=== PATIENT | male | born 1935 | race Caucasian/White ===

== ENCOUNTER 2017-06-20 19:01 | Inpatient (IN) | payer MEDICARE, OTHER ==
[~2017-06-20] VITALS: Ht 180.3 cm; Wt 65.8 kg
[2017-06-20 21:27] VITALS: BP 143/68
[2017-06-20] MEDS ORDERED: METOPROLOL SUCC25 MG ORAL (21:49)
[2017-06-20] MEDS ORDERED: NAMENDA5 MG ORAL (21:49)
[2017-06-20] MEDS ORDERED: WARFARIN SODIUM1 MG ORAL (21:49)
[2017-06-20] MEDS ORDERED: AMLODIPINE BESYL5 MG ORAL (21:49)
[2017-06-20] MEDS ORDERED: TAMSULOSIN HCL0.4 MG ORAL (21:49)
[2017-06-20] MEDS ORDERED: PANTOPRAZOLE SO40 MG ORAL (21:49)
[2017-06-20] MEDS ORDERED: PROSCAR5 MG ORAL (21:49)
--- NOTE | 2017-06-20 21:51 | Infectious Diseases Prog Note ---
Assessment/Plan Problems: (1) Sepsis Assessment & Plan: will send blood culture and start vancomycin and zosyn empirically (2) Urinary tract infection Assessment & Plan: will send urine culture and start zosyn Subjective Allergies: Coded Allergies: No Known Allergies (Unverified , 06/20/17) Objective Vital Signs Last 24 Hour Vital Signs Date Time Temp Pulse Resp B/P (MAP) Pulse Ox O2 Delivery O2 Flow Rate FiO2 06/20/17 21:27 97.4 64 16 143/68 97 Room Air Loreto Greenwood M.D. Jun 20, 2017 21:51
[2017-06-20] MEDS ORDERED: ACETAMINOPHEN500 M7 PO (21:53)
[2017-06-20] MEDS ORDERED: Acetaminophen 500mg (ES) tab ORAL PRN (22:00)
[2017-06-20] MEDS ORDERED: Vancomycin 1250mg/D5W 250ml IVPB SCH (23:30)
[2017-06-21] VITALS (7 sets, daily range): BP systolic 109–132; BP diastolic 49–69
[2017-06-21 00:01] LABS: MEAN CORPUSCULAR HEMOGLOBIN 34.8 PG (27.0-31.0); MEAN CORPUSCULAR HGB CONC 33.6 G/DL (32.0-36.0); MEAN CORPUSCULAR VOLUME 104 FL (80-99); MEAN PLATELET VOLUME 5.8 FL (6.5-10.1); PLATELET COUNT 220 K/UL (150-450); RED BLOOD COUNT 3.21 M/UL (4.70-6.10); RED CELL DISTRIBUTION WIDTH 14.4 % (11.6-14.8); WHITE BLOOD COUNT 8.8 K/UL (4.8-10.8)
[2017-06-21 00:31] LABS: THYROID STIMULATING HORMONE 0.961 uIU/mL (0.300-4.500)
[2017-06-21 00:43] LABS: INR 1.6 (0.9-1.1); PROTHROMBIN TIME 16.8 SEC (9.30-11.50)
[2017-06-21] MEDS ORDERED: Zosyn 3.375gm inj ONE (01:00)
[2017-06-21 01:04] LABS: ALANINE AMINOTRANSFERASE 5 U/L (3-41); ALBUMIN/GLOBULIN RATIO 0.9 (1.0-2.7); ANION GAP 11 (5-15); ASPARTATE AMINO TRANSFERASE 13 U/L (5-40); CALCIUM 9.1 mg/dL (8.6-10.2); CARBON DIOXIDE 26 mEQ/L (20-30); CHLORIDE 102 mEQ/L (98-107); HEMOLYSIS 1; POTASSIUM 3.8 mEQ/L (3.4-4.9); SODIUM 139 mEQ/L (135-145); TOTAL PROTEIN 6.1 g/dL (6.6-8.7)
[2017-06-21 01:40] LABS: PATH BLOOD SMEAR/OMC SENT TO PATHOLOGIST; RETICULOCYTE COUNT 0.7 % (0.0-2.0)
[2017-06-21 02:23] LABS: BAND NEUTROPHILS % (MANUAL) 7 % (0-8); BASOPHILS % (MANUAL) 1 % (0-2); EOSINOPHILS % (MANUAL) 1 % (0-3); LYMPHOCYTES % (MANUAL) 37 % (20-45); NEUTROPHILS % (MANUAL) 51 % (45-75); TOTAL CELLS COUNTED 100
[2017-06-21 02:24] LABS: PLATELET ESTIMATE ADEQUATE
[2017-06-21 02:25] LABS: ANISOCYTOSIS 1+; HYPOCHROMASIA 1+; MACROCYTES 1+; PLATELET MORPHOLOGY NORMAL
[2017-06-21] MEDS: Piperacillin/Tazobactam 3.375 GM in D5W 110 ML IVPB SCH ×2 (02:57→09:11)
[2017-06-21 06:50] LABS: APPEARANCE,URINE SLIGHTLY CLOUDY; KETONES,URINE NEGATIVE (NEGATIVE); LEUKOCYTE ESTERASE ,URINE 3+ (NEGATIVE); NITRITE,URINE NEGATIVE (NEGATIVE); PH,URINE 5 (4.5-8.0); PROTEIN,URINE 2+ (NEGATIVE); UROBILINOGEN,URINE NORMAL MG/DL (0.0-1.0)
[2017-06-21 07:52] LABS: BACTERIA,URINE FEW /HPF; SQUAMOUS EPITHELIAL CELL,UR FEW /LPF (NONE/OCC); WBC,URINE 40-60 /HPF (0 - 0)
--- NOTE | 2017-06-21 08:22 | Cardiology Progress Note ---
Assessment/Plan Assessment/Plan The patient is seen and examined, full consult note will be dictated shortly. Objective Last 24 Hour Vital Signs Date Time Temp Pulse Resp B/P (MAP) Pulse Ox O2 Delivery O2 Flow Rate FiO2 06/21/17 08:15 97.0 70 18 124/55 95 Room Air 06/21/17 05:26 97.4 69 18 128/69 95 Room Air 06/21/17 03:08 97.3 69 16 126/60 95 Room Air 06/20/17 21:27 97.4 64 16 143/68 97 Room Air Laboratory Tests Test 06/20/17 23:45 06/21/17 02:00 06/21/17 06:30 White Blood Count 8.8 K/UL (4.8-10.8) Red Blood Count 3.21 M/UL (4.70-6.10) L Hemoglobin 11.2 G/DL (14.2-18.0) L Hematocrit 33.2 % (42.0-52.0) L Mean Corpuscular Volume 104 FL (80-99) H Mean Corpuscular Hemoglobin 34.8 PG (27.0-31.0) H Mean Corpuscular Hemoglobin Concent 33.6 G/DL (32.0-36.0) Red Cell Distribution Width 14.4 % (11.6-14.8) Platelet Count 220 K/UL (150-450) Mean Platelet Volume 5.8 FL (6.5-10.1) L Neutrophils (%) (Auto) % (45.0-75.0) Lymphocytes (%) (Auto) % (20.0-45.0) Monocytes (%) (Auto) % (1.0-10.0) Eosinophils (%) (Auto) % (0.0-3.0) Basophils (%) (Auto) % (0.0-2.0) Differential Total Cells Counted 100 Neutrophils % (Manual) 51 % (45-75) Lymphocytes % (Manual) 37 % (20-45) Monocytes % (Manual) 3 % (1-10) Eosinophils % (Manual) 1 % (0-3) Basophils % (Manual) 1 % (0-2) Band Neutrophils 7 % (0-8) Platelet Estimate Adequate Platelet Morphology Normal Hypochromasia 1+ Anisocytosis 1+ Macrocytosis 1+ Reticulocyte Count 0.7 % (0.0-2.0) Haptoglobin 65 mg/dL (30-200) Prothrombin Time 16.8 SEC (9.30-11.50) H Prothromb Time International Ratio 1.6 (0.9-1.1) H Sodium Level 139 mEQ/L (135-145) Potassium Level 3.8 mEQ/L (3.4-4.9) Chloride Level 102 mEQ/L (98-107) Carbon Dioxide Level 26 mEQ/L (20-30) Anion Gap 11 (5-15) Blood Urea Nitrogen 21 mg/dL (7-23) Creatinine 1.0 mg/dL (0.7-1.2) Estimat Glomerular Filtration Rate mL/min (>60) Glucose Level 91 mg/dL (74-106) Calcium Level 9.1 mg/dL (8.6-10.2) Iron Level 61 ug/dL (59-158) Total Iron Binding Capacity 204 ug/dL (250-400) L Percent Iron Saturation 30 % (15-50) Unsaturated Iron Binding 143 ug/dL (112-346) Ferritin 163 ng/mL (10-230) Total Bilirubin 0.6 mg/dL (0.0-1.2) Aspartate Amino Transf (AST/SGOT) 13 U/L (5-40) Alanine Aminotransferase (ALT/SGPT) 5 U/L (3-41) Alkaline Phosphatase 59 U/L (40-129) Lactate Dehydrogenase 173 U/L (135-230) Total Protein 6.1 g/dL (6.6-8.7) L Albumin 3.0 g/dL (3.5-5.2) L Globulin 3.1 g/dL Albumin/Globulin Ratio 0.9 (1.0-2.7) L Vitamin B12 Level 765 pg/mL (211-946) Thyroid Stimulating Hormone (TSH) 0.961 uIU/mL (0.300-4.500) Hepatitis A IgM Antibody Pending Hepatitis B Surface Antigen Pending Hepatitis B Core IgM Antibody Pending Hepatitis C Antibody Pending Stool Occult Blood Pending Urine Color Yellow Urine Appearance Slightly cloudy Urine pH 5 (4.5-8.0) Urine Specific [place] 1.015 (1.005-1.035) Urine Protein 2+ (NEGATIVE) H Urine Glucose (UA) Negative (NEGATIVE) Urine Ketones Negative (NEGATIVE) Urine Occult Blood 5+ (NEGATIVE) H Urine Nitrite Negative (NEGATIVE) Urine Bilirubin Negative (NEGATIVE) Urine Urobilinogen Normal MG/DL (0.0-1.0) Urine Leukocyte Esterase 3+ (NEGATIVE) H Urine RBC 10-15 /HPF (0 - 0) H Urine WBC 40-60 /HPF (0 - 0) H Urine Squamous Epithelial Cells Few /LPF (NONE/OCC) Urine Bacteria Few /HPF (NONE) ADRIENNE FRIEDMAN Jun 21, 2017 08:22
[2017-06-21] MEDS: Memantine 10mg tab ORAL SCH (08:23)
[2017-06-21] MEDS ORDERED: Metoprolol Succinate XL 25mg tab ORAL SCH ×2 (09:00→21:00)
--- NOTE | 2017-06-21 11:12 | General Progress Note ---
Progress Note Progress Note [id number] full note dictated DARYN GÓMEZ Jun 21, 2017 11:12
--- NOTE | 2017-06-21 11:45 | Consultation ---
DATE OF CONSULTATION: 06/20/2017 HEMATOLOGY/ONCOLOGY CONSULTATION REQUESTING PHYSICIAN: Danitza Mustafa M.D. REASON FOR CONSULTATION: Evaluation of anemia. IDENTIFICATION DATA: Dear Dr. Danitza Mustafa, The patient is a pleasant 81-year-old male who I had evaluated in the past with past medical history, which is significant for SPIRAL BINDER shunt placement, has been on Coumadin. His past medical history is significant for thrombocytopenia, hydronephrosis, UTI, dehydration, hypertensive kidney disease, alcoholic liver disease, chronic kidney disease, BPH, history of polymyalgias. At this time, he presents with sepsis. Laboratories studies are pending at this moment. In the past, coagulopathy as well secondary to Coumadin. Hematology service was consulted for evaluation and treatment. 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 MEDICATIONS: Pepcid, lisinopril, , Namenda, and Proscar. ALLERGIES: No known drug allergies. Review Of Systems: Otherwise negative. General: Chronically ill. Skin: No rashes, lumps, or itching. HEENT: No headache, hearing or vision changes. Breasts: No lumps, pain, or discharge. Pulmonary: No cough, sputum, or shortness of breath. Gastrointestinal: No nausea, vomiting, or diarrhea. Genitourinary: No dysuria, frequency, or urgency. Musculoskeletal: No joint swelling, muscle pain, or trauma. PHYSICAL EXAMINATION: VITAL SIGNS: Reviewed. GENERAL: The patient is in no acute distress. PULMONARY: Decreased breath sounds. CARDIOVASCULAR: Regular rate. No S3 or S4. ABDOMEN: Soft, nontender, and nondistended. EXTREMITIES: No cyanosis or pitting edema. Laboratory Data: From before WBC usually between 10,000 to 20,000, hemoglobin 10.7, and platelet count of 156,000. At this time, labs are pending. ASSESSMENT AND RECOMMENDATIONS: 1. Anemia secondary to chronic disease and multiple medical illnesses, comorbid conditions. He anemia workup. 2. 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 3. Anemia secondary to kidney disease, current labs are pending. 4. History of severe hydrocephalus, status post ventriculoperitoneal shunt placement. He has been seen by neurosurgeon in the past at [facility]. 5. Dementia. 6. Gastroesophageal reflux disease. 7. Failure to thrive. I appreciate the consultation. Bharath Ya M.D. DR: SWAPNA JOB#: [id number] CC:
--- NOTE | 2017-06-21 17:09 | Infectious Diseases Prog Note ---
Assessment/Plan Problems: (1) Sepsis Assessment & Plan: await blood culture and continue vancomycin and zosyn empirically (2) Urinary tract infection Assessment & Plan: await urine culture and continue zosyn Subjective Constitutional: Reports: no symptoms HEENT: Reports: no symptoms Respiratory: Reports: no symptoms Breasts: Reports: no symptoms Cardiovascular: Reports: no symptoms Gastrointestinal/Abdominal: Reports: no symptoms Genitourinary: Reports: no symptoms Neurologic: Reports: no symptoms Psychiatric: Reports: no symptoms Skin: Reports: no symptoms Allergies: Coded Allergies: No Known Allergies (Unverified , 06/20/17) Objective Vital Signs Last 24 Hour Vital Signs Date Time Temp Pulse Resp B/P (MAP) Pulse Ox O2 Delivery O2 Flow Rate FiO2 06/21/17 12:39 97.3 56 16 109/56 97 Room Air 06/21/17 08:25 70 124/55 06/21/17 08:23 70 124/55 06/21/17 08:15 97.0 70 18 124/55 95 Room Air 06/21/17 05:26 97.4 69 18 128/69 95 Room Air 06/21/17 03:08 97.3 69 16 126/60 95 Room Air 06/20/17 21:27 97.4 64 16 143/68 97 Room Air Height (Feet): 5 Height (Inches): 11.00 Weight (Pounds): 145 General Appearance: WD/WN, no acute distress HEENT: normocephalic, atraumatic, anicteric, mucous membranes moist, EOMI, pharynx normal, supple, no JVD Respiratory/Chest: chest wall non-tender, lungs clear, normal breath sounds, no respiratory distress, no accessory muscle use Cardiovascular: normal peripheral pulses, normal rate, regular rhythm, no gallop/murmur, no JVD Abdomen: normal bowel sounds, soft, non tender, no organomegaly, non distended , no mass Extremities: no cyanosis, no clubbing Skin: no rash, no lesions, no ulcers Laboratory Tests Test 06/20/17 23:45 06/21/17 02:00 06/21/17 06:30 White Blood Count 8.8 K/UL (4.8-10.8) Red Blood Count 3.21 M/UL (4.70-6.10) L Hemoglobin 11.2 G/DL (14.2-18.0) L Hematocrit 33.2 % (42.0-52.0) L Mean Corpuscular Volume 104 FL (80-99) H Mean Corpuscular Hemoglobin 34.8 PG (27.0-31.0) H Mean Corpuscular Hemoglobin Concent 33.6 G/DL (32.0-36.0) Red Cell Distribution Width 14.4 % (11.6-14.8) Platelet Count 220 K/UL (150-450) Mean Platelet Volume 5.8 FL (6.5-10.1) L Neutrophils (%) (Auto) % (45.0-75.0) Lymphocytes (%) (Auto) % (20.0-45.0) Monocytes (%) (Auto) % (1.0-10.0) Eosinophils (%) (Auto) % (0.0-3.0) Basophils (%) (Auto) % (0.0-2.0) Differential Total Cells Counted 100 Neutrophils % (Manual) 51 % (45-75) Lymphocytes % (Manual) 37 % (20-45) Monocytes % (Manual) 3 % (1-10) Eosinophils % (Manual) 1 % (0-3) Basophils % (Manual) 1 % (0-2) Band Neutrophils 7 % (0-8) Platelet Estimate Adequate Platelet Morphology Normal Hypochromasia 1+ Anisocytosis 1+ Macrocytosis 1+ Reticulocyte Count 0.7 % (0.0-2.0) Haptoglobin 65 mg/dL (30-200) Prothrombin Time 16.8 SEC (9.30-11.50) H Prothromb Time International Ratio 1.6 (0.9-1.1) H Sodium Level 139 mEQ/L (135-145) Potassium Level 3.8 mEQ/L (3.4-4.9) Chloride Level 102 mEQ/L (98-107) Carbon Dioxide Level 26 mEQ/L (20-30) Anion Gap 11 (5-15) Blood Urea Nitrogen 21 mg/dL (7-23) Creatinine 1.0 mg/dL (0.7-1.2) Estimat Glomerular Filtration Rate mL/min (>60) Glucose Level 91 mg/dL (74-106) Calcium Level 9.1 mg/dL (8.6-10.2) Iron Level 61 ug/dL (59-158) Total Iron Binding Capacity 204 ug/dL (250-400) L Percent Iron Saturation 30 % (15-50) Unsaturated Iron Binding 143 ug/dL (112-346) Ferritin 163 ng/mL (10-230) Total Bilirubin 0.6 mg/dL (0.0-1.2) Aspartate Amino Transf (AST/SGOT) 13 U/L (5-40) Alanine Aminotransferase (ALT/SGPT) 5 U/L (3-41) Alkaline Phosphatase 59 U/L (40-129) Lactate Dehydrogenase 173 U/L (135-230) Total Protein 6.1 g/dL (6.6-8.7) L Albumin 3.0 g/dL (3.5-5.2) L Globulin 3.1 g/dL Albumin/Globulin Ratio 0.9 (1.0-2.7) L Vitamin B12 Level 765 pg/mL (211-946) Thyroid Stimulating Hormone (TSH) 0.961 uIU/mL (0.300-4.500) Hepatitis A IgM Antibody Pending Hepatitis B Surface Antigen Pending Hepatitis B Core IgM Antibody Pending Hepatitis C Antibody Pending Stool Occult Blood Positive (NEGATIVE) Urine Color Yellow Urine Appearance Slightly cloudy Urine pH 5 (4.5-8.0) Urine Specific [place] 1.015 (1.005-1.035) Urine Protein 2+ (NEGATIVE) H Urine Glucose (UA) Negative (NEGATIVE) Urine Ketones Negative (NEGATIVE) Urine Occult Blood 5+ (NEGATIVE) H Urine Nitrite Negative (NEGATIVE) Urine Bilirubin Negative (NEGATIVE) Urine Urobilinogen Normal MG/DL (0.0-1.0) Urine Leukocyte Esterase 3+ (NEGATIVE) H Urine RBC 10-15 /HPF (0 - 0) H Urine WBC 40-60 /HPF (0 - 0) H Urine Squamous Epithelial Cells Few /LPF (NONE/OCC) Urine Bacteria Few /HPF (NONE) Current Medications Medications (Trade) Dose Ordered Sig/Raine Route PRN Reason Start Time Stop Time Status Last Admin Dose Admin Acetaminophen (Tylenol) 500 mg Q4H PRN ORAL Mild Pain/Temp > 100.5 06/20/17 22:00 07/20/17 21:59 Amlodipine Besylate (Norvasc) 5 mg DAILY ORAL 06/21/17 09:00 07/21/17 08:59 06/21/17 08:23 Finasteride (Proscar) 5 mg DAILY ORAL 06/21/17 09:00 07/21/17 08:59 06/21/17 08:24 Memantine (Namenda) 5 mg DAILY ORAL 06/21/17 09:00 07/21/17 08:59 06/21/17 08:23 Metoprolol Succinate (Toprol XL) 25 mg BID ORAL 06/21/17 09:00 07/21/17 08:59 06/21/17 08:25 Pantoprazole (Protonix) 40 mg ACBREAKFAST ORAL 06/21/17 09:00 07/21/17 08:59 06/21/17 08:24 Piperacillin Sod/ Tazobactam Sod 3.375 gm/Dextrose 110 ml @ 27.5 mls/hr EVERY 8 HOURS IVPB 06/21/17 01:00 06/28/17 00:59 06/21/17 09:11 Tamsulosin HCl (Flomax) 0.4 mg BEDTIME ORAL 06/21/17 21:00 07/21/17 20:59 Vancomycin HCl (Vanco rx to dose) 1 ea DAILY PRN MISC Per rx protocol 06/20/17 22:00 07/20/17 21:59 Vancomycin HCl/ Dextrose 250 ml @ 166.667 mls/hr Q24H IVPB 06/20/17 23:30 06/25/17 23:29 06/21/17 01:20 Warfarin Sodium (Coumadin) 0.5 mg 1700 ORAL 06/21/17 17:00 06/26/17 16:59 Loreto Greenwood M.D. Jun 21, 2017 17:09
[2017-06-21] MEDS: Warfarin Sodium 1mg ORAL SCH (17:25)
--- NOTE | 2017-06-21 17:28 | Diagnostic Imaging Report ---
Indication: Dyspnea Technique: One view of the chest Comparison: none Findings: There is elevation of left hemidiaphragm. Lungs and pleural spaces otherwise clear. Heart size is upper limits normal. The aorta is calcified. Ventriculoperitoneal shunt tubing projects over the right neck, chest, abdomen Impression: No acute process
[2017-06-21] MEDS: Metoprolol Succinate XL 25mg tab ORAL SCH (18:14)
[2017-06-21] MEDS ORDERED: Levofloxacin 500mg tab GT SCH (18:30)
[2017-06-21] MEDS: Levofloxacin 500mg tab ORAL SCH (19:11)
--- NOTE | 2017-06-21 20:30 | Consultation ---
DATE OF CONSULTATION: 06/21/2017 CARDIOLOGY CONSULTATION REFERRING PHYSICIAN: Danitza Mustafa M.D. Reason For Consultation: Management of abnormal EKG consistent with AV brooke block. History Of Present Illness: The patient is a very unfortunate 81-year-old gentleman, who is transferred from [facility] after he was taken from the nursing facility through emergency department at [facility] for altered mental status. The patient at the time of evaluation in the emergency department was found to be responding well to the questions, although he is a poor historian. He did not have any chest pain or shortness of breath. Initial evaluation in the emergency department at [facility] includes a 12-lead electrocardiogram, which was significant for sinus rhythm, mainly first-degree AV block, and baseline artifact. The patient has been on warfarin for unclear reasons and there is a suspicious for paroxysmal atrial fibrillation. Initial laboratory finding also showed presence of anemia. His renal function was within normal limits with creatinine 1.1. His beta-natriuretic peptide was within normal limits basically ruling out acute heart failure. The patient was transferred to this facility under care of Dr. Mustafa. Cardiology consultation was made at the request of Dr. Mustafa for management of abnormal ECG mentioned above. The patient currently denying any chest pain or shortness of breath. PAST MEDICAL HISTORY: 1. 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 2. History of possible paroxysmal atrial fibrillation. 3. History of gastroesophageal reflux disease. 4. History of anemia. 5. History of urine tract infection. 6. History of hypertension. Medications: In the nursing facility includes metoprolol 50 mg twice daily, finasteride 5 mg p.o. daily, lisinopril 10 mg p.o. daily, memantine 21 mg one capsule daily, Remeron 15 mg half a tablet twice daily, tamsulosin 0.4 mg at bedtime, and warfarin 1 mg p.o. daily. ALLERGIES: No known drug allergies. Social History: There is no history of tobacco, alcohol, or illicit drug use. He is a resident of a halfway facility under the care of Dr. Mustafa. Review Of Systems: HEENT: Denies any headache, diplopia, or blurred vision. Constitutional: Denies any fever, chills, night sweats, or weight loss. Cardiovascular: Denies any chest pain, shortness breath, PND, orthopnea, or leg swelling. Pulmonary: Denies any cough, hemoptysis, or wheezing. Gastrointestinal: Denies any nausea, vomiting, diarrhea, constipation, abdominal pain, or GI bleed. Genitourinary: Denies any hematuria, dysuria, or incontinence. Neurology: Denies any motor dysfunction, sensory deficit, or altered speech. The patient had some altered level of consciousness, which was reported by the assisted staff. PHYSICAL EXAMINATION: General: The patient is a very pleasant 81-year-old gentleman, in no apparent respiratory distress, answering to my questions appropriately. Vital Signs: Blood pressure was 140/58, respirations 18, pulse of 67, and O2 saturation 98% on room air. HEENT: Atraumatic and normocephalic. Anicteric. Pupils are equal, round, and reactive to light and accommodation. Extraocular muscles intact. There is a presence of SURGICAL SERVICES ASSISTANT shunt visible on the right parietal region. Neck: JVP less than 5 centimeter. No carotid bruit. Carotid upstrokes 2+ bilaterally. Cardiovascular: Normal S1 and S2. Regular rate and rhythm. No murmurs, gallops, or rubs. PMI is at fourth intercostal space in the midclavicular line. LUNGS: Some crackles in the left base. Abdomen: Soft, nontender, and nondistended. No hepatosplenomegaly. Positive bowel sounds. EXTREMITIES: No evidence of edema, clubbing, or cyanosis. Laboratory And Diagnostic Data: WBC is 8.4, hemoglobin 11.7, hematocrit 37.3, and platelet count is 230,000. Glucose is 105, sodium 140, potassium 4.0, chloride 102, bicarbonate 30, BUN of 24, and creatinine 1.1. Calcium is 9.2. Lactate was 1.1. Troponin-I was less than 0.01. INR was 1.8. Beta-natriuretic peptide was 52. A 12-lead electrocardiogram shows sinus rhythm with first-degree AV block, most likely there is a great deal of artifact in the baseline to make a determination of the exact rhythm quite impossible. There was an ECG from 07/03/2016, which shows sinus rhythm with first-degree AV block and single premature atrial contraction. Assessment And Plan: The patient is a very pleasant 81-year-old gentleman, was seen in Cardiology consultation at request of Dr. Mustafa. 1. 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 The underlying rhythm is extremely difficult to be evaluated due to baseline artifact. We will repeat 12-lead electrocardiogram. The patient of note is on warfarin with subtherapeutic level of 1.8. I suspect that the patient has had paroxysmal atrial fibrillation in the past. We will continue monitoring. The INR should be target of 2 to 3. We will have pharmacy to dose. The patient will be also continued on metoprolol for rate control. 2. We will obtain 2D echocardiography to assess left ventricular systolic function. 3. History of hypertension. The patient will be continued on amlodipine and metoprolol. I would like to thank, Dr. Mustafa, for courtesy of this consultation. Tony Culp M.D. DR: KEVIN JOB#: [id number] CC:
[2017-06-21] MEDS: Tamsulosin 0.4mg cap ORAL SCH (21:37)
[2017-06-22] VITALS (7 sets, daily range): BP systolic 110–153; BP diastolic 43–85
--- NOTE | 2017-06-22 03:45 | Consultation ---
DATE OF CONSULTATION: INFECTIOUS DISEASE CONSULTATION CONSULTING PHYSICIAN: Loreto Greenwood M.D. REQUESTING PHYSICIAN: Danitza Mustafa M.D. Reason For Consultation: Sepsis and urinary tract infection, recommendation for antibiotics treatment and management. 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 The patient was found to have urinary tract infection. He had significant leukocytosis with high WBC around 20,000. So, I was consulted by the primary provider for antibiotics treatment and further management. As of note, the patient is a poor historian and cannot provide any history. History was mainly obtained from the medical record. 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 PAST SURGICAL HISTORY: Unknown. Medications: He is on Coumadin, Flomax, Norvasc, Proscar, Protonix, and Toprol-XL. ALLERGIES: He has no known drug allergy. FAMILY HISTORY: Unable to obtain. Social History: He lives in a residential. No recent drugs, tobacco, or alcohol. PHYSICAL EXAMINATION: Vital Signs: Temperature 97.4 degrees, pulse 64, respirations 16, blood pressure 143/68, and saturation 97% on room air. General: An elderly male, lying in bed, awake, alert, and not in distress. HEENT: Normocephalic and atraumatic. Pupils reactive to light. Pale sclerae. Dry oral mucosa. No exudate. NECK: Supple. No lymphadenopathy. CARDIOVASCULAR: Regular rate and rhythm. No murmur. Lungs: Clear bilaterally. Diminished breathing sounds at the bases. No wheezing or rhonchi. Abdomen: Soft, obese, nontender, and nondistended. Positive bowel sounds. No hepatosplenomegaly or ascites. EXTREMITY: No edema or cyanosis. Skin: He had minor skin break in the perianal area and inguinal area. Laboratory Data: Laboratories showed white count of 8.8, hemoglobin of 11.2, and platelet count of 220,000. BUN of 21 and creatinine of 1. AST of 13 and ALT of 5. Urinalysis showed +3 leukocyte esterase, 10 to 15 red blood cells, and 40 to 60 WBC. IMAGING: Nothing available at this moment. ASSESSMENT AND RECOMMENDATION: 1. Sepsis and leukocytosis, suspect source urinary tract infection. We will order a chest x-ray to rule out any new infiltration. I will start the patient empirically on vancomycin and Zosyn. Pending culture results. 2. Urinary tract infection. The patient will be already on Zosyn, pending urine culture. 3. Atrial fibrillation. Continue Coumadin. Monitor INR to keep therapeutic. Thank you for the consult. Infectious Disease will continue to follow. Please feel free to call with any question. Loreto Greenwood M.D. DR: DUANE JOB#: [id number] CC:
[2017-06-22 07:20] LABS: INR 1.8 (0.9-1.1); PROTHROMBIN TIME 18.5 SEC (9.30-11.50)
[2017-06-22 07:31] LABS: CREATININE, RANDOM URINE 137.5 mg/dL
[2017-06-22 07:54] LABS: OTHERS PATHOLOGIST COMMENT
[2017-06-22] MEDS ORDERED: Tubing IV Secondary IV ONE (10:42)
[2017-06-22] MEDS ORDERED: NS 275ml ONE (10:42)
[2017-06-22] MEDS: Levofloxacin 500mg tab ORAL SCH (11:23)
[2017-06-22] MEDS: Metoprolol Succinate XL 25mg tab ORAL SCH ×2 (11:23→20:40)
[2017-06-22] MEDS: Memantine 10mg tab ORAL SCH (11:24)
--- NOTE | 2017-06-22 13:53 | General Progress Note ---
Assessment/Plan Assessment/Plan ASSESSMENT AND RECOMMENDATIONS: 1. Anemia secondary to chronic disease and multiple medical illnesses, comorbid conditions. --> work up reviewed, no evidence of iron deficiency --> hgb goal is above 7 2. 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 3. Occult blood positive, rule out gi bleed --> needs GI consultation 4. History of severe hydrocephalus, status post ventriculoperitoneal shunt placement. He has been seen by neurosurgeon in the past at [facility]. 5. Sepsis likely 2/2 UTI 6. Gastroesophageal reflux disease. 7. Failure to thrive. Subjective Constitutional: Reports: no symptoms HEENT: Reports: no symptoms Cardiovascular: Reports: no symptoms Respiratory: Reports: no symptoms Gastrointestinal/Abdominal: Reports: no symptoms Genitourinary: Reports: no symptoms Neurologic/Psychiatric: Reports: no symptoms Endocrine: Reports: no symptoms Hematologic/Lymphatic: Reports: no symptoms Allergies: Coded Allergies: No Known Allergies (Unverified , 06/20/17) Objective Last 24 Hour Vital Signs Date Time Temp Pulse Resp B/P (MAP) Pulse Ox O2 Delivery O2 Flow Rate FiO2 06/22/17 13:22 96.1 64 19 132/55 95 Room Air 06/22/17 11:24 79 110/43 06/22/17 11:23 79 110/43 06/22/17 08:00 96.3 79 18 110/43 94 Room Air 06/22/17 04:00 98.6 75 18 120/60 98 Room Air 06/22/17 00:00 98.2 70 18 124/55 98 Room Air 06/21/17 19:55 98.4 73 20 111/49 95 Room Air 06/21/17 18:14 71 132/61 06/21/17 17:59 71 132/61 06/21/17 16:00 96.8 66 19 113/50 96 Room Air Laboratory Tests 06/22/17 05:50: Prothrombin Time 18.5H, Prothromb Time International Ratio 1.8H Height (Feet): 5 Height (Inches): 11.00 Weight (Pounds): 145 General Appearance: no apparent distress EENT: PERRL/EOMI Neck: non-tender Cardiovascular: regular rhythm Abdomen: no organomegaly Neurologic: leather roller II-XII grossly normal Skin: normal pigmentation Bharath Ya Jun 22, 2017 13:53
--- NOTE | 2017-06-22 15:46 | Infectious Diseases Prog Note ---
Assessment/Plan Problems: (1) Sepsis Assessment & Plan: await blood culture and continue vancomycin and zosyn empirically (2) Urinary tract infection Assessment & Plan: await urine culture and continue zosyn Subjective ROS Limited/Unobtainable: Yes Allergies: Coded Allergies: No Known Allergies (Unverified , 06/20/17) Objective Vital Signs Last 24 Hour Vital Signs Date Time Temp Pulse Resp B/P (MAP) Pulse Ox O2 Delivery O2 Flow Rate FiO2 06/22/17 13:22 96.1 64 19 132/55 95 Room Air 06/22/17 11:24 79 110/43 06/22/17 11:23 79 110/43 06/22/17 08:00 96.3 79 18 110/43 94 Room Air 06/22/17 04:00 98.6 75 18 120/60 98 Room Air 06/22/17 00:00 98.2 70 18 124/55 98 Room Air 06/21/17 19:55 98.4 73 20 111/49 95 Room Air 06/21/17 18:14 71 132/61 06/21/17 17:59 71 132/61 06/21/17 16:00 96.8 66 19 113/50 96 Room Air Height (Feet): 5 Height (Inches): 11.00 Weight (Pounds): 145 General Appearance: WD/WN, no acute distress HEENT: normocephalic, atraumatic, anicteric, mucous membranes moist, PERRL Respiratory/Chest: chest wall non-tender, lungs clear, normal breath sounds, no respiratory distress, no accessory muscle use Cardiovascular: normal peripheral pulses, normal rate, regular rhythm, no gallop/murmur, no JVD Abdomen: normal bowel sounds, soft, non tender, no organomegaly, non distended , no mass, no scars Extremities: no cyanosis, no clubbing Skin: no rash, no lesions, no ulcers Microbiology Date/Time Source Procedure Growth Status 06/20/17 23:50 Blood Blood Culture - Preliminary NO GROWTH AFTER 24 HOURS Resulted 06/20/17 23:45 Blood Blood Culture - Preliminary NO GROWTH AFTER 24 HOURS Resulted 06/20/17 23:50 Nasal Nares MRSA Culture - Final NO METHICILLIN RESISTANT STAPH AUREUS... Complete 06/21/17 06:30 Urine,Clean Catch Urine Culture - Preliminary Gram Negative Jameel Resulted Laboratory Tests Test 06/22/17 05:50 Prothrombin Time 18.5 SEC (9.30-11.50) H Prothromb Time International Ratio 1.8 (0.9-1.1) H Current Medications Medications (Trade) Dose Ordered Sig/Raine Route PRN Reason Start Time Stop Time Status Last Admin Dose Admin Acetaminophen (Tylenol) 500 mg Q4H PRN ORAL Mild Pain/Temp > 100.5 06/20/17 22:00 07/20/17 21:59 Amlodipine Besylate (Norvasc) 5 mg DAILY ORAL 06/21/17 09:00 07/21/17 08:59 06/22/17 11:24 Finasteride (Proscar) 5 mg DAILY ORAL 06/21/17 09:00 07/21/17 08:59 06/22/17 11:23 Levofloxacin (Levaquin) 500 mg DAILY ORAL 06/21/17 18:30 06/28/17 18:29 06/22/17 11:23 Memantine (Namenda) 5 mg DAILY ORAL 06/21/17 09:00 07/21/17 08:59 06/22/17 11:24 Metoprolol Succinate (Toprol XL) 25 mg Q12HR ORAL 06/21/17 18:00 07/21/17 17:59 06/22/17 11:23 Pantoprazole (Protonix) 40 mg ACBREAKFAST ORAL 06/21/17 09:00 07/21/17 08:59 06/22/17 05:26 Tamsulosin HCl (Flomax) 0.4 mg BEDTIME ORAL 06/21/17 21:00 07/21/17 20:59 06/21/17 21:37 Warfarin Sodium (Coumadin) 0.5 mg 1700 ORAL 06/21/17 17:00 06/26/17 16:59 06/21/17 17:25 Loreto Greenwood M.D. Jun 22, 2017 15:46
--- NOTE | 2017-06-22 16:45 | General Progress Note ---
Assessment/Plan Problem List: (1) Urinary tract infection ICD Codes: N39.0 - Urinary tract infection, site not specified SNOMED: 54380688 (2) Sepsis ICD Codes: A41.9 - Sepsis, unspecified organism SNOMED: 23347700 Status: progressing Assessment/Plan afebrile vitals stable uti is improving sepsis is improving vitals stable Subjective ROS Limited/Unobtainable: Yes Allergies: Coded Allergies: No Known Allergies (Unverified , 06/20/17) Objective Last 24 Hour Vital Signs Date Time Temp Pulse Resp B/P (MAP) Pulse Ox O2 Delivery O2 Flow Rate FiO2 06/22/17 13:22 96.1 64 19 132/55 95 Room Air 06/22/17 11:24 79 110/43 06/22/17 11:23 79 110/43 06/22/17 08:00 96.3 79 18 110/43 94 Room Air 06/22/17 04:00 98.6 75 18 120/60 98 Room Air 06/22/17 00:00 98.2 70 18 124/55 98 Room Air 06/21/17 19:55 98.4 73 20 111/49 95 Room Air 06/21/17 18:14 71 132/61 06/21/17 17:59 71 132/61 Laboratory Tests 06/22/17 05:50: Prothrombin Time 18.5H, Prothromb Time International Ratio 1.8H Height (Feet): 5 Height (Inches): 11.00 Weight (Pounds): 145 Neck: normal alignment Cardiovascular: normal rate Danitza Mustafa MD Jun 22, 2017 16:45
[2017-06-22 17:38] LABS: RED BLOOD COUNT 3.15 M/UL (4.70-6.10); WHITE BLOOD COUNT 7.8 K/UL (4.8-10.8)
[2017-06-22 17:39] LABS: BASOPHILS % (AUTO) 1.1 % (0.0-2.0); EOSINOPHILS % (AUTO) 3.1 % (0.0-3.0); MEAN CORPUSCULAR HEMOGLOBIN 34.6 PG (27.0-31.0); MEAN CORPUSCULAR HGB CONC 33.1 G/DL (32.0-36.0); MEAN CORPUSCULAR VOLUME 105 FL (80-99); MONOCYTES % (AUTO) 7.2 % (1.0-10.0); NEUTROPHILS % (AUTO) 55.5 % (45.0-75.0); PLATELET COUNT 188 K/UL (150-450)
[2017-06-22] MEDS: Warfarin Sodium 1mg ORAL SCH (17:42)
[2017-06-22] MEDS: Tamsulosin 0.4mg cap ORAL SCH (20:40)
--- NOTE | 2017-06-22 22:06 | General Progress Note ---
Assessment/Plan Assessment/Plan ASSESSMENT AND RECOMMENDATIONS: 1. Anemia secondary to chronic disease and multiple medical illnesses, comorbid conditions. --> work up reviewed, no evidence of iron deficiency --> hgb goal is above 7 2. 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 3. Occult blood positive, rule out gi bleed --> needs GI consultation 4. History of severe hydrocephalus, status post ventriculoperitoneal shunt placement. He has been seen by neurosurgeon in the past at [facility]. 5. Sepsis likely 2/2 UTI 6. Gastroesophageal reflux disease. 7. Failure to thrive. Subjective Constitutional: Reports: no symptoms HEENT: Reports: no symptoms Cardiovascular: Reports: no symptoms Respiratory: Reports: no symptoms Gastrointestinal/Abdominal: Reports: no symptoms Genitourinary: Reports: no symptoms Neurologic/Psychiatric: Reports: no symptoms Endocrine: Reports: no symptoms Hematologic/Lymphatic: Reports: anemia Allergies: Coded Allergies: No Known Allergies (Unverified , 06/20/17) Subjective NAD Objective Last 24 Hour Vital Signs Date Time Temp Pulse Resp B/P (MAP) Pulse Ox O2 Delivery O2 Flow Rate FiO2 06/22/17 20:40 67 126/64 06/22/17 20:00 98.2 67 18 126/64 95 Room Air 06/22/17 16:00 97.2 68 18 120/83 97 Room Air 06/22/17 13:22 96.1 64 19 132/55 95 Room Air 06/22/17 11:24 79 110/43 06/22/17 11:23 79 110/43 06/22/17 08:00 96.3 79 18 110/43 94 Room Air 06/22/17 04:00 98.6 75 18 120/60 98 Room Air 06/22/17 00:00 98.2 70 18 124/55 98 Room Air Intake and Output 06/22/17 06/23/17 18:59 06:59 # Bowel Movements 1 Laboratory Tests 06/22/17 05:50: Prothrombin Time 18.5H, Prothromb Time International Ratio 1.8H 06/22/17 06:00: White Blood Count 7.8, Red Blood Count 3.15L, Hemoglobin 10.9L, Hematocrit 32.9L , Mean Corpuscular Volume 105H, Mean Corpuscular Hemoglobin 34.6H, Mean Corpuscular Hemoglobin Concent 33.1, Red Cell Distribution Width 15.0H, Platelet Count 188, Mean Platelet Volume 6.0L, Neutrophils (%) (Auto) 55.5, Lymphocytes (%) (Auto) 33.0, Monocytes (%) (Auto) 7.2, Eosinophils (%) (Auto) 3.1H, Basophils (%) (Auto) 1.1 Height (Feet): 5 Height (Inches): 11.00 Weight (Pounds): 145 General Appearance: no apparent distress EENT: normal ENT inspection Neck: normal alignment Cardiovascular: normal peripheral pulses Respiratory/Chest: chest wall non-tender Abdomen: soft, no organomegaly Edema: no edema noted Pedal (L), no edema noted Pedal (R) Edema: trace edema Bharath Ya Jun 22, 2017 22:06
[2017-06-23] VITALS: BP 118/46
[2017-06-23 04:00] VITALS: BP 124/56
[2017-06-23 08:00] VITALS: BP 104/54
[2017-06-23 08:05] LABS: INR 1.5 (0.9-1.1); PROTHROMBIN TIME 15.3 SEC (9.30-11.50)
[2017-06-23] MEDS: Memantine 10mg tab ORAL SCH (09:01)
[2017-06-23] MEDS: Levofloxacin 500mg tab ORAL SCH (09:01)
[2017-06-23] MEDS: Metoprolol Succinate XL 25mg tab ORAL SCH ×2 (09:01→20:18)
[2017-06-23 09:49] LABS: CREATININE RANDOM URINE 121.9 mg/dL (Not Estab.); MICROALBUMIN/CREATININE RATIO 52.3 mg/g creat (0.0-30.0)
[2017-06-23 12:00] VITALS: BP 116/54
[2017-06-23 16:00] VITALS: BP 116/49
[2017-06-23] MEDS ORDERED: Warfarin Sodium 1mg ORAL ONE (17:00)
[2017-06-23 20:00] VITALS: BP 120/59
[2017-06-23] MEDS: Tamsulosin 0.4mg cap ORAL SCH (20:18)
--- NOTE | 2017-06-23 20:22 | General Progress Note ---
Assessment/Plan Problem List: (1) Urinary tract infection ICD Codes: N39.0 - Urinary tract infection, site not specified SNOMED: 85368139 (2) Sepsis ICD Codes: A41.9 - Sepsis, unspecified organism SNOMED: 79747683 Status: progressing Assessment/Plan afebrile vitals stable uti is improving sepsis abx per id reviewed chart and labs Subjective ROS Limited/Unobtainable: Yes Allergies: Coded Allergies: No Known Allergies (Unverified , 06/20/17) Objective Last 24 Hour Vital Signs Date Time Temp Pulse Resp B/P (MAP) Pulse Ox O2 Delivery O2 Flow Rate FiO2 06/23/17 20:18 64 120/59 06/23/17 20:00 97.7 64 18 120/59 96 Room Air 06/23/17 16:00 97.0 70 18 116/49 96 Room Air 06/23/17 12:00 97.9 71 17 116/54 95 Room Air 06/23/17 09:01 74 104/54 06/23/17 09:01 74 104/54 06/23/17 08:00 97.5 74 19 104/54 95 Room Air 06/23/17 04:00 97.7 65 18 124/56 95 Room Air 06/23/17 00:00 98.1 64 18 118/46 96 Room Air 06/22/17 20:40 67 126/64 Intake and Output 06/23/17 06/24/17 19:00 07:00 Intake Total 500 ml Balance 500 ml Intake Oral 500 ml # Voids 3 # Bowel Movements 1 Laboratory Tests 06/23/17 05:50: Prothrombin Time 15.3H, Prothromb Time International Ratio 1.5H Height (Feet): 5 Height (Inches): 11.00 Weight (Pounds): 145 Cardiovascular: normal rate Respiratory/Chest: lungs clear Abdomen: non tender Danitza Mustafa MD Jun 23, 2017 20:22
[2017-06-24] VITALS: BP 113/54
[2017-06-24 04:00] VITALS: BP 110/58
[2017-06-24 06:42] LABS: INR 1.3 (0.9-1.1); PROTHROMBIN TIME 14.1 SEC (9.30-11.50)
--- NOTE | 2017-06-24 08:11 | General Progress Note ---
Assessment/Plan Assessment/Plan ASSESSMENT AND RECOMMENDATIONS: 1. Anemia secondary to chronic disease and multiple medical illnesses, comorbid conditions. --> work up reviewed, no evidence of iron deficiency --> hgb goal is above 8 2. 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 --> inr goal2-3 3. Occult blood positive, rule out gi bleed --> needs GI consultation 4. History of severe hydrocephalus, status post ventriculoperitoneal shunt placement. He has been seen by neurosurgeon in the past at [facility]. 5. Sepsis likely 2/2 UTI 6. Gastroesophageal reflux disease. 7. Failure to thrive. Subjective Date patient seen: Jun 23, 2017 Constitutional: Reports: no symptoms HEENT: Reports: no symptoms Cardiovascular: Reports: no symptoms Respiratory: Reports: no symptoms Gastrointestinal/Abdominal: Reports: no symptoms Genitourinary: Reports: no symptoms Neurologic/Psychiatric: Reports: no symptoms Endocrine: Reports: no symptoms Hematologic/Lymphatic: Reports: no symptoms Allergies: Coded Allergies: No Known Allergies (Unverified , 06/20/17) Subjective doing better Objective Last 24 Hour Vital Signs Date Time Temp Pulse Resp B/P (MAP) Pulse Ox O2 Delivery O2 Flow Rate FiO2 06/24/17 04:00 97.1 69 20 110/58 94 Room Air 06/24/17 00:00 97.5 66 18 113/54 97 Room Air 06/23/17 20:18 64 120/59 06/23/17 20:00 97.7 64 18 120/59 96 Room Air 06/23/17 16:00 97.0 70 18 116/49 96 Room Air 06/23/17 12:00 97.9 71 17 116/54 95 Room Air 06/23/17 09:01 74 104/54 06/23/17 09:01 74 104/54 Laboratory Tests 06/24/17 04:30: Prothrombin Time 14.1H, Prothromb Time International Ratio 1.3H Height (Feet): 5 Height (Inches): 11.00 Weight (Pounds): 145 General Appearance: no apparent distress EENT: PERRL/EOMI Neck: normal alignment Cardiovascular: normal rate Edema: no edema noted Pedal (L), no edema noted Pedal (R) Neurologic: line clearance foreman II-XII grossly normal Skin: normal pigmentation, warm/dry Kleynberg,Bharath L. Jun 24, 2017 08:11
--- NOTE | 2017-06-24 09:15 | Consultation ---
DATE OF CONSULTATION: 06/21/2017 NEPHROLOGY CONSULTATION CONSULTING PHYSICIAN: Cady Briseno M.D. REFERRING PHYSICIAN: Danitza Mustafa M.D. Reason For Consultation: Acute renal failure and urinary tract infection. 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 Upon arrival in the ER, the patient's vital signs were stable and the patient was alert and awake and back to his normal. Also, the patient had a CT scan, which did not show any evidence of acute stroke. The patient was found to have urinary tract infection. Consequently, the patient was transferred to [facility] for continuation of IV antibiotics and further management. I was called for management of renal disease and electrolyte imbalance. PAST MEDICAL HISTORY: 1. Hypertension. 2. 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 3. History of GERD. 4. History of BPH. 5. History of UTI in the past. 6. History of dementia. 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 HOME MEDICATIONS: 1. Metoprolol 50 mg p.o. daily. 2. Famotidine 20 mg p.o. daily. 3. Proscar 5 mg p.o. daily. 4. Namenda 21 mg p.o. daily. 5. Remeron 15 mg p.o. daily. 6. Flomax 0.4 mg p.o. daily. 7. Coumadin 1 mg p.o. daily. ALLERGIES: No known drug allergies. Social History: [facility]. There is no known history of tobacco, alcohol, or drug use. Review Of Systems: Somewhat limited due to the patient's mental status.General: There was no fever or chills reported. Pulmonary: No shortness of breath or cough. Cardiovascular: No chest pain or palpitations. Gastrointestinal: There was no nausea or vomiting, although decreased appetite. Genitourinary: Denies any dysuria, frequency, or hematuria. PHYSICAL EXAMINATION: Vital Signs: The patient has a temperature of 97 degrees, blood pressure of 143/68, pulse rate of 64, respiratory rate of 18. Head and Neck: No JVP. No LAD. No thyromegaly. Extraocular movement intact. Pupils are reactive to light and accommodation. LUNGS: Decreased breathing sounds on both sides. CARDIAC: Regular rate and rhythm. S1 and S2. No murmur. No rub. ABDOMEN: Soft, nontender, and nondistended. EXTREMITIES: Trace edema. No clubbing. No cyanosis. Laboratory Data: UA over here revealed a specific gravity of 1.015, protein 2+, blood 5+, leukocyte esterase 3+, WBCs 40 to 60, RBCs 10 to 5. Chemistry reveals sodium 139, potassium 3.8, chloride 102, bicarb 26, BUN of 21, creatinine 1, glucose of 91, calcium of 9.4. Iron of 61. AST of 13, ALT of 5, and alkaline phosphatase of 59. Total protein of 6.1, albumin of 3. CBC revealed WBC count of 8.8, hemoglobin of 11.2, hematocrit of 33.3, MCV 104,000, platelet count of 220. ASSESSMENT: 1. Proteinuria and hematuria, most likely as a result of the urinary tract infection. 2. Dehydration based on the specific gravity of the urine, the patient has very concentrated urine. 3. Altered mental status. 4. Anemia. 5. History of dementia. 6. Hypertension, almost well controlled. 7. History of benign prostatic hypertrophy. Plan: Plan for the patient is to obtain a random urine protein-creatinine ratio to calculate the proteinuria. Check the urine sodium and creatinine to calculate fractional excretion of sodium. I will check the prealbumin level for evaluation of nutritional status. Avoid any nephrotoxics. At the end, I would like to thank Dr. Danitza Mustafa for allowing me to participate in the care of this patient. Cady Briseno M.D. DR: SHARYN JOB#: [id number] CC: JOSIAS
--- NOTE | 2017-06-24 09:15 | History and Physical Report ---
DATE OF ADMISSION: 06/20/2017 History Of Present Illness: The patient is a very poor historian. The patient cannot give any history transferred from [facility], admitted to medical floor for sepsis and urinary tract infection. The patient was altered and lethargic at the [facility], 911 was called, transferred to [facility] and was brought into the [place] for sepsis and urinary tract infection. Again, cannot get any history from the patient due to dementia. Past Medical History: Advanced dementia, hypertension, history of arrhythmia, and history of BPH. PAST SURGICAL HISTORY: Denies. MEDICATIONS: Warfarin, Flomax, Protonix, metoprolol, . ALLERGIES: No known allergies. Social History: Denies history of smoking, alcohol, or illicit drugs. He lives in assisted living. FAMILY HISTORY: Unable to obtain. REVIEW OF SYSTEMS: Unable to obtain, very poor historian. PHYSICAL EXAMINATION: Vital Signs: Temperature is 97.3 degrees, pulse is 69, and blood pressure is 136/60. HEENT: PERRLA. NECK: Supple. No lymphadenopathy. CHEST: Clear to auscultation. GASTROINTESTINAL: Soft, nontender, and nondistended. Extremities: No edema. contractures and is wheelchair bound, which is chronic state for him. Neurologic: Reflexes are equal on both sides. Oriented x1, which is his chronic state. Laboratory and Diagnostic Data: WBC of 8.8, hemoglobin 11.1, and platelets 220,000. Sodium 139, potassium 3.8, BUN of 21, creatinine of 1, and glucose of 91. ASSESSMENT AND PLAN: 1. Urinary tract infection. 2. Sepsis. 3. Borderline potassium. 4. History of arrhythmia. I have asked Dr. Robbi Dr. , Dr. Bhakti Briseno, and Dr. Greenwood to see the patient for the above-mentioned diagnoses and treatment. Danitza Mustafa M.D. DR: Emleia JOB#: [id number] CC:
[2017-06-24 10:18] VITALS: BP 119/51
[2017-06-24] MEDS: Metoprolol Succinate XL 25mg tab ORAL SCH (10:18)
[2017-06-24] MEDS: Levofloxacin 500mg tab ORAL SCH ×2 (10:19→10:48)
[2017-06-24] MEDS: Memantine 10mg tab ORAL SCH ×2 (10:48→10:50)
--- NOTE | 2017-06-24 10:58 | General Progress Note ---
Assessment/Plan Assessment/Plan ASSESSMENT AND RECOMMENDATIONS: 1. Anemia secondary to chronic disease and multiple medical illnesses, comorbid conditions. --> work up reviewed, no evidence of iron deficiency --> hgb goal is above 8 2. 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 --> inr goal2-3 3. Occult blood positive, rule out gi bleed --> needs GI consultation 4. History of severe hydrocephalus, status post ventriculoperitoneal shunt placement. He has been seen by neurosurgeon in the past at [facility]. 5. Sepsis likely 2/2 UTI 6. Gastroesophageal reflux disease. 7. Failure to thrive. Subjective Hematologic/Lymphatic: Reports: anemia Allergies: Coded Allergies: No Known Allergies (Unverified , 06/20/17) All Systems: reviewed and negative except above Subjective doing better Objective Last 24 Hour Vital Signs Date Time Temp Pulse Resp B/P (MAP) Pulse Ox O2 Delivery O2 Flow Rate FiO2 06/24/17 10:18 83 119/51 06/24/17 10:18 83 119/51 06/24/17 04:00 97.1 69 20 110/58 94 Room Air 06/24/17 00:00 97.5 66 18 113/54 97 Room Air 06/23/17 20:18 64 120/59 06/23/17 20:00 97.7 64 18 120/59 96 Room Air 06/23/17 16:00 97.0 70 18 116/49 96 Room Air 06/23/17 12:00 97.9 71 17 116/54 95 Room Air Laboratory Tests 06/24/17 04:30: Prothrombin Time 14.1H, Prothromb Time International Ratio 1.3H Height (Feet): 5 Height (Inches): 11.00 Weight (Pounds): 145 General Appearance: no apparent distress EENT: normal ENT inspection Neck: normal alignment Abdomen: non tender Neurologic: regional cra II-XII grossly normal Skin: warm/dry Bharath Ya Jun 24, 2017 10:58
[2017-06-24] MEDS ORDERED: LEVAQUIN500 MG ORAL (11:46)
[2017-06-24] MEDS ORDERED: Warfarin Sodium 2mg ORAL ONE (17:00)
--- NOTE | 2017-06-24 17:02 | Infectious Diseases Prog Note ---
Assessment/Plan Problems: (1) Sepsis Assessment & Plan: await blood culture and continue levaquin empirically, refused iv antibiotics (2) Urinary tract infection Assessment & Plan: await urine culture and continue levaquin, he refused any iv treatment Subjective ROS Limited/Unobtainable: Yes Allergies: Coded Allergies: No Known Allergies (Unverified , 06/20/17) Objective Vital Signs Last 24 Hour Vital Signs Date Time Temp Pulse Resp B/P (MAP) Pulse Ox O2 Delivery O2 Flow Rate FiO2 06/24/17 10:18 83 119/51 06/24/17 10:18 83 119/51 06/24/17 04:00 97.1 69 20 110/58 94 Room Air 06/24/17 00:00 97.5 66 18 113/54 97 Room Air 06/23/17 20:18 64 120/59 06/23/17 20:00 97.7 64 18 120/59 96 Room Air Height (Feet): 5 Height (Inches): 11.00 Weight (Pounds): 145 General Appearance: WD/WN, no acute distress HEENT: normocephalic, atraumatic, anicteric, mucous membranes moist, PERRL Respiratory/Chest: chest wall non-tender, lungs clear, normal breath sounds, no respiratory distress, no accessory muscle use Cardiovascular: normal peripheral pulses, normal rate, regular rhythm, no gallop/murmur, no JVD Abdomen: normal bowel sounds, soft, non tender, no organomegaly, non distended , no mass, no scars Extremities: no cyanosis, no clubbing Skin: no rash, no lesions, no ulcers Laboratory Tests Test 06/24/17 04:30 Prothrombin Time 14.1 SEC (9.30-11.50) H Prothromb Time International Ratio 1.3 (0.9-1.1) H Loreto Greenwood M.D. Jun 24, 2017 17:02
--- NOTE | 2017-06-24 19:10 | Cardiology Report ---
APPROVED REPORT EKG Measurement Heart [id number] Atrial flutter with variable AV block Low voltage QRS Abnormal ECG
--- NOTE | 2017-06-25 13:53 | Discharge Summary ---
Discharge Summary Hospital Course Date of Admission Jun 20, 2017 at 20:57 Date of Discharge Jun 24, 2017 at 13:30 Admitting Diagnosis HPI Giacomo Henley is a 81 year old male who was admitted on Jun 20, 2017 at 20:57 for Sepsis, Urinary Tract Infection Hospital Course dc summary #[id number] Discharge Medications Continued Medications: Amlodipine Besylate* (Amlodipine Besylate*) 5 Mg Tablet 5 MG ORAL DAILY, TAB Finasteride* (Proscar*) 5 Mg Tablet 5 MG ORAL DAILY, #30 TAB 0 Refills Levofloxacin* (Levaquin*) 500 Mg Tablet 500 MG ORAL DAILY for 6 Days, TAB Memantine Hcl* (Namenda*) 5 Mg Tablet 5 MG ORAL DAILY, TAB Metoprolol Succinate* (Metoprolol Succinate*) 25 Mg Tab.er.24h 25 MG ORAL BID, TAB Pantoprazole* (Pantoprazole*) 40 Mg Tablet.dr 40 MG ORAL DAILY, TAB Tamsulosin Hcl (Tamsulosin Hcl*) 0.4 Mg Cap.er.24h 0.4 MG ORAL BEDTIME, CAP Warfarin Sod* (Warfarin Sod*) 1 Mg Tablet 0.5 MG ORAL DAILY, TAB PHARMACY TO DOSE Discharge Discharge Disposition Patient was discharged to SNF/Subacute Facility(03) Discharge Diagnoses: Discharge Instructions Discharge Instructions Special Instructions I have been assigned to complete a D/C Summary on this account. I was not involved in the patient management Vy Dominguez NP (Vanchtein) Jun 25, 2017 13:53
--- NOTE | 2017-06-26 17:46 | Discharge Summary 2 SIG ---
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 Ambulance was called and the patient was transferred to [facility] for evaluation. [facility] transferred the patient to [facility] for insurance purposes with sepsis and UTI. ADMITTING DIAGNOSES: 1. Sepsis. 2. Urinary tract infection. 3. Atrial fibrillation. 4. Hypertension. 5. Dehydration. Hospital Stay: The patient was admitted. ID consult was requested. The patient was started on empiric antibiotics. Urine culture gram-negative rods. Blood culture negative. Antibiotics subsequently changed to oral prior to transfer to [facility]. Windows Consultant followed. Blood pressure was managed with calcium- channel nusrat and beta-nusrat and was stable. Anticoagulation with Coumadin, INR subtherapeutic below 2. Followup with the Coumadin dosing at the [facility] to achieve desired therapeutic range. Supervisor Wet End followed. The patient was found to have proteinuria. A 24 hours protein is above normal 52. Recommended workup for proteinuria as outpatient. The patient status post one liter of fluids in the emergency department. Electrolytes and renal parameters were closely monitored. Nephrotoxics were avoided. Supervisor Wet End followed. Flomax and Proscar were continued. Counts were closely monitored. Stool OB positive. Recommended outpatient workup to rule out GI bleeding. Hemoglobin and hematocrit remained on the baseline. No trend down. The patient was stable for transfer to assisted [facility]. DISCHARGE DIAGNOSES: 1. Sepsis. 2. Urinary tract infection. 3. Paroxysmal atrial fibrillation/atrial flutter. 4. Hypertension. 5. Dehydration. 6. Benign prostatic hypertrophy. 7. Anemia of chronic disease. DISCHARGE MEDICATIONS: See medication reconciliation list. Discharge Instructions: The patient was discharged to assisted facility. Followup: Followup with medical doctor at the facility. Recommended outpatient workup to rule out GI bleeding due to occult stool OB being positive. Recommended outpatient workup for proteinuria. Danitza Mustafa M.D. I have been assigned to dictate discharge summary on this account and I was not involved in the patient's management. Wen Patel (vanchtein)PArun DR: DORIAN JOB#: [id number] CC:
== END 2017-06-24 13:30 | DRG 872 ==
LOC: 4W 20:57
DX: A41.9 Sepsis, unspecified organism (principal); G91.9 Hydrocephalus, unspecified; I48.0 Paroxysmal atrial fibrillation; G62.9 Polyneuropathy, unspecified; N39.0 Urinary tract infection, site not specified; F03.90 Unspecified dementia, unspecified severity, without behavioral disturbance, psychotic disturbance, mood disturbance, and anxiety; E86.0 Dehydration; I12.9 Hypertensive chronic kidney disease with stage 1 through stage 4 chronic kidney disease, or unspecified chronic kidney disease; R62.7 Adult failure to thrive; N18.9 Chronic kidney disease, unspecified; D63.1 Anemia in chronic kidney disease; Z79.01 Long term (current) use of anticoagulants; K21.9 Gastro-esophageal reflux disease without esophagitis; Z98.2 Presence of cerebrospinal fluid drainage device; I44.0 Atrioventricular block, first degree; I49.9 Cardiac arrhythmia, unspecified; N40.0 Benign prostatic hyperplasia without lower urinary tract symptoms
CPT/HCPCS: 36415; 71010; 80053; 81001; 82043; 82044; 82270; 82570; 82607; 82728; 83010; 83540; 83550; 83615; 84300; 84443; 85007; 85025; 85044; 85060; 85610; 86705; 86709; 86803; 87040; 87081; 87086; 87340; 89050; 93005

== ENCOUNTER 2017-11-15 07:10 | Inpatient (IN) | payer MEDICARE, OTHER ==
[2017-11-15] VITALS (12 sets, daily range): BP systolic 113–158; BP diastolic 43–66
[~2017-11-15] VITALS: Ht 180.3 cm; Wt 65.8 kg
[~2017-11-15 07:10] MED LIST: ACETAMINOPHEN500 M7 PO; AMLODIPINE BESYL5 MG ORAL; LEVAQUIN500 MG ORAL; METOPROLOL SUCC25 MG ORAL; NAMENDA5 MG ORAL; PANTOPRAZOLE SO40 MG ORAL; PROSCAR5 MG ORAL; TAMSULOSIN HCL0.4 MG ORAL; WARFARIN SODIUM1 MG ORAL
[2017-11-15 07:44] LABS: BASOPHILS % (AUTO) 0.9 % (0.0-2.0); HEMATOCRIT 29.9 % (42.0-52.0); HEMOGLOBIN 9.6 G/DL (14.2-18.0); LYMPHOCYTES % (AUTO) 14.1 % (20.0-45.0); MEAN CORPUSCULAR VOLUME 96 FL (80-99); MONOCYTES % (AUTO) 5.4 % (1.0-10.0); NEUTROPHILS % (AUTO) 79.6 % (45.0-75.0); PLATELET COUNT 281 K/UL (150-450); RED BLOOD COUNT 3.11 M/UL (4.70-6.10); RED CELL DISTRIBUTION WIDTH 17.1 % (11.6-14.8); WHITE BLOOD COUNT 7.5 K/UL (4.8-10.8)
[2017-11-15 07:55] LABS: ANION GAP 1 mmol/L (5-15); BLOOD UREA NITROGEN 49 mg/dL (7-18); CALCIUM 9.2 MG/DL (8.5-10.1); CARBON DIOXIDE 35 MMOL/L (21-32); CHLORIDE 100 MMOL/L (98-107); CREATININE 1.2 MG/DL (0.55-1.30); POTASSIUM 4.4 MMOL/L (3.5-5.1); SODIUM 136 MMOL/L (136-145)
[2017-11-15] MEDS ORDERED: ACETAMINOPHEN325 M1 ORAL (07:59)
[2017-11-15] MEDS ORDERED: CATAPRES0.1 MG ORAL (07:59)
[2017-11-15] MEDS ORDERED: Solu-MEDROL 125mg Inj IVP ONE (08:00)
[2017-11-15] MEDS ORDERED: Albuterol ud Inhalation HHN ONE ×2 (08:00→09:45)
[2017-11-15] MEDS ORDERED: Ipratropium 0.02% Inh Soln 2.5ml UD HHN ONE (08:00)
[2017-11-15] MEDS ORDERED: FAMOTIDINE20 MG ORAL (08:01)
[2017-11-15] MEDS ORDERED: DUONEB 0.5-3(2.53 ML HHN (08:01)
[2017-11-15] MEDS ORDERED: VITAMIN D250000 UNI1 ORAL (08:01)
[2017-11-15 08:10] LABS: ALANINE AMINOTRANSFERASE 44 U/L (12-78); ALBUMIN 2.6 G/DL (3.4-5.0); ALBUMIN/GLOBULIN RATIO 0.5 (1.0-2.7); ALKALINE PHOSPHATASE 81 U/L (46-116); ASPARTATE AMINO TRANSFERASE 36 U/L (15-37); BILIRUBIN,TOTAL 0.4 MG/DL (0.2-1.0); CKMB 1.3 NG/ML (0.0-3.6); CREATINE KINASE 60 U/L (26-308)
[2017-11-15 08:12] LABS: APPEARANCE,URINE CLEAR; BILIRUBIN, URINE NEGATIVE (NEGATIVE); COLOR,URINE PALE YELLOW; GLUCOSE, URINE (UA) NEGATIVE (NEGATIVE); KETONES,URINE NEGATIVE (NEGATIVE); LEUKOCYTE ESTERASE ,URINE NEGATIVE (NEGATIVE); NITRITE,URINE NEGATIVE (NEGATIVE); PH,URINE 5 (4.5-8.0); PROTEIN,URINE 3+ (NEGATIVE); UROBILINOGEN,URINE NORMAL MG/DL (0.0-1.0)
[2017-11-15] MEDS ORDERED: Piperacillin/Tazobactam 3.375 GM in NS 110 ML IVPB ONE ×2 (08:15→16:00)
--- NOTE | 2017-11-15 08:15 | Emergency Room Report ---
History of Present Illness General Chief Complaint: Dyspnea/Respdistress Source: EMS Present Illness HPI Patient presents from nursing facility with reports of respiratory distress Patient was at a no other facility yesterday Patient himself is nonverbal cannot provide any input This does limit the history of present illness significantly Upon arrival the patient is tachypneic and in acute distress There was no reports of vomiting unknown regarding diarrhea Unknown regarding fever Allergies: Coded Allergies: No Known Allergies (Unverified , 06/20/17) Patient History Limited by: medical condition Pertinent Family History: unable to obtain Reviewed Nursing Documentation: PMH: Agreed, PSxH: Agreed Nursing Documentation-PMH Hx Cardiac Problems: Yes Hx Hypertension: Yes Hx Cancer: No Hx Gastrointestinal Problems: Yes Hx Neurological Problems: Yes Hx Brain Shunt: Yes - BOTTOM SANDER Shunt Review of Systems All Other Systems: limited Physical Exam Vital Signs Date Time Temp Pulse Resp B/P (MAP) Pulse Ox O2 Delivery O2 Flow Rate FiO2 11/15/17 07:11 97.9 83 30 165/48 95 Simple Mask 8.0 Sp02 EP Interpretation: reviewed, normal General Appearance: moderate distress - Tachypneic and short of breath Head: atraumatic, other - Shunt in the right upper parietal region Eyes: bilateral eye PERRL ENT: dry mucus membranes Neck: supple Respiratory: crackles - Bilaterally, patient is tachypneic and showing signs of early accessory muscle use Cardiovascular #1: no edema, irregularly irregular Gastrointestinal: non tender, soft Musculoskeletal: other - Patient is in extreme status does not follow commands , minimal muscle skeletal exam Neurologic: responsive - To physical stimuli however patient has extremely decreased GCS, gag reflex is intact Skin: normal color, no rash Lymphatic: no adenopathy Procedures Critical Care Time Critical Care Time 50 minutes for multiple re\re evaluations critical presentation Concern for cardiopulmonary arrest, and life-threatening pathology not including any procedural time Medical Decision Making Diagnostic Impression: Primary Impression: Respiratory distress Additional Impressions: Hypercapnia Elevated troponin CHF (congestive heart failure) ER Course Patient is a fairly complex patient with multiple differential to consideration including but not limited to cardiac cardiopulmonary and vascular emergencies Patient presents in acute distress requiring repeat breathing treatments steroids and magnesium Patient's ABG shows concerning findings and BiPAP is attempted The patient's repeat ABGs are showing improved numbers with improved response from the patient INR is 1.7 Patient remains critical and has not able to obtain CAT scan imaging of the brain at this time Requiring ICU admission Patient's x-ray is abnormal with bilateral effusions there are signs of elevated troponin with CHF as well Patient admitted to ICU in critical condition Labs Test 11/15/17 07:20 11/15/17 09:47 11/15/17 11:27 11/15/17 12:52 White Blood Count 7.5 K/UL (4.8-10.8) Red Blood Count 3.11 M/UL (4.70-6.10) Hemoglobin 9.6 G/DL (14.2-18.0) Hematocrit 29.9 % (42.0-52.0) Mean Corpuscular Volume 96 FL (80-99) Mean Corpuscular Hemoglobin 31.0 PG (27.0-31.0) Mean Corpuscular Hemoglobin Concent 32.2 G/DL (32.0-36.0) Red Cell Distribution Width 17.1 % (11.6-14.8) Platelet Count 281 K/UL (150-450) Mean Platelet Volume 5.9 FL (6.5-10.1) Neutrophils (%) (Auto) 79.6 % (45.0-75.0) Lymphocytes (%) (Auto) 14.1 % (20.0-45.0) Monocytes (%) (Auto) 5.4 % (1.0-10.0) Eosinophils (%) (Auto) 0.0 % (0.0-3.0) Basophils (%) (Auto) 0.9 % (0.0-2.0) Urine Color Pale yellow Urine Appearance Clear Urine pH 5 (4.5-8.0) Urine Specific [place] 1.015 (1.005-1.035) Urine Protein 3+ (NEGATIVE) Urine Glucose (UA) Negative (NEGATIVE) Urine Ketones Negative (NEGATIVE) Urine Occult Blood 2+ (NEGATIVE) Urine Nitrite Negative (NEGATIVE) Urine Bilirubin Negative (NEGATIVE) Urine Urobilinogen Normal MG/DL (0.0-1.0) Urine Leukocyte Esterase Negative (NEGATIVE) Urine RBC 2-4 /HPF (0 - 0) Urine WBC 0-2 /HPF (0 - 0) Urine Squamous Epithelial Cells Occasional /LPF Urine Bacteria Occasional /HPF (NONE) Sodium Level 136 MMOL/L (136-145) Potassium Level 4.4 MMOL/L (3.5-5.1) Chloride Level 100 MMOL/L (98-107) Carbon Dioxide Level 35 MMOL/L (21-32) Anion Gap 1 mmol/L (5-15) Blood Urea Nitrogen 49 mg/dL (7-18) Creatinine 1.2 MG/DL (0.55-1.30) Estimat Glomerular Filtration Rate mL/min (>60) Glucose Level 119 MG/DL (74-106) Lactic Acid Level 0.60 mmol/L (0.66-2.22) Calcium Level 9.2 MG/DL (8.5-10.1) Total Bilirubin 0.4 MG/DL (0.2-1.0) Aspartate Amino Transf (AST/SGOT) 36 U/L (15-37) Alanine Aminotransferase (ALT/SGPT) 44 U/L (12-78) Alkaline Phosphatase 81 U/L (46-116) Total Creatine Kinase 60 U/L (26-308) Creatine Kinase MB 1.3 NG/ML (0.0-3.6) Creatine Kinase MB Relative Index 2.1 Troponin I 0.057 ng/mL (0.000-0.056) Pro-B-Type Natriuretic Peptide 2671 pg/mL (0-125) Total Protein 7.7 G/DL (6.4-8.2) Albumin 2.6 G/DL (3.4-5.0) Globulin 5.1 g/dL Albumin/Globulin Ratio 0.5 (1.0-2.7) Arterial Blood pH 7.220 (7.350-7.450) 7.290 (7.350-7.450) 7.320 (7.350-7.450) Arterial Blood Partial Pressure CO2 86.9 mmHg (35.0-45.0) 70.8 mmHg (35.0-45.0) 66.6 mmHg (35.0-45.0) Arterial Blood Partial Pressure O2 78.1 mmHg (75.0-100.0) 78.4 mmHg (75.0-100.0) 76.3 mmHg (75.0-100.0) Arterial Blood HCO3 34.8 mmol/L (22.0-26.0) 33.8 mmol/L (22.0-26.0) 33.9 mmol/L (22.0-26.0) Arterial Blood Oxygen Saturation 91.6 % (92.0-98.0) 93.5 % (92.0-98.0) 93.5 % (92.0-98.0) Arterial Blood Base Excess 5.2 5.7 6.4 Amilcar Test Positive Positive Positive Prothrombin Time 17.6 SEC (9.30-11.50) Prothromb Time International Ratio 1.7 (0.9-1.1) Activated Partial Thromboplast Time 37 SEC (23-33) D-Dimer 1.20 mg/L FEU (0.00-0.49) Iron Level 17 ug/dL (50-175) Total Iron Binding Capacity 273 ug/dL (250-450) Percent Iron Saturation 6 % (15-50) Unsaturated Iron Binding 256 ug/dL (112-346) Ferritin 121 NG/ML (8-388) Test 11/15/17 15:44 11/16/17 03:05 11/16/17 04:00 11/16/17 13:05 Arterial Blood pH 7.360 (7.350-7.450) Arterial Blood Partial Pressure CO2 55.1 mmHg (35.0-45.0) Arterial Blood Partial Pressure O2 87.9 mmHg (75.0-100.0) Arterial Blood HCO3 31.1 mmol/L (22.0-26.0) Arterial Blood Oxygen Saturation 95.9 % (92.0-98.0) Arterial Blood Base Excess 4.8 Amilcar Test Positive Prothrombin Time 21.0 SEC (9.30-11.50) Prothromb Time International Ratio 2.0 (0.9-1.1) Sodium Level 139 MMOL/L (136-145) Potassium Level 4.0 MMOL/L (3.5-5.1) Chloride Level 100 MMOL/L (98-107) Carbon Dioxide Level 36 MMOL/L (21-32) Anion Gap 3 mmol/L (5-15) Blood Urea Nitrogen 56 mg/dL (7-18) Creatinine 1.3 MG/DL (0.55-1.30) Estimat Glomerular Filtration Rate mL/min (>60) Glucose Level 115 MG/DL (74-106) Calcium Level 9.3 MG/DL (8.5-10.1) Troponin I 0.032 ng/mL (0.000-0.056) Pro-B-Type Natriuretic Peptide 3986 pg/mL (0-125) Free Thyroxine 1.48 NG/DL (0.76-1.46) Stool Occult Blood Positive (NEGATIVE) Test 11/17/17 03:15 White Blood Count 6.7 K/UL (4.8-10.8) Red Blood Count 3.31 M/UL (4.70-6.10) Hemoglobin 10.1 G/DL (14.2-18.0) Hematocrit 31.2 % (42.0-52.0) Mean Corpuscular Volume 94 FL (80-99) Mean Corpuscular Hemoglobin 30.7 PG (27.0-31.0) Mean Corpuscular Hemoglobin Concent 32.5 G/DL (32.0-36.0) Red Cell Distribution Width 16.2 % (11.6-14.8) Platelet Count 295 K/UL (150-450) Mean Platelet Volume 5.7 FL (6.5-10.1) Neutrophils (%) (Auto) 71.2 % (45.0-75.0) Lymphocytes (%) (Auto) 15.9 % (20.0-45.0) Monocytes (%) (Auto) 12.6 % (1.0-10.0) Eosinophils (%) (Auto) 0.0 % (0.0-3.0) Basophils (%) (Auto) 0.4 % (0.0-2.0) Prothrombin Time 41.8 SEC (9.30-11.50) Prothromb Time International Ratio 3.9 (0.9-1.1) Sodium Level 143 MMOL/L (136-145) Potassium Level 3.1 MMOL/L (3.5-5.1) Chloride Level 99 MMOL/L (98-107) Carbon Dioxide Level 37 MMOL/L (21-32) Anion Gap 7 mmol/L (5-15) Blood Urea Nitrogen 59 mg/dL (7-18) Creatinine 1.5 MG/DL (0.55-1.30) Estimat Glomerular Filtration Rate mL/min (>60) Glucose Level 82 MG/DL (74-106) Hemoglobin A1c 6.2 % (4.3-6.0) Uric Acid 8.7 MG/DL (2.6-7.2) Calcium Level 9.0 MG/DL (8.5-10.1) Phosphorus Level 3.2 MG/DL (2.5-4.9) Magnesium Level 2.1 MG/DL (1.8-2.4) Total Bilirubin 0.4 MG/DL (0.2-1.0) Gamma Glutamyl Transpeptidase 30 U/L (5-85) Aspartate Amino Transf (AST/SGOT) 31 U/L (15-37) Alanine Aminotransferase (ALT/SGPT) 33 U/L (12-78) Alkaline Phosphatase 54 U/L (46-116) Total Creatine Kinase 53 U/L (26-308) Troponin I 0.027 ng/mL (0.000-0.056) C-Reactive Protein, Quantitative 4.9 mg/dL (0.00-0.90) Pro-B-Type Natriuretic Peptide 2657 pg/mL (0-125) Total Protein 7.1 G/DL (6.4-8.2) Albumin 2.4 G/DL (3.4-5.0) Globulin 4.7 g/dL Albumin/Globulin Ratio 0.5 (1.0-2.7) Triglycerides Level 63 MG/DL (30-150) Cholesterol Level 165 MG/DL (< 200) LDL Cholesterol 96 mg/dL (<100) HDL Cholesterol 59 MG/DL (40-60) Cholesterol/HDL Ratio 2.8 (3.3-4.4) Thyroid Stimulating Hormone (TSH) 1.440 uiU/mL (0.358-3.740) EKG Diagnostic Results Rate: normal Rhythm: other - irregularly irregular ST Segments: other - Nonspecific ST changes Rhythm Strip Diag. Results EP Interpretation: yes Rate: 88 Rhythm: no PVC's, no ectopy, other - Atrial fibrillation Chest X-Ray Diagnostic Results Chest X-Ray Diagnostic Results : Chest X-Ray Ordered: Yes # of Views/Limited/Complete: 1 View Indication: Shortness of Breath EP Interpretation: Yes Interpretation: no pneumothorax, other - Cardiomegaly, bilateral effusions, no acute bony abnormalities Impression: Other - Bilateral effusions Electronically Signed by: Danitza Pradhan DO Last Vital Signs Date Time Temp Pulse Resp B/P (MAP) Pulse Ox O2 Delivery O2 Flow Rate FiO2 11/15/17 07:11 97.9 83 30 165/48 95 Simple Mask 8.0 Status: improved Disposition: ADMITTED INPATIENT Condition: Critical Referrals: Danitza Mustafa MD (PCP) DANITZA PRADHAN D.O. Nov 15, 2017 08:15
[2017-11-15] MEDS ORDERED: Zosyn 3.375gm inj ONE ×2 (08:29→15:57)
--- NOTE | 2017-11-15 08:39 | Diagnostic Imaging Report ---
Indication: Chest pain Technique: One view of the chest Comparison: 06/21/2017 Findings: Interim development of mild interstitial congestion and bilateral pleural effusions. There is persistent elevation of left hemidiaphragm. There is right perihilar and left basilar atelectasis. The heart is enlarged. Again demonstrated is ventriculoperitoneal shunt tubing Impression: Mild interstitial congestion and bilateral pleural effusions Right perihilar and left basilar atelectasis
--- NOTE | 2017-11-15 12:34 | Cardiac Electrophysiology PN ---
Subjective Subjective [id number] Objective Last 24 Hour Vital Signs Date Time Temp Pulse Resp B/P (MAP) Pulse Ox O2 Delivery O2 Flow Rate FiO2 11/15/17 11:25 86 20 120/66 100 Bi-pap 50 11/15/17 11:07 81 20 100 Facial 40 11/15/17 11:05 81 20 100 Bi-pap 40 11/15/17 10:52 95 20 148/57 99 Bi-pap 55 11/15/17 10:26 84 20 148/60 99 Bi-pap 55 11/15/17 10:20 89 15 97 Bi-pap 55 11/15/17 10:00 88 18 100 Facial 40 11/15/17 09:00 81 30 154/48 94 Venturi Mask 50 11/15/17 08:33 109 30 96 Non-Rebreather 15.0 100 11/15/17 08:14 99 27 Non-Rebreather 15.0 100 11/15/17 08:09 99 29 97 Non-Rebreather 15.0 100 11/15/17 07:21 83 30 Simple Mask 8.0 11/15/17 07:21 97.9 99 29 158/43 98 Non-Rebreather 15.0 11/15/17 07:11 97.9 83 30 165/48 95 Simple Mask 8.0 Laboratory Tests Test 11/15/17 07:20 11/15/17 09:47 11/15/17 11:27 White Blood Count 7.5 K/UL (4.8-10.8) Red Blood Count 3.11 M/UL (4.70-6.10) L Hemoglobin 9.6 G/DL (14.2-18.0) L Hematocrit 29.9 % (42.0-52.0) L Mean Corpuscular Volume 96 FL (80-99) Mean Corpuscular Hemoglobin 31.0 PG (27.0-31.0) Mean Corpuscular Hemoglobin Concent 32.2 G/DL (32.0-36.0) Red Cell Distribution Width 17.1 % (11.6-14.8) H Platelet Count 281 K/UL (150-450) Mean Platelet Volume 5.9 FL (6.5-10.1) L Neutrophils (%) (Auto) 79.6 % (45.0-75.0) H Lymphocytes (%) (Auto) 14.1 % (20.0-45.0) L Monocytes (%) (Auto) 5.4 % (1.0-10.0) Eosinophils (%) (Auto) 0.0 % (0.0-3.0) Basophils (%) (Auto) 0.9 % (0.0-2.0) Urine Color Pale yellow Urine Appearance Clear Urine pH 5 (4.5-8.0) Urine Specific [place] 1.015 (1.005-1.035) Urine Protein 3+ (NEGATIVE) H Urine Glucose (UA) Negative (NEGATIVE) Urine Ketones Negative (NEGATIVE) Urine Occult Blood 2+ (NEGATIVE) H Urine Nitrite Negative (NEGATIVE) Urine Bilirubin Negative (NEGATIVE) Urine Urobilinogen Normal MG/DL (0.0-1.0) Urine Leukocyte Esterase Negative (NEGATIVE) Urine RBC 2-4 /HPF (0 - 0) H Urine WBC 0-2 /HPF (0 - 0) Urine Squamous Epithelial Cells Occasional /LPF Urine Bacteria Occasional /HPF (NONE) Sodium Level 136 MMOL/L (136-145) Potassium Level 4.4 MMOL/L (3.5-5.1) Chloride Level 100 MMOL/L (98-107) Carbon Dioxide Level 35 MMOL/L (21-32) H Anion Gap 1 mmol/L (5-15) L Blood Urea Nitrogen 49 mg/dL (7-18) H Creatinine 1.2 MG/DL (0.55-1.30) Estimat Glomerular Filtration Rate mL/min (>60) Glucose Level 119 MG/DL (74-106) H Lactic Acid Level 0.60 mmol/L (0.66-2.22) L Calcium Level 9.2 MG/DL (8.5-10.1) Total Bilirubin 0.4 MG/DL (0.2-1.0) Aspartate Amino Transf (AST/SGOT) 36 U/L (15-37) Alanine Aminotransferase (ALT/SGPT) 44 U/L (12-78) Alkaline Phosphatase 81 U/L (46-116) Total Creatine Kinase 60 U/L (26-308) Creatine Kinase MB 1.3 NG/ML (0.0-3.6) Creatine Kinase MB Relative Index 2.1 Troponin I 0.057 ng/mL (0.000-0.056) Pro-B-Type Natriuretic Peptide 2671 pg/mL (0-125) H Total Protein 7.7 G/DL (6.4-8.2) Albumin 2.6 G/DL (3.4-5.0) L Globulin 5.1 g/dL Albumin/Globulin Ratio 0.5 (1.0-2.7) L Arterial Blood pH 7.220 (7.350-7.450) 7.290 (7.350-7.450) Arterial Blood Partial Pressure CO2 86.9 mmHg (35.0-45.0) *H 70.8 mmHg (35.0-45.0) *H Arterial Blood Partial Pressure O2 78.1 mmHg (75.0-100.0) 78.4 mmHg (75.0-100.0) Arterial Blood HCO3 34.8 mmol/L (22.0-26.0) H 33.8 mmol/L (22.0-26.0) H Arterial Blood Oxygen Saturation 91.6 % (92.0-98.0) L 93.5 % (92.0-98.0) Arterial Blood Base Excess 5.2 5.7 Amilcar Test Positive Positive ADRIENNE BRAGA Nov 15, 2017 12:33
--- NOTE | 2017-11-15 14:34 | Consultation ---
Consult Note Assessment/Plan pulm note dict VINCENZO HYDE Nov 15, 2017 14:34
[2017-11-15 15:16] LABS: INR 1.7 (0.9-1.1)
--- NOTE | 2017-11-15 15:46 | Cardiology Report ---
APPROVED REPORT EXAM: Two-dimensional and M-mode echocardiogram with Doppler and color Doppler. INDICATION Congestive Heart Failure M-Mode DIMENSIONS IVSd1.5 (0.7-1.1cm)Left Atrium (MM)4.5 (1.6-4.0cm) LVDd4.2 (3.5-5.6cm)Aortic Root3.6 (2.0-3.7cm) PWd1.3 (0.7-1.1cm)Aortic Cusp Exc.1.5 (1.5-2.0cm) IVSs2.2 cm LVDs2.6 (2.5-4.0cm) PWs1.9 cm Technically difficult study due to poor l acoustical windows and pt breathing. Normal left ventricular chamber size, systolic function and wall motion to extent visualized. Left ventricular ejection fraction estimated to be 60-65 %. No evidence of left ventricular hypertrophy. Pleural effusion . Mild left atrial enlargement. right cardiac chamber sizes are within normal limits. Focal aortic valve sclerosis with adequate cusp excursion. Heavy Thickened mitral valve leaflets with normal excursion. Heavy Mitral annulus and aortic root calcification. Pulmonic valve not well visualized. Normal tricuspid valve structure. A color flow and spectral Doppler study was performed and revealed: No aortic insufficiency . Trace to mild mitral regurgitation. Mitral diastolic velocities suggest reduced left ventricular relaxation c/w mild LV diastolic dysfunction (Grade I ). Trace to mild tricuspid regurgitation. Tricuspid systolic velocities suggests peak right ventricular systolic pressure of 53mmHg. consistent with moderate, pulmonary hypertension.
[2017-11-15 16:07] LABS: % IRON SATURATION 6 % (15-50); IRON 17 ug/dL (50-175); TOTAL IRON BINDING CAPACITY 273 ug/dL (250-450)
[2017-11-15 16:14] LABS: FERRITIN 121 NG/ML (8-388)
--- NOTE | 2017-11-15 16:27 | Cardiology Report ---
APPROVED REPORT EKG Measurement Heart [id number] AArun Johnson Prolonged QT Abnormal ECG
[2017-11-15] MEDS: dilTIAZem HCl 60mg tab ORAL SCH (18:00)
[2017-11-15] MEDS: Albuterol/Ipratropium 3ml neb HHN SCH (19:38)
[2017-11-15] MEDS ORDERED: Warfarin Sodium 2mg ORAL SCH (22:00)
--- NOTE | 2017-11-15 22:01 | Consultation ---
DATE OF CONSULTATION: 11/15/2017 PULMONARY CONSULTATION CONSULTING PHYSICIAN: Bhavik Grissom M.D. HISTORY OF PRESENT ILLNESS: The patient is an unfortunate 81-year-old man, who was hospitalized at [facility] followed by transfer to [facility]. He was discharged from there to a nearby residential about one day ago and today he was transported here to the emergency department because of respiratory distress. He can provide no additional history. No records reviewed. In the emergency department, he was placed on BiPAP for respiratory failure and improved. PAST MEDICAL HISTORY: According to the records available, he has a history of respiratory failure, sepsis, pneumonia, acute kidney injury, prostate hypertrophy, anemia, pleural effusions, chronic anticoagulation on Coumadin, septic shock, hydrocephalus with VETERINARY VIROLOGIST shunt, non-ST segment elevation myocardial infarction, coronary artery disease, recurrent aspiration, and atrial fibrillation. There is a mention of chronic obstructive pulmonary disease as well. MEDICATIONS: Amlodipine, clonidine, vitamin D, famotidine, Proscar, DuoNeb, Levaquin, Namenda, metoprolol, pantoprazole, tamsulosin, and Coumadin. ALLERGIES: None. REVIEW OF SYSTEMS: Cannot be obtained. PHYSICAL EXAMINATION: GENERAL: The patient is encephalopathic, lying in bed. VITAL SIGNS: Show blood pressure is satisfactory, saturation is 99% to 100% on BiPAP, the heart rate is 81 in atrial fibrillation, and there is no fever. SKIN: Warm and dry. HEENT: The head is normocephalic. NECK: No jugular vein distention. CHEST: Decreased breath sounds. CARDIAC: Rhythm is irregular. ABDOMEN: Soft and nontender. EXTREMITIES: Have no edema. The feet are cool. LABORATORY AND DIAGNOSTIC DATA: A blood gas showed pCO2 87, pH 7.22, and pO2 78 initially. Followup blood gases showed improvement to where the pCO2 is now 66 and pH 7.32. Chest x-ray shows pulmonary edema. Laboratory tests show a normal white count. Hemoglobin is 9.6. BUN is 49, creatinine 1.2. Lactic acid is normal. Troponin slightly elevated at 0.057. Natriuretic peptide elevated at 2671. Albumin is 2.6. Urinalysis is negative except for proteinuria and a few red cells. IMPRESSION: 1. Acute respiratory failure, hypercapnic type. 2. Pulmonary edema. 3. Non-ST elevation myocardial infarction. 4. Chronic obstructive pulmonary disease. 5. Possible pneumonia. 6. Prostate hypertrophy. 7. Atrial fibrillation, on Coumadin. 8. Encephalopathy, 9. Status post ventriculoperitoneal shunt. RECOMMENDATIONS: I have ordered BiPAP support and antibiotics as well as bronchodilator therapy. Cardiology has seen the patient and entered orders as well. Bhavik Grissom M.D. DR: Jose Juan JOB#: [id number] CC: Bhavik Grissom M.D.; Fax#: [phone] KD SULLIVAN M.D. ; FAX#: [phone]
[2017-11-16] VITALS: BP 139/60
--- NOTE | 2017-11-16 | Consultation ---
DATE OF CONSULTATION: 11/15/2017 CARDIOLOGY CONSULTATION CONSULTING PHYSICIAN: Tony Eldridge M.D. REFERRING PHYSICIAN: Danitza Mustafa M.D. REASON FOR CONSULTATION: Shortness of breath and tachycardia in a patient with a paroxysmal atrial fibrillation. HISTORY OF PRESENT ILLNESS: The patient is an 81-year-old gentleman with history of hypertension, paroxysmal atrial fibrillation, who was brought from nursing facility for respiratory distress. The patient is nonverbal and cannot provide any information. In the emergency room, the patient was found to be hypercapnic and also had elevated troponin. His blood pressure was 165/48. The patient was placed on BiPAP and a Cardiology consultation was obtained for further evaluation. A chest x-ray also was suggestive of congestive heart failure. PAST MEDICAL HISTORY: 1. Hypertension. 2. Congestive heart failure. 3. Paroxysmal atrial fibrillation. 4. History of TRAVELING PHLEBOTOMIST shunt. 5. History of dementia. FAMILY HISTORY: Noncontributory. SOCIAL HISTORY: He lives in alf. He does not smoke or drink alcohol. REVIEW OF SYSTEMS: Cannot be obtained. PHYSICAL EXAMINATION: VITAL SIGNS: Blood pressure 120/66, pulse is 86, respirations 20. HEAD AND NECK: Positive JVD. LUNGS: Decreased breath sounds. CARDIOVASCULAR: Irregularly irregular. S1 and S2 with no gallop or murmur. ABDOMEN: Soft. EXTREMITIES: No pitting edema. LABORATORY AND DIAGNOSTIC DATA: Labs show white count of 7.5, hemoglobin of 9.6, hematocrit 29.9, and platelet count of 281. Sodium 136, potassium 4.4, BUN of 49, creatinine 1.2 and glucose of 119. His troponin is 0.05. BNP 2671. His blood gases show pH of 7.22, pCO2 of 87, and bicarbonate of 34. ASSESSMENT AND PLAN: 1. Shortness of breath due to respiratory failure with pCO2 of 87 and pH of 7.22. We will give the patient IV Lasix. His BNP is also very elevated. The patient's pCO2 improved to 70, still is on BiPAP, may need intubation if does not improve. 2. Elevated troponin rule out cardiac myocardial infarction protocol. We will get an echocardiogram. Repeat EKG. Avoid beta-nusrat severe chronic obstructive pulmonary disease dependent. 3. Atrial fibrillation. The patient is on metoprolol 25 mg b.i.d. and Coumadin 1.5 mg daily at alf. Change metoprolol to Cardizem for rate control. Discontinue amlodipine. The patient will be started also on Lovenox until further information is available. 4. Hypertension. Start Cardizem. Thank you very much, Dr. Mustafa, for allowing me to participate in the care of this critically ill gentleman. Please do not hesitate to contact me if you have any questions regarding my evaluation. The case was discussed with Dr. Andrew in the emergency room. Tony Eldridge M.D. DR: JACOB JOB#: [id number] CC:
[2017-11-16] MEDS: dilTIAZem HCl 60mg tab ORAL SCH ×4 (01:10→17:48)
[2017-11-16] MEDS: Albuterol/Ipratropium 3ml neb HHN SCH ×4 (02:11→19:39)
[2017-11-16 04:00] VITALS: BP 138/71
[2017-11-16 05:04] LABS: ANION GAP 3 mmol/L (5-15); BLOOD UREA NITROGEN 56 mg/dL (7-18); CALCIUM 9.3 MG/DL (8.5-10.1); CARBON DIOXIDE 36 MMOL/L (21-32); CHLORIDE 100 MMOL/L (98-107); CREATININE 1.3 MG/DL (0.55-1.30); SODIUM 139 MMOL/L (136-145)
--- NOTE | 2017-11-16 05:15 | Consultation ---
DATE OF CONSULTATION: 11/15/2017 HEMATOLOGY/ONCOLOGY CONSULTATION CONSULTING PHYSICIAN: Bharath Ya M.D. REQUESTING PHYSICIAN: Danitza Mustafa M.D. REASON FOR CONSULTATION: Evaluation of anemia. IDENTIFYING DATA: Dear Dr. Mustafa, The patient is a pleasant 81-year-old male, who I have seen before [place], at this time [place] [facility] [place] admitted reviewed his records most recently in 2015, reviewed the records from that time with a history of persistent diarrhea. He has a medical history of glaucoma, hypertension, BPH, major depressive disorder, history of psychosis, facility before and at this time, he has been admitted to [facility] again. The patient is nonverbal with respiratory distress. Hematology Service consulted for further evaluation and treatment given anemia, hemoglobin 9.6, as well as coagulopathy. Medications have been reviewed and the patient is on warfarin. PAST MEDICAL HISTORY: As noted above. PAST SURGICAL HISTORY: None noted. SOCIAL HISTORY: No illicit drug use. No alcohol. No tobacco currently, however, did smoke in the past. FAMILY HISTORY: Noncontributory. MEDICATIONS: Reviewed. REVIEW OF SYSTEMS: Nonverbal. PHYSICAL EXAMINATION: GENERAL: In no acute distress. VITAL SIGNS: Reviewed. PULMONARY: Decreased breath sounds. CARDIOVASCULAR: Regular rate. No S3 or S4. ABDOMEN: Soft, nontender, and nondistended. EXTREMITIES: No cyanosis, swelling, or edema reported. LABORATORY DATA: Labs with INR of 1.7. Hemoglobin of 9.8. Other labs reviewed as well. ASSESSMENT AND RECOMMENDATIONS: 1. Coagulopathy, likely due to underlying Coumadin use. Continue to closely monitor. The patient's Coumadin has been restarted. Dr. Eldridge has seen the patient. 2. Anemia due to underlying chronic disease. Continue to closely monitor. Anemia workup has been ordered. Hemoglobin goal is above 7. 3. Azotemia as per Nephrology consultation, likely the patient is dehydrated. 4. Respiratory distress. Closely monitor. The patient's shortness of breath is likely related underlying congestion, bilateral pleural effusions. To be seen by Infectious Disease. 5. Weakness and fatigue, likely due to underlying anemia. I appreciate the consultation. Bharath Alice Ya DR: LORENA JOB#: [id number] CC:
--- NOTE | 2017-11-16 07:45 | History and Physical Report ---
DATE OF ADMISSION: 11/15/2017 NOTE: POOR AUDIO HISTORY OF PRESENT ILLNESS: The patient is admitted because of dyspnea and hypoxia at the shelter . The patient was recently transferred from [facility]. Before that, the patient was at [facility] and was intubated there. The patient atrial fibrillation. The patient's x-ray also shows bilateral pleural effusion. cannot get any history from the patient. PAST MEDICAL HISTORY: Atrial fibrillation, hypertension, GERD, BPH, advanced dementia, and arrhythmia. PAST SURGICAL HISTORY: None. MEDICATIONS: Currently, Norvasc, warfarin, , finasteride, and Namenda. ALLERGIES: No known allergies. SOCIAL HISTORY: Unable to obtain. FAMILY HISTORY: Noncontributory. REVIEW OF SYSTEMS: Unable to obtain. PHYSICAL EXAMINATION: VITAL SIGNS: Temperature is 98 degrees, pulse is 70, and blood pressure 113/62. HEENT: PERRLA. NECK: Supple. CHEST: Bibasilar rales. CARDIOVASCULAR: Irregularly irregular. GASTROINTESTINAL: Soft, nontender . EXTREMITIES: No edema and has severe contractures in the lower extremities. Reflexes equal on both sides. NEUROLOGIC: Oriented x1. LABORATORY DATA: WBC of 7.5, hemoglobin 9.6, and platelets of 281. Sodium 136, potassium 4.4, BUN of 49, creatinine 1.2, and glucose of 119. ASSESSMENT AND PLAN: atrial fibrillation. Also, the patient has elevated carbon dioxide and . I have asked , Dr. Romo, Dr. Grissom, , and Dr. Ya to see the patient for the above-mentioned diagnoses and treatment. aspiration pneumonia. Danitza Mustafa M.D. DR: JAKI JOB#: [id number] CC:
[2017-11-16 08:00] VITALS: BP 110/71
--- NOTE | 2017-11-16 10:37 | Diagnostic Imaging Report ---
Indication: NG tube placement Technique: XRAY Abdomen 1v Comparison: None Findings: NG tube courses below the level of the diaphragm, tip in the left upper quadrant, expected region of the stomach. There are multiple prominent loops of small bowel. Portions of the ventriculoperitoneal catheter noted. Small left pleural effusion and left basilar atelectasis/consolidation. Degenerative changes noted in the spine. Impression: NG tube tip projects over the left upper quadrant, expected region of the stomach. Multiple air distended loops of small bowel in the abdomen, nonspecific. Developing Ileus or obstruction not entirely excluded. Clinical correlation and follow-up exam recommended. This is discussed with the treating nurse on 2 W. at the time of dictation of final report
[2017-11-16 12:00] VITALS: BP 141/52
[2017-11-16] MEDS: Piperacillin/Tazobactam 3.375 GM in D5W 110 ML IVPB SCH ×2 (12:31→23:48)
--- NOTE | 2017-11-16 12:55 | Consultation ---
Consult Note Consult Note asked to eval for azotemia Chief Complaint: Dyspnea/Respdistress Patient presents from nursing facility with reports of respiratory distress Patient was at a no other facility yesterday Patient himself is nonverbal cannot provide any input This does limit the history of present illness significantly Upon arrival the patient is tachypneic and in acute distress There was no reports of vomiting unknown regarding diarrhea Unknown regarding fever Hx Cardiac Problems: Yes Hx Hypertension: Yes Hx Gastrointestinal Problems: Yes Hx Neurological Problems: Yes Hx Brain Shunt: Yes - [employer] Shunt examined- on BIPAP data reviewed Assessment/Plan status: High BUN indicative of pre renal azotemia, 3+ proteinuria partly dehydration- Partly GI bleed Low Iron, Stool OB+ Echo: Left ventricular ejection fraction estimated to be 60-65 %. No evidence of left ventricular hypertrophy. Pleural effusion . Mild left atrial enlargement. others: - Acute respiratory failure, hypercapnic type. - Pulmonary edema. - Non-ST elevation myocardial infarction. - Chronic obstructive pulmonary disease. - Possible pneumonia. - Prostate hypertrophy. - Atrial fibrillation, on Coumadin. - Encephalopathy, - Status post ventriculoperitoneal shunt. Plan: IV Iron- Optimize pulmonary and cardiac status monitor renal parameters and MARCELINO Whitfield Nov 16, 2017 12:55
--- NOTE | 2017-11-16 15:05 | General Progress Note ---
Assessment/Plan Problem List: (1) Urinary tract infection ICD Codes: N39.0 - Urinary tract infection, site not specified SNOMED: 09903755 (2) Sepsis ICD Codes: A41.9 - Sepsis, unspecified organism SNOMED: 18985603 (3) Dyspnea ICD Codes: R06.00 - Dyspnea, unspecified SNOMED: 826395739 (4) Respiratory distress ICD Codes: R06.03 - Acute respiratory distress SNOMED: 995740525 Status: unchanged Assessment/Plan resp failure r/o asa pna a fib uti sepsis obs abx per id critical condition Subjective ROS Limited/Unobtainable: Yes Allergies: Coded Allergies: No Known Allergies (Unverified , 06/20/17) Objective Last 24 Hour Vital Signs Date Time Temp Pulse Resp B/P (MAP) Pulse Ox O2 Delivery O2 Flow Rate FiO2 11/16/17 13:30 84 16 96 Bi-pap 30 11/16/17 13:23 86 15 96 Facial 30 11/16/17 13:22 84 15 96 Bi-pap 30 11/16/17 12:30 81 112/71 11/16/17 12:00 97.5 82 18 141/52 95 Bi-pap 30 11/16/17 12:00 81 11/16/17 12:00 40 11/16/17 11:29 83 15 98 Facial 30 11/16/17 08:43 85 18 98 Facial 30 11/16/17 08:00 82 11/16/17 08:00 97.4 82 13 110/71 95 Non-Rebreather 15.0 11/16/17 08:00 50 11/16/17 07:43 80 16 99 Bi-pap 40 11/16/17 07:40 86 18 97 Facial 40 11/16/17 07:38 82 18 97 Bi-pap 40 11/16/17 06:38 84 138/71 11/16/17 05:29 74 19 97 Facial 40 11/16/17 04:00 85 11/16/17 04:00 97.4 84 13 138/71 95 Non-Rebreather 15.0 11/16/17 04:00 50 11/16/17 03:33 86 20 96 Facial 40 11/16/17 02:23 57 20 100 Bi-pap 40 11/16/17 02:12 57 20 97 Bi-pap 40 11/16/17 01:10 55 18 97 Facial 40 11/16/17 01:10 80 139/60 11/16/17 00:10 50 11/16/17 00:00 81 11/16/17 00:00 97.6 80 22 139/60 94 Non-Rebreather 15.0 11/15/17 23:30 85 20 98 Facial 40 11/15/17 20:00 97.6 82 32 150/65 100 Non-Rebreather 15.0 11/15/17 20:00 83 11/15/17 19:48 85 20 100 Non-Rebreather 100 11/15/17 19:39 83 15 100 Non-Rebreather 15.0 100 11/15/17 19:00 83 11/15/17 18:10 98.0 70 20 113/62 98 Non-Rebreather 15.0 11/15/17 17:15 80 20 98 Full Face 40 11/15/17 16:31 82 21 142/55 97 15.0 40 11/15/17 15:40 83 21 122/55 96 40 Intake and Output 11/15/17 11/16/17 19:00 07:00 Intake Total 110 ml Balance 110 ml Intake IV Total 110 ml # Voids 1 # Bowel Movements 2 1 Laboratory Tests 11/15/17 15:44: Arterial Blood pH 7.360, Arterial Blood Partial Pressure CO2 55.1*H, Arterial Blood Partial Pressure O2 87.9, Arterial Blood HCO3 31.1H, Arterial Blood Oxygen Saturation 95.9, Arterial Blood Base Excess 4.8, Amilcar Test Positive 11/16/17 03:05: Prothrombin Time 21.0H, Prothromb Time International Ratio 2.0H, Sodium Level 139, Potassium Level 4.0, Chloride Level 100, Carbon Dioxide Level 36H, Anion Gap 3L, Blood Urea Nitrogen 56H, Creatinine 1.3, Estimat Glomerular Filtration Rate , Glucose Level 115H, Calcium Level 9.3, Troponin I 0.032, Pro-B-Type Natriuretic Peptide 3986H, Free Thyroxine 1.48H 11/16/17 04:00: Stool Occult Blood Positive 11/16/17 13:05: Legionella pneumophila Group 1 Ab [Pending], Legionella pneumophilia IgM Group 1 [Pending], Mycoplasma pneumoniae IgG Antibody [Pending], Mycoplasma pneumoniae IgM Ab Titer [Pending] Height (Feet): 5 Height (Inches): 11.00 Weight (Pounds): 175 General Appearance: lethargic, confused Respiratory/Chest: rhonchi - bilaterally Abdomen: soft Danitza Mustafa MD Nov 16, 2017 15:05
[2017-11-16 16:00] VITALS: BP 137/98
[2017-11-16] MEDS ORDERED: Warfarin Sodium 3mg ORAL ONE (17:00)
--- NOTE | 2017-11-16 17:15 | General Progress Note ---
Assessment/Plan Assessment/Plan Assessment - Dysphagia - abd distention - Respiratory failure - Atrial fib - OBS - Poor px Recommendations - NGT to LIS - follow abd exam and KUB - BIPAP and pulmonary toilet - locate next of kin - would likely need to be intubated for PEG placement Subjective Allergies: Coded Allergies: No Known Allergies (Unverified , 06/20/17) Objective Last 24 Hour Vital Signs Date Time Temp Pulse Resp B/P (MAP) Pulse Ox O2 Delivery O2 Flow Rate FiO2 11/16/17 16:00 74 11/16/17 16:00 2.0 11/16/17 16:00 97.7 82 18 137/98 93 Nasal Cannula 3.0 11/16/17 13:30 84 16 96 Bi-pap 30 11/16/17 13:23 86 15 96 Facial 30 11/16/17 13:22 84 15 96 Bi-pap 30 11/16/17 12:30 81 112/71 11/16/17 12:00 97.5 82 18 141/52 95 Bi-pap 30 11/16/17 12:00 81 11/16/17 12:00 40 11/16/17 11:29 83 15 98 Facial 30 11/16/17 08:43 85 18 98 Facial 30 11/16/17 08:00 82 11/16/17 08:00 97.4 82 13 110/71 95 Non-Rebreather 15.0 11/16/17 08:00 50 11/16/17 07:43 80 16 99 Bi-pap 40 11/16/17 07:40 86 18 97 Facial 40 11/16/17 07:38 82 18 97 Bi-pap 40 11/16/17 06:38 84 138/71 11/16/17 05:29 74 19 97 Facial 40 11/16/17 04:00 85 11/16/17 04:00 97.4 84 13 138/71 95 Non-Rebreather 15.0 11/16/17 04:00 50 11/16/17 03:33 86 20 96 Facial 40 11/16/17 02:23 57 20 100 Bi-pap 40 11/16/17 02:12 57 20 97 Bi-pap 40 11/16/17 01:10 55 18 97 Facial 40 11/16/17 01:10 80 139/60 11/16/17 00:10 50 11/16/17 00:00 81 11/16/17 00:00 97.6 80 22 139/60 94 Non-Rebreather 15.0 11/15/17 23:30 85 20 98 Facial 40 11/15/17 20:00 97.6 82 32 150/65 100 Non-Rebreather 15.0 11/15/17 20:00 83 11/15/17 19:48 85 20 100 Non-Rebreather 100 11/15/17 19:39 83 15 100 Non-Rebreather 15.0 100 11/15/17 19:00 83 11/15/17 18:10 98.0 70 20 113/62 98 Non-Rebreather 15.0 11/15/17 17:15 80 20 98 Full Face 40 Intake and Output 11/15/17 11/16/17 19:00 07:00 Intake Total 110 ml Balance 110 ml Intake IV Total 110 ml # Voids 1 # Bowel Movements 2 1 Laboratory Tests 11/16/17 03:05: Prothrombin Time 21.0H, Prothromb Time International Ratio 2.0H, Sodium Level 139, Potassium Level 4.0, Chloride Level 100, Carbon Dioxide Level 36H, Anion Gap 3L, Blood Urea Nitrogen 56H, Creatinine 1.3, Estimat Glomerular Filtration Rate , Glucose Level 115H, Calcium Level 9.3, Troponin I 0.032, Pro-B-Type Natriuretic Peptide 3986H, Free Thyroxine 1.48H 11/16/17 04:00: Stool Occult Blood Positive 11/16/17 13:05: Legionella pneumophila Group 1 Ab [Pending], Legionella pneumophilia IgM Group 1 [Pending], Mycoplasma pneumoniae IgG Antibody [Pending], Mycoplasma pneumoniae IgM Ab Titer [Pending] Height (Feet): 5 Height (Inches): 11.00 Weight (Pounds): 175 DANITZASMITH TORRES Nov 16, 2017 17:15
--- NOTE | 2017-11-16 17:26 | Cardiac Electrophysiology PN ---
Assessment/Plan Assessment/Plan 1. Shortness of breath due to respiratory failure with pCO2 of 87 and pH of 7.22. On IV Lasix. BNP very elevated. The patient's pCO2 improved to 70. Now off BiPAP 2. Elevated troponin. Second troponin negative.No chest pain. Echocardiogram EF 65%. Avoid beta-nusrat. 3. Atrial fibrillation. On Cardizem 60 q 6 hr. 4. Hypertension. On Cardizem. SALOME RN Subjective Subjective Confused in restraints. Remained in atrial flutter with CVR. RN at bedside. Objective Last 24 Hour Vital Signs Date Time Temp Pulse Resp B/P (MAP) Pulse Ox O2 Delivery O2 Flow Rate FiO2 11/16/17 16:00 74 11/16/17 16:00 2.0 11/16/17 16:00 97.7 82 18 137/98 93 Nasal Cannula 3.0 11/16/17 13:30 84 16 96 Bi-pap 30 11/16/17 13:23 86 15 96 Facial 30 11/16/17 13:22 84 15 96 Bi-pap 30 11/16/17 12:30 81 112/71 11/16/17 12:00 97.5 82 18 141/52 95 Bi-pap 30 11/16/17 12:00 81 11/16/17 12:00 40 11/16/17 11:29 83 15 98 Facial 30 11/16/17 08:43 85 18 98 Facial 30 11/16/17 08:00 82 11/16/17 08:00 97.4 82 13 110/71 95 Non-Rebreather 15.0 11/16/17 08:00 50 11/16/17 07:43 80 16 99 Bi-pap 40 11/16/17 07:40 86 18 97 Facial 40 11/16/17 07:38 82 18 97 Bi-pap 40 11/16/17 06:38 84 138/71 11/16/17 05:29 74 19 97 Facial 40 11/16/17 04:00 85 11/16/17 04:00 97.4 84 13 138/71 95 Non-Rebreather 15.0 11/16/17 04:00 50 11/16/17 03:33 86 20 96 Facial 40 11/16/17 02:23 57 20 100 Bi-pap 40 11/16/17 02:12 57 20 97 Bi-pap 40 11/16/17 01:10 55 18 97 Facial 40 11/16/17 01:10 80 139/60 11/16/17 00:10 50 11/16/17 00:00 81 11/16/17 00:00 97.6 80 22 139/60 94 Non-Rebreather 15.0 11/15/17 23:30 85 20 98 Facial 40 11/15/17 20:00 97.6 82 32 150/65 100 Non-Rebreather 15.0 11/15/17 20:00 83 11/15/17 19:48 85 20 100 Non-Rebreather 100 11/15/17 19:39 83 15 100 Non-Rebreather 15.0 100 11/15/17 19:00 83 11/15/17 18:10 98.0 70 20 113/62 98 Non-Rebreather 15.0 Intake and Output 11/15/17 11/16/17 19:00 07:00 Intake Total 110 ml Balance 110 ml Intake IV Total 110 ml # Voids 1 # Bowel Movements 2 1 Laboratory Tests Test 11/16/17 03:05 11/16/17 04:00 11/16/17 13:05 Prothrombin Time 21.0 SEC (9.30-11.50) H Prothromb Time International Ratio 2.0 (0.9-1.1) H Sodium Level 139 MMOL/L (136-145) Potassium Level 4.0 MMOL/L (3.5-5.1) Chloride Level 100 MMOL/L (98-107) Carbon Dioxide Level 36 MMOL/L (21-32) H Anion Gap 3 mmol/L (5-15) L Blood Urea Nitrogen 56 mg/dL (7-18) H Creatinine 1.3 MG/DL (0.55-1.30) Estimat Glomerular Filtration Rate mL/min (>60) Glucose Level 115 MG/DL (74-106) H Calcium Level 9.3 MG/DL (8.5-10.1) Troponin I 0.032 ng/mL (0.000-0.056) Pro-B-Type Natriuretic Peptide 3986 pg/mL (0-125) H Free Thyroxine 1.48 NG/DL (0.76-1.46) H Stool Occult Blood Positive (NEGATIVE) Legionella pneumophila Group 1 Ab Pending Legionella pneumophilia IgM Group 1 Pending Mycoplasma pneumoniae IgG Antibody Pending Mycoplasma pneumoniae IgM Ab Titer Pending Objective HEAD AND NECK: Positive JVD. LUNGS: Decreased breath sounds. CARDIOVASCULAR: Irregularly irregular. S1 and S2 with no gallop or murmur. ABDOMEN: Soft. EXTREMITIES: No pitting edema. ADRIENNE BRAGA Nov 16, 2017 17:26
--- NOTE | 2017-11-16 18:57 | Pulmonology Progress Note ---
Assessment/Plan Assessment/Plan 1. Acute respiratory failure, hypercapnic type. 2. Pulmonary edema. 3. Non-ST elevation myocardial infarction. 4. Chronic obstructive pulmonary disease. 5. Possible pneumonia. 6. Prostate hypertrophy. 7. Atrial fibrillation, on Coumadin. 8. Encephalopathy, 9. Status post ventriculoperitoneal shunt. RECOMMENDATIONS: bipap qhs and prn distress nebs abx titrate o2 aspiration precautions watch io NPO and TF for now cxr saturday dvt prophylaxis Subjective Constitutional: Reports: no symptoms HEENT: Repors: no symptoms Respiratory: Reports: no symptoms Cardiovascular: Reports: no symptoms Gastrointestinal/Abdominal: Reports: no symptoms Allergies: Coded Allergies: No Known Allergies (Unverified , 06/20/17) All Systems: reviewed and negative except above Subjective more awake off bipap npo and NGT in place no cp nv or bleeding not getting oob remaisn on o2 no distress Objective Last 24 Hour Vital Signs Date Time Temp Pulse Resp B/P (MAP) Pulse Ox O2 Delivery O2 Flow Rate FiO2 11/16/17 17:48 84 154/75 11/16/17 16:00 74 11/16/17 16:00 2.0 11/16/17 16:00 97.7 82 18 137/98 93 Nasal Cannula 3.0 11/16/17 15:00 Nasal Cannula 3.0 32 11/16/17 15:00 97 Nasal Cannula 3.0 32 11/16/17 13:30 84 16 96 Bi-pap 30 11/16/17 13:23 86 15 96 Facial 30 11/16/17 13:22 84 15 96 Bi-pap 30 11/16/17 12:30 81 112/71 11/16/17 12:00 97.5 82 18 141/52 95 Bi-pap 30 11/16/17 12:00 81 11/16/17 12:00 40 11/16/17 11:29 83 15 98 Facial 30 11/16/17 08:43 85 18 98 Facial 30 11/16/17 08:00 82 11/16/17 08:00 97.4 82 13 110/71 95 Non-Rebreather 15.0 11/16/17 08:00 50 11/16/17 07:43 80 16 99 Bi-pap 40 11/16/17 07:40 86 18 97 Facial 40 2/10/18 07:38 82 18 97 Bi-pap 40 11/16/17 06:38 84 138/71 11/16/17 05:29 74 19 97 Facial 40 11/16/17 04:00 85 11/16/17 04:00 97.4 84 13 138/71 95 Non-Rebreather 15.0 11/16/17 04:00 50 11/16/17 03:33 86 20 96 Facial 40 11/16/17 02:23 57 20 100 Bi-pap 40 11/16/17 02:12 57 20 97 Bi-pap 40 11/16/17 01:10 55 18 97 Facial 40 11/16/17 01:10 80 139/60 11/16/17 00:10 50 11/16/17 00:00 81 11/16/17 00:00 97.6 80 22 139/60 94 Non-Rebreather 15.0 11/15/17 23:30 85 20 98 Facial 40 11/15/17 20:00 97.6 82 32 150/65 100 Non-Rebreather 15.0 11/15/17 20:00 83 11/15/17 19:48 85 20 100 Non-Rebreather 100 11/15/17 19:39 83 15 100 Non-Rebreather 15.0 100 11/15/17 19:00 83 Intake and Output 11/15/17 11/16/17 19:00 07:00 Intake Total 110 ml Balance 110 ml Intake IV Total 110 ml # Voids 1 # Bowel Movements 2 1 General Appearance: cachetic Respiratory/Chest: rhonchi Cardiovascular: normal rate, regular rhythm, edema Abdomen: soft, non tender, no organomegaly Skin: no rash, no lesions Neurologic/Psychiatric: oriented x 3 Lymphatic: no neck adenopathy Laboratory Tests 11/16/17 03:05: Prothrombin Time 21.0H, Prothromb Time International Ratio 2.0H, Sodium Level 139, Potassium Level 4.0, Chloride Level 100, Carbon Dioxide Level 36H, Anion Gap 3L, Blood Urea Nitrogen 56H, Creatinine 1.3, Estimat Glomerular Filtration Rate , Glucose Level 115H, Calcium Level 9.3, Troponin I 0.032, Pro-B-Type Natriuretic Peptide 3986H, Free Thyroxine 1.48H 11/16/17 04:00: Stool Occult Blood Positive 11/16/17 13:05: Legionella pneumophila Group 1 Ab [Pending], Legionella pneumophilia IgM Group 1 [Pending], Mycoplasma pneumoniae IgG Antibody [Pending], Mycoplasma pneumoniae IgM Ab Titer [Pending] Current Medications Medications (Trade) Dose Ordered Sig/Raine Route PRN Reason Start Time Stop Time Status Last Admin Dose Admin Acetaminophen (Tylenol) 650 mg Q6HR PRN NG for pain 11/15/17 17:00 12/15/17 16:59 Albuterol/ Ipratropium (Albuterol/ Ipratropium) 3 ml Q6HRT HHN 11/15/17 19:00 11/20/17 18:59 11/16/17 13:22 Diltiazem HCl (Cardizem) 60 mg EVERY 6 HOURS ORAL 11/15/17 18:00 12/15/17 17:59 11/16/17 17:48 Doxycycline Monohydrate (Vibramycin) 100 mg EVERY 12 HOURS ORAL 11/16/17 12:00 11/23/17 11:59 11/16/17 12:31 Furosemide (Lasix) 40 mg BID IV 11/15/17 18:00 12/15/17 17:59 11/16/17 17:48 Iron Sucrose 100 mg/Sodium Chloride 55 ml @ 200 mls/hr BEDTIME IV 11/16/17 21:00 11/25/17 21:17 Piperacillin Sod/ Tazobactam Sod 3.375 gm/Dextrose 110 ml @ 27.5 mls/hr EVERY 8 HOURS IVPB 11/16/17 12:30 11/21/17 12:29 11/16/17 12:31 Warfarin Sodium (Coumadin per pharmacy) 1 ea DAILY PRN MISC Per rx protocol 11/15/17 14:30 12/15/17 14:29 CLARISSE MURILLO DO Nov 16, 2017 18:57
[2017-11-16 20:00] VITALS: BP 132/44
--- NOTE | 2017-11-16 21:15 | Consultation ---
DATE OF CONSULTATION: 11/16/2017 INFECTIOUS DISEASES CONSULTATION This consultation has been done on behalf of Dr. Stuart Campa. CONSULTING PHYSICIAN: Afshan Perez M.D. REFERRING PHYSICIAN: Danitza Mustafa M.D. REASON FOR CONSULTATION: Pneumonia. HISTORY OF PRESENTING ILLNESS: This is an 81-year-old gentleman with history of hypertension, benign prostatic hypertrophy, and gastroesophageal reflux disease, who was recently transferred from [facility]. He was found here to have atrial fibrillation as well as pneumonia and an Infectious Diseases consultation has been obtained for antibiotics. PAST MEDICAL HISTORY: 1. History of atrial fibrillation. 2. Hypertension. 3. GERD. 4. Benign prostatic hypertrophy. 5. Dementia. MEDICATIONS: As an inpatient, he is on warfarin, albuterol, ipratropium, diltiazem, Lasix, and Tylenol. ALLERGIES: No known drug allergies. SOCIAL HISTORY: Unknown. FAMILY HISTORY: Unknown. REVIEW OF SYSTEMS: Unable to obtain currently. PHYSICAL EXAMINATION: VITAL SIGNS: Temperature of 97.4, T-max of 98, pulse of 85, respiratory rate of 18, blood pressure 138/71, and O2 saturation of 98%. HEENT: Pupils equally reactive to light and accommodation. Mouth appears clean without thrush. The patient is on a BiPAP. NECK: Supple. No adenopathy. No JVD. CARDIOVASCULAR: Regular rate and rhythm. No murmurs. LUNGS: Clear to auscultation bilaterally. No crackles. No wheezes. ABDOMEN: Soft and nontender. No organomegaly. EXTREMITIES: No cyanosis. No clubbing. No edema. LABORATORY AND DIAGNOSTIC DATA: White count 7.5, hemoglobin 9.6, hematocrit 29.9, MCV 96, platelet count of 281. Sodium 139, potassium 4, chloride 100, bicarb 36, BUN 56, creatinine 1.3, glucose 115, and calcium 9.3. Beta-natriuretic peptide 3986. Troponin 0.032. UA showing 0 to 2 white cells. Blood cultures are pending. Abdominal x-ray showed multiple air distended loops of small bowel in the abdomen. A 2D echocardiogram is showing pleural effusion, mild mitral regurgitation, mild tricuspid regurgitation, moderate pulmonary hypertension noted, and left ventricular hypertrophy noted. Chest x-ray showed mild interstitial congestion, bilateral pleural effusions, and right perihilar and left basal atelectasis. ASSESSMENT: 1. This is an 81-year-old gentleman with history of atrial fibrillation and hypertension, who comes in and is found to have a possible aspiration pneumonia versus atypical pneumonia. 2. Atrial fibrillation. 3. Hypertension. 4. Pleural effusions. PLAN: 1. We will start the patient on Zosyn and doxycycline. 2. We will order sputum for Gram stain and culture. 3. We will order for serum Legionella antibody. 4. We will order for mycoplasma serology. 5. We will follow up cultures and adjust antibiotics accordingly. I would like to thank, Dr. Mustafa, for this consultation. Afshan Perez M.D. DR: Betty JOB#: [id number] CC: Danitza Mustafa M.D.; Fax#: [phone]
--- NOTE | 2017-11-16 23:32 | General Progress Note ---
Assessment/Plan Assessment/Plan 1. Coagulopathy, likely due to underlying Coumadin use. --> Continue to closely monitor. The patient's Coumadin has been restarted. Dr. Eldridge has seen the patient. --> INR goal between 2 and 3 2. Anemia due to underlying chronic disease. --> Continue to closely monitor. --> Anemia workup has been ordered. --> Hemoglobin goal is above 7. 3. Azotemia as per Nephrology consultation, likely the patient is dehydrated. 4. Respiratory distress. --> Closely monitor. --> The patient's shortness of breath is likely related underlying congestion, bilateral pleural effusions. --> To be seen by Infectious Disease. 5. Weakness and fatigue, likely due to underlying anemia. Subjective Date patient seen: Nov 16, 2017 Constitutional: Denies: no symptoms, chills, diaphoresis, fever, malaise, weakness, other HEENT: Denies: no symptoms, eye pain, blurred vision, tearing, double vision, ear pain, ear discharge, nose pain, nose congestion, throat pain, throat swelling, mouth pain, mouth swelling, other Cardiovascular: Denies: no symptoms, chest pain, edema, irregular heart rate, lightheadedness, palpitations, syncope, other Respiratory: Denies: no symptoms, cough, orthopnea, shortness of breath, SOB with excertion, SOB at rest, sputum, stridor, wheezing, other Gastrointestinal/Abdominal: Denies: no symptoms, abdomen distended, abdominal pain, black stools, tarry stools, blood in stool, constipated, diarrhea, difficulty swallowing, nausea, poor appetite, poor fluid intake, rectal bleeding , vomiting, other Genitourinary: Denies: no symptoms, burning, discharge, frequency, flank pain, hematuria, incontinence, pain, urgency, other Hematologic/Lymphatic: Reports: anemia Allergies: Coded Allergies: No Known Allergies (Unverified , 06/20/17) Subjective On coumadin. No fever or chills. General weakness. Objective Last 24 Hour Vital Signs Date Time Temp Pulse Resp B/P (MAP) Pulse Ox O2 Delivery O2 Flow Rate FiO2 11/16/17 20:00 83 11/16/17 19:51 78 16 96 Non-Rebreather 100 11/16/17 19:41 77 15 95 Nasal Cannula 3.0 11/16/17 19:41 Nasal Cannula 3.0 32 11/16/17 19:41 95 Nasal Cannula 3.0 32 11/16/17 17:48 84 154/75 11/16/17 16:00 74 11/16/17 16:00 2.0 11/16/17 16:00 97.7 82 18 137/98 93 Nasal Cannula 3.0 11/16/17 15:00 Nasal Cannula 3.0 32 11/16/17 15:00 97 Nasal Cannula 3.0 32 11/16/17 13:30 84 16 96 Bi-pap 30 11/16/17 13:23 86 15 96 Facial 30 11/16/17 13:22 84 15 96 Bi-pap 30 11/16/17 12:30 81 112/71 11/16/17 12:00 97.5 82 18 141/52 95 Bi-pap 30 11/16/17 12:00 81 11/16/17 12:00 40 11/16/17 11:29 83 15 98 Facial 30 11/16/17 08:43 85 18 98 Facial 30 11/16/17 08:00 82 11/16/17 08:00 97.4 82 13 110/71 95 Non-Rebreather 15.0 11/16/17 08:00 50 11/16/17 07:43 80 16 99 Bi-pap 40 11/16/17 07:40 86 18 97 Facial 40 11/16/17 07:38 82 18 97 Bi-pap 40 11/16/17 06:38 84 138/71 11/16/17 05:29 74 19 97 Facial 40 11/16/17 04:00 85 11/16/17 04:00 97.4 84 13 138/71 95 Non-Rebreather 15.0 11/16/17 04:00 50 11/16/17 03:33 86 20 96 Facial 40 11/16/17 02:23 57 20 100 Bi-pap 40 11/16/17 02:12 57 20 97 Bi-pap 40 11/16/17 01:10 55 18 97 Facial 40 11/16/17 01:10 80 139/60 11/16/17 00:10 50 11/16/17 00:00 81 11/16/17 00:00 97.6 80 22 139/60 94 Non-Rebreather 15.0 Intake and Output 11/15/17 11/16/17 19:00 07:00 Intake Total 110 ml Balance 110 ml Intake IV Total 110 ml # Voids 1 # Bowel Movements 2 1 Laboratory Tests 11/16/17 03:05: Prothrombin Time 21.0H, Prothromb Time International Ratio 2.0H, Sodium Level 139, Potassium Level 4.0, Chloride Level 100, Carbon Dioxide Level 36H, Anion Gap 3L, Blood Urea Nitrogen 56H, Creatinine 1.3, Estimat Glomerular Filtration Rate , Glucose Level 115H, Calcium Level 9.3, Troponin I 0.032, Pro-B-Type Natriuretic Peptide 3986H, Free Thyroxine 1.48H 11/16/17 04:00: Stool Occult Blood Positive 11/16/17 13:05: Legionella pneumophila Group 1 Ab [Pending], Legionella pneumophilia IgM Group 1 [Pending], Mycoplasma pneumoniae IgG Antibody [Pending], Mycoplasma pneumoniae IgM Ab Titer [Pending] Height (Feet): 5 Height (Inches): 11.00 Weight (Pounds): 175 General Appearance: confused Cardiovascular: normal rate, regular rhythm Respiratory/Chest: decreased breath sounds Abdomen: soft Bharath Ya Nov 16, 2017 23:32
[2017-11-17] VITALS: BP 117/57
[2017-11-17] MEDS: dilTIAZem HCl 60mg tab ORAL SCH ×4 (01:08→18:01)
[2017-11-17] MEDS: Albuterol/Ipratropium 3ml neb HHN SCH ×4 (01:29→19:50)
--- NOTE | 2017-11-17 02:00 | Consultation ---
DATE OF CONSULTATION: 11/16/2017 NOTE: POOR AUDIO GASTROENTEROLOGY CONSULTATION CONSULTING PHYSICIAN: Brian Evans M.D. CHIEF COMPLAINT: I was asked to see this patient for possible gastrostomy tube placement. HISTORY OF PRESENT ILLNESS: The patient is a debilitated 81-year-old white man with multiple medical problems including dementia, who was brought into the hospital due to hypoxia and shortness of breath. The patient was previously at [facility] for respiratory failure and subsequently went to [facility]. He is not in the alf, but brought back to the hospital because of respiratory failure. He used a BiPAP in the past and has a nasogastric tube placed, but no feeding has been started. The patient states he has no family. The patient has had some abdominal distention. His x-ray shows some pleural effusions. His abdominal x-rays show some bowel distention. PAST MEDICAL HISTORY: History of atrial fibrillation, hypertension, gastroesophageal reflux disease, prostatic hypertrophy, dementia, arrhythmias, and respiratory failure. MEDICATIONS: See chart list for details. ALLERGIES: None. SOCIAL HISTORY: The patient is from a alf. He is having no relatives. FAMILY HISTORY: Noncontributory. REVIEW OF SYSTEMS: Otherwise negative. PHYSICAL EXAMINATION: GENERAL: A debilitated white man, seen in his room. HEENT: Normocephalic and atraumatic. Sclerae anicteric. Oropharynx clear. NECK: Supple. CHEST: Reveals coarse breath sounds. CARDIOVASCULAR: Revealed a regular rate. ABDOMEN: Soft, mildly distended. EXTREMITIES: Revealed no edema. LABORATORY DATA: Noted. ASSESSMENT: This patient presents with respiratory failure requiring BiPAP treatment. There are some loops of bowel that are distended and the concern is ileus versus bowel obstruction. Nasogastric tube will be placed on suction . In the meantime, the issue of a gastrostomy tube placement is raised. Another issue is that the patient will likely need to be intubated for the procedure given his severe respiratory failure. For the time being, he will be managed conservatively until above have been evaluated and treated. RECOMMENDATIONS: 1. Nasogastric tube to low intermittent suction. 2. Pulmonary toilet and BiPAP treatment. 3. Follow laboratory parameters and examine closely. Thank you for asking me to participate in the care of this patient. Brian Evans M.D. DR: Ailin JOB#: [id number] CC: JOSIAS
[2017-11-17 04:00] VITALS: BP 131/52
[2017-11-17 05:28] LABS: BASOPHILS % (AUTO) 0.4 % (0.0-2.0); HEMATOCRIT 31.2 % (42.0-52.0); HEMOGLOBIN 10.1 G/DL (14.2-18.0); LYMPHOCYTES % (AUTO) 15.9 % (20.0-45.0); MEAN CORPUSCULAR VOLUME 94 FL (80-99); MONOCYTES % (AUTO) 12.6 % (1.0-10.0); NEUTROPHILS % (AUTO) 71.2 % (45.0-75.0); PLATELET COUNT 295 K/UL (150-450); RED BLOOD COUNT 3.31 M/UL (4.70-6.10); RED CELL DISTRIBUTION WIDTH 16.2 % (11.6-14.8); WHITE BLOOD COUNT 6.7 K/UL (4.8-10.8)
[2017-11-17 05:45] LABS: INR 3.9 (0.9-1.1)
[2017-11-17] MEDS: Piperacillin/Tazobactam 3.375 GM in D5W 110 ML IVPB SCH ×3 (05:52→21:47)
[2017-11-17 06:13] LABS: ALANINE AMINOTRANSFERASE 33 U/L (12-78); ALBUMIN 2.4 G/DL (3.4-5.0); ALBUMIN/GLOBULIN RATIO 0.5 (1.0-2.7); ALKALINE PHOSPHATASE 54 U/L (46-116); ANION GAP 7 mmol/L (5-15); ASPARTATE AMINO TRANSFERASE 31 U/L (15-37); BILIRUBIN,TOTAL 0.4 MG/DL (0.2-1.0); BLOOD UREA NITROGEN 59 mg/dL (7-18); CARBON DIOXIDE 37 MMOL/L (21-32); CHLORIDE 99 MMOL/L (98-107); CHOLESTEROL 165 MG/DL (< 200); CREATINE KINASE 53 U/L (26-308); CREATININE 1.5 MG/DL (0.55-1.30); GAMMA GLUTAMYL TRANSPEPTIDASE 30 U/L (5-85); HDL CHOLESTEROL 59 MG/DL (40-60); PHOSPHORUS 3.2 MG/DL (2.5-4.9); POTASSIUM 3.1 MMOL/L (3.5-5.1); SODIUM 143 MMOL/L (136-145); TRIGLYCERIDES 63 MG/DL (30-150)
[2017-11-17 08:00] VITALS: BP 118/62
--- NOTE | 2017-11-17 08:26 | Infectious Diseases Prog Note ---
Assessment/Plan Assessment/Plan A: Pneumonia Hypercapnic respiratory failure Atrial fibrillation Diastolic CHF HPN P: Continue Zosyn & Doxycycline Will f/u cultures Subjective ROS Limited/Unobtainable: Yes Constitutional: Reports: no symptoms Respiratory: Reports: no symptoms, other - off BIPAP Gastrointestinal/Abdominal: Reports: no symptoms Genitourinary: Reports: no symptoms Allergies: Coded Allergies: No Known Allergies (Unverified , 06/20/17) Objective Vital Signs Last 24 Hour Vital Signs Date Time Temp Pulse Resp B/P (MAP) Pulse Ox O2 Delivery O2 Flow Rate FiO2 11/17/17 06:55 84 17 97 Venturi Mask 55 11/17/17 06:38 94 Venturi Mask 55 11/17/17 06:38 Venturi Mask 55 11/17/17 06:37 72 17 94 Venturi Mask 55 11/17/17 05:52 77 131/52 11/17/17 04:00 96.5 74 18 131/52 92 Venturi Mask 55 11/17/17 04:00 77 11/17/17 01:37 82 16 96 Venturi Mask 55 11/17/17 01:29 73 15 93 Venturi Mask 55 11/17/17 01:08 82 117/57 11/17/17 00:00 89 11/17/17 00:00 97.5 82 18 117/57 93 Venturi Mask 55 11/16/17 20:00 97.9 78 20 132/44 95 Venturi Mask 55 11/16/17 20:00 83 11/16/17 19:51 78 16 96 Non-Rebreather 100 11/16/17 19:41 77 15 95 Nasal Cannula 3.0 11/16/17 19:41 Nasal Cannula 3.0 32 11/16/17 19:41 95 Nasal Cannula 3.0 32 11/16/17 17:48 84 154/75 11/16/17 16:00 74 11/16/17 16:00 2.0 11/16/17 16:00 97.7 82 18 137/98 93 Nasal Cannula 3.0 11/16/17 15:00 Nasal Cannula 3.0 32 11/16/17 15:00 97 Nasal Cannula 3.0 32 11/16/17 13:30 84 16 96 Bi-pap 30 11/16/17 13:23 86 15 96 Facial 30 11/16/17 13:22 84 15 96 Bi-pap 30 11/16/17 12:30 81 112/71 11/16/17 12:00 97.5 82 18 141/52 95 Bi-pap 30 11/16/17 12:00 81 11/16/17 12:00 40 11/16/17 11:29 83 15 98 Facial 30 11/16/17 08:43 85 18 98 Facial 30 Height (Feet): 5 Height (Inches): 11.00 Weight (Pounds): 156 General Appearance: no acute distress HEENT: mucous membranes moist, other - poor dentition Respiratory/Chest: lungs clear Cardiovascular: normal rate Abdomen: soft, non tender Extremities: no edema Neurologic/Psychiatric: alert, responsive Microbiology Date/Time Source Procedure Growth Status 11/15/17 07:30 Blood Blood Culture - Preliminary NO GROWTH AFTER 24 HOURS Resulted 11/15/17 07:20 Blood Blood Culture - Preliminary NO GROWTH AFTER 24 HOURS Resulted Laboratory Tests Test 11/16/17 13:05 11/17/17 03:15 Legionella pneumophila Group 1 Ab Pending Legionella pneumophilia IgM Group 1 Pending Mycoplasma pneumoniae IgG Antibody Pending Mycoplasma pneumoniae IgM Ab Titer Pending White Blood Count 6.7 K/UL (4.8-10.8) Red Blood Count 3.31 M/UL (4.70-6.10) L Hemoglobin 10.1 G/DL (14.2-18.0) L Hematocrit 31.2 % (42.0-52.0) L Mean Corpuscular Volume 94 FL (80-99) Mean Corpuscular Hemoglobin 30.7 PG (27.0-31.0) Mean Corpuscular Hemoglobin Concent 32.5 G/DL (32.0-36.0) Red Cell Distribution Width 16.2 % (11.6-14.8) H Platelet Count 295 K/UL (150-450) Mean Platelet Volume 5.7 FL (6.5-10.1) L Neutrophils (%) (Auto) 71.2 % (45.0-75.0) Lymphocytes (%) (Auto) 15.9 % (20.0-45.0) L Monocytes (%) (Auto) 12.6 % (1.0-10.0) H Eosinophils (%) (Auto) 0.0 % (0.0-3.0) Basophils (%) (Auto) 0.4 % (0.0-2.0) Prothrombin Time 41.8 SEC (9.30-11.50) H Prothromb Time International Ratio 3.9 (0.9-1.1) H Sodium Level 143 MMOL/L (136-145) Potassium Level 3.1 MMOL/L (3.5-5.1) L Chloride Level 99 MMOL/L (98-107) Carbon Dioxide Level 37 MMOL/L (21-32) H Anion Gap 7 mmol/L (5-15) Blood Urea Nitrogen 59 mg/dL (7-18) H Creatinine 1.5 MG/DL (0.55-1.30) H Estimat Glomerular Filtration Rate mL/min (>60) Glucose Level 82 MG/DL (74-106) Hemoglobin A1c 6.2 % (4.3-6.0) H Uric Acid 8.7 MG/DL (2.6-7.2) H Calcium Level 9.0 MG/DL (8.5-10.1) Phosphorus Level 3.2 MG/DL (2.5-4.9) Magnesium Level 2.1 MG/DL (1.8-2.4) Total Bilirubin 0.4 MG/DL (0.2-1.0) Gamma Glutamyl Transpeptidase 30 U/L (5-85) Aspartate Amino Transf (AST/SGOT) 31 U/L (15-37) Alanine Aminotransferase (ALT/SGPT) 33 U/L (12-78) Alkaline Phosphatase 54 U/L (46-116) Total Creatine Kinase 53 U/L (26-308) Troponin I 0.027 ng/mL (0.000-0.056) C-Reactive Protein, Quantitative 4.9 mg/dL (0.00-0.90) H Pro-B-Type Natriuretic Peptide 2657 pg/mL (0-125) H Total Protein 7.1 G/DL (6.4-8.2) Albumin 2.4 G/DL (3.4-5.0) L Globulin 4.7 g/dL Albumin/Globulin Ratio 0.5 (1.0-2.7) L Triglycerides Level 63 MG/DL (30-150) Cholesterol Level 165 MG/DL (< 200) LDL Cholesterol 96 mg/dL (<100) HDL Cholesterol 59 MG/DL (40-60) Cholesterol/HDL Ratio 2.8 (3.3-4.4) L Thyroid Stimulating Hormone (TSH) 1.440 uiU/mL (0.358-3.740) Current Medications Medications (Trade) Dose Ordered Sig/Raine Route PRN Reason Start Time Stop Time Status Last Admin Dose Admin Acetaminophen (Tylenol) 650 mg Q6HR PRN NG for pain 11/15/17 17:00 12/15/17 16:59 Albuterol/ Ipratropium (Albuterol/ Ipratropium) 3 ml Q6HRT HHN 11/15/17 19:00 11/20/17 18:59 11/17/17 06:35 Diltiazem HCl (Cardizem) 60 mg EVERY 6 HOURS ORAL 11/15/17 18:00 12/15/17 17:59 11/17/17 05:52 Doxycycline Monohydrate (Vibramycin) 100 mg EVERY 12 HOURS ORAL 11/16/17 12:00 11/23/17 11:59 11/16/17 22:08 Furosemide (Lasix) 40 mg BID IV 11/15/17 18:00 12/15/17 17:59 11/16/17 17:48 Iron Sucrose 100 mg/Sodium Chloride 55 ml @ 200 mls/hr BEDTIME IV 11/16/17 21:00 11/25/17 21:17 11/16/17 22:08 Piperacillin Sod/ Tazobactam Sod 3.375 gm/Dextrose 110 ml @ 27.5 mls/hr EVERY 8 HOURS IVPB 11/16/17 12:30 11/21/17 12:29 11/17/17 05:52 Warfarin Sodium (Coumadin per pharmacy) 1 ea DAILY PRN MISC Per rx protocol 11/15/17 14:30 12/15/17 14:29 TOLU ERICKSON Nov 17, 2017 08:26
--- NOTE | 2017-11-17 09:05 | Diagnostic Imaging Report ---
Indication: NG tube placement Technique: XRAY Abdomen 1v Comparison: 11/15/2017 Findings: NG tube courses below the level of the diaphragm, tip in the left upper quadrant, expected region of the stomach - unchanged. Gas-distention of small bowel loops is less pronounced on today's exam. Copious stool is noted in the rectum. Portions of the ventriculoperitoneal catheter noted, tip in the left lower quadrant. Small left pleural effusion and left basilar atelectasis/consolidation. Degenerative changes noted in the spine. Atherosclerotic vascular calcifications noted. Impression: NG tube tip projects over the left upper quadrant, expected region of the stomach. Previously questioned distended loops of bowel less apparent on today's exam. Copious stool in the rectum concerning for fecal impaction. Correlate clinically. This corresponds with the statrad preliminary report.
--- NOTE | 2017-11-17 10:56 | Nephrology Progress Note ---
Assessment/Plan Problem List: (1) Acute renal failure (2) CHF (congestive heart failure) (3) Respiratory distress Assessment status: High BUN indicative of pre renal azotemia, 3+ proteinuria- Cr up to 1.5 today partly dehydration- Partly GI bleed Low Iron, Stool OB+ Echo: Left ventricular ejection fraction estimated to be 60-65 %. No evidence of left ventricular hypertrophy. Pleural effusion . Mild left atrial enlargement. others: - Acute respiratory failure, hypercapnic type. - Pulmonary edema. - Non-ST elevation myocardial infarction. - Chronic obstructive pulmonary disease. - Possible pneumonia. - Prostate hypertrophy. - Atrial fibrillation, on Coumadin. - Encephalopathy, - Status post ventriculoperitoneal shunt. Plan Plan: IV Iron- Optimize pulmonary and cardiac status monitor renal parameters and lytes K supplement Subjective ROS Limited/Unobtainable: No Constitutional: Reports: malaise Objective Objective Last 24 Hour Vital Signs Date Time Temp Pulse Resp B/P (MAP) Pulse Ox O2 Delivery O2 Flow Rate FiO2 11/17/17 08:00 97.0 81 18 118/62 92 Venturi Mask 14.0 55 11/17/17 08:00 74 11/17/17 06:55 84 17 97 Venturi Mask 55 11/17/17 06:38 94 Venturi Mask 55 11/17/17 06:38 Venturi Mask 55 11/17/17 06:37 72 17 94 Venturi Mask 55 11/17/17 05:52 77 131/52 11/17/17 04:00 96.5 74 18 131/52 92 Venturi Mask 55 11/17/17 04:00 77 11/17/17 01:37 82 16 96 Venturi Mask 55 11/17/17 01:29 73 15 93 Venturi Mask 55 11/17/17 01:08 82 117/57 11/17/17 00:00 89 11/17/17 00:00 97.5 82 18 117/57 93 Venturi Mask 55 11/16/17 20:00 97.9 78 20 132/44 95 Venturi Mask 55 11/16/17 20:00 83 11/16/17 19:51 78 16 96 Non-Rebreather 100 11/16/17 19:41 77 15 95 Nasal Cannula 3.0 11/16/17 19:41 Nasal Cannula 3.0 32 11/16/17 19:41 95 Nasal Cannula 3.0 32 11/16/17 17:48 84 154/75 11/16/17 16:00 74 11/16/17 16:00 2.0 11/16/17 16:00 97.7 82 18 137/98 93 Nasal Cannula 3.0 11/16/17 15:00 Nasal Cannula 3.0 32 11/16/17 15:00 97 Nasal Cannula 3.0 32 11/16/17 13:30 84 16 96 Bi-pap 30 11/16/17 13:23 86 15 96 Facial 30 11/16/17 13:22 84 15 96 Bi-pap 30 11/16/17 12:30 81 112/71 11/16/17 12:00 97.5 82 18 141/52 95 Bi-pap 30 11/16/17 12:00 81 11/16/17 12:00 40 11/16/17 11:29 83 15 98 Facial 30 Intake and Output 11/16/17 11/17/17 19:00 07:00 Intake Total 110.0 ml 387.5 ml Output Total 5150 ml 1800 ml Balance -5040.0 ml -1412.5 ml Intake Oral 50 ml IV Total 110.0 ml 337.5 ml Output Urine Total 5150 ml 1800 ml # Bowel Movements 3 2 Laboratory Tests 11/16/17 13:05: Legionella pneumophila Group 1 Ab [Pending], Legionella pneumophilia IgM Group 1 [Pending], Mycoplasma pneumoniae IgG Antibody [Pending], Mycoplasma pneumoniae IgM Ab Titer [Pending] 11/17/17 03:15: White Blood Count 6.7, Red Blood Count 3.31L, Hemoglobin 10.1L, Hematocrit 31.2L , Mean Corpuscular Volume 94, Mean Corpuscular Hemoglobin 30.7, Mean Corpuscular Hemoglobin Concent 32.5, Red Cell Distribution Width 16.2H, Platelet Count 295, Mean Platelet Volume 5.7L, Neutrophils (%) (Auto) 71.2, Lymphocytes (%) (Auto) 15.9L, Monocytes (%) (Auto) 12.6H, Eosinophils (%) (Auto ) 0.0, Basophils (%) (Auto) 0.4, Prothrombin Time 41.8H, Prothromb Time International Ratio 3.9H, Sodium Level 143, Potassium Level 3.1L, Chloride Level 99, Carbon Dioxide Level 37H, Anion Gap 7, Blood Urea Nitrogen 59H, Creatinine 1.5H, Estimat Glomerular Filtration Rate , Glucose Level 82, Hemoglobin A1c 6.2H, Uric Acid 8.7H, Calcium Level 9.0, Phosphorus Level 3.2, Magnesium Level 2.1, Total Bilirubin 0.4, Gamma Glutamyl Transpeptidase 30, Aspartate Amino Transf (AST/SGOT) 31, Alanine Aminotransferase (ALT/SGPT) 33, Alkaline Phosphatase 54, Total Creatine Kinase 53, Troponin I 0.027, C-Reactive Protein, Quantitative 4.9H, Pro-B-Type Natriuretic Peptide 2657H, Total Protein 7.1, Albumin 2.4L, Globulin 4.7, Albumin/Globulin Ratio 0.5L, Triglycerides Level 63, Cholesterol Level 165, LDL Cholesterol 96, HDL Cholesterol 59, Cholesterol/HDL Ratio 2.8L, Thyroid Stimulating Hormone (TSH) 1.440 Height (Feet): 5 Height (Inches): 11.00 Weight (Pounds): 156 General Appearance: no apparent distress Cardiovascular: normal rate Respiratory/Chest: decreased breath sounds Abdomen: soft MARCELINO STEELE Nov 17, 2017 10:56
[2017-11-17 12:00] VITALS: BP 128/59
[2017-11-17] MEDS: D5 1/2NS 1,000 ML IV SCH (12:20)
[2017-11-17 16:00] VITALS: BP 125/49
[2017-11-17] MEDS ORDERED: D5 1/2NS 1000ml IV ONE (16:31)
[2017-11-17] MEDS ORDERED: Tubing IV Secondary IV ONE (16:31)
[2017-11-17] MEDS ORDERED: NS 500ML ONE (16:31)
--- NOTE | 2017-11-17 19:00 | General Progress Note ---
Assessment/Plan Assessment/Plan Assessment - R/o Dysphagia - abd distention - Respiratory failure - Atrial fib - OBS - Poor px Recommendations - check swallow eval - follow abd exam and KUB - BIPAP and pulmonary toilet PRN - locate next of kin - May need to be intubated for PEG placement - KUB --> constipation --> laxative Subjective Allergies: Coded Allergies: No Known Allergies (Unverified , 06/20/17) Subjective More awake today BIPAP off Disoriented ST eval ordered Objective Last 24 Hour Vital Signs Date Time Temp Pulse Resp B/P (MAP) Pulse Ox O2 Delivery O2 Flow Rate FiO2 11/17/17 18:01 73 123/61 11/17/17 16:00 97.5 68 20 125/49 97 Venturi Mask 14.0 55 11/17/17 16:00 78 11/17/17 13:37 81 17 95 Venturi Mask 55 11/17/17 13:18 74 17 94 Venturi Mask 55 11/17/17 12:00 97.2 70 16 128/59 94 Venturi Mask 14.0 55 11/17/17 12:00 80 11/17/17 12:00 72 128/59 11/17/17 08:00 97.0 81 18 118/62 92 Venturi Mask 14.0 55 11/17/17 08:00 74 11/17/17 06:55 84 17 97 Venturi Mask 55 11/17/17 06:38 94 Venturi Mask 55 11/17/17 06:38 Venturi Mask 55 11/17/17 06:37 72 17 94 Venturi Mask 55 11/17/17 05:52 77 131/52 11/17/17 04:00 96.5 74 18 131/52 92 Venturi Mask 55 11/17/17 04:00 77 11/17/17 01:37 82 16 96 Venturi Mask 55 11/17/17 01:29 73 15 93 Venturi Mask 55 11/17/17 01:08 82 117/57 11/17/17 00:00 89 11/17/17 00:00 97.5 82 18 117/57 93 Venturi Mask 55 11/16/17 20:00 97.9 78 20 132/44 95 Venturi Mask 55 11/16/17 20:00 83 11/16/17 19:51 78 16 96 Non-Rebreather 100 11/16/17 19:41 77 15 95 Nasal Cannula 3.0 11/16/17 19:41 Nasal Cannula 3.0 32 11/16/17 19:41 95 Nasal Cannula 3.0 32 Intake and Output 11/16/17 11/17/17 19:00 07:00 Intake Total 110.0 ml 387.5 ml Output Total 5150 ml 1800 ml Balance -5040.0 ml -1412.5 ml Intake Oral 50 ml IV Total 110.0 ml 337.5 ml Output Urine Total 5150 ml 1800 ml # Bowel Movements 3 2 Laboratory Tests 11/17/17 03:15: White Blood Count 6.7, Red Blood Count 3.31L, Hemoglobin 10.1L, Hematocrit 31.2L , Mean Corpuscular Volume 94, Mean Corpuscular Hemoglobin 30.7, Mean Corpuscular Hemoglobin Concent 32.5, Red Cell Distribution Width 16.2H, Platelet Count 295, Mean Platelet Volume 5.7L, Neutrophils (%) (Auto) 71.2, Lymphocytes (%) (Auto) 15.9L, Monocytes (%) (Auto) 12.6H, Eosinophils (%) (Auto ) 0.0, Basophils (%) (Auto) 0.4, Prothrombin Time 41.8H, Prothromb Time International Ratio 3.9H, Sodium Level 143, Potassium Level 3.1L, Chloride Level 99, Carbon Dioxide Level 37H, Anion Gap 7, Blood Urea Nitrogen 59H, Creatinine 1.5H, Estimat Glomerular Filtration Rate , Glucose Level 82, Hemoglobin A1c 6.2H, Uric Acid 8.7H, Calcium Level 9.0, Phosphorus Level 3.2, Magnesium Level 2.1, Total Bilirubin 0.4, Gamma Glutamyl Transpeptidase 30, Aspartate Amino Transf (AST/SGOT) 31, Alanine Aminotransferase (ALT/SGPT) 33, Alkaline Phosphatase 54, Total Creatine Kinase 53, Troponin I 0.027, C-Reactive Protein, Quantitative 4.9H, Pro-B-Type Natriuretic Peptide 2657H, Total Protein 7.1, Albumin 2.4L, Globulin 4.7, Albumin/Globulin Ratio 0.5L, Triglycerides Level 63, Cholesterol Level 165, LDL Cholesterol 96, HDL Cholesterol 59, Cholesterol/HDL Ratio 2.8L, Thyroid Stimulating Hormone (TSH) 1.440 11/17/17 12:14: C-Reactive Protein, Quantitative 4.4H Height (Feet): 5 Height (Inches): 11.00 Weight (Pounds): 156 Objective WDWN NCAT Supple CTA RRR Soft ND No Edema SMITH SCHILLING Nov 17, 2017 19:00
--- NOTE | 2017-11-17 19:51 | General Progress Note ---
Assessment/Plan Problem List: (1) Urinary tract infection ICD Codes: N39.0 - Urinary tract infection, site not specified SNOMED: 16423902 (2) Sepsis ICD Codes: A41.9 - Sepsis, unspecified organism SNOMED: 97514332 (3) Dyspnea ICD Codes: R06.00 - Dyspnea, unspecified SNOMED: 310227384 (4) Respiratory distress ICD Codes: R06.03 - Acute respiratory distress SNOMED: 725914510 Status: progressing Assessment/Plan uti resp failure sepsis abx per id a fib afebrile vitals stable r/o asa pna st per gi Subjective ROS Limited/Unobtainable: Yes Allergies: Coded Allergies: No Known Allergies (Unverified , 06/20/17) Objective Last 24 Hour Vital Signs Date Time Temp Pulse Resp B/P (MAP) Pulse Ox O2 Delivery O2 Flow Rate FiO2 11/17/17 19:49 98 Nasal Cannula 15.0 55 11/17/17 19:49 Nasal Cannula 15.0 55 11/17/17 18:01 73 123/61 11/17/17 16:00 97.5 68 20 125/49 97 Venturi Mask 14.0 55 11/17/17 16:00 78 11/17/17 13:37 81 17 95 Venturi Mask 55 11/17/17 13:18 74 17 94 Venturi Mask 55 11/17/17 12:00 97.2 70 16 128/59 94 Venturi Mask 14.0 55 11/17/17 12:00 80 11/17/17 12:00 72 128/59 11/17/17 08:00 97.0 81 18 118/62 92 Venturi Mask 14.0 55 11/17/17 08:00 74 11/17/17 06:55 84 17 97 Venturi Mask 55 11/17/17 06:38 94 Venturi Mask 55 11/17/17 06:38 Venturi Mask 55 11/17/17 06:37 72 17 94 Venturi Mask 55 11/17/17 05:52 77 131/52 11/17/17 04:00 96.5 74 18 131/52 92 Venturi Mask 55 11/17/17 04:00 77 11/17/17 01:37 82 16 96 Venturi Mask 55 11/17/17 01:29 73 15 93 Venturi Mask 55 11/17/17 01:08 82 117/57 11/17/17 00:00 89 11/17/17 00:00 97.5 82 18 117/57 93 Venturi Mask 55 11/16/17 20:00 97.9 78 20 132/44 95 Venturi Mask 55 11/16/17 20:00 83 11/16/17 19:51 78 16 96 Non-Rebreather 100 Intake and Output 11/16/17 11/17/17 19:00 07:00 Intake Total 110.0 ml 387.5 ml Output Total 5150 ml 1800 ml Balance -5040.0 ml -1412.5 ml Intake Oral 50 ml IV Total 110.0 ml 337.5 ml Output Urine Total 5150 ml 1800 ml # Bowel Movements 3 2 Laboratory Tests 11/17/17 03:15: White Blood Count 6.7, Red Blood Count 3.31L, Hemoglobin 10.1L, Hematocrit 31.2L , Mean Corpuscular Volume 94, Mean Corpuscular Hemoglobin 30.7, Mean Corpuscular Hemoglobin Concent 32.5, Red Cell Distribution Width 16.2H, Platelet Count 295, Mean Platelet Volume 5.7L, Neutrophils (%) (Auto) 71.2, Lymphocytes (%) (Auto) 15.9L, Monocytes (%) (Auto) 12.6H, Eosinophils (%) (Auto ) 0.0, Basophils (%) (Auto) 0.4, Prothrombin Time 41.8H, Prothromb Time International Ratio 3.9H, Sodium Level 143, Potassium Level 3.1L, Chloride Level 99, Carbon Dioxide Level 37H, Anion Gap 7, Blood Urea Nitrogen 59H, Creatinine 1.5H, Estimat Glomerular Filtration Rate , Glucose Level 82, Hemoglobin A1c 6.2H, Uric Acid 8.7H, Calcium Level 9.0, Phosphorus Level 3.2, Magnesium Level 2.1, Total Bilirubin 0.4, Gamma Glutamyl Transpeptidase 30, Aspartate Amino Transf (AST/SGOT) 31, Alanine Aminotransferase (ALT/SGPT) 33, Alkaline Phosphatase 54, Total Creatine Kinase 53, Troponin I 0.027, C-Reactive Protein, Quantitative 4.9H, Pro-B-Type Natriuretic Peptide 2657H, Total Protein 7.1, Albumin 2.4L, Globulin 4.7, Albumin/Globulin Ratio 0.5L, Triglycerides Level 63, Cholesterol Level 165, LDL Cholesterol 96, HDL Cholesterol 59, Cholesterol/HDL Ratio 2.8L, Thyroid Stimulating Hormone (TSH) 1.440 11/17/17 12:14: C-Reactive Protein, Quantitative 4.4H Height (Feet): 5 Height (Inches): 11.00 Weight (Pounds): 156 Neck: supple Respiratory/Chest: lungs clear Danitza Mustafa MD Nov 17, 2017 19:51
[2017-11-17 20:00] VITALS: BP 122/50
--- NOTE | 2017-11-17 21:19 | Pulmonology Progress Note ---
Assessment/Plan Assessment/Plan 1. Acute respiratory failure, hypercapnic 2. Pulmonary edema. 3. Non-ST elevation myocardial infarction. 4. Chronic obstructive pulmonary disease. 5. Possible pneumonia. 6. Prostate hypertrophy. 7. Atrial fibrillation, on Coumadin. 8. Encephalopathy, 9. Status post ventriculoperitoneal shunt 10 dysphagia RECOMMENDATIONS: bipap qhs and prn distress nebs abx titrate o2 aspiration precautions watch io NPO, needs swallow and possible replacement of NGT cxr saturday dvt prophylaxis Subjective Constitutional: Reports: no symptoms HEENT: Repors: no symptoms Respiratory: Reports: productive cough, shortness of breath Gastrointestinal/Abdominal: Reports: no symptoms Skin: Reports: no symptoms Allergies: Coded Allergies: No Known Allergies (Unverified , 06/20/17) Subjective more awake off bipap npo and pulled out NGt no cp nv or bleeding not getting oob remaisn on o2 no distress Objective Last 24 Hour Vital Signs Date Time Temp Pulse Resp B/P (MAP) Pulse Ox O2 Delivery O2 Flow Rate FiO2 11/17/17 20:00 97.7 74 20 122/50 98 Venturi Mask 14.0 55 11/17/17 19:50 70 18 98 Venturi Mask 55 11/17/17 19:49 98 Nasal Cannula 15.0 55 11/17/17 19:49 Nasal Cannula 15.0 55 11/17/17 18:01 73 123/61 11/17/17 16:00 97.5 68 20 125/49 97 Venturi Mask 14.0 55 11/17/17 16:00 78 11/17/17 13:37 81 17 95 Venturi Mask 55 11/17/17 13:18 74 17 94 Venturi Mask 55 11/17/17 12:00 97.2 70 16 128/59 94 Venturi Mask 14.0 55 11/17/17 12:00 80 11/17/17 12:00 72 128/59 11/17/17 08:00 97.0 81 18 118/62 92 Venturi Mask 14.0 55 11/17/17 08:00 74 11/17/17 06:55 84 17 97 Venturi Mask 55 11/17/17 06:38 94 Venturi Mask 55 11/17/17 06:38 Venturi Mask 55 11/17/17 06:37 72 17 94 Venturi Mask 55 11/17/17 05:52 77 131/52 11/17/17 04:00 96.5 74 18 131/52 92 Venturi Mask 55 11/17/17 04:00 77 11/17/17 01:37 82 16 96 Venturi Mask 55 11/17/17 01:29 73 15 93 Venturi Mask 55 11/17/17 01:08 82 117/57 11/17/17 00:00 89 11/17/17 00:00 97.5 82 18 117/57 93 Venturi Mask 55 Intake and Output 11/16/17 11/17/17 19:00 07:00 Intake Total 110.0 ml 387.5 ml Output Total 5150 ml 1800 ml Balance -5040.0 ml -1412.5 ml Intake Oral 50 ml IV Total 110.0 ml 337.5 ml Output Urine Total 5150 ml 1800 ml # Bowel Movements 3 2 General Appearance: cachetic HEENT: other - poor dentition Respiratory/Chest: rhonchi Cardiovascular: regular rhythm, regularly irregular, edema Abdomen: soft, non tender, no organomegaly Neurologic/Psychiatric: responsive Lymphatic: no neck adenopathy, no groin adenopathy Microbiology Date/Time Source Procedure Growth Status 11/15/17 07:30 Blood Blood Culture - Preliminary NO GROWTH AFTER 24 HOURS Resulted 11/15/17 07:20 Blood Blood Culture - Preliminary NO GROWTH AFTER 24 HOURS Resulted 11/15/17 15:00 Nasal Nares MRSA Culture - Final NO METHICILLIN RESISTANT STAPH AUREUS... Complete Laboratory Tests 11/17/17 03:15: White Blood Count 6.7, Red Blood Count 3.31L, Hemoglobin 10.1L, Hematocrit 31.2L , Mean Corpuscular Volume 94, Mean Corpuscular Hemoglobin 30.7, Mean Corpuscular Hemoglobin Concent 32.5, Red Cell Distribution Width 16.2H, Platelet Count 295, Mean Platelet Volume 5.7L, Neutrophils (%) (Auto) 71.2, Lymphocytes (%) (Auto) 15.9L, Monocytes (%) (Auto) 12.6H, Eosinophils (%) (Auto ) 0.0, Basophils (%) (Auto) 0.4, Prothrombin Time 41.8H, Prothromb Time International Ratio 3.9H, Sodium Level 143, Potassium Level 3.1L, Chloride Level 99, Carbon Dioxide Level 37H, Anion Gap 7, Blood Urea Nitrogen 59H, Creatinine 1.5H, Estimat Glomerular Filtration Rate , Glucose Level 82, Hemoglobin A1c 6.2H, Uric Acid 8.7H, Calcium Level 9.0, Phosphorus Level 3.2, Magnesium Level 2.1, Total Bilirubin 0.4, Gamma Glutamyl Transpeptidase 30, Aspartate Amino Transf (AST/SGOT) 31, Alanine Aminotransferase (ALT/SGPT) 33, Alkaline Phosphatase 54, Total Creatine Kinase 53, Troponin I 0.027, C-Reactive Protein, Quantitative 4.9H, Pro-B-Type Natriuretic Peptide 2657H, Total Protein 7.1, Albumin 2.4L, Globulin 4.7, Albumin/Globulin Ratio 0.5L, Triglycerides Level 63, Cholesterol Level 165, LDL Cholesterol 96, HDL Cholesterol 59, Cholesterol/HDL Ratio 2.8L, Thyroid Stimulating Hormone (TSH) 1.440 11/17/17 12:14: C-Reactive Protein, Quantitative 4.4H Current Medications Medications (Trade) Dose Ordered Sig/Raine Route PRN Reason Start Time Stop Time Status Last Admin Dose Admin Acetaminophen (Tylenol) 650 mg Q6HR PRN NG for pain 11/15/17 17:00 12/15/17 16:59 Albuterol/ Ipratropium (Albuterol/ Ipratropium) 3 ml Q6HRT HHN 11/15/17 19:00 11/20/17 18:59 11/17/17 19:50 Dextrose/Sodium Chloride 1,000 ml @ 50 mls/hr Q20H IV 11/17/17 12:45 12/17/17 12:44 11/17/17 12:20 Diltiazem HCl (Cardizem) 60 mg EVERY 6 HOURS ORAL 11/15/17 18:00 12/15/17 17:59 11/17/17 18:01 Doxycycline Monohydrate (Vibramycin) 100 mg EVERY 12 HOURS ORAL 11/16/17 12:00 11/23/17 11:59 11/17/17 20:59 Furosemide (Lasix) 40 mg BID IV 11/15/17 18:00 12/15/17 17:59 11/17/17 18:01 Iron Sucrose 100 mg/Sodium Chloride 55 ml @ 200 mls/hr BEDTIME IV 11/16/17 21:00 11/25/17 21:17 11/17/17 20:58 Piperacillin Sod/ Tazobactam Sod 3.375 gm/Dextrose 110 ml @ 27.5 mls/hr EVERY 8 HOURS IVPB 11/16/17 12:30 11/21/17 12:29 11/17/17 13:40 Potassium Chloride (K-Dur) 40 meq DAILY ORAL 11/18/17 09:00 12/18/17 08:59 Warfarin Sodium (Coumadin per pharmacy) 1 ea DAILY PRN MISC Per rx protocol 11/15/17 14:30 12/15/17 14:29 CLARISSE MURILLO DO Nov 17, 2017 21:19
[2017-11-18] VITALS (7 sets, daily range): BP systolic 124–138; BP diastolic 54–67
[2017-11-18] MEDS: Albuterol/Ipratropium 3ml neb HHN SCH ×4 (00:01→19:18)
--- NOTE | 2017-11-18 00:15 | General Progress Note ---
Assessment/Plan Assessment/Plan 1. Coagulopathy, likely due to underlying Coumadin use. --> Continue to closely monitor. --> INR goal between 2 and 3 --> Currently 3.9, recommend decreasing dose. 2. Anemia due to underlying chronic disease. --> Continue to closely monitor. --> Anemia workup has been ordered. --> Hemoglobin goal is above 7. 3. Azotemia as per Nephrology consultation, likely the patient is dehydrated. 4. Respiratory distress. --> Closely monitor. --> The patient's shortness of breath is likely related underlying congestion, bilateral pleural effusions. --> To be seen by Infectious Disease. 5. Weakness and fatigue, likely due to underlying anemia. Subjective Date patient seen: Nov 17, 2017 Constitutional: Denies: no symptoms, chills, diaphoresis, fever, malaise, weakness, other HEENT: Denies: no symptoms, eye pain, blurred vision, tearing, double vision, ear pain, ear discharge, nose pain, nose congestion, throat pain, throat swelling, mouth pain, mouth swelling, other Cardiovascular: Denies: no symptoms, chest pain, edema, irregular heart rate, lightheadedness, palpitations, syncope, other Respiratory: Denies: no symptoms, cough, orthopnea, shortness of breath, SOB with excertion, SOB at rest, sputum, stridor, wheezing, other Gastrointestinal/Abdominal: Denies: no symptoms, abdomen distended, abdominal pain, black stools, tarry stools, blood in stool, constipated, diarrhea, difficulty swallowing, nausea, poor appetite, poor fluid intake, rectal bleeding , vomiting, other Genitourinary: Denies: no symptoms, burning, discharge, frequency, flank pain, hematuria, incontinence, pain, urgency, other Allergies: Coded Allergies: No Known Allergies (Unverified , 06/20/17) Subjective On anticoag. No acute events overnight. Objective Last 24 Hour Vital Signs Date Time Temp Pulse Resp B/P (MAP) Pulse Ox O2 Delivery O2 Flow Rate FiO2 11/18/17 00:09 84 16 96 Venturi Mask 55 11/18/17 00:03 78 18 98 Venturi Mask 55 11/17/17 20:00 97.7 74 20 122/50 98 Venturi Mask 14.0 55 11/17/17 20:00 78 11/17/17 20:00 85 17 96 Nasal Cannula 6.0 11/17/17 19:50 70 18 98 Venturi Mask 55 11/17/17 19:49 98 Nasal Cannula 15.0 55 11/17/17 19:49 Nasal Cannula 15.0 55 11/17/17 18:01 73 123/61 11/17/17 16:00 97.5 68 20 125/49 97 Venturi Mask 14.0 55 11/17/17 16:00 78 11/17/17 13:37 81 17 95 Venturi Mask 55 11/17/17 13:18 74 17 94 Venturi Mask 55 11/17/17 12:00 97.2 70 16 128/59 94 Venturi Mask 14.0 55 11/17/17 12:00 80 11/17/17 12:00 72 128/59 11/17/17 08:00 97.0 81 18 118/62 92 Venturi Mask 14.0 55 11/17/17 08:00 74 11/17/17 06:55 84 17 97 Venturi Mask 55 11/17/17 06:38 94 Venturi Mask 55 11/17/17 06:38 Venturi Mask 55 11/17/17 06:37 72 17 94 Venturi Mask 55 11/17/17 05:52 77 131/52 11/17/17 04:00 96.5 74 18 131/52 92 Venturi Mask 55 11/17/17 04:00 77 11/17/17 01:37 82 16 96 Venturi Mask 55 11/17/17 01:29 73 15 93 Venturi Mask 55 11/17/17 01:08 82 117/57 Intake and Output 11/17/17 11/18/17 19:00 07:00 Intake Total 525.833 ml 360.0 ml Output Total 2450 ml Balance -1924.167 ml 360.0 ml IV Total 525.833 ml 360.0 ml Output Urine Total 2450 ml # Bowel Movements 1 Laboratory Tests 11/17/17 03:15: White Blood Count 6.7, Red Blood Count 3.31L, Hemoglobin 10.1L, Hematocrit 31.2L , Mean Corpuscular Volume 94, Mean Corpuscular Hemoglobin 30.7, Mean Corpuscular Hemoglobin Concent 32.5, Red Cell Distribution Width 16.2H, Platelet Count 295, Mean Platelet Volume 5.7L, Neutrophils (%) (Auto) 71.2, Lymphocytes (%) (Auto) 15.9L, Monocytes (%) (Auto) 12.6H, Eosinophils (%) (Auto ) 0.0, Basophils (%) (Auto) 0.4, Prothrombin Time 41.8H, Prothromb Time International Ratio 3.9H, Sodium Level 143, Potassium Level 3.1L, Chloride Level 99, Carbon Dioxide Level 37H, Anion Gap 7, Blood Urea Nitrogen 59H, Creatinine 1.5H, Estimat Glomerular Filtration Rate , Glucose Level 82, Hemoglobin A1c 6.2H, Uric Acid 8.7H, Calcium Level 9.0, Phosphorus Level 3.2, Magnesium Level 2.1, Total Bilirubin 0.4, Gamma Glutamyl Transpeptidase 30, Aspartate Amino Transf (AST/SGOT) 31, Alanine Aminotransferase (ALT/SGPT) 33, Alkaline Phosphatase 54, Total Creatine Kinase 53, Troponin I 0.027, C-Reactive Protein, Quantitative 4.9H, Pro-B-Type Natriuretic Peptide 2657H, Total Protein 7.1, Albumin 2.4L, Globulin 4.7, Albumin/Globulin Ratio 0.5L, Triglycerides Level 63, Cholesterol Level 165, LDL Cholesterol 96, HDL Cholesterol 59, Cholesterol/HDL Ratio 2.8L, Thyroid Stimulating Hormone (TSH) 1.440 11/17/17 12:14: C-Reactive Protein, Quantitative 4.4H Height (Feet): 5 Height (Inches): 11.00 Weight (Pounds): 156 General Appearance: confused Respiratory/Chest: decreased breath sounds Abdomen: soft Bharath Ya Nov 18, 2017 00:15
[2017-11-18] MEDS: dilTIAZem HCl 60mg tab ORAL SCH ×4 (00:20→18:17)
[2017-11-18 04:05] LABS: BASOPHILS % (AUTO) 0.8 % (0.0-2.0); EOSINOPHILS % (AUTO) 0.1 % (0.0-3.0); HEMATOCRIT 34.1 % (42.0-52.0); HEMOGLOBIN 10.9 G/DL (14.2-18.0); LYMPHOCYTES % (AUTO) 15.4 % (20.0-45.0); MEAN CORPUSCULAR VOLUME 94 FL (80-99); MONOCYTES % (AUTO) 10.5 % (1.0-10.0); NEUTROPHILS % (AUTO) 73.2 % (45.0-75.0); PLATELET COUNT 308 K/UL (150-450); RED BLOOD COUNT 3.61 M/UL (4.70-6.10); RED CELL DISTRIBUTION WIDTH 16.1 % (11.6-14.8)
[2017-11-18 04:38] LABS: INR 4.4 (0.9-1.1)
[2017-11-18 04:43] LABS: ALANINE AMINOTRANSFERASE 29 U/L (12-78); ALBUMIN 2.5 G/DL (3.4-5.0); ALBUMIN/GLOBULIN RATIO 0.5 (1.0-2.7); ALKALINE PHOSPHATASE 56 U/L (46-116); ANION GAP 4 mmol/L (5-15); ASPARTATE AMINO TRANSFERASE 27 U/L (15-37); BILIRUBIN,TOTAL 0.6 MG/DL (0.2-1.0); BLOOD UREA NITROGEN 48 mg/dL (7-18); CHLORIDE 98 MMOL/L (98-107); CREATININE 1.6 MG/DL (0.55-1.30); PHOSPHORUS 3.9 MG/DL (2.5-4.9); POTASSIUM 3.5 MMOL/L (3.5-5.1); SODIUM 143 MMOL/L (136-145)
[2017-11-18 04:48] LABS: CARBON DIOXIDE 40 MMOL/L (21-32)
[2017-11-18] MEDS: Piperacillin/Tazobactam 3.375 GM in D5W 110 ML IVPB SCH ×3 (05:52→21:28)
--- NOTE | 2017-11-18 08:58 | Pulmonology Progress Note ---
Assessment/Plan Assessment/Plan 1. Acute respiratory failure, hypercapnic type. 2. Pulmonary edema. 3. Non-ST elevation myocardial infarction. 4. Chronic obstructive pulmonary disease. 5. Possible pneumonia. 6. Prostate hypertrophy. 7. Atrial fibrillation, on Coumadin. 8. Encephalopathy, 9. Status post ventriculoperitoneal shunt. improving swallow eval CXR cont HHN Subjective ROS Limited/Unobtainable: Yes Allergies: Coded Allergies: No Known Allergies (Unverified , 06/20/17) Objective Last 24 Hour Vital Signs Date Time Temp Pulse Resp B/P (MAP) Pulse Ox O2 Delivery O2 Flow Rate FiO2 11/18/17 08:00 98.1 72 20 131/57 97 Venturi Mask 14.0 55 11/18/17 07:47 74 11/18/17 07:01 70 18 97 Venturi Mask 15.0 55 11/18/17 06:55 69 95 11/18/17 06:51 69 16 95 Venturi Mask 15.0 55 11/18/17 06:51 95 Venturi Mask 15.0 55 11/18/17 06:51 Venturi Mask 15.0 55 11/18/17 05:53 71 130/55 11/18/17 04:00 97.7 72 20 130/60 97 Venturi Mask 14.0 55 11/18/17 04:00 77 11/18/17 00:20 78 128/60 11/18/17 00:09 84 16 96 Venturi Mask 55 11/18/17 00:03 78 18 98 Venturi Mask 55 11/18/17 00:00 98.1 79 20 130/54 98 Venturi Mask 14.0 55 11/18/17 00:00 78 11/17/17 20:00 97.7 74 20 122/50 98 Venturi Mask 14.0 55 11/17/17 20:00 78 11/17/17 20:00 85 17 96 Nasal Cannula 6.0 11/17/17 19:50 70 18 98 Venturi Mask 55 11/17/17 19:49 98 Nasal Cannula 15.0 55 11/17/17 19:49 Nasal Cannula 15.0 55 11/17/17 18:01 73 123/61 11/17/17 16:00 97.5 68 20 125/49 97 Venturi Mask 14.0 55 11/17/17 16:00 78 11/17/17 13:37 81 17 95 Venturi Mask 55 11/17/17 13:18 74 17 94 Venturi Mask 55 11/17/17 12:00 97.2 70 16 128/59 94 Venturi Mask 14.0 55 11/17/17 12:00 80 11/17/17 12:00 72 128/59 Intake and Output 11/17/17 11/18/17 19:00 07:00 Intake Total 525.833 ml 792.45 ml Output Total 2450 ml 1500 ml Balance -1924.167 ml -707.55 ml IV Total 525.833 ml 792.45 ml Output Urine Total 2450 ml 1500 ml # Bowel Movements 2 General Appearance: no acute distress Respiratory/Chest: lungs clear, decreased breath sounds Cardiovascular: normal rate Microbiology Date/Time Source Procedure Growth Status 11/15/17 15:00 Nasal Nares MRSA Culture - Final NO METHICILLIN RESISTANT STAPH AUREUS... Complete Laboratory Tests 11/17/17 12:14: C-Reactive Protein, Quantitative 4.4H 11/18/17 03:30: White Blood Count 9.0, Red Blood Count 3.61L, Hemoglobin 10.9L, Hematocrit 34.1L , Mean Corpuscular Volume 94, Mean Corpuscular Hemoglobin 30.1, Mean Corpuscular Hemoglobin Concent 32.0, Red Cell Distribution Width 16.1H, Platelet Count 308, Mean Platelet Volume 5.7L, Neutrophils (%) (Auto) 73.2, Lymphocytes (%) (Auto) 15.4L, Monocytes (%) (Auto) 10.5H, Eosinophils (%) (Auto ) 0.1, Basophils (%) (Auto) 0.8, Prothrombin Time 47.0H, Prothromb Time International Ratio 4.4H, Sodium Level 143, Potassium Level 3.5, Chloride Level 98, Carbon Dioxide Level 40H, Anion Gap 4L, Blood Urea Nitrogen 48H, Creatinine 1.6H, Estimat Glomerular Filtration Rate , Glucose Level 122H, Uric Acid 7.7H, Calcium Level 9.0, Phosphorus Level 3.9, Magnesium Level 1.9, Total Bilirubin 0.6, Aspartate Amino Transf (AST/SGOT) 27, Alanine Aminotransferase (ALT/SGPT) 29, Alkaline Phosphatase 56, Troponin I 0.014, Pro-B-Type Natriuretic Peptide 1567H, Total Protein 7.3, Albumin 2.5L, Globulin 4.8, Albumin/Globulin Ratio 0.5L Current Medications Medications (Trade) Dose Ordered Sig/Raine Route PRN Reason Start Time Stop Time Status Last Admin Dose Admin Acetaminophen (Tylenol) 650 mg Q6HR PRN NG for pain 11/15/17 17:00 12/15/17 16:59 Albuterol/ Ipratropium (Albuterol/ Ipratropium) 3 ml Q6HRT HHN 11/15/17 19:00 11/20/17 18:59 11/18/17 06:51 Dextrose/Sodium Chloride 1,000 ml @ 50 mls/hr Q20H IV 11/17/17 12:45 12/17/17 12:44 11/17/17 12:20 Diltiazem HCl (Cardizem) 60 mg EVERY 6 HOURS ORAL 11/15/17 18:00 12/15/17 17:59 11/18/17 05:53 Doxycycline Monohydrate (Vibramycin) 100 mg EVERY 12 HOURS ORAL 11/16/17 12:00 11/23/17 11:59 11/17/17 20:59 Furosemide (Lasix) 40 mg BID IV 11/15/17 18:00 12/15/17 17:59 11/17/17 18:01 Iron Sucrose 100 mg/Sodium Chloride 55 ml @ 200 mls/hr BEDTIME IV 11/16/17 21:00 11/25/17 21:17 11/17/17 20:58 Piperacillin Sod/ Tazobactam Sod 3.375 gm/Dextrose 110 ml @ 27.5 mls/hr EVERY 8 HOURS IVPB 11/16/17 12:30 11/21/17 12:29 11/18/17 05:52 Potassium Chloride (K-Dur) 40 meq DAILY ORAL 11/18/17 09:00 12/18/17 08:59 Warfarin Sodium (Coumadin per pharmacy) 1 ea DAILY PRN MISC Per rx protocol 11/15/17 14:30 12/15/17 14:29 VINCENZO HYDE Nov 18, 2017 08:57
[2017-11-18] MEDS: D5 1/2NS 1,000 ML IV SCH (09:51)
--- NOTE | 2017-11-18 11:11 | Diagnostic Imaging Report ---
Indication: Cough Comparison: 11/15/2017 A single view chest radiograph was obtained. Findings: Left hemidiaphragm is elevated. Heart size is stable. Pulmonary interstitial edema has improved since the last occasion. Right-sided catheter projected over the chest noted once again. IMPRESSION: Improved pulmonary edema. Elevated left hemidiaphragm. 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
--- NOTE | 2017-11-18 11:20 | GI Progress Note ---
Assessment/Plan Problems: (1) Dysphagia ICD Codes: R13.10 - Dysphagia, unspecified SNOMED: 52416405, 239322081 (2) Encounter for PEG (percutaneous endoscopic gastrostomy) ICD Codes: Z43.1 - Encounter for attention to gastrostomy SNOMED: 937024753, 357961103 Status: unchanged Status Narrative Discussed with Dr. Vasquez. Assessment/Plan Assessment - R/o Dysphagia - abd distention - Respiratory failure - Atrial fib - OBS - Poor px - ST evaluation >> Reinsert NGT. Strict NPO. Recommendations - fu video swallow - follow abd exam and KUB - BIPAP and pulmonary toilet PRN - locate next of kin - May need to be intubated for PEG placement - KUB --> constipation --> laxative The patient was seen and examined at bedside and all new and available data was reviewed in the patients chart. I agree with the above findings, impression and plan. (Patient seen earlier today. Signature stamp does not reflect patient encounter time.). - Vashti Vasquez MD Subjective Subjective limited Objective Last 24 Hour Vital Signs Date Time Temp Pulse Resp B/P (MAP) Pulse Ox O2 Delivery O2 Flow Rate FiO2 11/18/17 10:53 94 11/18/17 09:58 73 20 124/54 Venturi Mask 15.0 55 11/18/17 09:23 96 11/18/17 08:00 98.1 72 20 131/57 97 Venturi Mask 14.0 55 11/18/17 07:47 74 11/18/17 07:01 70 18 97 Venturi Mask 15.0 55 11/18/17 06:55 69 95 11/18/17 06:51 69 16 95 Venturi Mask 15.0 55 11/18/17 06:51 95 Venturi Mask 15.0 55 11/18/17 06:51 Venturi Mask 15.0 55 11/18/17 05:53 71 130/55 11/18/17 04:00 97.7 72 20 130/60 97 Venturi Mask 14.0 55 11/18/17 04:00 77 11/18/17 00:20 78 128/60 11/18/17 00:09 84 16 96 Venturi Mask 55 11/18/17 00:03 78 18 98 Venturi Mask 55 11/18/17 00:00 98.1 79 20 130/54 98 Venturi Mask 14.0 55 11/18/17 00:00 78 11/17/17 20:00 97.7 74 20 122/50 98 Venturi Mask 14.0 55 11/17/17 20:00 78 11/17/17 20:00 85 17 96 Nasal Cannula 6.0 11/17/17 19:50 70 18 98 Venturi Mask 55 11/17/17 19:49 98 Nasal Cannula 15.0 55 11/17/17 19:49 Nasal Cannula 15.0 55 11/17/17 18:01 73 123/61 11/17/17 16:00 97.5 68 20 125/49 97 Venturi Mask 14.0 55 11/17/17 16:00 78 11/17/17 13:37 81 17 95 Venturi Mask 55 11/17/17 13:18 74 17 94 Venturi Mask 55 11/17/17 12:00 97.2 70 16 128/59 94 Venturi Mask 14.0 55 11/17/17 12:00 80 11/17/17 12:00 72 128/59 Intake and Output 11/17/17 11/18/17 19:00 07:00 Intake Total 525.833 ml 792.45 ml Output Total 2450 ml 1500 ml Balance -1924.167 ml -707.55 ml IV Total 525.833 ml 792.45 ml Output Urine Total 2450 ml 1500 ml # Bowel Movements 2 Laboratory Tests Test 11/17/17 12:14 11/18/17 03:30 C-Reactive Protein, Quantitative 4.4 mg/dL (0.00-0.90) H White Blood Count 9.0 K/UL (4.8-10.8) Red Blood Count 3.61 M/UL (4.70-6.10) L Hemoglobin 10.9 G/DL (14.2-18.0) L Hematocrit 34.1 % (42.0-52.0) L Mean Corpuscular Volume 94 FL (80-99) Mean Corpuscular Hemoglobin 30.1 PG (27.0-31.0) Mean Corpuscular Hemoglobin Concent 32.0 G/DL (32.0-36.0) Red Cell Distribution Width 16.1 % (11.6-14.8) H Platelet Count 308 K/UL (150-450) Mean Platelet Volume 5.7 FL (6.5-10.1) L Neutrophils (%) (Auto) 73.2 % (45.0-75.0) Lymphocytes (%) (Auto) 15.4 % (20.0-45.0) L Monocytes (%) (Auto) 10.5 % (1.0-10.0) H Eosinophils (%) (Auto) 0.1 % (0.0-3.0) Basophils (%) (Auto) 0.8 % (0.0-2.0) Prothrombin Time 47.0 SEC (9.30-11.50) H Prothromb Time International Ratio 4.4 (0.9-1.1) H Sodium Level 143 MMOL/L (136-145) Potassium Level 3.5 MMOL/L (3.5-5.1) Chloride Level 98 MMOL/L (98-107) Carbon Dioxide Level 40 MMOL/L (21-32) H Anion Gap 4 mmol/L (5-15) L Blood Urea Nitrogen 48 mg/dL (7-18) H Creatinine 1.6 MG/DL (0.55-1.30) H Estimat Glomerular Filtration Rate mL/min (>60) Glucose Level 122 MG/DL (74-106) H Uric Acid 7.7 MG/DL (2.6-7.2) H Calcium Level 9.0 MG/DL (8.5-10.1) Phosphorus Level 3.9 MG/DL (2.5-4.9) Magnesium Level 1.9 MG/DL (1.8-2.4) Total Bilirubin 0.6 MG/DL (0.2-1.0) Aspartate Amino Transf (AST/SGOT) 27 U/L (15-37) Alanine Aminotransferase (ALT/SGPT) 29 U/L (12-78) Alkaline Phosphatase 56 U/L (46-116) Troponin I 0.014 ng/mL (0.000-0.056) Pro-B-Type Natriuretic Peptide 1567 pg/mL (0-125) H Total Protein 7.3 G/DL (6.4-8.2) Albumin 2.5 G/DL (3.4-5.0) L Globulin 4.8 g/dL Albumin/Globulin Ratio 0.5 (1.0-2.7) L Height (Feet): 5 Height (Inches): 11.00 Weight (Pounds): 151 General Appearance: no apparent distress Cardiovascular: normal rate Respiratory/Chest: other - venturi Abdominal Exam: soft Janna Alonso NAzalia Nov 18, 2017 11:20 RICKIE VASQUEZ Nov 18, 2017 15:20
--- NOTE | 2017-11-18 11:29 | Cardiac Electrophysiology PN ---
Assessment/Plan Assessment/Plan 1. Shortness of breath due to respiratory failure with pCO2 of 87 and pH of 7.22. On IV Lasix 40 bid. BNP very elevated. The patient's pCO2 improved to 70. Now off BiPAP 2. Elevated troponin. Second troponin negative. No chest pain. Echocardiogram EF 65%. Avoid beta-nusrat. 3. Atrial flutter. On Cardizem 60 q 6 hr and Coumadin. Will get ECG. Flutter ablation should be considered 4. Hypertension. On Cardizem. SALOME RN Subjective Subjective Confused in restraints. Remained in atrial flutter with CVR. Awaiting Swallow eval. RN at bedside. Objective Last 24 Hour Vital Signs Date Time Temp Pulse Resp B/P (MAP) Pulse Ox O2 Delivery O2 Flow Rate FiO2 11/18/17 10:53 94 11/18/17 09:58 73 20 124/54 Venturi Mask 15.0 55 11/18/17 09:23 96 11/18/17 08:00 98.1 72 20 131/57 97 Venturi Mask 14.0 55 11/18/17 07:47 74 11/18/17 07:01 70 18 97 Venturi Mask 15.0 55 11/18/17 06:55 69 95 11/18/17 06:51 69 16 95 Venturi Mask 15.0 55 11/18/17 06:51 95 Venturi Mask 15.0 55 11/18/17 06:51 Venturi Mask 15.0 55 11/18/17 05:53 71 130/55 11/18/17 04:00 97.7 72 20 130/60 97 Venturi Mask 14.0 55 11/18/17 04:00 77 11/18/17 00:20 78 128/60 11/18/17 00:09 84 16 96 Venturi Mask 55 11/18/17 00:03 78 18 98 Venturi Mask 55 11/18/17 00:00 98.1 79 20 130/54 98 Venturi Mask 14.0 55 11/18/17 00:00 78 11/17/17 20:00 97.7 74 20 122/50 98 Venturi Mask 14.0 55 11/17/17 20:00 78 11/17/17 20:00 85 17 96 Nasal Cannula 6.0 11/17/17 19:50 70 18 98 Venturi Mask 55 11/17/17 19:49 98 Nasal Cannula 15.0 55 11/17/17 19:49 Nasal Cannula 15.0 55 11/17/17 18:01 73 123/61 11/17/17 16:00 97.5 68 20 125/49 97 Venturi Mask 14.0 55 11/17/17 16:00 78 11/17/17 13:37 81 17 95 Venturi Mask 55 11/17/17 13:18 74 17 94 Venturi Mask 55 11/17/17 12:00 97.2 70 16 128/59 94 Venturi Mask 14.0 55 11/17/17 12:00 80 11/17/17 12:00 72 128/59 Intake and Output 11/17/17 11/18/17 19:00 07:00 Intake Total 525.833 ml 792.45 ml Output Total 2450 ml 1500 ml Balance -1924.167 ml -707.55 ml IV Total 525.833 ml 792.45 ml Output Urine Total 2450 ml 1500 ml # Bowel Movements 2 Laboratory Tests Test 11/17/17 12:14 11/18/17 03:30 C-Reactive Protein, Quantitative 4.4 mg/dL (0.00-0.90) H White Blood Count 9.0 K/UL (4.8-10.8) Red Blood Count 3.61 M/UL (4.70-6.10) L Hemoglobin 10.9 G/DL (14.2-18.0) L Hematocrit 34.1 % (42.0-52.0) L Mean Corpuscular Volume 94 FL (80-99) Mean Corpuscular Hemoglobin 30.1 PG (27.0-31.0) Mean Corpuscular Hemoglobin Concent 32.0 G/DL (32.0-36.0) Red Cell Distribution Width 16.1 % (11.6-14.8) H Platelet Count 308 K/UL (150-450) Mean Platelet Volume 5.7 FL (6.5-10.1) L Neutrophils (%) (Auto) 73.2 % (45.0-75.0) Lymphocytes (%) (Auto) 15.4 % (20.0-45.0) L Monocytes (%) (Auto) 10.5 % (1.0-10.0) H Eosinophils (%) (Auto) 0.1 % (0.0-3.0) Basophils (%) (Auto) 0.8 % (0.0-2.0) Prothrombin Time 47.0 SEC (9.30-11.50) H Prothromb Time International Ratio 4.4 (0.9-1.1) H Sodium Level 143 MMOL/L (136-145) Potassium Level 3.5 MMOL/L (3.5-5.1) Chloride Level 98 MMOL/L (98-107) Carbon Dioxide Level 40 MMOL/L (21-32) H Anion Gap 4 mmol/L (5-15) L Blood Urea Nitrogen 48 mg/dL (7-18) H Creatinine 1.6 MG/DL (0.55-1.30) H Estimat Glomerular Filtration Rate mL/min (>60) Glucose Level 122 MG/DL (74-106) H Uric Acid 7.7 MG/DL (2.6-7.2) H Calcium Level 9.0 MG/DL (8.5-10.1) Phosphorus Level 3.9 MG/DL (2.5-4.9) Magnesium Level 1.9 MG/DL (1.8-2.4) Total Bilirubin 0.6 MG/DL (0.2-1.0) Aspartate Amino Transf (AST/SGOT) 27 U/L (15-37) Alanine Aminotransferase (ALT/SGPT) 29 U/L (12-78) Alkaline Phosphatase 56 U/L (46-116) Troponin I 0.014 ng/mL (0.000-0.056) Pro-B-Type Natriuretic Peptide 1567 pg/mL (0-125) H Total Protein 7.3 G/DL (6.4-8.2) Albumin 2.5 G/DL (3.4-5.0) L Globulin 4.8 g/dL Albumin/Globulin Ratio 0.5 (1.0-2.7) L Microbiology Date/Time Source Procedure Growth Status 11/15/17 15:00 Nasal Nares MRSA Culture - Final NO METHICILLIN RESISTANT STAPH AUREUS... Complete Objective HEAD AND NECK: Positive JVD. LUNGS: Decreased breath sounds. CARDIOVASCULAR: Irregularly irregular. S1 and S2 with no gallop or murmur. ABDOMEN: Soft. EXTREMITIES: No pitting edema. ADRIENNE BRAGA Nov 18, 2017 11:29
--- NOTE | 2017-11-18 13:00 | Infectious Diseases Prog Note ---
Assessment/Plan Assessment/Plan A: Pneumonia Hypercapnic respiratory failure Atrial fibrillation Diastolic CHF HPN P: Continue Zosyn & Doxycycline Will f/u cultures Subjective ROS Limited/Unobtainable: Yes Constitutional: Reports: no symptoms Respiratory: Reports: no symptoms Allergies: Coded Allergies: No Known Allergies (Unverified , 06/20/17) Objective Vital Signs Last 24 Hour Vital Signs Date Time Temp Pulse Resp B/P (MAP) Pulse Ox O2 Delivery O2 Flow Rate FiO2 11/18/17 12:55 72 18 94 11/18/17 12:53 73 18 94 Venturi Mask 15.0 55 11/18/17 12:26 73 20 124/54 Venturi Mask 15.0 55 11/18/17 12:22 77 11/18/17 12:19 73 124/54 11/18/17 10:53 94 11/18/17 09:58 73 20 124/54 Venturi Mask 15.0 55 11/18/17 09:23 96 11/18/17 08:00 98.1 72 20 131/57 97 Venturi Mask 14.0 55 11/18/17 07:47 74 11/18/17 07:01 70 18 97 Venturi Mask 15.0 55 11/18/17 06:55 69 95 11/18/17 06:51 69 16 95 Venturi Mask 15.0 55 11/18/17 06:51 95 Venturi Mask 15.0 55 11/18/17 06:51 Venturi Mask 15.0 55 11/18/17 05:53 71 130/55 11/18/17 04:00 97.7 72 20 130/60 97 Venturi Mask 14.0 55 11/18/17 04:00 77 11/18/17 00:20 78 128/60 11/18/17 00:09 84 16 96 Venturi Mask 55 11/18/17 00:03 78 18 98 Venturi Mask 55 11/18/17 00:00 98.1 79 20 130/54 98 Venturi Mask 14.0 55 11/18/17 00:00 78 11/17/17 20:00 97.7 74 20 122/50 98 Venturi Mask 14.0 55 11/17/17 20:00 78 11/17/17 20:00 85 17 96 Nasal Cannula 6.0 11/17/17 19:50 70 18 98 Venturi Mask 55 11/17/17 19:49 98 Nasal Cannula 15.0 55 11/17/17 19:49 Nasal Cannula 15.0 55 11/17/17 18:01 73 123/61 11/17/17 16:00 97.5 68 20 125/49 97 Venturi Mask 14.0 55 11/17/17 16:00 78 11/17/17 13:37 81 17 95 Venturi Mask 55 11/17/17 13:18 74 17 94 Venturi Mask 55 Height (Feet): 5 Height (Inches): 11.00 Weight (Pounds): 151 General Appearance: no acute distress HEENT: mucous membranes moist Respiratory/Chest: lungs clear Cardiovascular: normal rate Abdomen: soft, non tender Extremities: no edema Neurologic/Psychiatric: alert, responsive Microbiology Date/Time Source Procedure Growth Status 11/15/17 15:00 Nasal Nares MRSA Culture - Final NO METHICILLIN RESISTANT STAPH AUREUS... Complete Laboratory Tests Test 11/18/17 03:30 White Blood Count 9.0 K/UL (4.8-10.8) Red Blood Count 3.61 M/UL (4.70-6.10) L Hemoglobin 10.9 G/DL (14.2-18.0) L Hematocrit 34.1 % (42.0-52.0) L Mean Corpuscular Volume 94 FL (80-99) Mean Corpuscular Hemoglobin 30.1 PG (27.0-31.0) Mean Corpuscular Hemoglobin Concent 32.0 G/DL (32.0-36.0) Red Cell Distribution Width 16.1 % (11.6-14.8) H Platelet Count 308 K/UL (150-450) Mean Platelet Volume 5.7 FL (6.5-10.1) L Neutrophils (%) (Auto) 73.2 % (45.0-75.0) Lymphocytes (%) (Auto) 15.4 % (20.0-45.0) L Monocytes (%) (Auto) 10.5 % (1.0-10.0) H Eosinophils (%) (Auto) 0.1 % (0.0-3.0) Basophils (%) (Auto) 0.8 % (0.0-2.0) Prothrombin Time 47.0 SEC (9.30-11.50) H Prothromb Time International Ratio 4.4 (0.9-1.1) H Sodium Level 143 MMOL/L (136-145) Potassium Level 3.5 MMOL/L (3.5-5.1) Chloride Level 98 MMOL/L (98-107) Carbon Dioxide Level 40 MMOL/L (21-32) H Anion Gap 4 mmol/L (5-15) L Blood Urea Nitrogen 48 mg/dL (7-18) H Creatinine 1.6 MG/DL (0.55-1.30) H Estimat Glomerular Filtration Rate mL/min (>60) Glucose Level 122 MG/DL (74-106) H Uric Acid 7.7 MG/DL (2.6-7.2) H Calcium Level 9.0 MG/DL (8.5-10.1) Phosphorus Level 3.9 MG/DL (2.5-4.9) Magnesium Level 1.9 MG/DL (1.8-2.4) Total Bilirubin 0.6 MG/DL (0.2-1.0) Aspartate Amino Transf (AST/SGOT) 27 U/L (15-37) Alanine Aminotransferase (ALT/SGPT) 29 U/L (12-78) Alkaline Phosphatase 56 U/L (46-116) Troponin I 0.014 ng/mL (0.000-0.056) Pro-B-Type Natriuretic Peptide 1567 pg/mL (0-125) H Total Protein 7.3 G/DL (6.4-8.2) Albumin 2.5 G/DL (3.4-5.0) L Globulin 4.8 g/dL Albumin/Globulin Ratio 0.5 (1.0-2.7) L Current Medications Medications (Trade) Dose Ordered Sig/Raine Route PRN Reason Start Time Stop Time Status Last Admin Dose Admin Acetaminophen (Tylenol) 650 mg Q6HR PRN NG for pain 11/15/17 17:00 12/15/17 16:59 Albuterol/ Ipratropium (Albuterol/ Ipratropium) 3 ml Q6HRT HHN 11/15/17 19:00 11/20/17 18:59 11/18/17 12:53 Dextrose/Sodium Chloride 1,000 ml @ 50 mls/hr Q20H IV 11/17/17 12:45 12/17/17 12:44 11/18/17 09:51 Diltiazem HCl (Cardizem) 60 mg EVERY 6 HOURS ORAL 11/15/17 18:00 12/15/17 17:59 11/18/17 12:19 Doxycycline Monohydrate (Vibramycin) 100 mg EVERY 12 HOURS ORAL 11/16/17 12:00 11/23/17 11:59 11/18/17 09:53 Furosemide (Lasix) 40 mg BID IV 11/15/17 18:00 12/15/17 17:59 11/18/17 09:52 Iron Sucrose 100 mg/Sodium Chloride 55 ml @ 200 mls/hr BEDTIME IV 11/16/17 21:00 11/25/17 21:17 11/17/17 20:58 Piperacillin Sod/ Tazobactam Sod 3.375 gm/Dextrose 110 ml @ 27.5 mls/hr EVERY 8 HOURS IVPB 11/16/17 12:30 11/21/17 12:29 11/18/17 05:52 Potassium Chloride (K-Dur) 40 meq DAILY ORAL 11/18/17 09:00 12/18/17 08:59 11/18/17 09:52 Warfarin Sodium (Coumadin per pharmacy) 1 ea DAILY PRN MISC Per rx protocol 11/15/17 14:30 12/15/17 14:29 TOLU ERICKSON Nov 18, 2017 13:00
--- NOTE | 2017-11-18 13:53 | Nephrology Progress Note ---
Assessment/Plan Problem List: (1) Acute renal failure (2) CHF (congestive heart failure) (3) Respiratory distress Assessment status: CXR improved CHF High BUN indicative of pre renal azotemia, 3+ proteinuria- Cr up to 1.6 today partly dehydration- Partly GI bleed Low Iron, Stool OB+ Echo: Left ventricular ejection fraction estimated to be 60-65 %. No evidence of left ventricular hypertrophy. Pleural effusion . Mild left atrial enlargement. others: - Acute respiratory failure, hypercapnic type. - Pulmonary edema. - Non-ST elevation myocardial infarction. - Chronic obstructive pulmonary disease. - Possible pneumonia. - Prostate hypertrophy. - Atrial fibrillation, on Coumadin. - Encephalopathy, - Status post ventriculoperitoneal shunt. Plan Plan: Down on lasix IV Iron- Optimize pulmonary and cardiac status monitor renal parameters and lytes K supplement as needed per orders Subjective ROS Limited/Unobtainable: No Constitutional: Reports: malaise, other - NAD Objective Objective Last 24 Hour Vital Signs Date Time Temp Pulse Resp B/P (MAP) Pulse Ox O2 Delivery O2 Flow Rate FiO2 11/18/17 13:03 73 18 95 Venturi Mask 15.0 55 11/18/17 12:55 72 18 94 11/18/17 12:53 73 18 94 Venturi Mask 15.0 55 11/18/17 12:26 73 20 124/54 Venturi Mask 15.0 55 11/18/17 12:22 77 11/18/17 12:19 73 124/54 11/18/17 10:53 94 11/18/17 09:58 73 20 124/54 Venturi Mask 15.0 55 11/18/17 09:23 96 11/18/17 08:00 98.1 72 20 131/57 97 Venturi Mask 14.0 55 11/18/17 07:47 74 11/18/17 07:01 70 18 97 Venturi Mask 15.0 55 11/18/17 06:55 69 95 11/18/17 06:51 69 16 95 Venturi Mask 15.0 55 11/18/17 06:51 95 Venturi Mask 15.0 55 11/18/17 06:51 Venturi Mask 15.0 55 11/18/17 05:53 71 130/55 11/18/17 04:00 97.7 72 20 130/60 97 Venturi Mask 14.0 55 11/18/17 04:00 77 11/18/17 00:20 78 128/60 11/18/17 00:09 84 16 96 Venturi Mask 55 11/18/17 00:03 78 18 98 Venturi Mask 55 11/18/17 00:00 98.1 79 20 130/54 98 Venturi Mask 14.0 55 11/18/17 00:00 78 11/17/17 20:00 97.7 74 20 122/50 98 Venturi Mask 14.0 55 11/17/17 20:00 78 11/17/17 20:00 85 17 96 Nasal Cannula 6.0 11/17/17 19:50 70 18 98 Venturi Mask 55 11/17/17 19:49 98 Nasal Cannula 15.0 55 11/17/17 19:49 Nasal Cannula 15.0 55 11/17/17 18:01 73 123/61 11/17/17 16:00 97.5 68 20 125/49 97 Venturi Mask 14.0 55 11/17/17 16:00 78 Intake and Output 11/17/17 11/18/17 19:00 07:00 Intake Total 525.833 ml 792.45 ml Output Total 2450 ml 1500 ml Balance -1924.167 ml -707.55 ml IV Total 525.833 ml 792.45 ml Output Urine Total 2450 ml 1500 ml # Bowel Movements 2 Laboratory Tests 11/18/17 03:30: White Blood Count 9.0, Red Blood Count 3.61L, Hemoglobin 10.9L, Hematocrit 34.1L , Mean Corpuscular Volume 94, Mean Corpuscular Hemoglobin 30.1, Mean Corpuscular Hemoglobin Concent 32.0, Red Cell Distribution Width 16.1H, Platelet Count 308, Mean Platelet Volume 5.7L, Neutrophils (%) (Auto) 73.2, Lymphocytes (%) (Auto) 15.4L, Monocytes (%) (Auto) 10.5H, Eosinophils (%) (Auto ) 0.1, Basophils (%) (Auto) 0.8, Prothrombin Time 47.0H, Prothromb Time International Ratio 4.4H, Sodium Level 143, Potassium Level 3.5, Chloride Level 98, Carbon Dioxide Level 40H, Anion Gap 4L, Blood Urea Nitrogen 48H, Creatinine 1.6H, Estimat Glomerular Filtration Rate , Glucose Level 122H, Uric Acid 7.7H, Calcium Level 9.0, Phosphorus Level 3.9, Magnesium Level 1.9, Total Bilirubin 0.6, Aspartate Amino Transf (AST/SGOT) 27, Alanine Aminotransferase (ALT/SGPT) 29, Alkaline Phosphatase 56, Troponin I 0.014, Pro-B-Type Natriuretic Peptide 1567H, Total Protein 7.3, Albumin 2.5L, Globulin 4.8, Albumin/Globulin Ratio 0.5L Height (Feet): 5 Height (Inches): 11.00 Weight (Pounds): 151 General Appearance: no apparent distress, other - breathing easy EENT: other - NGT out Cardiovascular: normal rate Respiratory/Chest: decreased breath sounds Abdomen: soft Objective no other changes MARCELINO STEELE Nov 18, 2017 13:53
--- NOTE | 2017-11-18 19:33 | Cardiology Report ---
APPROVED REPORT EKG Measurement Heart [id number] Atrial flutter with 4:[address] and T wave abnormality Abnormal ECG
--- NOTE | 2017-11-18 20:34 | General Progress Note ---
Assessment/Plan Problem List: (1) Urinary tract infection ICD Codes: N39.0 - Urinary tract infection, site not specified SNOMED: 15297324 (2) Sepsis ICD Codes: A41.9 - Sepsis, unspecified organism SNOMED: 25789316 (3) Dyspnea ICD Codes: R06.00 - Dyspnea, unspecified SNOMED: 728144740 (4) Respiratory distress ICD Codes: R06.03 - Acute respiratory distress SNOMED: 925219366 Status: progressing Assessment/Plan s/p extubation abx per id on oxygen afebrile arrythmia no change r/o asa pna st per gi Subjective ROS Limited/Unobtainable: Yes Allergies: Coded Allergies: No Known Allergies (Unverified , 06/20/17) Objective Last 24 Hour Vital Signs Date Time Temp Pulse Resp B/P (MAP) Pulse Ox O2 Delivery O2 Flow Rate FiO2 11/18/17 19:30 72 18 98 Venturi Mask 14.0 55 11/18/17 19:16 71 24 97 Venturi Mask 14.0 55 11/18/17 19:16 55 11/18/17 19:16 97 Venturi Mask 14.0 55 11/18/17 19:16 Venturi Mask 14.0 55 11/18/17 18:17 69 132/57 11/18/17 17:15 69 95 11/18/17 16:00 98.2 76 21 132/57 98 Venturi Mask 14.0 55 11/18/17 15:50 78 11/18/17 15:02 95 11/18/17 13:03 73 18 95 Venturi Mask 15.0 55 11/18/17 12:55 72 18 94 11/18/17 12:53 73 18 94 Venturi Mask 15.0 55 11/18/17 12:26 73 20 124/54 Venturi Mask 15.0 55 11/18/17 12:22 77 11/18/17 12:19 73 124/54 11/18/17 10:53 94 11/18/17 09:58 73 20 124/54 Venturi Mask 15.0 55 11/18/17 09:23 96 11/18/17 08:00 98.1 72 20 131/57 97 Venturi Mask 14.0 55 11/18/17 07:47 74 11/18/17 07:01 70 18 97 Venturi Mask 15.0 55 11/18/17 06:55 69 95 11/18/17 06:51 69 16 95 Venturi Mask 15.0 55 11/18/17 06:51 95 Venturi Mask 15.0 55 11/18/17 06:51 Venturi Mask 15.0 55 11/18/17 05:53 71 130/55 11/18/17 04:00 97.7 72 20 130/60 97 Venturi Mask 14.0 55 11/18/17 04:00 77 11/18/17 00:20 78 128/60 11/18/17 00:09 84 16 96 Venturi Mask 55 11/18/17 00:03 78 18 98 Venturi Mask 55 11/18/17 00:00 98.1 79 20 130/54 98 Venturi Mask 14.0 55 11/18/17 00:00 78 Intake and Output 11/17/17 11/18/17 19:00 07:00 Intake Total 525.833 ml 792.45 ml Output Total 2450 ml 1500 ml Balance -1924.167 ml -707.55 ml IV Total 525.833 ml 792.45 ml Output Urine Total 2450 ml 1500 ml # Bowel Movements 2 Laboratory Tests 11/18/17 03:30: White Blood Count 9.0, Red Blood Count 3.61L, Hemoglobin 10.9L, Hematocrit 34.1L , Mean Corpuscular Volume 94, Mean Corpuscular Hemoglobin 30.1, Mean Corpuscular Hemoglobin Concent 32.0, Red Cell Distribution Width 16.1H, Platelet Count 308, Mean Platelet Volume 5.7L, Neutrophils (%) (Auto) 73.2, Lymphocytes (%) (Auto) 15.4L, Monocytes (%) (Auto) 10.5H, Eosinophils (%) (Auto ) 0.1, Basophils (%) (Auto) 0.8, Prothrombin Time 47.0H, Prothromb Time International Ratio 4.4H, Sodium Level 143, Potassium Level 3.5, Chloride Level 98, Carbon Dioxide Level 40H, Anion Gap 4L, Blood Urea Nitrogen 48H, Creatinine 1.6H, Estimat Glomerular Filtration Rate , Glucose Level 122H, Uric Acid 7.7H, Calcium Level 9.0, Phosphorus Level 3.9, Magnesium Level 1.9, Total Bilirubin 0.6, Aspartate Amino Transf (AST/SGOT) 27, Alanine Aminotransferase (ALT/SGPT) 29, Alkaline Phosphatase 56, Troponin I 0.014, Pro-B-Type Natriuretic Peptide 1567H, Total Protein 7.3, Albumin 2.5L, Globulin 4.8, Albumin/Globulin Ratio 0.5L Height (Feet): 5 Height (Inches): 11.00 Weight (Pounds): 151 Cardiovascular: normal rate Respiratory/Chest: lungs clear Abdomen: soft Danitza Mustafa MD Nov 18, 2017 20:34
[2017-11-19] VITALS: BP 145/61
--- NOTE | 2017-11-19 00:15 | General Progress Note ---
Assessment/Plan Assessment/Plan 1. Coagulopathy, likely due to underlying Coumadin use. --> Continue to closely monitor. --> INR goal between 2 and 3 --> Currently 4.4, recommend decreasing dose. 2. Anemia due to underlying chronic disease. --> Continue to closely monitor. --> Anemia workup has been reviewed. --> PRBC not required. --> Hemoglobin goal is above 7. 3. Azotemia as per Nephrology consultation, likely the patient is dehydrated. 4. Respiratory distress. --> Closely monitor. --> The patient's shortness of breath is likely related underlying congestion, bilateral pleural effusions. --> To be seen by Infectious Disease. 5. Weakness and fatigue, likely due to underlying anemia. Subjective Date patient seen: Nov 18, 2017 Constitutional: Denies: no symptoms, chills, diaphoresis, fever, malaise, weakness, other HEENT: Denies: no symptoms, eye pain, blurred vision, tearing, double vision, ear pain, ear discharge, nose pain, nose congestion, throat pain, throat swelling, mouth pain, mouth swelling, other Cardiovascular: Denies: no symptoms, chest pain, edema, irregular heart rate, lightheadedness, palpitations, syncope, other Respiratory: Denies: no symptoms, cough, orthopnea, shortness of breath, SOB with excertion, SOB at rest, sputum, stridor, wheezing, other Gastrointestinal/Abdominal: Denies: no symptoms, abdomen distended, abdominal pain, black stools, tarry stools, blood in stool, constipated, diarrhea, difficulty swallowing, nausea, poor appetite, poor fluid intake, rectal bleeding , vomiting, other Genitourinary: Denies: no symptoms, burning, discharge, frequency, flank pain, hematuria, incontinence, pain, urgency, other Hematologic/Lymphatic: Reports: anemia Allergies: Coded Allergies: No Known Allergies (Unverified , 06/20/17) Subjective Hold anticoag. S/P extubation. Objective Last 24 Hour Vital Signs Date Time Temp Pulse Resp B/P (MAP) Pulse Ox O2 Delivery O2 Flow Rate FiO2 11/18/17 20:00 97.7 74 18 138/67 98 Venturi Mask 14.0 55 11/18/17 20:00 81 11/18/17 19:30 72 18 98 Venturi Mask 14.0 55 11/18/17 19:16 71 24 97 Venturi Mask 14.0 55 11/18/17 19:16 55 11/18/17 19:16 97 Venturi Mask 14.0 55 11/18/17 19:16 Venturi Mask 14.0 55 11/18/17 18:17 69 132/57 11/18/17 17:15 69 95 11/18/17 16:00 98.2 76 21 132/57 98 Venturi Mask 14.0 55 11/18/17 15:50 78 11/18/17 15:02 95 11/18/17 13:03 73 18 95 Venturi Mask 15.0 55 11/18/17 12:55 72 18 94 11/18/17 12:53 73 18 94 Venturi Mask 15.0 55 11/18/17 12:26 73 20 124/54 Venturi Mask 15.0 55 11/18/17 12:22 77 11/18/17 12:19 73 124/54 11/18/17 10:53 94 11/18/17 09:58 73 20 124/54 Venturi Mask 15.0 55 11/18/17 09:23 96 11/18/17 08:00 98.1 72 20 131/57 97 Venturi Mask 14.0 55 11/18/17 07:47 74 11/18/17 07:01 70 18 97 Venturi Mask 15.0 55 11/18/17 06:55 69 95 11/18/17 06:51 69 16 95 Venturi Mask 15.0 55 11/18/17 06:51 95 Venturi Mask 15.0 55 11/18/17 06:51 Venturi Mask 15.0 55 11/18/17 05:53 71 130/55 11/18/17 04:00 97.7 72 20 130/60 97 Venturi Mask 14.0 55 11/18/17 04:00 77 11/18/17 00:20 78 128/60 Intake and Output 11/18/17 11/19/17 19:00 07:00 Intake Total 150 ml 282.5 ml Output Total 950 ml Balance -800 ml 282.5 ml Intake Oral 50 ml IV Total 100 ml 282.5 ml Output Urine Total 950 ml # Voids 1 # Bowel Movements 1 Laboratory Tests 11/18/17 03:30: White Blood Count 9.0, Red Blood Count 3.61L, Hemoglobin 10.9L, Hematocrit 34.1L , Mean Corpuscular Volume 94, Mean Corpuscular Hemoglobin 30.1, Mean Corpuscular Hemoglobin Concent 32.0, Red Cell Distribution Width 16.1H, Platelet Count 308, Mean Platelet Volume 5.7L, Neutrophils (%) (Auto) 73.2, Lymphocytes (%) (Auto) 15.4L, Monocytes (%) (Auto) 10.5H, Eosinophils (%) (Auto ) 0.1, Basophils (%) (Auto) 0.8, Prothrombin Time 47.0H, Prothromb Time International Ratio 4.4H, Sodium Level 143, Potassium Level 3.5, Chloride Level 98, Carbon Dioxide Level 40H, Anion Gap 4L, Blood Urea Nitrogen 48H, Creatinine 1.6H, Estimat Glomerular Filtration Rate , Glucose Level 122H, Uric Acid 7.7H, Calcium Level 9.0, Phosphorus Level 3.9, Magnesium Level 1.9, Total Bilirubin 0.6, Aspartate Amino Transf (AST/SGOT) 27, Alanine Aminotransferase (ALT/SGPT) 29, Alkaline Phosphatase 56, Troponin I 0.014, Pro-B-Type Natriuretic Peptide 1567H, Total Protein 7.3, Albumin 2.5L, Globulin 4.8, Albumin/Globulin Ratio 0.5L Height (Feet): 5 Height (Inches): 11.00 Weight (Pounds): 151 General Appearance: lethargic, confused Respiratory/Chest: lungs clear Abdomen: soft Bharath Ya Nov 19, 2017 00:14
[2017-11-19] MEDS: dilTIAZem HCl 60mg tab ORAL SCH ×5 (00:18→23:48)
[2017-11-19] MEDS: Acetaminophen 650mg/20.3ml NG PRN ×2 (00:23→23:48)
[2017-11-19] MEDS: Albuterol/Ipratropium 3ml neb HHN SCH ×4 (01:19→19:09)
[2017-11-19 04:00] VITALS: BP 142/54
[2017-11-19 05:26] LABS: BASOPHILS % (AUTO) 0.6 % (0.0-2.0); EOSINOPHILS % (AUTO) 0.1 % (0.0-3.0); HEMATOCRIT 34.5 % (42.0-52.0); LYMPHOCYTES % (AUTO) 24.9 % (20.0-45.0); MEAN CORPUSCULAR VOLUME 94 FL (80-99); MONOCYTES % (AUTO) 8.6 % (1.0-10.0); NEUTROPHILS % (AUTO) 65.8 % (45.0-75.0); PLATELET COUNT 297 K/UL (150-450); RED BLOOD COUNT 3.67 M/UL (4.70-6.10); WHITE BLOOD COUNT 6.8 K/UL (4.8-10.8)
[2017-11-19 05:34] LABS: ANION GAP 6 mmol/L (5-15); BLOOD UREA NITROGEN 44 mg/dL (7-18); CALCIUM 9.2 MG/DL (8.5-10.1); CARBON DIOXIDE 36 MMOL/L (21-32); CHLORIDE 99 MMOL/L (98-107); CREATININE 1.8 MG/DL (0.55-1.30); POTASSIUM 3.5 MMOL/L (3.5-5.1); SODIUM 141 MMOL/L (136-145)
[2017-11-19] MEDS: Piperacillin/Tazobactam 3.375 GM in D5W 110 ML IVPB SCH ×2 (06:07→14:00)
[2017-11-19 08:00] VITALS: BP 137/57
[2017-11-19] MEDS ORDERED: D5 1/2NS 1000ml IV ONE (11:00)
[2017-11-19] MEDS ORDERED: NS 500ML ONE (11:00)
--- NOTE | 2017-11-19 11:22 | Nephrology Progress Note ---
Assessment/Plan Problem List: (1) Acute renal failure (2) CHF (congestive heart failure) (3) Respiratory distress Assessment status: CXR improved CHF High BUN indicative of pre renal azotemia, 3+ proteinuria- Cr up to 1.8 today partly dehydration- Partly GI bleed Low Iron, Stool OB+ Echo: Left ventricular ejection fraction estimated to be 60-65 %. No evidence of left ventricular hypertrophy. Pleural effusion . Mild left atrial enlargement. others: - Acute respiratory failure, hypercapnic type. - Pulmonary edema. - Non-ST elevation myocardial infarction. - Chronic obstructive pulmonary disease. - Possible pneumonia. - Prostate hypertrophy. - Atrial fibrillation, on Coumadin. - Encephalopathy, - Status post ventriculoperitoneal shunt. Plan Plan: Down on lasix IV Iron- Optimize pulmonary and cardiac status monitor renal parameters and lytes K supplement as needed per orders Subjective ROS Limited/Unobtainable: No Constitutional: Reports: malaise Objective Objective Last 24 Hour Vital Signs Date Time Temp Pulse Resp B/P (MAP) Pulse Ox O2 Delivery O2 Flow Rate FiO2 11/19/17 08:00 98.2 71 22 137/57 99 Venturi Mask 14.0 55 11/19/17 08:00 75 11/19/17 07:22 74 20 98 Venturi Mask 14.0 55 11/19/17 07:15 55 11/19/17 07:15 71 18 98 Venturi Mask 14.0 55 11/19/17 07:15 97 Venturi Mask 14.0 55 11/19/17 07:15 Venturi Mask 14.0 55 11/19/17 06:07 72 142/54 11/19/17 04:00 97.7 74 20 142/54 93 Venturi Mask 14.0 55 11/19/17 04:00 72 11/19/17 01:32 69 20 97 Venturi Mask 14.0 55 11/19/17 01:21 55 11/19/17 01:19 65 20 86 Room Air 21 11/19/17 00:18 72 145/61 11/19/17 00:00 75 11/19/17 00:00 97.9 72 20 145/61 91 Venturi Mask 14.0 55 11/18/17 20:00 97.7 74 18 138/67 98 Venturi Mask 14.0 55 11/18/17 20:00 81 11/18/17 19:30 72 18 98 Venturi Mask 14.0 55 11/18/17 19:16 71 24 97 Venturi Mask 14.0 55 11/18/17 19:16 55 11/18/17 19:16 97 Venturi Mask 14.0 55 11/18/17 19:16 Venturi Mask 14.0 55 11/18/17 18:17 69 132/57 11/18/17 17:15 69 95 11/18/17 16:00 98.2 76 21 132/57 98 Venturi Mask 14.0 55 11/18/17 15:50 78 11/18/17 15:02 95 11/18/17 13:03 73 18 95 Venturi Mask 15.0 55 11/18/17 12:55 72 18 94 11/18/17 12:53 73 18 94 Venturi Mask 15.0 55 11/18/17 12:26 73 20 124/54 Venturi Mask 15.0 55 11/18/17 12:22 77 11/18/17 12:19 73 124/54 Intake and Output 11/18/17 11/19/17 19:00 07:00 Intake Total 150 ml 697.5 ml Output Total 950 ml 600 ml Balance -800 ml 97.5 ml Intake Oral 50 ml 100 ml IV Total 100 ml 597.5 ml Output Urine Total 950 ml 600 ml # Voids 1 # Bowel Movements 1 1 Laboratory Tests 11/19/17 04:05: White Blood Count 6.8, Red Blood Count 3.67L, Hemoglobin 11.0L, Hematocrit 34.5L , Mean Corpuscular Volume 94, Mean Corpuscular Hemoglobin 30.1, Mean Corpuscular Hemoglobin Concent 31.9L, Red Cell Distribution Width 16.0H, Platelet Count 297, Mean Platelet Volume 6.0L, Neutrophils (%) (Auto) 65.8, Lymphocytes (%) (Auto) 24.9, Monocytes (%) (Auto) 8.6, Eosinophils (%) (Auto) 0.1, Basophils (%) (Auto) 0.6, Sodium Level 141, Potassium Level 3.5, Chloride Level 99, Carbon Dioxide Level 36H, Anion Gap 6, Blood Urea Nitrogen 44H, Creatinine 1.8H, Estimat Glomerular Filtration Rate , Glucose Level 122H, Calcium Level 9.2 Height (Feet): 5 Height (Inches): 11.00 Weight (Pounds): 149 General Appearance: no apparent distress, alert Cardiovascular: normal rate Respiratory/Chest: decreased breath sounds Abdomen: soft Objective no other changes MARCELINO STEELE Nov 19, 2017 11:22
[2017-11-19 12:00] VITALS: BP 141/68
--- NOTE | 2017-11-19 13:12 | Diagnostic Imaging Report ---
APPROVED REPORT CPT Code: 08718 Present Symptoms Lower Extremity Pain: Bilateral BILATERAL: Imaging reveals a patent deep venous system bilaterally. There is no evidence of thrombus within the femoral, popliteal or tibial segments. The greater saphenous veins are also within normal limits. Doppler indicates normal spontaneous flow within these segments.
--- NOTE | 2017-11-19 13:51 | Pulmonology Progress Note ---
Assessment/Plan Assessment/Plan 1. Acute respiratory failure, hypercapnic type. 2. Pulmonary edema. 3. Non-ST elevation myocardial infarction. 4. Chronic obstructive pulmonary disease. 5. Possible pneumonia. 6. Prostate hypertrophy. 7. Atrial fibrillation, on Coumadin. 8. Encephalopathy, 9. Status post ventriculoperitoneal shunt. improving swallow eval disc w [employer] TECHNICIAN CXR cont HHN Subjective ROS Limited/Unobtainable: Yes Allergies: Coded Allergies: No Known Allergies (Unverified , 06/20/17) Objective Last 24 Hour Vital Signs Date Time Temp Pulse Resp B/P (MAP) Pulse Ox O2 Delivery O2 Flow Rate FiO2 11/19/17 13:11 Venturi Mask 8.0 40 11/19/17 13:10 Venturi Mask 14.0 55 11/19/17 12:32 72 141/68 11/19/17 08:00 98.2 71 22 137/57 99 Venturi Mask 14.0 55 11/19/17 08:00 75 11/19/17 07:22 74 20 98 Venturi Mask 14.0 55 11/19/17 07:15 55 11/19/17 07:15 71 18 98 Venturi Mask 14.0 55 11/19/17 07:15 97 Venturi Mask 14.0 55 11/19/17 07:15 Venturi Mask 14.0 55 11/19/17 06:07 72 142/54 11/19/17 04:00 97.7 74 20 142/54 93 Venturi Mask 14.0 55 11/19/17 04:00 72 11/19/17 01:32 69 20 97 Venturi Mask 14.0 55 11/19/17 01:21 55 11/19/17 01:19 65 20 86 Room Air 21 11/19/17 00:18 72 145/61 11/19/17 00:00 75 11/19/17 00:00 97.9 72 20 145/61 91 Venturi Mask 14.0 55 11/18/17 20:00 97.7 74 18 138/67 98 Venturi Mask 14.0 55 11/18/17 20:00 81 11/18/17 19:30 72 18 98 Venturi Mask 14.0 55 11/18/17 19:16 71 24 97 Venturi Mask 14.0 55 11/18/17 19:16 55 11/18/17 19:16 97 Venturi Mask 14.0 55 11/18/17 19:16 Venturi Mask 14.0 55 11/18/17 18:17 69 132/57 11/18/17 17:15 69 95 11/18/17 16:00 98.2 76 21 132/57 98 Venturi Mask 14.0 55 11/18/17 15:50 78 11/18/17 15:02 95 Intake and Output 11/18/17 11/19/17 19:00 07:00 Intake Total 150 ml 697.5 ml Output Total 950 ml 600 ml Balance -800 ml 97.5 ml Intake Oral 50 ml 100 ml IV Total 100 ml 597.5 ml Output Urine Total 950 ml 600 ml # Voids 1 # Bowel Movements 1 1 General Appearance: no acute distress HEENT: atraumatic Respiratory/Chest: lungs clear, decreased breath sounds Cardiovascular: normal rate Laboratory Tests 11/19/17 04:05: White Blood Count 6.8, Red Blood Count 3.67L, Hemoglobin 11.0L, Hematocrit 34.5L , Mean Corpuscular Volume 94, Mean Corpuscular Hemoglobin 30.1, Mean Corpuscular Hemoglobin Concent 31.9L, Red Cell Distribution Width 16.0H, Platelet Count 297, Mean Platelet Volume 6.0L, Neutrophils (%) (Auto) 65.8, Lymphocytes (%) (Auto) 24.9, Monocytes (%) (Auto) 8.6, Eosinophils (%) (Auto) 0.1, Basophils (%) (Auto) 0.6, Sodium Level 141, Potassium Level 3.5, Chloride Level 99, Carbon Dioxide Level 36H, Anion Gap 6, Blood Urea Nitrogen 44H, Creatinine 1.8H, Estimat Glomerular Filtration Rate , Glucose Level 122H, Calcium Level 9.2 Current Medications Medications (Trade) Dose Ordered Sig/Raine Route PRN Reason Start Time Stop Time Status Last Admin Dose Admin Acetaminophen (Tylenol) 650 mg Q6HR PRN NG for pain 11/15/17 17:00 12/15/17 16:59 11/19/17 00:23 Albuterol/ Ipratropium (Albuterol/ Ipratropium) 3 ml Q6HRT HHN 11/15/17 19:00 11/20/17 18:59 11/19/17 07:18 Dextrose/Sodium Chloride 1,000 ml @ 40 mls/hr Q24H IV 11/19/17 15:00 12/19/17 14:59 11/19/17 00:18 Diltiazem HCl (Cardizem) 60 mg EVERY 6 HOURS ORAL 11/15/17 18:00 12/15/17 17:59 11/19/17 12:32 Doxycycline Monohydrate (Vibramycin) 100 mg EVERY 12 HOURS ORAL 11/16/17 12:00 11/23/17 11:59 11/19/17 09:24 Furosemide (Lasix) 20 mg DAILY IV 11/19/17 09:00 12/15/17 17:59 11/19/17 09:24 Iron Sucrose 100 mg/Sodium Chloride 55 ml @ 200 mls/hr BEDTIME IV 11/16/17 21:00 11/25/17 21:17 11/18/17 21:28 Piperacillin Sod/ Tazobactam Sod 3.375 gm/Dextrose 110 ml @ 27.5 mls/hr EVERY 8 HOURS IVPB 11/16/17 12:30 11/21/17 12:29 11/19/17 06:07 Potassium Chloride (K-Dur) 40 meq DAILY ORAL 11/18/17 09:00 12/18/17 08:59 11/19/17 09:25 VINCENZO HYDE Nov 19, 2017 13:51
--- NOTE | 2017-11-19 14:29 | Infectious Diseases Prog Note ---
Assessment/Plan Assessment/Plan A: Pneumonia Hypercapnic respiratory failure Atrial fibrillation Diastolic CHF HPN s/p [employer] shunt Acute renal failure P: Continue Doxycycline Change Zosyn to Rocephin Will f/u cultures Subjective ROS Limited/Unobtainable: Yes Allergies: Coded Allergies: No Known Allergies (Unverified , 06/20/17) Objective Vital Signs Last 24 Hour Vital Signs Date Time Temp Pulse Resp B/P (MAP) Pulse Ox O2 Delivery O2 Flow Rate FiO2 11/19/17 13:11 Venturi Mask 8.0 40 11/19/17 13:10 Venturi Mask 14.0 55 11/19/17 12:32 72 141/68 11/19/17 11:28 72 11/19/17 08:00 98.2 71 22 137/57 99 Venturi Mask 14.0 55 11/19/17 08:00 75 11/19/17 07:22 74 20 98 Venturi Mask 14.0 55 11/19/17 07:15 55 11/19/17 07:15 71 18 98 Venturi Mask 14.0 55 11/19/17 07:15 97 Venturi Mask 14.0 55 11/19/17 07:15 Venturi Mask 14.0 55 11/19/17 06:07 72 142/54 11/19/17 04:00 97.7 74 20 142/54 93 Venturi Mask 14.0 55 11/19/17 04:00 72 11/19/17 01:32 69 20 97 Venturi Mask 14.0 55 11/19/17 01:21 55 11/19/17 01:19 65 20 86 Room Air 21 11/19/17 00:18 72 145/61 11/19/17 00:00 75 11/19/17 00:00 97.9 72 20 145/61 91 Venturi Mask 14.0 55 11/18/17 20:00 97.7 74 18 138/67 98 Venturi Mask 14.0 55 11/18/17 20:00 81 11/18/17 19:30 72 18 98 Venturi Mask 14.0 55 11/18/17 19:16 71 24 97 Venturi Mask 14.0 55 11/18/17 19:16 55 11/18/17 19:16 97 Venturi Mask 14.0 55 11/18/17 19:16 Venturi Mask 14.0 55 11/18/17 18:17 69 132/57 11/18/17 17:15 69 95 11/18/17 16:00 98.2 76 21 132/57 98 Venturi Mask 14.0 55 11/18/17 15:50 78 11/18/17 15:02 95 Height (Feet): 5 Height (Inches): 11.00 Weight (Pounds): 149 General Appearance: no acute distress HEENT: mucous membranes moist Respiratory/Chest: lungs clear, other - O2 by mask Cardiovascular: normal rate Abdomen: soft, non tender Extremities: no edema Neurologic/Psychiatric: other - sleeping Laboratory Tests Test 11/19/17 04:05 White Blood Count 6.8 K/UL (4.8-10.8) Red Blood Count 3.67 M/UL (4.70-6.10) L Hemoglobin 11.0 G/DL (14.2-18.0) L Hematocrit 34.5 % (42.0-52.0) L Mean Corpuscular Volume 94 FL (80-99) Mean Corpuscular Hemoglobin 30.1 PG (27.0-31.0) Mean Corpuscular Hemoglobin Concent 31.9 G/DL (32.0-36.0) L Red Cell Distribution Width 16.0 % (11.6-14.8) H Platelet Count 297 K/UL (150-450) Mean Platelet Volume 6.0 FL (6.5-10.1) L Neutrophils (%) (Auto) 65.8 % (45.0-75.0) Lymphocytes (%) (Auto) 24.9 % (20.0-45.0) Monocytes (%) (Auto) 8.6 % (1.0-10.0) Eosinophils (%) (Auto) 0.1 % (0.0-3.0) Basophils (%) (Auto) 0.6 % (0.0-2.0) Sodium Level 141 MMOL/L (136-145) Potassium Level 3.5 MMOL/L (3.5-5.1) Chloride Level 99 MMOL/L (98-107) Carbon Dioxide Level 36 MMOL/L (21-32) H Anion Gap 6 mmol/L (5-15) Blood Urea Nitrogen 44 mg/dL (7-18) H Creatinine 1.8 MG/DL (0.55-1.30) H Estimat Glomerular Filtration Rate mL/min (>60) Glucose Level 122 MG/DL (74-106) H Calcium Level 9.2 MG/DL (8.5-10.1) Current Medications Medications (Trade) Dose Ordered Sig/Raine Route PRN Reason Start Time Stop Time Status Last Admin Dose Admin Acetaminophen (Tylenol) 650 mg Q6HR PRN NG for pain 11/15/17 17:00 12/15/17 16:59 11/19/17 00:23 Albuterol/ Ipratropium (Albuterol/ Ipratropium) 3 ml Q6HRT HHN 11/15/17 19:00 11/20/17 18:59 11/19/17 07:18 Dextrose/Sodium Chloride 1,000 ml @ 40 mls/hr Q24H IV 11/19/17 15:00 12/19/17 14:59 11/19/17 00:18 Diltiazem HCl (Cardizem) 60 mg EVERY 6 HOURS ORAL 11/15/17 18:00 12/15/17 17:59 11/19/17 12:32 Doxycycline Monohydrate (Vibramycin) 100 mg EVERY 12 HOURS ORAL 11/16/17 12:00 11/23/17 11:59 11/19/17 09:24 Furosemide (Lasix) 20 mg DAILY IV 11/19/17 09:00 12/15/17 17:59 11/19/17 09:24 Iron Sucrose 100 mg/Sodium Chloride 55 ml @ 200 mls/hr BEDTIME IV 11/16/17 21:00 11/25/17 21:17 11/18/17 21:28 Piperacillin Sod/ Tazobactam Sod 3.375 gm/Dextrose 110 ml @ 27.5 mls/hr EVERY 8 HOURS IVPB 11/16/17 12:30 11/21/17 12:29 11/19/17 14:00 Potassium Chloride (K-Dur) 40 meq DAILY ORAL 11/18/17 09:00 12/18/17 08:59 11/19/17 09:25 TOLU ERICKSON Nov 19, 2017 14:29
--- NOTE | 2017-11-19 14:52 | GI Progress Note ---
Assessment/Plan Problems: (1) Dysphagia ICD Codes: R13.10 - Dysphagia, unspecified SNOMED: 10245268, 157037275 (2) Encounter for PEG (percutaneous endoscopic gastrostomy) ICD Codes: Z43.1 - Encounter for attention to gastrostomy SNOMED: 238707047, 110592317 Status: unchanged Status Narrative Discussed with Dr. Vasquez. Assessment/Plan Assessment - R/o Dysphagia - abd distention - Respiratory failure - Atrial fib - OBS - Poor px - ST evaluation >> Reinsert NGT if necessary. Strict NPO. - Video swallow study on hold, patient not ready. Recommendations Coumadin held since yesterday. Will follow up with ST tomorrow. May need intubation for PEG placement. constipation --> laxative BIPAP and pulmonary toilet PRN fu labs Subjective Subjective limited Objective Last 24 Hour Vital Signs Date Time Temp Pulse Resp B/P (MAP) Pulse Ox O2 Delivery O2 Flow Rate FiO2 11/19/17 13:11 Venturi Mask 8.0 40 11/19/17 13:10 Venturi Mask 14.0 55 11/19/17 12:32 72 141/68 11/19/17 11:28 72 11/19/17 08:00 98.2 71 22 137/57 99 Venturi Mask 14.0 55 11/19/17 08:00 75 11/19/17 07:22 74 20 98 Venturi Mask 14.0 55 11/19/17 07:15 55 11/19/17 07:15 71 18 98 Venturi Mask 14.0 55 11/19/17 07:15 97 Venturi Mask 14.0 55 11/19/17 07:15 Venturi Mask 14.0 55 11/19/17 06:07 72 142/54 11/19/17 04:00 97.7 74 20 142/54 93 Venturi Mask 14.0 55 11/19/17 04:00 72 11/19/17 01:32 69 20 97 Venturi Mask 14.0 55 11/19/17 01:21 55 11/19/17 01:19 65 20 86 Room Air 21 11/19/17 00:18 72 145/61 11/19/17 00:00 75 11/19/17 00:00 97.9 72 20 145/61 91 Venturi Mask 14.0 55 11/18/17 20:00 97.7 74 18 138/67 98 Venturi Mask 14.0 55 11/18/17 20:00 81 11/18/17 19:30 72 18 98 Venturi Mask 14.0 55 11/18/17 19:16 71 24 97 Venturi Mask 14.0 55 11/18/17 19:16 55 11/18/17 19:16 97 Venturi Mask 14.0 55 11/18/17 19:16 Venturi Mask 14.0 55 11/18/17 18:17 69 132/57 11/18/17 17:15 69 95 11/18/17 16:00 98.2 76 21 132/57 98 Venturi Mask 14.0 55 11/18/17 15:50 78 11/18/17 15:02 95 Intake and Output 11/18/17 11/19/17 19:00 07:00 Intake Total 150 ml 697.5 ml Output Total 950 ml 600 ml Balance -800 ml 97.5 ml Intake Oral 50 ml 100 ml IV Total 100 ml 597.5 ml Output Urine Total 950 ml 600 ml # Voids 1 # Bowel Movements 1 1 Laboratory Tests Test 11/19/17 04:05 White Blood Count 6.8 K/UL (4.8-10.8) Red Blood Count 3.67 M/UL (4.70-6.10) L Hemoglobin 11.0 G/DL (14.2-18.0) L Hematocrit 34.5 % (42.0-52.0) L Mean Corpuscular Volume 94 FL (80-99) Mean Corpuscular Hemoglobin 30.1 PG (27.0-31.0) Mean Corpuscular Hemoglobin Concent 31.9 G/DL (32.0-36.0) L Red Cell Distribution Width 16.0 % (11.6-14.8) H Platelet Count 297 K/UL (150-450) Mean Platelet Volume 6.0 FL (6.5-10.1) L Neutrophils (%) (Auto) 65.8 % (45.0-75.0) Lymphocytes (%) (Auto) 24.9 % (20.0-45.0) Monocytes (%) (Auto) 8.6 % (1.0-10.0) Eosinophils (%) (Auto) 0.1 % (0.0-3.0) Basophils (%) (Auto) 0.6 % (0.0-2.0) Sodium Level 141 MMOL/L (136-145) Potassium Level 3.5 MMOL/L (3.5-5.1) Chloride Level 99 MMOL/L (98-107) Carbon Dioxide Level 36 MMOL/L (21-32) H Anion Gap 6 mmol/L (5-15) Blood Urea Nitrogen 44 mg/dL (7-18) H Creatinine 1.8 MG/DL (0.55-1.30) H Estimat Glomerular Filtration Rate mL/min (>60) Glucose Level 122 MG/DL (74-106) H Calcium Level 9.2 MG/DL (8.5-10.1) Height (Feet): 5 Height (Inches): 11.00 Weight (Pounds): 149 General Appearance: WD/WN, no apparent distress, alert, confused Cardiovascular: normal rate Respiratory/Chest: normal breath sounds, no respiratory distress, other - venturi mask Abdominal Exam: normal bowel sounds, non tender, soft Extremities: normal range of motion, non-tender Janna Alonso N.P. Nov 19, 2017 14:52
[2017-11-19] MEDS ORDERED: D5 1/2NS 1,000 ML IV SCH (15:00)
[2017-11-19 16:00] VITALS: BP 140/66
--- NOTE | 2017-11-19 16:49 | Cardiac Electrophysiology PN ---
Assessment/Plan Assessment/Plan 1. Respiratory failure with pCO2 of 87 and pH of 7.22. Also has CHF. BNP very elevated. On IV Lasix 20 daily.The patient's pCO2 improved to 70. Now off BiPAP 2. Elevated troponin. Second troponin negative. No chest pain. Echocardiogram EF 65%. Avoid beta-nusrat. 3. Atrial flutter. On Cardizem 60 q 6 hr and Coumadin. Flutter ablation should be considered. INR 4.4! 4. Hypertension. On Cardizem. 5. Dysphagia, Passed swallow eval DW RN Subjective Subjective More alert. Remained in atrial flutter with CVR. Passed Swallow eval. Objective Last 24 Hour Vital Signs Date Time Temp Pulse Resp B/P (MAP) Pulse Ox O2 Delivery O2 Flow Rate FiO2 11/19/17 13:11 Venturi Mask 8.0 40 11/19/17 13:10 Venturi Mask 14.0 55 11/19/17 12:32 72 141/68 11/19/17 12:00 98.9 72 29 141/68 97 Venturi Mask 14.0 55 11/19/17 11:28 72 11/19/17 08:00 98.2 71 22 137/57 99 Venturi Mask 14.0 55 11/19/17 08:00 75 11/19/17 07:22 74 20 98 Venturi Mask 14.0 55 11/19/17 07:15 55 11/19/17 07:15 71 18 98 Venturi Mask 14.0 55 11/19/17 07:15 97 Venturi Mask 14.0 55 11/19/17 07:15 Venturi Mask 14.0 55 11/19/17 06:07 72 142/54 11/19/17 04:00 97.7 74 20 142/54 93 Venturi Mask 14.0 55 11/19/17 04:00 72 11/19/17 01:32 69 20 97 Venturi Mask 14.0 55 11/19/17 01:21 55 11/19/17 01:19 65 20 86 Room Air 21 11/19/17 00:18 72 145/61 11/19/17 00:00 75 11/19/17 00:00 97.9 72 20 145/61 91 Venturi Mask 14.0 55 11/18/17 20:00 97.7 74 18 138/67 98 Venturi Mask 14.0 55 11/18/17 20:00 81 11/18/17 19:30 72 18 98 Venturi Mask 14.0 55 11/18/17 19:16 71 24 97 Venturi Mask 14.0 55 11/18/17 19:16 55 11/18/17 19:16 97 Venturi Mask 14.0 55 11/18/17 19:16 Venturi Mask 14.0 55 11/18/17 18:17 69 132/57 11/18/17 17:15 69 95 Intake and Output 11/18/17 11/19/17 19:00 07:00 Intake Total 150 ml 697.5 ml Output Total 950 ml 600 ml Balance -800 ml 97.5 ml Intake Oral 50 ml 100 ml IV Total 100 ml 597.5 ml Output Urine Total 950 ml 600 ml # Voids 1 # Bowel Movements 1 1 Laboratory Tests Test 11/19/17 04:05 White Blood Count 6.8 K/UL (4.8-10.8) Red Blood Count 3.67 M/UL (4.70-6.10) L Hemoglobin 11.0 G/DL (14.2-18.0) L Hematocrit 34.5 % (42.0-52.0) L Mean Corpuscular Volume 94 FL (80-99) Mean Corpuscular Hemoglobin 30.1 PG (27.0-31.0) Mean Corpuscular Hemoglobin Concent 31.9 G/DL (32.0-36.0) L Red Cell Distribution Width 16.0 % (11.6-14.8) H Platelet Count 297 K/UL (150-450) Mean Platelet Volume 6.0 FL (6.5-10.1) L Neutrophils (%) (Auto) 65.8 % (45.0-75.0) Lymphocytes (%) (Auto) 24.9 % (20.0-45.0) Monocytes (%) (Auto) 8.6 % (1.0-10.0) Eosinophils (%) (Auto) 0.1 % (0.0-3.0) Basophils (%) (Auto) 0.6 % (0.0-2.0) Sodium Level 141 MMOL/L (136-145) Potassium Level 3.5 MMOL/L (3.5-5.1) Chloride Level 99 MMOL/L (98-107) Carbon Dioxide Level 36 MMOL/L (21-32) H Anion Gap 6 mmol/L (5-15) Blood Urea Nitrogen 44 mg/dL (7-18) H Creatinine 1.8 MG/DL (0.55-1.30) H Estimat Glomerular Filtration Rate mL/min (>60) Glucose Level 122 MG/DL (74-106) H Calcium Level 9.2 MG/DL (8.5-10.1) Objective HEAD AND NECK: Positive JVD. LUNGS: Decreased breath sounds. CARDIOVASCULAR: Irregularly irregular. S1 and S2 with no gallop or murmur. ABDOMEN: Soft. EXTREMITIES: No pitting edema. ADRIENNE BRAGA Nov 19, 2017 16:49
--- NOTE | 2017-11-19 17:04 | Cardiology Report ---
APPROVED REPORT EKG Measurement Heart [id number] Atrial flutter with 4:1 AV conduction Abnormal ECG
[2017-11-19] MEDS: cefTRIAXone 1 GM in NS 55 ML IVPB SCH (17:45)
[2017-11-19 20:00] VITALS: BP 106/62
--- NOTE | 2017-11-19 20:46 | General Progress Note ---
Assessment/Plan Problem List: (1) Urinary tract infection ICD Codes: N39.0 - Urinary tract infection, site not specified SNOMED: 41400230 (2) Sepsis ICD Codes: A41.9 - Sepsis, unspecified organism SNOMED: 65217744 (3) Dyspnea ICD Codes: R06.00 - Dyspnea, unspecified SNOMED: 832702435 (4) Respiratory distress ICD Codes: R06.03 - Acute respiratory distress SNOMED: 883314623 Status: progressing Assessment/Plan s/p extubation abx per id pna and sepsis uti improving afebrile Subjective ROS Limited/Unobtainable: Yes Allergies: Coded Allergies: No Known Allergies (Unverified , 06/20/17) Objective Last 24 Hour Vital Signs Date Time Temp Pulse Resp B/P (MAP) Pulse Ox O2 Delivery O2 Flow Rate FiO2 11/19/17 19:37 75 24 92 Venturi Mask 14.0 55 11/19/17 19:10 72 11/19/17 19:08 75 24 92 Venturi Mask 14.0 55 11/19/17 19:08 Venturi Mask 14.0 55 11/19/17 19:08 55 11/19/17 19:07 92 Venturi Mask 14.0 55 11/19/17 18:25 75 140/66 11/19/17 16:00 98.0 72 24 140/66 90 Venturi Mask 14.0 55 11/19/17 16:00 75 11/19/17 13:11 Venturi Mask 8.0 40 11/19/17 13:10 Venturi Mask 14.0 55 11/19/17 12:32 72 141/68 11/19/17 12:00 98.9 72 29 141/68 97 Venturi Mask 14.0 55 11/19/17 11:28 72 11/19/17 08:00 98.2 71 22 137/57 99 Venturi Mask 14.0 55 11/19/17 08:00 75 11/19/17 07:22 74 20 98 Venturi Mask 14.0 55 11/19/17 07:15 55 11/19/17 07:15 71 18 98 Venturi Mask 14.0 55 11/19/17 07:15 97 Venturi Mask 14.0 55 11/19/17 07:15 Venturi Mask 14.0 55 11/19/17 06:07 72 142/54 11/19/17 04:00 97.7 74 20 142/54 93 Venturi Mask 14.0 55 11/19/17 04:00 72 11/19/17 01:32 69 20 97 Venturi Mask 14.0 55 11/19/17 01:21 55 11/19/17 01:19 65 20 86 Room Air 21 11/19/17 00:18 72 145/61 11/19/17 00:00 75 11/19/17 00:00 97.9 72 20 145/61 91 Venturi Mask 14.0 55 Intake and Output 11/18/17 11/19/17 19:00 07:00 Intake Total 150 ml 697.5 ml Output Total 950 ml 600 ml Balance -800 ml 97.5 ml Intake Oral 50 ml 100 ml IV Total 100 ml 597.5 ml Output Urine Total 950 ml 600 ml # Voids 1 # Bowel Movements 1 1 Laboratory Tests 11/19/17 04:05: White Blood Count 6.8, Red Blood Count 3.67L, Hemoglobin 11.0L, Hematocrit 34.5L , Mean Corpuscular Volume 94, Mean Corpuscular Hemoglobin 30.1, Mean Corpuscular Hemoglobin Concent 31.9L, Red Cell Distribution Width 16.0H, Platelet Count 297, Mean Platelet Volume 6.0L, Neutrophils (%) (Auto) 65.8, Lymphocytes (%) (Auto) 24.9, Monocytes (%) (Auto) 8.6, Eosinophils (%) (Auto) 0.1, Basophils (%) (Auto) 0.6, Sodium Level 141, Potassium Level 3.5, Chloride Level 99, Carbon Dioxide Level 36H, Anion Gap 6, Blood Urea Nitrogen 44H, Creatinine 1.8H, Estimat Glomerular Filtration Rate , Glucose Level 122H, Calcium Level 9.2 Height (Feet): 5 Height (Inches): 11.00 Weight (Pounds): 149 Cardiovascular: normal rate Respiratory/Chest: lungs clear Abdomen: soft Danitza Mustafa MD Nov 19, 2017 20:46
[2017-11-20] VITALS: BP 144/60
[2017-11-20] MEDS: Albuterol/Ipratropium 3ml neb HHN SCH ×3 (01:00→13:24)
--- NOTE | 2017-11-20 03:33 | General Progress Note ---
Assessment/Plan Assessment/Plan 1. Coagulopathy, likely due to underlying Coumadin use. --> Continue to closely monitor. --> INR goal between 2 and 3 --> Currently 4.4, recommend decreasing dose. 2. Anemia due to underlying chronic disease. --> Hemoglobin has been stable >10 and prbc not needed --> Continue to closely monitor. --> Anemia workup has been reviewed. --> PRBC not required. --> Hemoglobin goal is above 7. 3. Azotemia as per Nephrology consultation, likely the patient is dehydrated. 4. Respiratory distress. --> Closely monitor. --> The patient's shortness of breath is likely related underlying congestion, bilateral pleural effusions. --> To be seen by Infectious Disease. --> On antibiotics. 5. Weakness and fatigue, likely due to underlying anemia. Subjective Date patient seen: Nov 19, 2017 Constitutional: Denies: no symptoms, chills, diaphoresis, fever, malaise, weakness, other HEENT: Denies: no symptoms, eye pain, blurred vision, tearing, double vision, ear pain, ear discharge, nose pain, nose congestion, throat pain, throat swelling, mouth pain, mouth swelling, other Cardiovascular: Denies: no symptoms, chest pain, edema, irregular heart rate, lightheadedness, palpitations, syncope, other Respiratory: Denies: no symptoms, cough, orthopnea, shortness of breath, SOB with excertion, SOB at rest, sputum, stridor, wheezing, other Gastrointestinal/Abdominal: Denies: no symptoms, abdomen distended, abdominal pain, black stools, tarry stools, blood in stool, constipated, diarrhea, difficulty swallowing, nausea, poor appetite, poor fluid intake, rectal bleeding , vomiting, other Genitourinary: Denies: no symptoms, burning, discharge, frequency, flank pain, hematuria, incontinence, pain, urgency, other Hematologic/Lymphatic: Reports: anemia Allergies: Coded Allergies: No Known Allergies (Unverified , 06/20/17) Subjective On abx. No new events overnight. Objective Last 24 Hour Vital Signs Date Time Temp Pulse Resp B/P (MAP) Pulse Ox O2 Delivery O2 Flow Rate FiO2 11/20/17 01:10 Venturi Mask 11/20/17 01:09 Venturi Mask 11/20/17 00:00 97.9 69 20 144/60 99 Venturi Mask 14.0 55 11/19/17 23:48 83 144/60 11/19/17 23:25 75 11/19/17 20:00 97.5 75 24 106/62 95 Venturi Mask 14.0 55 11/19/17 19:37 75 24 92 Venturi Mask 14.0 55 11/19/17 19:10 72 11/19/17 19:08 75 24 92 Venturi Mask 14.0 55 11/19/17 19:08 Venturi Mask 14.0 55 11/19/17 19:08 55 11/19/17 19:07 92 Venturi Mask 14.0 55 11/19/17 18:25 75 140/66 11/19/17 16:00 98.0 72 24 140/66 90 Venturi Mask 14.0 55 11/19/17 16:00 75 11/19/17 13:11 Venturi Mask 8.0 40 11/19/17 13:10 Venturi Mask 14.0 55 11/19/17 12:32 72 141/68 11/19/17 12:00 98.9 72 29 141/68 97 Venturi Mask 14.0 55 11/19/17 11:28 72 11/19/17 08:00 98.2 71 22 137/57 99 Venturi Mask 14.0 55 11/19/17 08:00 75 11/19/17 07:22 74 20 98 Venturi Mask 14.0 55 11/19/17 07:15 55 11/19/17 07:15 71 18 98 Venturi Mask 14.0 55 11/19/17 07:15 97 Venturi Mask 14.0 55 11/19/17 07:15 Venturi Mask 14.0 55 11/19/17 06:07 72 142/54 11/19/17 04:00 97.7 74 20 142/54 93 Venturi Mask 14.0 55 11/19/17 04:00 72 Intake and Output 11/19/17 11/20/17 19:00 07:00 Intake Total 960.0 ml 335 ml Output Total 700 ml Balance 260.0 ml 335 ml Intake Oral 300 ml IV Total 660.0 ml 335 ml Output Urine Total 700 ml # Bowel Movements 1 1 Laboratory Tests 11/19/17 04:05: White Blood Count 6.8, Red Blood Count 3.67L, Hemoglobin 11.0L, Hematocrit 34.5L , Mean Corpuscular Volume 94, Mean Corpuscular Hemoglobin 30.1, Mean Corpuscular Hemoglobin Concent 31.9L, Red Cell Distribution Width 16.0H, Platelet Count 297, Mean Platelet Volume 6.0L, Neutrophils (%) (Auto) 65.8, Lymphocytes (%) (Auto) 24.9, Monocytes (%) (Auto) 8.6, Eosinophils (%) (Auto) 0.1, Basophils (%) (Auto) 0.6, Sodium Level 141, Potassium Level 3.5, Chloride Level 99, Carbon Dioxide Level 36H, Anion Gap 6, Blood Urea Nitrogen 44H, Creatinine 1.8H, Estimat Glomerular Filtration Rate , Glucose Level 122H, Calcium Level 9.2 Height (Feet): 5 Height (Inches): 11.00 Weight (Pounds): 149 Bharath Ya Nov 20, 2017 03:33
[2017-11-20 04:00] VITALS: BP 140/60
[2017-11-20 05:36] LABS: POTASSIUM 3.4 MMOL/L (3.5-5.1); SODIUM 141 MMOL/L (136-145)
[2017-11-20 05:37] LABS: ANION GAP 7 mmol/L (5-15); BLOOD UREA NITROGEN 39 mg/dL (7-18); CARBON DIOXIDE 33 MMOL/L (21-32); CHLORIDE 101 MMOL/L (98-107); CREATININE 1.9 MG/DL (0.55-1.30)
[2017-11-20] MEDS: dilTIAZem HCl 60mg tab ORAL SCH ×3 (06:06→17:52)
[2017-11-20 06:41] LABS: HEMOGLOBIN 10.7 G/DL (14.2-18.0); RED BLOOD COUNT 3.61 M/UL (4.70-6.10); WHITE BLOOD COUNT 10.7 K/UL (4.8-10.8)
[2017-11-20 06:42] LABS: BASOPHILS % (AUTO) 0.9 % (0.0-2.0); EOSINOPHILS % (AUTO) 0.3 % (0.0-3.0); LYMPHOCYTES % (AUTO) 17.3 % (20.0-45.0); MEAN CORPUSCULAR VOLUME 94 FL (80-99); PLATELET COUNT 321 K/UL (150-450); RED CELL DISTRIBUTION WIDTH 16.6 % (11.6-14.8)
[2017-11-20 06:47] LABS: INR 5.9 (0.9-1.1)
[2017-11-20 09:00] VITALS: BP 144/66
--- NOTE | 2017-11-20 11:10 | Infectious Diseases Prog Note ---
Assessment/Plan Assessment/Plan A: Pneumonia Hypercapnic respiratory failure Atrial fibrillation Diastolic CHF HPN s/p SKIN[employer]ELTS shunt Acute renal failure Positive antibody to Legionella/ Mycoplasma P: Continue Doxycycline & Rocephin Will f/u cultures Subjective ROS Limited/Unobtainable: Yes Respiratory: Reports: no symptoms Allergies: Coded Allergies: No Known Allergies (Unverified , 06/20/17) Objective Vital Signs Last 24 Hour Vital Signs Date Time Temp Pulse Resp B/P (MAP) Pulse Ox O2 Delivery O2 Flow Rate FiO2 11/20/17 09:00 98.0 69 21 144/66 96 Venturi Mask 14.0 55 11/20/17 07:46 78 18 93 Venturi Mask 14.0 55 11/20/17 07:38 Venturi Mask 14.0 55 11/20/17 07:38 93 Venturi Mask 14.0 55 11/20/17 07:38 85 18 93 Venturi Mask 14.0 55 11/20/17 07:38 55 11/20/17 07:37 73 11/20/17 06:06 80 140/60 11/20/17 04:00 97.7 72 20 140/60 94 Venturi Mask 14.0 55 11/20/17 03:18 77 11/20/17 01:10 Venturi Mask 11/20/17 01:09 Venturi Mask 11/20/17 00:00 97.9 69 20 144/60 99 Venturi Mask 14.0 55 11/19/17 23:48 83 144/60 11/19/17 23:25 75 11/19/17 20:00 97.5 75 24 106/62 95 Venturi Mask 14.0 55 11/19/17 19:37 75 24 92 Venturi Mask 14.0 55 11/19/17 19:10 72 11/19/17 19:08 75 24 92 Venturi Mask 14.0 55 11/19/17 19:08 Venturi Mask 14.0 55 11/19/17 19:08 55 11/19/17 19:07 92 Venturi Mask 14.0 55 11/19/17 18:25 75 140/66 11/19/17 16:00 98.0 72 24 140/66 90 Venturi Mask 14.0 55 11/19/17 16:00 75 11/19/17 13:11 Venturi Mask 8.0 40 11/19/17 13:10 Venturi Mask 14.0 55 11/19/17 12:32 72 141/68 11/19/17 12:00 98.9 72 29 141/68 97 Venturi Mask 14.0 55 11/19/17 11:28 72 Height (Feet): 5 Height (Inches): 11.00 Weight (Pounds): 148 General Appearance: no acute distress HEENT: mucous membranes moist Respiratory/Chest: lungs clear Cardiovascular: normal rate Abdomen: soft, non tender Neurologic/Psychiatric: alert, responsive Laboratory Tests Test 11/20/17 03:30 White Blood Count 10.7 K/UL (4.8-10.8) # Red Blood Count 3.61 M/UL (4.70-6.10) L Hemoglobin 10.7 G/DL (14.2-18.0) L Hematocrit 34.0 % (42.0-52.0) L Mean Corpuscular Volume 94 FL (80-99) Mean Corpuscular Hemoglobin 29.7 PG (27.0-31.0) Mean Corpuscular Hemoglobin Concent 31.6 G/DL (32.0-36.0) L Red Cell Distribution Width 16.6 % (11.6-14.8) H Platelet Count 321 K/UL (150-450) Mean Platelet Volume 5.9 FL (6.5-10.1) L Neutrophils (%) (Auto) 76.0 % (45.0-75.0) H Lymphocytes (%) (Auto) 17.3 % (20.0-45.0) L Monocytes (%) (Auto) 6.0 % (1.0-10.0) Eosinophils (%) (Auto) 0.3 % (0.0-3.0) Basophils (%) (Auto) 0.9 % (0.0-2.0) Prothrombin Time 62.9 SEC (9.30-11.50) H Prothromb Time International Ratio 5.9 (0.9-1.1) *H Activated Partial Thromboplast Time 53 SEC (23-33) H Sodium Level 141 MMOL/L (136-145) Potassium Level 3.4 MMOL/L (3.5-5.1) L Chloride Level 101 MMOL/L (98-107) Carbon Dioxide Level 33 MMOL/L (21-32) H Anion Gap 7 mmol/L (5-15) Blood Urea Nitrogen 39 mg/dL (7-18) H Creatinine 1.9 MG/DL (0.55-1.30) H Estimat Glomerular Filtration Rate mL/min (>60) Glucose Level 101 MG/DL (74-106) Calcium Level 9.0 MG/DL (8.5-10.1) Current Medications Medications (Trade) Dose Ordered Sig/Raine Route PRN Reason Start Time Stop Time Status Last Admin Dose Admin Acetaminophen (Tylenol) 650 mg Q6HR PRN NG for pain 11/15/17 17:00 12/15/17 16:59 11/19/17 23:48 Albuterol/ Ipratropium (Albuterol/ Ipratropium) 3 ml Q6HRT HHN 11/15/17 19:00 11/20/17 18:59 11/20/17 07:38 Ceftriaxone Sodium 1 gm/ Sodium Chloride 55 ml @ 110 mls/hr Q24H IVPB 11/19/17 16:00 11/26/17 23:59 11/19/17 17:45 Dextrose/Sodium Chloride 1,000 ml @ 40 mls/hr Q24H IV 11/19/17 15:00 12/19/17 14:59 11/19/17 00:18 Diltiazem HCl (Cardizem) 60 mg EVERY 6 HOURS ORAL 11/15/17 18:00 12/15/17 17:59 11/20/17 06:06 Doxycycline Monohydrate (Vibramycin) 100 mg EVERY 12 HOURS ORAL 11/16/17 12:00 11/23/17 11:59 11/20/17 09:39 Furosemide (Lasix) 20 mg DAILY IV 11/19/17 09:00 12/15/17 17:59 11/20/17 09:40 Iron Sucrose 100 mg/Sodium Chloride 55 ml @ 200 mls/hr BEDTIME IV 11/16/17 21:00 11/25/17 21:17 11/19/17 21:41 Potassium Chloride (K-Dur) 40 meq DAILY ORAL 11/18/17 09:00 12/18/17 08:59 11/20/17 09:39 TOLU ERICKSON Nov 20, 2017 11:10
[2017-11-20 11:39] VITALS: BP 132/69
--- NOTE | 2017-11-20 12:01 | GI Progress Note ---
Assessment/Plan Problems: (1) Dysphagia ICD Codes: R13.10 - Dysphagia, unspecified SNOMED: 75322985, [id number] (2) Encounter for PEG (percutaneous endoscopic gastrostomy) ICD Codes: Z43.1 - Encounter for attention to gastrostomy SNOMED: 932697052, [id number] Status: unchanged Status Narrative Discussed with Dr. Vasquez. Assessment/Plan Assessment - R/o Dysphagia - abd distention - Respiratory failure - Atrial fib - OBS - Poor px - ST evaluation >> CCHO(MEDIUM) LIQUIFIED PUREED Recommendations Hold PEG placement for now, patient is on diet and will follow up with video swallow. Coumadin held since yesterday. constipation --> laxative BIPAP and pulmonary toilet PRN fu labs The patient was seen and examined at bedside and all new and available data was reviewed in the patients chart. I agree with the above findings, impression and plan. (Patient seen earlier today. Signature stamp does not reflect patient encounter time.). - Vashti Vasquez MD Subjective Subjective limited Objective Last 24 Hour Vital Signs Date Time Temp Pulse Resp B/P (MAP) Pulse Ox O2 Delivery O2 Flow Rate FiO2 11/20/17 11:39 97.8 72 20 132/69 98 Venturi Mask 14.0 55 11/20/17 11:39 72 11/20/17 09:00 98.0 69 21 144/66 96 Venturi Mask 14.0 55 11/20/17 07:46 78 18 93 Venturi Mask 14.0 55 11/20/17 07:38 Venturi Mask 14.0 55 11/20/17 07:38 93 Venturi Mask 14.0 55 11/20/17 07:38 85 18 93 Venturi Mask 14.0 55 11/20/17 07:38 55 11/20/17 07:37 73 11/20/17 06:06 80 140/60 11/20/17 04:00 97.7 72 20 140/60 94 Venturi Mask 14.0 55 11/20/17 03:18 77 11/20/17 01:10 Venturi Mask 11/20/17 01:09 Venturi Mask 11/20/17 00:00 97.9 69 20 144/60 99 Venturi Mask 14.0 55 11/19/17 23:48 83 144/60 11/19/17 23:25 75 2/13/18 20:00 97.5 75 24 106/62 95 Venturi Mask 14.0 55 11/19/17 19:37 75 24 92 Venturi Mask 14.0 55 11/19/17 19:10 72 11/19/17 19:08 75 24 92 Venturi Mask 14.0 55 11/19/17 19:08 Venturi Mask 14.0 55 11/19/17 19:08 55 11/19/17 19:07 92 Venturi Mask 14.0 55 11/19/17 18:25 75 140/66 11/19/17 16:00 98.0 72 24 140/66 90 Venturi Mask 14.0 55 11/19/17 16:00 75 11/19/17 13:11 Venturi Mask 8.0 40 11/19/17 13:10 Venturi Mask 14.0 55 11/19/17 12:32 72 141/68 11/19/17 12:00 98.9 72 29 141/68 97 Venturi Mask 14.0 55 Intake and Output 11/19/17 11/20/17 19:00 07:00 Intake Total 960.0 ml 405 ml Output Total 700 ml 250 ml Balance 260.0 ml 155 ml Intake Oral 300 ml 50 ml IV Total 660.0 ml 355 ml Output Urine Total 700 ml 250 ml # Bowel Movements 1 1 Laboratory Tests Test 11/20/17 03:30 White Blood Count 10.7 K/UL (4.8-10.8) # Red Blood Count 3.61 M/UL (4.70-6.10) L Hemoglobin 10.7 G/DL (14.2-18.0) L Hematocrit 34.0 % (42.0-52.0) L Mean Corpuscular Volume 94 FL (80-99) Mean Corpuscular Hemoglobin 29.7 PG (27.0-31.0) Mean Corpuscular Hemoglobin Concent 31.6 G/DL (32.0-36.0) L Red Cell Distribution Width 16.6 % (11.6-14.8) H Platelet Count 321 K/UL (150-450) Mean Platelet Volume 5.9 FL (6.5-10.1) L Neutrophils (%) (Auto) 76.0 % (45.0-75.0) H Lymphocytes (%) (Auto) 17.3 % (20.0-45.0) L Monocytes (%) (Auto) 6.0 % (1.0-10.0) Eosinophils (%) (Auto) 0.3 % (0.0-3.0) Basophils (%) (Auto) 0.9 % (0.0-2.0) Prothrombin Time 62.9 SEC (9.30-11.50) H Prothromb Time International Ratio 5.9 (0.9-1.1) *H Activated Partial Thromboplast Time 53 SEC (23-33) H Sodium Level 141 MMOL/L (136-145) Potassium Level 3.4 MMOL/L (3.5-5.1) L Chloride Level 101 MMOL/L (98-107) Carbon Dioxide Level 33 MMOL/L (21-32) H Anion Gap 7 mmol/L (5-15) Blood Urea Nitrogen 39 mg/dL (7-18) H Creatinine 1.9 MG/DL (0.55-1.30) H Estimat Glomerular Filtration Rate mL/min (>60) Glucose Level 101 MG/DL (74-106) Calcium Level 9.0 MG/DL (8.5-10.1) Height (Feet): 5 Height (Inches): 11.00 Weight (Pounds): 148 General Appearance: alert Cardiovascular: normal rate Respiratory/Chest: other - venturi mask Janna Alonso N.Janay Nov 20, 2017 12:01 RICKIE VASQUEZ Nov 25, 2017 09:05
--- NOTE | 2017-11-20 12:59 | Pulmonology Progress Note ---
Assessment/Plan Assessment/Plan 1. Acute respiratory failure, hypercapnic type. 2. Pulmonary edema. 3. Non-ST elevation myocardial infarction. 4. Chronic obstructive pulmonary disease. 5. Possible pneumonia. 6. Prostate hypertrophy. 7. Atrial fibrillation, on Coumadin. 8. Encephalopathy, 9. Status post ventriculoperitoneal shunt. improving, looks stronger swallow eval disc w [employer]INTE[employer]CE ENGINEER, tolerating diet CXR cont HHN PT eval Subjective Respiratory: Denies: shortness of breath Allergies: Coded Allergies: No Known Allergies (Unverified , 06/20/17) Objective Last 24 Hour Vital Signs Date Time Temp Pulse Resp B/P (MAP) Pulse Ox O2 Delivery O2 Flow Rate FiO2 11/20/17 12:00 73 143/59 11/20/17 11:39 97.8 72 20 132/69 98 Venturi Mask 14.0 55 11/20/17 11:39 72 11/20/17 09:00 98.0 69 21 144/66 96 Venturi Mask 14.0 55 11/20/17 07:46 78 18 93 Venturi Mask 14.0 55 11/20/17 07:38 Venturi Mask 14.0 55 11/20/17 07:38 93 Venturi Mask 14.0 55 11/20/17 07:38 85 18 93 Venturi Mask 14.0 55 11/20/17 07:38 55 11/20/17 07:37 73 11/20/17 06:06 80 140/60 11/20/17 04:00 97.7 72 20 140/60 94 Venturi Mask 14.0 55 11/20/17 03:18 77 11/20/17 01:10 Venturi Mask 11/20/17 01:09 Venturi Mask 11/20/17 00:00 97.9 69 20 144/60 99 Venturi Mask 14.0 55 11/19/17 23:48 83 144/60 11/19/17 23:25 75 11/19/17 20:00 97.5 75 24 106/62 95 Venturi Mask 14.0 55 11/19/17 19:37 75 24 92 Venturi Mask 14.0 55 11/19/17 19:10 72 11/19/17 19:08 75 24 92 Venturi Mask 14.0 55 11/19/17 19:08 Venturi Mask 14.0 55 11/19/17 19:08 55 11/19/17 19:07 92 Venturi Mask 14.0 55 11/19/17 18:25 75 140/66 11/19/17 16:00 98.0 72 24 140/66 90 Venturi Mask 14.0 55 11/19/17 16:00 75 11/19/17 13:11 Venturi Mask 8.0 40 11/19/17 13:10 Venturi Mask 14.0 55 Intake and Output 11/19/17 11/20/17 19:00 07:00 Intake Total 960.0 ml 405 ml Output Total 700 ml 250 ml Balance 260.0 ml 155 ml Intake Oral 300 ml 50 ml IV Total 660.0 ml 355 ml Output Urine Total 700 ml 250 ml # Bowel Movements 1 1 General Appearance: no acute distress Respiratory/Chest: decreased breath sounds Cardiovascular: normal rate Laboratory Tests 11/20/17 03:30: White Blood Count 10.7#, Red Blood Count 3.61L, Hemoglobin 10.7L, Hematocrit 34.0L, Mean Corpuscular Volume 94, Mean Corpuscular Hemoglobin 29.7, Mean Corpuscular Hemoglobin Concent 31.6L, Red Cell Distribution Width 16.6H, Platelet Count 321, Mean Platelet Volume 5.9L, Neutrophils (%) (Auto) 76.0H, Lymphocytes (%) (Auto) 17.3L, Monocytes (%) (Auto) 6.0, Eosinophils (%) (Auto) 0.3, Basophils (%) (Auto) 0.9, Prothrombin Time 62.9H, Prothromb Time International Ratio 5.9*H, Activated Partial Thromboplast Time 53H, Sodium Level 141, Potassium Level 3.4L, Chloride Level 101, Carbon Dioxide Level 33H, Anion Gap 7, Blood Urea Nitrogen 39H, Creatinine 1.9H, Estimat Glomerular Filtration Rate , Glucose Level 101, Calcium Level 9.0 Current Medications Medications (Trade) Dose Ordered Sig/Raine Route PRN Reason Start Time Stop Time Status Last Admin Dose Admin Acetaminophen (Tylenol) 650 mg Q6HR PRN NG for pain 11/15/17 17:00 12/15/17 16:59 11/19/17 23:48 Albuterol/ Ipratropium (Albuterol/ Ipratropium) 3 ml Q6HRT HHN 11/15/17 19:00 11/20/17 18:59 11/20/17 07:38 Ceftriaxone Sodium 1 gm/ Sodium Chloride 55 ml @ 110 mls/hr Q24H IVPB 11/19/17 16:00 11/26/17 23:59 11/19/17 17:45 Dextrose/Sodium Chloride 1,000 ml @ 40 mls/hr Q24H IV 11/19/17 15:00 12/19/17 14:59 11/19/17 00:18 Diltiazem HCl (Cardizem) 60 mg EVERY 6 HOURS ORAL 11/15/17 18:00 12/15/17 17:59 11/20/17 12:00 Doxycycline Monohydrate (Vibramycin) 100 mg EVERY 12 HOURS ORAL 11/16/17 12:00 11/23/17 11:59 11/20/17 09:39 Furosemide (Lasix) 20 mg DAILY IV 11/19/17 09:00 12/15/17 17:59 11/20/17 09:40 Iron Sucrose 100 mg/Sodium Chloride 55 ml @ 200 mls/hr BEDTIME IV 11/16/17 21:00 11/25/17 21:17 11/19/17 21:41 Potassium Chloride (K-Dur) 40 meq DAILY ORAL 11/18/17 09:00 12/18/17 08:59 11/20/17 09:39 VINCENZO HYDE Nov 20, 2017 12:59
--- NOTE | 2017-11-20 13:00 | Nephrology Progress Note ---
Assessment/Plan Problem List: (1) Acute renal failure (2) CHF (congestive heart failure) (3) Respiratory distress Assessment status: CXR improved CHF High BUN indicative of pre renal azotemia, 3+ proteinuria- Cr up to 1.8 today partly dehydration- Partly GI bleed Low Iron, Stool OB+ Echo: Left ventricular ejection fraction estimated to be 60-65 %. No evidence of left ventricular hypertrophy. Pleural effusion . Mild left atrial enlargement. others: - Acute respiratory failure, hypercapnic type. - Pulmonary edema. - Non-ST elevation myocardial infarction. - Chronic obstructive pulmonary disease. - Possible pneumonia. - Prostate hypertrophy. - Atrial fibrillation, on Coumadin. - Encephalopathy, - Status post ventriculoperitoneal shunt. Plan Plan: DC IV fluids Down on lasix IV Iron- Optimize pulmonary and cardiac status monitor renal parameters and lytes K supplement as needed per orders Subjective ROS Limited/Unobtainable: No Constitutional: Reports: malaise, weakness Objective Objective Last 24 Hour Vital Signs Date Time Temp Pulse Resp B/P (MAP) Pulse Ox O2 Delivery O2 Flow Rate FiO2 11/20/17 12:00 73 143/59 11/20/17 11:39 97.8 72 20 132/69 98 Venturi Mask 14.0 55 11/20/17 11:39 72 11/20/17 09:00 98.0 69 21 144/66 96 Venturi Mask 14.0 55 11/20/17 07:46 78 18 93 Venturi Mask 14.0 55 11/20/17 07:38 Venturi Mask 14.0 55 11/20/17 07:38 93 Venturi Mask 14.0 55 11/20/17 07:38 85 18 93 Venturi Mask 14.0 55 11/20/17 07:38 55 11/20/17 07:37 73 11/20/17 06:06 80 140/60 11/20/17 04:00 97.7 72 20 140/60 94 Venturi Mask 14.0 55 11/20/17 03:18 77 11/20/17 01:10 Venturi Mask 11/20/17 01:09 Venturi Mask 11/20/17 00:00 97.9 69 20 144/60 99 Venturi Mask 14.0 55 11/19/17 23:48 83 144/60 11/19/17 23:25 75 2/13/18 20:00 97.5 75 24 106/62 95 Venturi Mask 14.0 55 11/19/17 19:37 75 24 92 Venturi Mask 14.0 55 11/19/17 19:10 72 11/19/17 19:08 75 24 92 Venturi Mask 14.0 55 11/19/17 19:08 Venturi Mask 14.0 55 11/19/17 19:08 55 11/19/17 19:07 92 Venturi Mask 14.0 55 11/19/17 18:25 75 140/66 11/19/17 16:00 98.0 72 24 140/66 90 Venturi Mask 14.0 55 11/19/17 16:00 75 11/19/17 13:11 Venturi Mask 8.0 40 11/19/17 13:10 Venturi Mask 14.0 55 Intake and Output 11/19/17 11/20/17 19:00 07:00 Intake Total 960.0 ml 405 ml Output Total 700 ml 250 ml Balance 260.0 ml 155 ml Intake Oral 300 ml 50 ml IV Total 660.0 ml 355 ml Output Urine Total 700 ml 250 ml # Bowel Movements 1 1 Laboratory Tests 11/20/17 03:30: White Blood Count 10.7#, Red Blood Count 3.61L, Hemoglobin 10.7L, Hematocrit 34.0L, Mean Corpuscular Volume 94, Mean Corpuscular Hemoglobin 29.7, Mean Corpuscular Hemoglobin Concent 31.6L, Red Cell Distribution Width 16.6H, Platelet Count 321, Mean Platelet Volume 5.9L, Neutrophils (%) (Auto) 76.0H, Lymphocytes (%) (Auto) 17.3L, Monocytes (%) (Auto) 6.0, Eosinophils (%) (Auto) 0.3, Basophils (%) (Auto) 0.9, Prothrombin Time 62.9H, Prothromb Time International Ratio 5.9*H, Activated Partial Thromboplast Time 53H, Sodium Level 141, Potassium Level 3.4L, Chloride Level 101, Carbon Dioxide Level 33H, Anion Gap 7, Blood Urea Nitrogen 39H, Creatinine 1.9H, Estimat Glomerular Filtration Rate , Glucose Level 101, Calcium Level 9.0 Height (Feet): 5 Height (Inches): 11.00 Weight (Pounds): 148 General Appearance: no apparent distress Cardiovascular: normal rate Respiratory/Chest: decreased breath sounds Abdomen: soft Objective no other changes MARCELINO STEELE Nov 20, 2017 13:00
--- NOTE | 2017-11-20 15:15 | Cardiac Electrophysiology PN ---
Assessment/Plan Assessment/Plan 1. Respiratory failure with pCO2 of 87 and pH of 7.22. Also has CHF. BNP very elevated. On IV Lasix 20 daily. The patient's pCO2 improved to 70. Now off BiPAP 2. Elevated troponin. Second troponin negative. No chest pain. Echocardiogram EF 65%. Avoid beta-nusrat. 3. Atrial flutter. On Cardizem 60 q 6 hr and Coumadin per pharmacy. Flutter ablation as out patient. INR 5.9! 4. Hypertension. On Cardizem. 5. Dysphagia, Passed swallow eval SALOME RN Subjective Subjective Alert in NAD. Remained in atrial flutter with CVR. Objective Last 24 Hour Vital Signs Date Time Temp Pulse Resp B/P (MAP) Pulse Ox O2 Delivery O2 Flow Rate FiO2 11/20/17 13:31 75 18 94 Venturi Mask 14.0 55 11/20/17 13:24 55 11/20/17 13:24 80 16 94 Venturi Mask 14.0 55 11/20/17 12:00 73 143/59 11/20/17 11:39 97.8 72 20 132/69 98 Venturi Mask 14.0 55 11/20/17 11:39 72 11/20/17 09:00 98.0 69 21 144/66 96 Venturi Mask 14.0 55 11/20/17 07:46 78 18 93 Venturi Mask 14.0 55 11/20/17 07:38 Venturi Mask 14.0 55 11/20/17 07:38 93 Venturi Mask 14.0 55 11/20/17 07:38 85 18 93 Venturi Mask 14.0 55 11/20/17 07:38 55 11/20/17 07:37 73 11/20/17 06:06 80 140/60 11/20/17 04:00 97.7 72 20 140/60 94 Venturi Mask 14.0 55 11/20/17 03:18 77 11/20/17 01:10 Venturi Mask 11/20/17 01:09 Venturi Mask 11/20/17 00:00 97.9 69 20 144/60 99 Venturi Mask 14.0 55 11/19/17 23:48 83 144/60 11/19/17 23:25 75 11/19/17 20:00 97.5 75 24 106/62 95 Venturi Mask 14.0 55 11/19/17 19:37 75 24 92 Venturi Mask 14.0 55 11/19/17 19:10 72 11/19/17 19:08 75 24 92 Venturi Mask 14.0 55 11/19/17 19:08 Venturi Mask 14.0 55 11/19/17 19:08 55 11/19/17 19:07 92 Venturi Mask 14.0 55 11/19/17 18:25 75 140/66 11/19/17 16:00 98.0 72 24 140/66 90 Venturi Mask 14.0 55 11/19/17 16:00 75 Intake and Output 11/19/17 11/20/17 19:00 07:00 Intake Total 960.0 ml 405 ml Output Total 700 ml 250 ml Balance 260.0 ml 155 ml Intake Oral 300 ml 50 ml IV Total 660.0 ml 355 ml Output Urine Total 700 ml 250 ml # Bowel Movements 1 1 Laboratory Tests Test 11/20/17 03:30 White Blood Count 10.7 K/UL (4.8-10.8) # Red Blood Count 3.61 M/UL (4.70-6.10) L Hemoglobin 10.7 G/DL (14.2-18.0) L Hematocrit 34.0 % (42.0-52.0) L Mean Corpuscular Volume 94 FL (80-99) Mean Corpuscular Hemoglobin 29.7 PG (27.0-31.0) Mean Corpuscular Hemoglobin Concent 31.6 G/DL (32.0-36.0) L Red Cell Distribution Width 16.6 % (11.6-14.8) H Platelet Count 321 K/UL (150-450) Mean Platelet Volume 5.9 FL (6.5-10.1) L Neutrophils (%) (Auto) 76.0 % (45.0-75.0) H Lymphocytes (%) (Auto) 17.3 % (20.0-45.0) L Monocytes (%) (Auto) 6.0 % (1.0-10.0) Eosinophils (%) (Auto) 0.3 % (0.0-3.0) Basophils (%) (Auto) 0.9 % (0.0-2.0) Prothrombin Time 62.9 SEC (9.30-11.50) H Prothromb Time International Ratio 5.9 (0.9-1.1) *H Activated Partial Thromboplast Time 53 SEC (23-33) H Sodium Level 141 MMOL/L (136-145) Potassium Level 3.4 MMOL/L (3.5-5.1) L Chloride Level 101 MMOL/L (98-107) Carbon Dioxide Level 33 MMOL/L (21-32) H Anion Gap 7 mmol/L (5-15) Blood Urea Nitrogen 39 mg/dL (7-18) H Creatinine 1.9 MG/DL (0.55-1.30) H Estimat Glomerular Filtration Rate mL/min (>60) Glucose Level 101 MG/DL (74-106) Calcium Level 9.0 MG/DL (8.5-10.1) Objective HEAD AND NECK: Positive JVD. LUNGS: Decreased breath sounds. CARDIOVASCULAR: Irregularly irregular S1 and S2 with no gallop or murmur. ABDOMEN: Soft. EXTREMITIES: No pitting edema. ADRIENNE BRAGA Nov 20, 2017 15:15
[2017-11-20 16:00] VITALS: BP 143/67
[2017-11-20] MEDS: cefTRIAXone 1 GM in NS 55 ML IVPB SCH (17:52)
[2017-11-20 20:00] VITALS: BP 143/65
--- NOTE | 2017-11-20 20:42 | General Progress Note ---
Assessment/Plan Problem List: (1) Urinary tract infection ICD Codes: N39.0 - Urinary tract infection, site not specified SNOMED: 24339337 (2) Sepsis ICD Codes: A41.9 - Sepsis, unspecified organism SNOMED: 49160864 (3) Dyspnea ICD Codes: R06.00 - Dyspnea, unspecified SNOMED: 525495102 (4) Respiratory distress ICD Codes: R06.03 - Acute respiratory distress SNOMED: 929360214 Status: progressing Assessment/Plan s/p extubation uti sepsis obs a fib anti coagulation per heme/onc Subjective ROS Limited/Unobtainable: Yes Allergies: Coded Allergies: No Known Allergies (Unverified , 06/20/17) Objective Last 24 Hour Vital Signs Date Time Temp Pulse Resp B/P (MAP) Pulse Ox O2 Delivery O2 Flow Rate FiO2 11/20/17 19:00 95 Venturi Mask 14.0 55 11/20/17 19:00 Venturi Mask 14.0 55 11/20/17 17:52 73 143/67 11/20/17 16:00 98.2 73 20 143/67 96 Venturi Mask 14.0 55 11/20/17 15:13 73 11/20/17 13:31 75 18 94 Venturi Mask 14.0 55 11/20/17 13:24 55 11/20/17 13:24 80 16 94 Venturi Mask 14.0 55 11/20/17 12:00 73 143/59 11/20/17 11:39 97.8 72 20 132/69 98 Venturi Mask 14.0 55 11/20/17 11:39 72 11/20/17 09:00 98.0 69 21 144/66 96 Venturi Mask 14.0 55 11/20/17 07:46 78 18 93 Venturi Mask 14.0 55 11/20/17 07:38 Venturi Mask 14.0 55 11/20/17 07:38 93 Venturi Mask 14.0 55 11/20/17 07:38 85 18 93 Venturi Mask 14.0 55 11/20/17 07:38 55 11/20/17 07:37 73 11/20/17 06:06 80 140/60 11/20/17 04:00 97.7 72 20 140/60 94 Venturi Mask 14.0 55 11/20/17 03:18 77 11/20/17 01:10 Venturi Mask 11/20/17 01:09 Venturi Mask 11/20/17 00:00 97.9 69 20 144/60 99 Venturi Mask 14.0 55 11/19/17 23:48 83 144/60 11/19/17 23:25 75 Intake and Output 11/19/17 11/20/17 19:00 07:00 Intake Total 960.0 ml 405 ml Output Total 700 ml 250 ml Balance 260.0 ml 155 ml Intake Oral 300 ml 50 ml IV Total 660.0 ml 355 ml Output Urine Total 700 ml 250 ml # Bowel Movements 1 1 Laboratory Tests 11/20/17 03:30: White Blood Count 10.7#, Red Blood Count 3.61L, Hemoglobin 10.7L, Hematocrit 34.0L, Mean Corpuscular Volume 94, Mean Corpuscular Hemoglobin 29.7, Mean Corpuscular Hemoglobin Concent 31.6L, Red Cell Distribution Width 16.6H, Platelet Count 321, Mean Platelet Volume 5.9L, Neutrophils (%) (Auto) 76.0H, Lymphocytes (%) (Auto) 17.3L, Monocytes (%) (Auto) 6.0, Eosinophils (%) (Auto) 0.3, Basophils (%) (Auto) 0.9, Prothrombin Time 62.9H, Prothromb Time International Ratio 5.9*H, Activated Partial Thromboplast Time 53H, Sodium Level 141, Potassium Level 3.4L, Chloride Level 101, Carbon Dioxide Level 33H, Anion Gap 7, Blood Urea Nitrogen 39H, Creatinine 1.9H, Estimat Glomerular Filtration Rate , Glucose Level 101, Calcium Level 9.0 Height (Feet): 5 Height (Inches): 11.00 Weight (Pounds): 148 Neck: supple Respiratory/Chest: lungs clear Abdomen: soft Danitza Mustafa MD Nov 20, 2017 20:42
--- NOTE | 2017-11-20 23:24 | General Progress Note ---
Assessment/Plan Assessment/Plan 1. Coagulopathy, likely due to underlying Coumadin use. --> Continue to closely monitor. --> INR goal between 2 and 3 --> Currently 5.9. To put coumadin on hold for now. 2. Anemia due to underlying chronic disease. --> Hemoglobin has been stable >10 and prbc not needed --> Continue to closely monitor. --> Anemia workup has been reviewed. --> PRBC not required. --> Hemoglobin goal is above 7. 3. Azotemia as per Nephrology consultation, likely the patient is dehydrated. 4. Respiratory distress. --> Closely monitor. --> The patient's shortness of breath is likely related underlying congestion, bilateral pleural effusions. --> To be seen by Infectious Disease. --> On antibiotics. 5. Weakness and fatigue, likely due to underlying anemia. Subjective Date patient seen: Nov 20, 2017 Constitutional: Denies: no symptoms, chills, diaphoresis, fever, malaise, weakness, other HEENT: Denies: no symptoms, eye pain, blurred vision, tearing, double vision, ear pain, ear discharge, nose pain, nose congestion, throat pain, throat swelling, mouth pain, mouth swelling, other Cardiovascular: Denies: no symptoms, chest pain, edema, irregular heart rate, lightheadedness, palpitations, syncope, other Respiratory: Denies: no symptoms, cough, orthopnea, shortness of breath, SOB with excertion, SOB at rest, sputum, stridor, wheezing, other Gastrointestinal/Abdominal: Denies: no symptoms, abdomen distended, abdominal pain, black stools, tarry stools, blood in stool, constipated, diarrhea, difficulty swallowing, nausea, poor appetite, poor fluid intake, rectal bleeding , vomiting, other Genitourinary: Denies: no symptoms, burning, discharge, frequency, flank pain, hematuria, incontinence, pain, urgency, other Hematologic/Lymphatic: Reports: anemia Allergies: Coded Allergies: No Known Allergies (Unverified , 06/20/17) Subjective Hold anticoag. On antibiotics. No major events. Objective Last 24 Hour Vital Signs Date Time Temp Pulse Resp B/P (MAP) Pulse Ox O2 Delivery O2 Flow Rate FiO2 11/20/17 20:00 97.7 72 24 143/65 98 Venturi Mask 14.0 55 11/20/17 20:00 83 11/20/17 19:00 95 Venturi Mask 14.0 55 11/20/17 19:00 Venturi Mask 14.0 55 11/20/17 17:52 73 143/67 11/20/17 16:00 98.2 73 20 143/67 96 Venturi Mask 14.0 55 11/20/17 15:13 73 11/20/17 13:31 75 18 94 Venturi Mask 14.0 55 11/20/17 13:24 55 11/20/17 13:24 80 16 94 Venturi Mask 14.0 55 11/20/17 12:00 73 143/59 11/20/17 11:39 97.8 72 20 132/69 98 Venturi Mask 14.0 55 11/20/17 11:39 72 11/20/17 09:00 98.0 69 21 144/66 96 Venturi Mask 14.0 55 11/20/17 07:46 78 18 93 Venturi Mask 14.0 55 11/20/17 07:38 Venturi Mask 14.0 55 11/20/17 07:38 93 Venturi Mask 14.0 55 11/20/17 07:38 85 18 93 Venturi Mask 14.0 55 11/20/17 07:38 55 11/20/17 07:37 73 11/20/17 06:06 80 140/60 11/20/17 04:00 97.7 72 20 140/60 94 Venturi Mask 14.0 55 11/20/17 03:18 77 11/20/17 01:10 Venturi Mask 11/20/17 01:09 Venturi Mask 11/20/17 00:00 97.9 69 20 144/60 99 Venturi Mask 14.0 55 11/19/17 23:48 83 144/60 11/19/17 23:25 75 Intake and Output 11/19/17 11/20/17 19:00 07:00 Intake Total 960.0 ml 405 ml Output Total 700 ml 250 ml Balance 260.0 ml 155 ml Intake Oral 300 ml 50 ml IV Total 660.0 ml 355 ml Output Urine Total 700 ml 250 ml # Bowel Movements 1 1 Laboratory Tests 11/20/17 03:30: White Blood Count 10.7#, Red Blood Count 3.61L, Hemoglobin 10.7L, Hematocrit 34.0L, Mean Corpuscular Volume 94, Mean Corpuscular Hemoglobin 29.7, Mean Corpuscular Hemoglobin Concent 31.6L, Red Cell Distribution Width 16.6H, Platelet Count 321, Mean Platelet Volume 5.9L, Neutrophils (%) (Auto) 76.0H, Lymphocytes (%) (Auto) 17.3L, Monocytes (%) (Auto) 6.0, Eosinophils (%) (Auto) 0.3, Basophils (%) (Auto) 0.9, Prothrombin Time 62.9H, Prothromb Time International Ratio 5.9*H, Activated Partial Thromboplast Time 53H, Sodium Level 141, Potassium Level 3.4L, Chloride Level 101, Carbon Dioxide Level 33H, Anion Gap 7, Blood Urea Nitrogen 39H, Creatinine 1.9H, Estimat Glomerular Filtration Rate , Glucose Level 101, Calcium Level 9.0 Height (Feet): 5 Height (Inches): 11.00 Weight (Pounds): 148 General Appearance: lethargic, confused Respiratory/Chest: decreased breath sounds Edema: trace edema Bharath Ya Nov 20, 2017 23:24
[2017-11-21] VITALS: BP 151/72
[2017-11-21] MEDS: dilTIAZem HCl 60mg tab ORAL SCH ×5 (00:29→23:59)
[2017-11-21 04:00] VITALS: BP 147/53
[2017-11-21 04:50] LABS: BASOPHILS % (AUTO) 0.6 % (0.0-2.0); EOSINOPHILS % (AUTO) 1.1 % (0.0-3.0); HEMATOCRIT 33.1 % (42.0-52.0); HEMOGLOBIN 10.7 G/DL (14.2-18.0); LYMPHOCYTES % (AUTO) 23.3 % (20.0-45.0); MEAN CORPUSCULAR VOLUME 95 FL (80-99); MONOCYTES % (AUTO) 5.9 % (1.0-10.0); NEUTROPHILS % (AUTO) 69.1 % (45.0-75.0); PLATELET COUNT 317 K/UL (150-450); RED BLOOD COUNT 3.49 M/UL (4.70-6.10); RED CELL DISTRIBUTION WIDTH 16.5 % (11.6-14.8); WHITE BLOOD COUNT 8.9 K/UL (4.8-10.8)
[2017-11-21 04:57] LABS: ALANINE AMINOTRANSFERASE 23 U/L (12-78); ALBUMIN 2.4 G/DL (3.4-5.0); ALBUMIN/GLOBULIN RATIO 0.5 (1.0-2.7); ALKALINE PHOSPHATASE 59 U/L (46-116); ANION GAP 4 mmol/L (5-15); ASPARTATE AMINO TRANSFERASE 30 U/L (15-37); BILIRUBIN,TOTAL 0.5 MG/DL (0.2-1.0); BLOOD UREA NITROGEN 34 mg/dL (7-18); CALCIUM 9.3 MG/DL (8.5-10.1); CARBON DIOXIDE 35 MMOL/L (21-32); CHLORIDE 104 MMOL/L (98-107); CREATININE 1.5 MG/DL (0.55-1.30); POTASSIUM 3.7 MMOL/L (3.5-5.1); SODIUM 143 MMOL/L (136-145)
[2017-11-21 05:14] LABS: INR 3.9 (0.9-1.1)
[2017-11-21 08:00] VITALS: BP 136/54
--- NOTE | 2017-11-21 10:35 | Cardiac Electrophysiology PN ---
Assessment/Plan Assessment/Plan 1. COPD with pCO2 of 87 and pH of 7.22. improved.Now off BiPAP 2. CHF. BNP very elevated. On IV Lasix 20 daily. 3. Elevated troponin. Second troponin negative. No chest pain. Echocardiogram EF 65%. Avoid beta-nusrat. 4. Atrial flutter. On Cardizem 60 q 6 hr and Coumadin per pharmacy. Flutter ablation as out patient. INR 3.9 today! 5. Hypertension. On Cardizem. 6. Dysphagia, Passed swallow eval SALOME RN Subjective Subjective Alert in NAD. No chest pain or SOB. Objective Last 24 Hour Vital Signs Date Time Temp Pulse Resp B/P (MAP) Pulse Ox O2 Delivery O2 Flow Rate FiO2 11/21/17 08:00 73 11/21/17 08:00 98.0 73 19 136/54 96 Venturi Mask 14.0 55 11/21/17 06:12 74 152/76 11/21/17 04:00 75 11/21/17 04:00 97.7 72 20 147/53 95 Venturi Mask 14.0 55 11/21/17 00:29 83 151/72 11/21/17 00:00 71 11/21/17 00:00 98.0 76 24 151/72 95 Venturi Mask 14.0 55 11/20/17 20:00 97.7 72 24 143/65 98 Venturi Mask 14.0 55 11/20/17 20:00 83 11/20/17 19:00 95 Venturi Mask 14.0 55 11/20/17 19:00 Venturi Mask 14.0 55 11/20/17 17:52 73 143/67 11/20/17 16:00 98.2 73 20 143/67 96 Venturi Mask 14.0 55 11/20/17 15:13 73 11/20/17 13:31 75 18 94 Venturi Mask 14.0 55 11/20/17 13:24 55 11/20/17 13:24 80 16 94 Venturi Mask 14.0 55 11/20/17 12:00 73 143/59 11/20/17 11:39 97.8 72 20 132/69 98 Venturi Mask 14.0 55 11/20/17 11:39 72 Intake and Output 11/20/17 11/21/17 19:00 07:00 Intake Total 200 ml 175 ml Output Total 1200 ml 500 ml Balance -1000 ml -325 ml Intake Oral 200 ml 120 ml IV Total 55 ml Output Urine Total 1200 ml 500 ml # Bowel Movements 1 1 Laboratory Tests Test 11/21/17 04:20 White Blood Count 8.9 K/UL (4.8-10.8) Red Blood Count 3.49 M/UL (4.70-6.10) L Hemoglobin 10.7 G/DL (14.2-18.0) L Hematocrit 33.1 % (42.0-52.0) L Mean Corpuscular Volume 95 FL (80-99) Mean Corpuscular Hemoglobin 30.6 PG (27.0-31.0) Mean Corpuscular Hemoglobin Concent 32.3 G/DL (32.0-36.0) Red Cell Distribution Width 16.5 % (11.6-14.8) H Platelet Count 317 K/UL (150-450) Mean Platelet Volume 6.3 FL (6.5-10.1) L Neutrophils (%) (Auto) 69.1 % (45.0-75.0) Lymphocytes (%) (Auto) 23.3 % (20.0-45.0) Monocytes (%) (Auto) 5.9 % (1.0-10.0) Eosinophils (%) (Auto) 1.1 % (0.0-3.0) Basophils (%) (Auto) 0.6 % (0.0-2.0) Prothrombin Time 41.9 SEC (9.30-11.50) H Prothromb Time International Ratio 3.9 (0.9-1.1) H Activated Partial Thromboplast Time 52 SEC (23-33) H Sodium Level 143 MMOL/L (136-145) Potassium Level 3.7 MMOL/L (3.5-5.1) Chloride Level 104 MMOL/L (98-107) Carbon Dioxide Level 35 MMOL/L (21-32) H Anion Gap 4 mmol/L (5-15) L Blood Urea Nitrogen 34 mg/dL (7-18) H Creatinine 1.5 MG/DL (0.55-1.30) H Estimat Glomerular Filtration Rate mL/min (>60) Glucose Level 94 MG/DL (74-106) Calcium Level 9.3 MG/DL (8.5-10.1) Total Bilirubin 0.5 MG/DL (0.2-1.0) Aspartate Amino Transf (AST/SGOT) 30 U/L (15-37) Alanine Aminotransferase (ALT/SGPT) 23 U/L (12-78) Alkaline Phosphatase 59 U/L (46-116) Total Protein 7.4 G/DL (6.4-8.2) Albumin 2.4 G/DL (3.4-5.0) L Globulin 5.0 g/dL Albumin/Globulin Ratio 0.5 (1.0-2.7) L Microbiology Date/Time Source Procedure Growth Status 11/20/17 05:00 Sputum Gram Stain Pending Resulted 11/20/17 05:00 Sputum Sputum Culture - Preliminary NO GROWTH Resulted Objective HEAD AND NECK: Positive JVD. LUNGS: Decreased breath sounds. CARDIOVASCULAR: Irregularly irregular S1 and S2 with no gallop or murmur. ABDOMEN: Soft. EXTREMITIES: No pitting edema. ADRIENNE BRAGA Nov 21, 2017 10:35
--- NOTE | 2017-11-21 10:46 | GI Progress Note ---
Assessment/Plan Problems: (1) Dysphagia ICD Codes: R13.10 - Dysphagia, unspecified SNOMED: 34842924, 405386342 (2) Encounter for PEG (percutaneous endoscopic gastrostomy) ICD Codes: Z43.1 - Encounter for attention to gastrostomy SNOMED: 954798363, 337698494 Status: stable, progressing Status Narrative Discussed with Dr. Vasquez. Assessment/Plan Assessment - R/o Dysphagia - abd distention - Respiratory failure - Atrial fib - OBS - Poor px - ST evaluation >> CCHO(MEDIUM) LIQUIFIED PUREED Recommendations Hold PEG placement for now, patient is on diet and will follow up with video swallow. Coumadin held. constipation --> laxative BIPAP and pulmonary toilet PRN fu labs The patient was seen and examined at bedside and all new and available data was reviewed in the patients chart. I agree with the above findings, impression and plan. (Patient seen earlier today. Signature stamp does not reflect patient encounter time.). - Vashti Vasquez MD Subjective Subjective limited Objective Last 24 Hour Vital Signs Date Time Temp Pulse Resp B/P (MAP) Pulse Ox O2 Delivery O2 Flow Rate FiO2 11/21/17 08:00 73 11/21/17 08:00 98.0 73 19 136/54 96 Venturi Mask 14.0 55 11/21/17 06:12 74 152/76 11/21/17 04:00 75 11/21/17 04:00 97.7 72 20 147/53 95 Venturi Mask 14.0 55 11/21/17 00:29 83 151/72 11/21/17 00:00 71 11/21/17 00:00 98.0 76 24 151/72 95 Venturi Mask 14.0 55 11/20/17 20:00 97.7 72 24 143/65 98 Venturi Mask 14.0 55 11/20/17 20:00 83 11/20/17 19:00 95 Venturi Mask 14.0 55 11/20/17 19:00 Venturi Mask 14.0 55 11/20/17 17:52 73 143/67 11/20/17 16:00 98.2 73 20 143/67 96 Venturi Mask 14.0 55 11/20/17 15:13 73 11/20/17 13:31 75 18 94 Venturi Mask 14.0 55 11/20/17 13:24 55 11/20/17 13:24 80 16 94 Venturi Mask 14.0 55 11/20/17 12:00 73 143/59 11/20/17 11:39 97.8 72 20 132/69 98 Venturi Mask 14.0 55 11/20/17 11:39 72 Intake and Output 11/20/17 11/21/17 19:00 07:00 Intake Total 200 ml 175 ml Output Total 1200 ml 500 ml Balance -1000 ml -325 ml Intake Oral 200 ml 120 ml IV Total 55 ml Output Urine Total 1200 ml 500 ml # Bowel Movements 1 1 Laboratory Tests Test 11/21/17 04:20 White Blood Count 8.9 K/UL (4.8-10.8) Red Blood Count 3.49 M/UL (4.70-6.10) L Hemoglobin 10.7 G/DL (14.2-18.0) L Hematocrit 33.1 % (42.0-52.0) L Mean Corpuscular Volume 95 FL (80-99) Mean Corpuscular Hemoglobin 30.6 PG (27.0-31.0) Mean Corpuscular Hemoglobin Concent 32.3 G/DL (32.0-36.0) Red Cell Distribution Width 16.5 % (11.6-14.8) H Platelet Count 317 K/UL (150-450) Mean Platelet Volume 6.3 FL (6.5-10.1) L Neutrophils (%) (Auto) 69.1 % (45.0-75.0) Lymphocytes (%) (Auto) 23.3 % (20.0-45.0) Monocytes (%) (Auto) 5.9 % (1.0-10.0) Eosinophils (%) (Auto) 1.1 % (0.0-3.0) Basophils (%) (Auto) 0.6 % (0.0-2.0) Prothrombin Time 41.9 SEC (9.30-11.50) H Prothromb Time International Ratio 3.9 (0.9-1.1) H Activated Partial Thromboplast Time 52 SEC (23-33) H Sodium Level 143 MMOL/L (136-145) Potassium Level 3.7 MMOL/L (3.5-5.1) Chloride Level 104 MMOL/L (98-107) Carbon Dioxide Level 35 MMOL/L (21-32) H Anion Gap 4 mmol/L (5-15) L Blood Urea Nitrogen 34 mg/dL (7-18) H Creatinine 1.5 MG/DL (0.55-1.30) H Estimat Glomerular Filtration Rate mL/min (>60) Glucose Level 94 MG/DL (74-106) Calcium Level 9.3 MG/DL (8.5-10.1) Total Bilirubin 0.5 MG/DL (0.2-1.0) Aspartate Amino Transf (AST/SGOT) 30 U/L (15-37) Alanine Aminotransferase (ALT/SGPT) 23 U/L (12-78) Alkaline Phosphatase 59 U/L (46-116) Total Protein 7.4 G/DL (6.4-8.2) Albumin 2.4 G/DL (3.4-5.0) L Globulin 5.0 g/dL Albumin/Globulin Ratio 0.5 (1.0-2.7) L Height (Feet): 5 Height (Inches): 11.00 Weight (Pounds): 147 General Appearance: no apparent distress, alert Cardiovascular: normal rate Respiratory/Chest: normal breath sounds, no respiratory distress, other - venturi mask Abdominal Exam: normal bowel sounds, non tender, soft Extremities: non-tender Janna Alonso N.P. Nov 21, 2017 10:46 RICKIE VASQUEZ Nov 25, 2017 09:09
--- NOTE | 2017-11-21 11:14 | Infectious Diseases Prog Note ---
Assessment/Plan Assessment/Plan A: Pneumonia Hypercapnic respiratory failure Atrial fibrillation Diastolic CHF HPN s/p DESULFURIZER MACHINE shunt Acute renal failure Positive antibody to Legionella/ Mycoplasma P: Continue Doxycycline & Rocephin until tomorrow Will f/u cultures Subjective ROS Limited/Unobtainable: Yes Constitutional: Reports: no symptoms Respiratory: Reports: no symptoms Cardiovascular: Reports: no symptoms Gastrointestinal/Abdominal: Reports: no symptoms Allergies: Coded Allergies: No Known Allergies (Unverified , 06/20/17) Objective Vital Signs Last 24 Hour Vital Signs Date Time Temp Pulse Resp B/P (MAP) Pulse Ox O2 Delivery O2 Flow Rate FiO2 11/21/17 08:00 73 11/21/17 08:00 98.0 73 19 136/54 96 Venturi Mask 14.0 55 11/21/17 06:12 74 152/76 11/21/17 04:00 75 11/21/17 04:00 97.7 72 20 147/53 95 Venturi Mask 14.0 55 11/21/17 00:29 83 151/72 11/21/17 00:00 71 11/21/17 00:00 98.0 76 24 151/72 95 Venturi Mask 14.0 55 11/20/17 20:00 97.7 72 24 143/65 98 Venturi Mask 14.0 55 11/20/17 20:00 83 11/20/17 19:00 95 Venturi Mask 14.0 55 11/20/17 19:00 Venturi Mask 14.0 55 11/20/17 17:52 73 143/67 11/20/17 16:00 98.2 73 20 143/67 96 Venturi Mask 14.0 55 11/20/17 15:13 73 11/20/17 13:31 75 18 94 Venturi Mask 14.0 55 11/20/17 13:24 55 11/20/17 13:24 80 16 94 Venturi Mask 14.0 55 11/20/17 12:00 73 143/59 11/20/17 11:39 97.8 72 20 132/69 98 Venturi Mask 14.0 55 11/20/17 11:39 72 Height (Feet): 5 Height (Inches): 11.00 Weight (Pounds): 147 General Appearance: no acute distress HEENT: mucous membranes moist Respiratory/Chest: lungs clear, other - O2 by mask Cardiovascular: normal rate Abdomen: soft, non tender Extremities: no edema Neurologic/Psychiatric: alert, responsive Microbiology Date/Time Source Procedure Growth Status 11/20/17 05:00 Sputum Gram Stain Pending Resulted 11/20/17 05:00 Sputum Sputum Culture - Preliminary NO GROWTH Resulted Laboratory Tests Test 11/21/17 04:20 White Blood Count 8.9 K/UL (4.8-10.8) Red Blood Count 3.49 M/UL (4.70-6.10) L Hemoglobin 10.7 G/DL (14.2-18.0) L Hematocrit 33.1 % (42.0-52.0) L Mean Corpuscular Volume 95 FL (80-99) Mean Corpuscular Hemoglobin 30.6 PG (27.0-31.0) Mean Corpuscular Hemoglobin Concent 32.3 G/DL (32.0-36.0) Red Cell Distribution Width 16.5 % (11.6-14.8) H Platelet Count 317 K/UL (150-450) Mean Platelet Volume 6.3 FL (6.5-10.1) L Neutrophils (%) (Auto) 69.1 % (45.0-75.0) Lymphocytes (%) (Auto) 23.3 % (20.0-45.0) Monocytes (%) (Auto) 5.9 % (1.0-10.0) Eosinophils (%) (Auto) 1.1 % (0.0-3.0) Basophils (%) (Auto) 0.6 % (0.0-2.0) Prothrombin Time 41.9 SEC (9.30-11.50) H Prothromb Time International Ratio 3.9 (0.9-1.1) H Activated Partial Thromboplast Time 52 SEC (23-33) H Sodium Level 143 MMOL/L (136-145) Potassium Level 3.7 MMOL/L (3.5-5.1) Chloride Level 104 MMOL/L (98-107) Carbon Dioxide Level 35 MMOL/L (21-32) H Anion Gap 4 mmol/L (5-15) L Blood Urea Nitrogen 34 mg/dL (7-18) H Creatinine 1.5 MG/DL (0.55-1.30) H Estimat Glomerular Filtration Rate mL/min (>60) Glucose Level 94 MG/DL (74-106) Calcium Level 9.3 MG/DL (8.5-10.1) Total Bilirubin 0.5 MG/DL (0.2-1.0) Aspartate Amino Transf (AST/SGOT) 30 U/L (15-37) Alanine Aminotransferase (ALT/SGPT) 23 U/L (12-78) Alkaline Phosphatase 59 U/L (46-116) Total Protein 7.4 G/DL (6.4-8.2) Albumin 2.4 G/DL (3.4-5.0) L Globulin 5.0 g/dL Albumin/Globulin Ratio 0.5 (1.0-2.7) L Current Medications Medications (Trade) Dose Ordered Sig/Raine Route PRN Reason Start Time Stop Time Status Last Admin Dose Admin Acetaminophen (Tylenol) 650 mg Q6HR PRN NG for pain 11/15/17 17:00 12/15/17 16:59 11/19/17 23:48 Ceftriaxone Sodium 1 gm/ Sodium Chloride 55 ml @ 110 mls/hr Q24H IVPB 11/19/17 16:00 11/26/17 23:59 11/20/17 17:52 Diltiazem HCl (Cardizem) 60 mg EVERY 6 HOURS ORAL 11/15/17 18:00 12/15/17 17:59 11/21/17 06:12 Doxycycline Monohydrate (Vibramycin) 100 mg EVERY 12 HOURS ORAL 11/16/17 12:00 11/23/17 11:59 11/21/17 10:02 Furosemide (Lasix) 20 mg DAILY IV 11/19/17 09:00 12/15/17 17:59 11/21/17 10:03 Iron Sucrose 100 mg/Sodium Chloride 55 ml @ 200 mls/hr BEDTIME IV 11/16/17 21:00 11/25/17 21:17 11/20/17 21:59 Potassium Chloride (K-Dur) 40 meq DAILY ORAL 11/18/17 09:00 12/18/17 08:59 11/21/17 10:02 TOLU ERICKSON Nov 21, 2017 11:14
[2017-11-21 12:35] VITALS: BP 138/58
--- NOTE | 2017-11-21 13:09 | Nephrology Progress Note ---
Assessment/Plan Problem List: (1) Acute renal failure (2) CHF (congestive heart failure) (3) Respiratory distress Assessment status: CXR improved CHF High BUN indicative of pre renal azotemia, 3+ proteinuria- Cr up to 1.8 today partly dehydration- Partly GI bleed Low Iron, Stool OB+ Echo: Left ventricular ejection fraction estimated to be 60-65 %. No evidence of left ventricular hypertrophy. Pleural effusion . Mild left atrial enlargement. others: - Acute respiratory failure, hypercapnic type. - Pulmonary edema. - Non-ST elevation myocardial infarction. - Chronic obstructive pulmonary disease. - Possible pneumonia. - Prostate hypertrophy. - Atrial fibrillation, on Coumadin. - Encephalopathy, - Status post ventriculoperitoneal shunt. Plan Plan: DC IV fluids Down on lasix IV Iron- Optimize pulmonary and cardiac status monitor renal parameters and lytes K supplement as needed per orders Subjective ROS Limited/Unobtainable: No Constitutional: Reports: malaise Objective Objective Last 24 Hour Vital Signs Date Time Temp Pulse Resp B/P (MAP) Pulse Ox O2 Delivery O2 Flow Rate FiO2 11/21/17 12:38 73 138/58 11/21/17 12:35 98.1 73 20 138/58 94 Venturi Mask 14.0 55 11/21/17 12:00 76 11/21/17 08:00 73 11/21/17 08:00 98.0 73 19 136/54 96 Venturi Mask 14.0 55 11/21/17 06:12 74 152/76 11/21/17 04:00 75 11/21/17 04:00 97.7 72 20 147/53 95 Venturi Mask 14.0 55 11/21/17 00:29 83 151/72 11/21/17 00:00 71 11/21/17 00:00 98.0 76 24 151/72 95 Venturi Mask 14.0 55 11/20/17 20:00 97.7 72 24 143/65 98 Venturi Mask 14.0 55 11/20/17 20:00 83 11/20/17 19:00 95 Venturi Mask 14.0 55 11/20/17 19:00 Venturi Mask 14.0 55 11/20/17 17:52 73 143/67 11/20/17 16:00 98.2 73 20 143/67 96 Venturi Mask 14.0 55 2/14/18 15:13 73 11/20/17 13:31 75 18 94 Venturi Mask 14.0 55 11/20/17 13:24 55 11/20/17 13:24 80 16 94 Venturi Mask 14.0 55 Intake and Output 11/20/17 11/21/17 19:00 07:00 Intake Total 200 ml 175 ml Output Total 1200 ml 500 ml Balance -1000 ml -325 ml Intake Oral 200 ml 120 ml IV Total 55 ml Output Urine Total 1200 ml 500 ml # Bowel Movements 1 1 Laboratory Tests 11/21/17 04:20: White Blood Count 8.9, Red Blood Count 3.49L, Hemoglobin 10.7L, Hematocrit 33.1L , Mean Corpuscular Volume 95, Mean Corpuscular Hemoglobin 30.6, Mean Corpuscular Hemoglobin Concent 32.3, Red Cell Distribution Width 16.5H, Platelet Count 317, Mean Platelet Volume 6.3L, Neutrophils (%) (Auto) 69.1, Lymphocytes (%) (Auto) 23.3, Monocytes (%) (Auto) 5.9, Eosinophils (%) (Auto) 1.1, Basophils (%) (Auto) 0.6, Prothrombin Time 41.9H, Prothromb Time International Ratio 3.9H, Activated Partial Thromboplast Time 52H, Sodium Level 143, Potassium Level 3.7, Chloride Level 104, Carbon Dioxide Level 35H, Anion Gap 4L, Blood Urea Nitrogen 34H, Creatinine 1.5H, Estimat Glomerular Filtration Rate , Glucose Level 94, Calcium Level 9.3, Total Bilirubin 0.5, Aspartate Amino Transf (AST/SGOT) 30, Alanine Aminotransferase (ALT/SGPT) 23, Alkaline Phosphatase 59, Total Protein 7.4, Albumin 2.4L, Globulin 5.0, Albumin/Globulin Ratio 0.5L Height (Feet): 5 Height (Inches): 11.00 Weight (Pounds): 147 EENT: other - on Ventimask Cardiovascular: normal rate Respiratory/Chest: decreased breath sounds Abdomen: soft Objective no other changes MARCELINO STEELE Nov 21, 2017 13:09
--- NOTE | 2017-11-21 16:44 | Pulmonology Progress Note ---
Assessment/Plan Assessment/Plan 1. Acute respiratory failure, hypercapnic type. 2. Pulmonary edema. 3. Non-ST elevation myocardial infarction. 4. Chronic obstructive pulmonary disease. 5. Possible pneumonia. 6. Prostate hypertrophy. 7. Atrial fibrillation, on Coumadin. 8. Encephalopathy, 9. Status post ventriculoperitoneal shunt. nasal O2 tolerating diet, poor intake dc plan disc w RN Subjective Respiratory: Denies: shortness of breath Allergies: Coded Allergies: No Known Allergies (Unverified , 06/20/17) Objective Last 24 Hour Vital Signs Date Time Temp Pulse Resp B/P (MAP) Pulse Ox O2 Delivery O2 Flow Rate FiO2 11/21/17 15:59 74 11/21/17 12:38 73 138/58 11/21/17 12:35 98.1 73 20 138/58 94 Venturi Mask 14.0 55 11/21/17 12:00 76 11/21/17 08:00 73 11/21/17 08:00 98.0 73 19 136/54 96 Venturi Mask 14.0 55 11/21/17 06:12 74 152/76 11/21/17 04:00 75 11/21/17 04:00 97.7 72 20 147/53 95 Venturi Mask 14.0 55 11/21/17 00:29 83 151/72 11/21/17 00:00 71 11/21/17 00:00 98.0 76 24 151/72 95 Venturi Mask 14.0 55 11/20/17 20:00 97.7 72 24 143/65 98 Venturi Mask 14.0 55 11/20/17 20:00 83 11/20/17 19:00 95 Venturi Mask 14.0 55 11/20/17 19:00 Venturi Mask 14.0 55 11/20/17 17:52 73 143/67 Intake and Output 11/20/17 11/21/17 19:00 07:00 Intake Total 200 ml 175 ml Output Total 1200 ml 500 ml Balance -1000 ml -325 ml Intake Oral 200 ml 120 ml IV Total 55 ml Output Urine Total 1200 ml 500 ml # Bowel Movements 1 1 General Appearance: no acute distress HEENT: normocephalic, anicteric Respiratory/Chest: rhonchi Cardiovascular: normal rate Abdomen: soft, non tender Extremities: no edema Microbiology Date/Time Source Procedure Growth Status 11/20/17 05:00 Sputum Gram Stain - Final Resulted 11/20/17 05:00 Sputum Sputum Culture - Preliminary NO GROWTH Resulted Laboratory Tests 11/21/17 04:20: White Blood Count 8.9, Red Blood Count 3.49L, Hemoglobin 10.7L, Hematocrit 33.1L , Mean Corpuscular Volume 95, Mean Corpuscular Hemoglobin 30.6, Mean Corpuscular Hemoglobin Concent 32.3, Red Cell Distribution Width 16.5H, Platelet Count 317, Mean Platelet Volume 6.3L, Neutrophils (%) (Auto) 69.1, Lymphocytes (%) (Auto) 23.3, Monocytes (%) (Auto) 5.9, Eosinophils (%) (Auto) 1.1, Basophils (%) (Auto) 0.6, Prothrombin Time 41.9H, Prothromb Time International Ratio 3.9H, Activated Partial Thromboplast Time 52H, Sodium Level 143, Potassium Level 3.7, Chloride Level 104, Carbon Dioxide Level 35H, Anion Gap 4L, Blood Urea Nitrogen 34H, Creatinine 1.5H, Estimat Glomerular Filtration Rate , Glucose Level 94, Calcium Level 9.3, Total Bilirubin 0.5, Aspartate Amino Transf (AST/SGOT) 30, Alanine Aminotransferase (ALT/SGPT) 23, Alkaline Phosphatase 59, Total Protein 7.4, Albumin 2.4L, Globulin 5.0, Albumin/Globulin Ratio 0.5L Current Medications Medications (Trade) Dose Ordered Sig/Raine Route PRN Reason Start Time Stop Time Status Last Admin Dose Admin Acetaminophen (Tylenol) 650 mg Q6HR PRN NG for pain 11/15/17 17:00 12/15/17 16:59 11/19/17 23:48 Ceftriaxone Sodium 1 gm/ Sodium Chloride 55 ml @ 110 mls/hr Q24H IVPB 11/19/17 16:00 11/26/17 23:59 11/20/17 17:52 Diltiazem HCl (Cardizem) 60 mg EVERY 6 HOURS ORAL 11/15/17 18:00 12/15/17 17:59 11/21/17 12:38 Doxycycline Monohydrate (Vibramycin) 100 mg EVERY 12 HOURS ORAL 11/16/17 12:00 11/23/17 11:59 11/21/17 10:02 Furosemide (Lasix) 20 mg DAILY IV 11/19/17 09:00 12/15/17 17:59 11/21/17 10:03 Iron Sucrose 100 mg/Sodium Chloride 55 ml @ 200 mls/hr BEDTIME IV 11/16/17 21:00 11/25/17 21:17 11/20/17 21:59 Potassium Chloride (K-Dur) 40 meq DAILY ORAL 11/18/17 09:00 12/18/17 08:59 11/21/17 10:02 VINCENZO HYDE Nov 21, 2017 16:44
[2017-11-21 16:51] VITALS: BP 143/60
[2017-11-21] MEDS: cefTRIAXone 1 GM in NS 55 ML IVPB SCH (16:59)
[2017-11-21 20:00] VITALS: BP 132/51
--- NOTE | 2017-11-21 21:20 | General Progress Note ---
Assessment/Plan Problem List: (1) Urinary tract infection ICD Codes: N39.0 - Urinary tract infection, site not specified SNOMED: 88515043 (2) Sepsis ICD Codes: A41.9 - Sepsis, unspecified organism SNOMED: 55781916 (3) Dyspnea ICD Codes: R06.00 - Dyspnea, unspecified SNOMED: 038509979 (4) Respiratory distress ICD Codes: R06.03 - Acute respiratory distress SNOMED: 690466961 (5) CHF (congestive heart failure) ICD Codes: I50.9 - Heart failure, unspecified SNOMED: 93561746 (6) Acute renal failure ICD Codes: N17.9 - Acute kidney failure, unspecified SNOMED: 85460871 Status: progressing Assessment/Plan afebrile resp insuff pna and sepsis reviewed chart and labs and meds a fib anti coagulation per heme/onc Subjective ROS Limited/Unobtainable: Yes Allergies: Coded Allergies: No Known Allergies (Unverified , 06/20/17) Objective Last 24 Hour Vital Signs Date Time Temp Pulse Resp B/P (MAP) Pulse Ox O2 Delivery O2 Flow Rate FiO2 11/21/17 20:00 98.1 72 20 132/51 94 Nasal Cannula 4.0 11/21/17 19:38 69 11/21/17 19:30 93 Nasal Cannula 4.0 36 11/21/17 19:30 Nasal Cannula 4.0 36 11/21/17 17:12 72 143/60 11/21/17 16:51 97.8 72 20 143/60 96 Venturi Mask 14.0 55 11/21/17 15:59 74 11/21/17 12:38 73 138/58 11/21/17 12:35 98.1 73 20 138/58 94 Venturi Mask 14.0 55 11/21/17 12:30 Venturi Mask 14.0 55 11/21/17 12:30 94 Venturi Mask 14.0 55 11/21/17 12:00 76 11/21/17 08:00 73 11/21/17 08:00 98.0 73 19 136/54 96 Venturi Mask 14.0 55 11/21/17 06:12 74 152/76 11/21/17 04:00 75 11/21/17 04:00 97.7 72 20 147/53 95 Venturi Mask 14.0 55 11/21/17 00:29 83 151/72 11/21/17 00:00 71 11/21/17 00:00 98.0 76 24 151/72 95 Venturi Mask 14.0 55 Intake and Output 11/20/17 11/21/17 19:00 07:00 Intake Total 200 ml 175 ml Output Total 1200 ml 500 ml Balance -1000 ml -325 ml Intake Oral 200 ml 120 ml IV Total 55 ml Output Urine Total 1200 ml 500 ml # Bowel Movements 1 1 Laboratory Tests 11/21/17 04:20: White Blood Count 8.9, Red Blood Count 3.49L, Hemoglobin 10.7L, Hematocrit 33.1L , Mean Corpuscular Volume 95, Mean Corpuscular Hemoglobin 30.6, Mean Corpuscular Hemoglobin Concent 32.3, Red Cell Distribution Width 16.5H, Platelet Count 317, Mean Platelet Volume 6.3L, Neutrophils (%) (Auto) 69.1, Lymphocytes (%) (Auto) 23.3, Monocytes (%) (Auto) 5.9, Eosinophils (%) (Auto) 1.1, Basophils (%) (Auto) 0.6, Prothrombin Time 41.9H, Prothromb Time International Ratio 3.9H, Activated Partial Thromboplast Time 52H, Sodium Level 143, Potassium Level 3.7, Chloride Level 104, Carbon Dioxide Level 35H, Anion Gap 4L, Blood Urea Nitrogen 34H, Creatinine 1.5H, Estimat Glomerular Filtration Rate , Glucose Level 94, Calcium Level 9.3, Total Bilirubin 0.5, Aspartate Amino Transf (AST/SGOT) 30, Alanine Aminotransferase (ALT/SGPT) 23, Alkaline Phosphatase 59, Total Protein 7.4, Albumin 2.4L, Globulin 5.0, Albumin/Globulin Ratio 0.5L Height (Feet): 5 Height (Inches): 11.00 Weight (Pounds): 147 General Appearance: confused EENT: EMMANUEL/Danitza Reid MD Nov 21, 2017 21:19
--- NOTE | 2017-11-21 23:21 | General Progress Note ---
Assessment/Plan Status: progressing Assessment/Plan 1. Coagulopathy, likely due to underlying Coumadin use. --> Continue to closely monitor. --> INR goal between 2 and 3 --> Currently 5.9. To put Coumadin on hold for now. INR currently 3.9 and improving. --> To restart Coumadin once INR reaches goal levels. 2. Anemia due to underlying chronic disease. -->Anemia workup has been reviewed. --> Labs: Iron 17, TIBC 273, Ferritin 121 --> Transfuse if hemoglobin is <7, trend cbc daily. 3. Azotemia as per Nephrology consultation, likely the patient is dehydrated. 4. Respiratory distress. --> Closely monitor. --> The patient's shortness of breath is likely related underlying congestion, bilateral pleural effusions. --> To be seen by Infectious Disease. --> On antibiotics. 5. Weakness and fatigue, likely due to underlying anemia. Subjective Date patient seen: Nov 21, 2017 Constitutional: Denies: no symptoms, chills, diaphoresis, fever, malaise, weakness, other HEENT: Denies: no symptoms, eye pain, blurred vision, tearing, double vision, ear pain, ear discharge, nose pain, nose congestion, throat pain, throat swelling, mouth pain, mouth swelling, other Cardiovascular: Denies: no symptoms, chest pain, edema, irregular heart rate, lightheadedness, palpitations, syncope, other Respiratory: Denies: no symptoms, cough, orthopnea, shortness of breath, SOB with excertion, SOB at rest, sputum, stridor, wheezing, other Gastrointestinal/Abdominal: Denies: no symptoms, abdomen distended, abdominal pain, black stools, tarry stools, blood in stool, constipated, diarrhea, difficulty swallowing, nausea, poor appetite, poor fluid intake, rectal bleeding , vomiting, other Genitourinary: Denies: no symptoms, burning, discharge, frequency, flank pain, hematuria, incontinence, pain, urgency, other Neurologic/Psychiatric: Denies: no symptoms, anxiety, depressed, emotional problems, headache, numbness, paresthesia, pre-existing deficit, seizure, tingling, tremors, weakness, other Allergies: Coded Allergies: No Known Allergies (Unverified , 06/20/17) Subjective Not in respiratory distress. No fever or chills. Objective Last 24 Hour Vital Signs Date Time Temp Pulse Resp B/P (MAP) Pulse Ox O2 Delivery O2 Flow Rate FiO2 11/21/17 20:00 98.1 72 20 132/51 94 Nasal Cannula 4.0 11/21/17 19:38 69 11/21/17 19:30 93 Nasal Cannula 4.0 36 11/21/17 19:30 Nasal Cannula 4.0 36 11/21/17 17:12 72 143/60 11/21/17 16:51 97.8 72 20 143/60 96 Venturi Mask 14.0 55 11/21/17 15:59 74 11/21/17 12:38 73 138/58 11/21/17 12:35 98.1 73 20 138/58 94 Venturi Mask 14.0 55 11/21/17 12:30 Venturi Mask 14.0 55 11/21/17 12:30 94 Venturi Mask 14.0 55 11/21/17 12:00 76 11/21/17 08:00 73 11/21/17 08:00 98.0 73 19 136/54 96 Venturi Mask 14.0 55 11/21/17 06:12 74 152/76 11/21/17 04:00 75 11/21/17 04:00 97.7 72 20 147/53 95 Venturi Mask 14.0 55 11/21/17 00:29 83 151/72 11/21/17 00:00 71 11/21/17 00:00 98.0 76 24 151/72 95 Venturi Mask 14.0 55 Intake and Output 11/20/17 11/21/17 19:00 07:00 Intake Total 200 ml 175 ml Output Total 1200 ml 500 ml Balance -1000 ml -325 ml Intake Oral 200 ml 120 ml IV Total 55 ml Output Urine Total 1200 ml 500 ml # Bowel Movements 1 1 Laboratory Tests 11/21/17 04:20: White Blood Count 8.9, Red Blood Count 3.49L, Hemoglobin 10.7L, Hematocrit 33.1L , Mean Corpuscular Volume 95, Mean Corpuscular Hemoglobin 30.6, Mean Corpuscular Hemoglobin Concent 32.3, Red Cell Distribution Width 16.5H, Platelet Count 317, Mean Platelet Volume 6.3L, Neutrophils (%) (Auto) 69.1, Lymphocytes (%) (Auto) 23.3, Monocytes (%) (Auto) 5.9, Eosinophils (%) (Auto) 1.1, Basophils (%) (Auto) 0.6, Prothrombin Time 41.9H, Prothromb Time International Ratio 3.9H, Activated Partial Thromboplast Time 52H, Sodium Level 143, Potassium Level 3.7, Chloride Level 104, Carbon Dioxide Level 35H, Anion Gap 4L, Blood Urea Nitrogen 34H, Creatinine 1.5H, Estimat Glomerular Filtration Rate , Glucose Level 94, Calcium Level 9.3, Total Bilirubin 0.5, Aspartate Amino Transf (AST/SGOT) 30, Alanine Aminotransferase (ALT/SGPT) 23, Alkaline Phosphatase 59, Total Protein 7.4, Albumin 2.4L, Globulin 5.0, Albumin/Globulin Ratio 0.5L Height (Feet): 5 Height (Inches): 11.00 Weight (Pounds): 147 EENT: normal ENT inspection Cardiovascular: normal rate, regular rhythm Respiratory/Chest: lungs clear Abdomen: non tender, soft Edema: trace edema Skin: warm/dry Bharath Ya Nov 21, 2017 23:21
[2017-11-22] VITALS: BP 142/61
[2017-11-22 04:00] VITALS: BP 153/63
[2017-11-22] MEDS: dilTIAZem HCl 60mg tab ORAL SCH ×4 (05:57→23:50)
[2017-11-22 06:27] LABS: BASOPHILS % (AUTO) 0.6 % (0.0-2.0); EOSINOPHILS % (AUTO) 1.1 % (0.0-3.0); HEMATOCRIT 35.6 % (42.0-52.0); HEMOGLOBIN 11.4 G/DL (14.2-18.0); LYMPHOCYTES % (AUTO) 18.3 % (20.0-45.0); MEAN CORPUSCULAR VOLUME 95 FL (80-99); MONOCYTES % (AUTO) 5.3 % (1.0-10.0); NEUTROPHILS % (AUTO) 74.8 % (45.0-75.0); PLATELET COUNT 305 K/UL (150-450); RED BLOOD COUNT 3.73 M/UL (4.70-6.10); RED CELL DISTRIBUTION WIDTH 17.2 % (11.6-14.8); WHITE BLOOD COUNT 10.6 K/UL (4.8-10.8)
[2017-11-22 06:47] LABS: ANION GAP 6 mmol/L (5-15); BLOOD UREA NITROGEN 31 mg/dL (7-18); CALCIUM 9.6 MG/DL (8.5-10.1); CARBON DIOXIDE 31 MMOL/L (21-32); CHLORIDE 108 MMOL/L (98-107); CREATININE 1.5 MG/DL (0.55-1.30); POTASSIUM 3.7 MMOL/L (3.5-5.1); SODIUM 145 MMOL/L (136-145)
--- NOTE | 2017-11-22 08:24 | Pulmonology Progress Note ---
Assessment/Plan Assessment/Plan 1. Acute respiratory failure, hypercapnic type. 2. Pulmonary edema. 3. Non-ST elevation myocardial infarction. 4. Chronic obstructive pulmonary disease. 5. Possible pneumonia. 6. Prostate hypertrophy. 7. Atrial fibrillation, on Coumadin. 8. Encephalopathy, 9. Status post ventriculoperitoneal shunt. nasal O2 tolerating diet, poor intake dc plan Subjective Interval Events: Appears comfortable; on nasal o2 Constitutional: Reports: no symptoms HEENT: Repors: no symptoms Respiratory: Reports: no symptoms Cardiovascular: Reports: no symptoms Gastrointestinal/Abdominal: Reports: no symptoms Allergies: Coded Allergies: No Known Allergies (Unverified , 06/20/17) Objective Last 24 Hour Vital Signs Date Time Temp Pulse Resp B/P (MAP) Pulse Ox O2 Delivery O2 Flow Rate FiO2 11/22/17 08:07 Nasal Cannula 4.0 36 11/22/17 08:06 98 Nasal Cannula 4.0 36 11/22/17 05:57 75 153/63 11/22/17 04:00 98.2 75 20 153/63 95 Nasal Cannula 4.0 11/22/17 03:41 73 11/22/17 00:00 98.2 73 20 142/61 94 Nasal Cannula 4.0 11/21/17 23:59 73 142/61 11/21/17 23:59 72 11/21/17 20:00 98.1 72 20 132/51 94 Nasal Cannula 4.0 11/21/17 19:38 69 11/21/17 19:30 93 Nasal Cannula 4.0 36 11/21/17 19:30 Nasal Cannula 4.0 36 11/21/17 17:12 72 143/60 11/21/17 16:51 97.8 72 20 143/60 96 Venturi Mask 14.0 55 11/21/17 15:59 74 11/21/17 12:38 73 138/58 11/21/17 12:35 98.1 73 20 138/58 94 Venturi Mask 14.0 55 11/21/17 12:30 Venturi Mask 14.0 55 11/21/17 12:30 94 Venturi Mask 14.0 55 11/21/17 12:00 76 Intake and Output 11/21/17 11/22/17 19:00 07:00 Intake Total 255 ml 175 ml Output Total 40 ml 550 ml Balance 215 ml -375 ml Intake Oral 200 ml 120 ml IV Total 55 ml 55 ml Output Urine Total 40 ml 550 ml # Bowel Movements 2 General Appearance: no acute distress HEENT: normocephalic Respiratory/Chest: chest wall non-tender, lungs clear Cardiovascular: normal peripheral pulses, normal rate Abdomen: normal bowel sounds Microbiology Date/Time Source Procedure Growth Status 11/20/17 05:00 Sputum Gram Stain - Final Complete 11/20/17 05:00 Sputum Culture - Final Nurys Albicans Usual Upper Respiratory Patricia Complete Laboratory Tests 11/22/17 05:55: White Blood Count 10.6, Red Blood Count 3.73L, Hemoglobin 11.4L, Hematocrit 35.6L, Mean Corpuscular Volume 95, Mean Corpuscular Hemoglobin 30.5, Mean Corpuscular Hemoglobin Concent 32.0, Red Cell Distribution Width 17.2H, Platelet Count 305, Mean Platelet Volume 5.6L, Neutrophils (%) (Auto) 74.8, Lymphocytes (%) (Auto) 18.3L, Monocytes (%) (Auto) 5.3, Eosinophils (%) (Auto) 1.1, Basophils (%) (Auto) 0.6, Sodium Level 145, Potassium Level 3.7, Chloride Level 108H, Carbon Dioxide Level 31, Anion Gap 6, Blood Urea Nitrogen 31H, Creatinine 1.5H, Estimat Glomerular Filtration Rate , Glucose Level 103, Calcium Level 9.6 Current Medications Medications (Trade) Dose Ordered Sig/Raine Route PRN Reason Start Time Stop Time Status Last Admin Dose Admin Acetaminophen (Tylenol) 650 mg Q6HR PRN NG for pain 11/15/17 17:00 12/15/17 16:59 11/19/17 23:48 Ceftriaxone Sodium 1 gm/ Sodium Chloride 55 ml @ 110 mls/hr Q24H IVPB 11/19/17 16:00 11/26/17 23:59 11/21/17 16:59 Diltiazem HCl (Cardizem) 60 mg EVERY 6 HOURS ORAL 11/15/17 18:00 12/15/17 17:59 11/22/17 05:57 Doxycycline Monohydrate (Vibramycin) 100 mg EVERY 12 HOURS ORAL 11/16/17 12:00 11/23/17 11:59 11/21/17 20:12 Furosemide (Lasix) 20 mg DAILY IV 11/19/17 09:00 12/15/17 17:59 11/21/17 10:03 Iron Sucrose 100 mg/Sodium Chloride 55 ml @ 200 mls/hr BEDTIME IV 11/16/17 21:00 11/25/17 21:17 11/21/17 20:14 Potassium Chloride (K-Dur) 40 meq DAILY ORAL 11/18/17 09:00 12/18/17 08:59 11/21/17 10:02 Darnell Hawley MD Nov 22, 2017 08:24
[2017-11-22 08:26] VITALS: BP 145/61
--- NOTE | 2017-11-22 09:06 | Cardiac Electrophysiology PN ---
Assessment/Plan Assessment/Plan 1. CHF. BNP very elevated. On IV Lasix 20 daily. 2. Elevated troponin. Second troponin negative. No chest pain. Echocardiogram EF 65%. Avoid beta-nusrat. 3. Atrial flutter. On Cardizem 60 q 6 hr and Coumadin per pharmacy. Flutter ablation as out patient. INR 3.9 ! 4. Hypertension. On Cardizem. 5. COPD improved.Now off BiPAP 6. Dysphagia, Passed swallow eval SALOME RN Subjective Subjective Alert in NAD. No chest pain or SOB.Remained in atrial flutter. Had transient gabrielle down to 45 last night Objective Last 24 Hour Vital Signs Date Time Temp Pulse Resp B/P (MAP) Pulse Ox O2 Delivery O2 Flow Rate FiO2 11/22/17 08:07 Nasal Cannula 4.0 36 11/22/17 08:06 98 Nasal Cannula 4.0 36 11/22/17 05:57 75 153/63 11/22/17 04:00 98.2 75 20 153/63 95 Nasal Cannula 4.0 11/22/17 03:41 73 11/22/17 00:00 98.2 73 20 142/61 94 Nasal Cannula 4.0 11/21/17 23:59 73 142/61 11/21/17 23:59 72 11/21/17 20:00 98.1 72 20 132/51 94 Nasal Cannula 4.0 11/21/17 19:38 69 11/21/17 19:30 93 Nasal Cannula 4.0 36 11/21/17 19:30 Nasal Cannula 4.0 36 11/21/17 17:12 72 143/60 11/21/17 16:51 97.8 72 20 143/60 96 Venturi Mask 14.0 55 11/21/17 15:59 74 11/21/17 12:38 73 138/58 11/21/17 12:35 98.1 73 20 138/58 94 Venturi Mask 14.0 55 11/21/17 12:30 Venturi Mask 14.0 55 11/21/17 12:30 94 Venturi Mask 14.0 55 11/21/17 12:00 76 Intake and Output 11/21/17 11/22/17 19:00 07:00 Intake Total 255 ml 175 ml Output Total 40 ml 550 ml Balance 215 ml -375 ml Intake Oral 200 ml 120 ml IV Total 55 ml 55 ml Output Urine Total 40 ml 550 ml # Bowel Movements 2 Laboratory Tests Test 11/22/17 05:55 White Blood Count 10.6 K/UL (4.8-10.8) Red Blood Count 3.73 M/UL (4.70-6.10) L Hemoglobin 11.4 G/DL (14.2-18.0) L Hematocrit 35.6 % (42.0-52.0) L Mean Corpuscular Volume 95 FL (80-99) Mean Corpuscular Hemoglobin 30.5 PG (27.0-31.0) Mean Corpuscular Hemoglobin Concent 32.0 G/DL (32.0-36.0) Red Cell Distribution Width 17.2 % (11.6-14.8) H Platelet Count 305 K/UL (150-450) Mean Platelet Volume 5.6 FL (6.5-10.1) L Neutrophils (%) (Auto) 74.8 % (45.0-75.0) Lymphocytes (%) (Auto) 18.3 % (20.0-45.0) L Monocytes (%) (Auto) 5.3 % (1.0-10.0) Eosinophils (%) (Auto) 1.1 % (0.0-3.0) Basophils (%) (Auto) 0.6 % (0.0-2.0) Sodium Level 145 MMOL/L (136-145) Potassium Level 3.7 MMOL/L (3.5-5.1) Chloride Level 108 MMOL/L (98-107) H Carbon Dioxide Level 31 MMOL/L (21-32) Anion Gap 6 mmol/L (5-15) Blood Urea Nitrogen 31 mg/dL (7-18) H Creatinine 1.5 MG/DL (0.55-1.30) H Estimat Glomerular Filtration Rate mL/min (>60) Glucose Level 103 MG/DL (74-106) Calcium Level 9.6 MG/DL (8.5-10.1) Microbiology Date/Time Source Procedure Growth Status 11/20/17 05:00 Sputum Gram Stain - Final Complete 11/20/17 05:00 Sputum Culture - Final Nurys Albicans Usual Upper Respiratory Patricia Complete Objective HEAD AND NECK: Positive JVD. LUNGS: Decreased breath sounds. CARDIOVASCULAR: Irregularly irregular S1 and S2 with no gallop or murmur. ABDOMEN: Soft. EXTREMITIES: No pitting edema. ADRIENNE BRAGA Nov 22, 2017 09:06
--- NOTE | 2017-11-22 10:22 | GI Progress Note ---
Assessment/Plan Problems: (1) Dysphagia ICD Codes: R13.10 - Dysphagia, unspecified SNOMED: 85855461, 455110519 (2) Encounter for PEG (percutaneous endoscopic gastrostomy) ICD Codes: Z43.1 - Encounter for attention to gastrostomy SNOMED: 458095792, 624022707 Status: progressing Status Narrative Discussed with Dr. Vasquez. Assessment/Plan Assessment - R/o Dysphagia - abd distention - Respiratory failure - Atrial fib - OBS - Poor px - ST evaluation >> CCHO(MEDIUM) LIQUIFIED PUREED Recommendations Hold PEG placement for now, patient tolerating diet. prn transfusions constipation --> laxative PT evaluation fu labs Subjective Subjective limited Objective Last 24 Hour Vital Signs Date Time Temp Pulse Resp B/P (MAP) Pulse Ox O2 Delivery O2 Flow Rate FiO2 11/22/17 08:26 98.6 70 16 145/61 98 Nasal Cannula 11/22/17 08:07 Nasal Cannula 4.0 36 11/22/17 08:06 98 Nasal Cannula 4.0 36 11/22/17 05:57 75 153/63 11/22/17 04:00 98.2 75 20 153/63 95 Nasal Cannula 4.0 11/22/17 03:41 73 11/22/17 00:00 98.2 73 20 142/61 94 Nasal Cannula 4.0 11/21/17 23:59 73 142/61 11/21/17 23:59 72 11/21/17 20:00 98.1 72 20 132/51 94 Nasal Cannula 4.0 11/21/17 19:38 69 11/21/17 19:30 93 Nasal Cannula 4.0 36 11/21/17 19:30 Nasal Cannula 4.0 36 11/21/17 17:12 72 143/60 11/21/17 16:51 97.8 72 20 143/60 96 Venturi Mask 14.0 55 11/21/17 15:59 74 11/21/17 12:38 73 138/58 11/21/17 12:35 98.1 73 20 138/58 94 Venturi Mask 14.0 55 11/21/17 12:30 Venturi Mask 14.0 55 11/21/17 12:30 94 Venturi Mask 14.0 55 11/21/17 12:00 76 Intake and Output 11/21/17 11/22/17 19:00 07:00 Intake Total 255 ml 175 ml Output Total 40 ml 550 ml Balance 215 ml -375 ml Intake Oral 200 ml 120 ml IV Total 55 ml 55 ml Output Urine Total 40 ml 550 ml # Bowel Movements 2 Laboratory Tests Test 11/22/17 05:55 White Blood Count 10.6 K/UL (4.8-10.8) Red Blood Count 3.73 M/UL (4.70-6.10) L Hemoglobin 11.4 G/DL (14.2-18.0) L Hematocrit 35.6 % (42.0-52.0) L Mean Corpuscular Volume 95 FL (80-99) Mean Corpuscular Hemoglobin 30.5 PG (27.0-31.0) Mean Corpuscular Hemoglobin Concent 32.0 G/DL (32.0-36.0) Red Cell Distribution Width 17.2 % (11.6-14.8) H Platelet Count 305 K/UL (150-450) Mean Platelet Volume 5.6 FL (6.5-10.1) L Neutrophils (%) (Auto) 74.8 % (45.0-75.0) Lymphocytes (%) (Auto) 18.3 % (20.0-45.0) L Monocytes (%) (Auto) 5.3 % (1.0-10.0) Eosinophils (%) (Auto) 1.1 % (0.0-3.0) Basophils (%) (Auto) 0.6 % (0.0-2.0) Sodium Level 145 MMOL/L (136-145) Potassium Level 3.7 MMOL/L (3.5-5.1) Chloride Level 108 MMOL/L (98-107) H Carbon Dioxide Level 31 MMOL/L (21-32) Anion Gap 6 mmol/L (5-15) Blood Urea Nitrogen 31 mg/dL (7-18) H Creatinine 1.5 MG/DL (0.55-1.30) H Estimat Glomerular Filtration Rate mL/min (>60) Glucose Level 103 MG/DL (74-106) Calcium Level 9.6 MG/DL (8.5-10.1) Height (Feet): 5 Height (Inches): 11.00 Weight (Pounds): 146 General Appearance: alert Cardiovascular: normal rate Respiratory/Chest: normal breath sounds Abdominal Exam: normal bowel sounds, non tender, soft Janna Alonso N.P. Nov 22, 2017 10:22
[2017-11-22 12:00] VITALS: BP 134/60
--- NOTE | 2017-11-22 13:27 | Infectious Diseases Prog Note ---
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 Acute renal failure improving Positive antibody to Legionella/ Mycoplasma P: discontinue Doxycycline & Rocephin urine Legionella antigen Subjective ROS Limited/Unobtainable: Yes Respiratory: Reports: no symptoms Allergies: Coded Allergies: No Known Allergies (Unverified , 06/20/17) Objective Vital Signs Last 24 Hour Vital Signs Date Time Temp Pulse Resp B/P (MAP) Pulse Ox O2 Delivery O2 Flow Rate FiO2 11/22/17 12:18 73 134/60 11/22/17 08:26 98.6 70 16 145/61 98 Nasal Cannula 11/22/17 08:07 Nasal Cannula 4.0 36 11/22/17 08:06 98 Nasal Cannula 4.0 36 11/22/17 07:50 73 11/22/17 05:57 75 153/63 11/22/17 04:00 98.2 75 20 153/63 95 Nasal Cannula 4.0 11/22/17 03:41 73 11/22/17 00:00 98.2 73 20 142/61 94 Nasal Cannula 4.0 11/21/17 23:59 73 142/61 11/21/17 23:59 72 11/21/17 20:00 98.1 72 20 132/51 94 Nasal Cannula 4.0 11/21/17 19:38 69 11/21/17 19:30 93 Nasal Cannula 4.0 36 11/21/17 19:30 Nasal Cannula 4.0 36 11/21/17 17:12 72 143/60 11/21/17 16:51 97.8 72 20 143/60 96 Venturi Mask 14.0 55 11/21/17 15:59 74 Height (Feet): 5 Height (Inches): 11.00 Weight (Pounds): 146 HEENT: mucous membranes moist Respiratory/Chest: decreased breath sounds Cardiovascular: normal rate Abdomen: soft, non tender Extremities: no edema Neurologic/Psychiatric: alert, responsive Microbiology Date/Time Source Procedure Growth Status 11/20/17 05:00 Sputum Gram Stain - Final Complete 11/20/17 05:00 Sputum Culture - Final Nurys Albicans Usual Upper Respiratory Patricia Complete Laboratory Tests Test 11/22/17 05:55 White Blood Count 10.6 K/UL (4.8-10.8) Red Blood Count 3.73 M/UL (4.70-6.10) L Hemoglobin 11.4 G/DL (14.2-18.0) L Hematocrit 35.6 % (42.0-52.0) L Mean Corpuscular Volume 95 FL (80-99) Mean Corpuscular Hemoglobin 30.5 PG (27.0-31.0) Mean Corpuscular Hemoglobin Concent 32.0 G/DL (32.0-36.0) Red Cell Distribution Width 17.2 % (11.6-14.8) H Platelet Count 305 K/UL (150-450) Mean Platelet Volume 5.6 FL (6.5-10.1) L Neutrophils (%) (Auto) 74.8 % (45.0-75.0) Lymphocytes (%) (Auto) 18.3 % (20.0-45.0) L Monocytes (%) (Auto) 5.3 % (1.0-10.0) Eosinophils (%) (Auto) 1.1 % (0.0-3.0) Basophils (%) (Auto) 0.6 % (0.0-2.0) Sodium Level 145 MMOL/L (136-145) Potassium Level 3.7 MMOL/L (3.5-5.1) Chloride Level 108 MMOL/L (98-107) H Carbon Dioxide Level 31 MMOL/L (21-32) Anion Gap 6 mmol/L (5-15) Blood Urea Nitrogen 31 mg/dL (7-18) H Creatinine 1.5 MG/DL (0.55-1.30) H Estimat Glomerular Filtration Rate mL/min (>60) Glucose Level 103 MG/DL (74-106) Calcium Level 9.6 MG/DL (8.5-10.1) Current Medications Medications (Trade) Dose Ordered Sig/Raine Route PRN Reason Start Time Stop Time Status Last Admin Dose Admin Acetaminophen (Tylenol) 650 mg Q6HR PRN NG for pain 11/15/17 17:00 12/15/17 16:59 11/19/17 23:48 Ceftriaxone Sodium 1 gm/ Sodium Chloride 55 ml @ 110 mls/hr Q24H IVPB 11/19/17 16:00 11/26/17 23:59 11/21/17 16:59 Diltiazem HCl (Cardizem) 60 mg EVERY 6 HOURS ORAL 11/15/17 18:00 12/15/17 17:59 11/22/17 12:18 Doxycycline Monohydrate (Vibramycin) 100 mg EVERY 12 HOURS ORAL 11/16/17 12:00 11/23/17 11:59 11/22/17 08:34 Furosemide (Lasix) 20 mg DAILY IV 11/19/17 09:00 12/15/17 17:59 11/22/17 08:36 Iron Sucrose 100 mg/Sodium Chloride 55 ml @ 200 mls/hr BEDTIME IV 11/16/17 21:00 11/25/17 21:17 11/21/17 20:14 Potassium Chloride (K-Dur) 40 meq DAILY ORAL 11/18/17 09:00 12/18/17 08:59 11/22/17 08:35 TOLU ERICKSON Nov 22, 2017 13:27
--- NOTE | 2017-11-22 14:25 | Cardiology Report ---
APPROVED REPORT EKG Measurement Heart [id number] OH P52 [id number] Atrial flutter with 4:1 AV conduction Abnormal ECG
[2017-11-22 16:00] VITALS: BP 144/59
--- NOTE | 2017-11-22 16:05 | Nephrology Progress Note ---
Assessment/Plan Problem List: (1) Acute renal failure (2) CHF (congestive heart failure) (3) Respiratory distress Assessment status: CXR improved CHF High BUN indicative of pre renal azotemia, 3+ proteinuria- Cr 1.5 today partly dehydration- Partly GI bleed Low Iron, Stool OB+ Echo: Left ventricular ejection fraction estimated to be 60-65 %. No evidence of left ventricular hypertrophy. Pleural effusion . Mild left atrial enlargement. others: - Acute respiratory failure, hypercapnic type. - Pulmonary edema. - Non-ST elevation myocardial infarction. - Chronic obstructive pulmonary disease. - Possible pneumonia. - Prostate hypertrophy. - Atrial fibrillation, on Coumadin. - Encephalopathy, - Status post ventriculoperitoneal shunt. Plan Plan: ? LTAC or lower level care ? DC IV fluids Down on lasix IV Iron- Optimize pulmonary and cardiac status monitor renal parameters and lytes K supplement as needed per orders Subjective ROS Limited/Unobtainable: No Constitutional: Reports: malaise Objective Objective Last 24 Hour Vital Signs Date Time Temp Pulse Resp B/P (MAP) Pulse Ox O2 Delivery O2 Flow Rate FiO2 11/22/17 12:18 73 134/60 11/22/17 12:00 74 11/22/17 12:00 97.0 73 17 134/60 97 Nasal Cannula 4.0 11/22/17 08:26 98.6 70 16 145/61 98 Nasal Cannula 11/22/17 08:07 Nasal Cannula 4.0 36 11/22/17 08:06 98 Nasal Cannula 4.0 36 11/22/17 07:50 73 11/22/17 05:57 75 153/63 11/22/17 04:00 98.2 75 20 153/63 95 Nasal Cannula 4.0 11/22/17 03:41 73 11/22/17 00:00 98.2 73 20 142/61 94 Nasal Cannula 4.0 11/21/17 23:59 73 142/61 11/21/17 23:59 72 11/21/17 20:00 98.1 72 20 132/51 94 Nasal Cannula 4.0 11/21/17 19:38 69 11/21/17 19:30 93 Nasal Cannula 4.0 36 11/21/17 19:30 Nasal Cannula 4.0 36 11/21/17 17:12 72 143/60 11/21/17 16:51 97.8 72 20 143/60 96 Venturi Mask 14.0 55 Intake and Output 11/21/17 11/22/17 19:00 07:00 Intake Total 255 ml 175 ml Output Total 40 ml 550 ml Balance 215 ml -375 ml Intake Oral 200 ml 120 ml IV Total 55 ml 55 ml Output Urine Total 40 ml 550 ml # Bowel Movements 2 Laboratory Tests 11/22/17 05:55: White Blood Count 10.6, Red Blood Count 3.73L, Hemoglobin 11.4L, Hematocrit 35.6L, Mean Corpuscular Volume 95, Mean Corpuscular Hemoglobin 30.5, Mean Corpuscular Hemoglobin Concent 32.0, Red Cell Distribution Width 17.2H, Platelet Count 305, Mean Platelet Volume 5.6L, Neutrophils (%) (Auto) 74.8, Lymphocytes (%) (Auto) 18.3L, Monocytes (%) (Auto) 5.3, Eosinophils (%) (Auto) 1.1, Basophils (%) (Auto) 0.6, Sodium Level 145, Potassium Level 3.7, Chloride Level 108H, Carbon Dioxide Level 31, Anion Gap 6, Blood Urea Nitrogen 31H, Creatinine 1.5H, Estimat Glomerular Filtration Rate , Glucose Level 103, Calcium Level 9.6 11/22/17 12:00: Urine Legionella Antigen [Pending] Height (Feet): 5 Height (Inches): 11.00 Weight (Pounds): 146 General Appearance: no apparent distress Cardiovascular: normal rate Respiratory/Chest: decreased breath sounds Objective no other changes MARCELINO STEELE Nov 22, 2017 16:04
--- NOTE | 2017-11-22 16:36 | Diagnostic Imaging Report ---
Indications: Dysphagia Technique: Patient ingested multiple substances under the supervision of speech pathology. Video fluoroscopic recording performed. Total fluoroscopy time 145 seconds. Total dose area product [id number] mGycm2 Comparison: none Findings: Penetration of thin liquid barium was demonstrated. No aspiration. No significant early or delayed pooling. Impression: Positive for penetration of thin liquid barium No aspiration. Please refer to speech pathology report for more detailed analysis
[2017-11-22 20:00] VITALS: BP 135/55
--- NOTE | 2017-11-22 22:50 | General Progress Note ---
Assessment/Plan Problem List: (1) Urinary tract infection ICD Codes: N39.0 - Urinary tract infection, site not specified SNOMED: 21267215 (2) Sepsis ICD Codes: A41.9 - Sepsis, unspecified organism SNOMED: 02487229 (3) Dyspnea ICD Codes: R06.00 - Dyspnea, unspecified SNOMED: 069741798 (4) Respiratory distress ICD Codes: R06.03 - Acute respiratory distress SNOMED: 326278319 (5) CHF (congestive heart failure) ICD Codes: I50.9 - Heart failure, unspecified SNOMED: 44215657 (6) Acute renal failure ICD Codes: N17.9 - Acute kidney failure, unspecified SNOMED: 34098094 Status: progressing Assessment/Plan afebrile resp insuff pna and sepsis reviewed chart and labs and meds a fib asa pna passed the swallow study clinically improving coumadin per heme.//onc Subjective ROS Limited/Unobtainable: Yes Allergies: Coded Allergies: No Known Allergies (Unverified , 06/20/17) Objective Last 24 Hour Vital Signs Date Time Temp Pulse Resp B/P (MAP) Pulse Ox O2 Delivery O2 Flow Rate FiO2 11/22/17 20:00 57 11/22/17 20:00 98.3 70 16 135/55 97 Nasal Cannula 4.0 11/22/17 17:30 78 144/59 11/22/17 16:00 97.2 73 16 144/59 94 Nasal Cannula 4.0 11/22/17 16:00 78 11/22/17 12:18 73 134/60 11/22/17 12:00 74 11/22/17 12:00 97.0 73 17 134/60 97 Nasal Cannula 4.0 11/22/17 08:26 98.6 70 16 145/61 98 Nasal Cannula 11/22/17 08:07 Nasal Cannula 4.0 36 11/22/17 08:06 98 Nasal Cannula 4.0 36 11/22/17 07:50 73 11/22/17 05:57 75 153/63 11/22/17 04:00 98.2 75 20 153/63 95 Nasal Cannula 4.0 11/22/17 03:41 73 11/22/17 00:00 98.2 73 20 142/61 94 Nasal Cannula 4.0 11/21/17 23:59 73 142/61 11/21/17 23:59 72 Intake and Output 11/21/17 11/22/17 19:00 07:00 Intake Total 255 ml 175 ml Output Total 40 ml 550 ml Balance 215 ml -375 ml Intake Oral 200 ml 120 ml IV Total 55 ml 55 ml Output Urine Total 40 ml 550 ml # Bowel Movements 2 Laboratory Tests 11/22/17 05:55: White Blood Count 10.6, Red Blood Count 3.73L, Hemoglobin 11.4L, Hematocrit 35.6L, Mean Corpuscular Volume 95, Mean Corpuscular Hemoglobin 30.5, Mean Corpuscular Hemoglobin Concent 32.0, Red Cell Distribution Width 17.2H, Platelet Count 305, Mean Platelet Volume 5.6L, Neutrophils (%) (Auto) 74.8, Lymphocytes (%) (Auto) 18.3L, Monocytes (%) (Auto) 5.3, Eosinophils (%) (Auto) 1.1, Basophils (%) (Auto) 0.6, Sodium Level 145, Potassium Level 3.7, Chloride Level 108H, Carbon Dioxide Level 31, Anion Gap 6, Blood Urea Nitrogen 31H, Creatinine 1.5H, Estimat Glomerular Filtration Rate , Glucose Level 103, Calcium Level 9.6 11/22/17 12:00: Urine Legionella Antigen [Pending] Height (Feet): 5 Height (Inches): 11.00 Weight (Pounds): 146 Cardiovascular: normal rate Abdomen: non tender Danitza Mustafa MD Nov 22, 2017 22:50
[2017-11-22] MEDS: Acetaminophen 650mg/20.3ml NG PRN (23:48)
[2017-11-23] VITALS: BP 146/79
--- NOTE | 2017-11-23 03:15 | General Progress Note ---
Assessment/Plan Assessment/Plan 1. Coagulopathy, likely due to underlying Coumadin use. --> Continue to closely monitor. --> INR goal between 2 and 3 --> Currently 5.9. To put Coumadin on hold for now. -->INR currently 3.9 and improving. --> To restart Coumadin once INR reaches goal levels. 2. Anemia due to underlying chronic disease. -->Anemia workup has been reviewed. --> Labs: Iron 17, TIBC 273, Ferritin 121 --> Transfuse if hemoglobin is <7, trend cbc daily. --> Hgb has been >10, no blood transfusion needed today. 3. Azotemia as per Nephrology consultation, likely the patient is dehydrated. 4. Respiratory distress. --> Closely monitor. --> The patient's shortness of breath is likely related underlying congestion, bilateral pleural effusions. --> To be seen by Infectious Disease. --> On antibiotics. 5. Weakness and fatigue, likely due to underlying anemia. Subjective Date patient seen: Nov 22, 2017 Constitutional: Denies: no symptoms, chills, diaphoresis, fever, malaise, weakness, other HEENT: Denies: no symptoms, eye pain, blurred vision, tearing, double vision, ear pain, ear discharge, nose pain, nose congestion, throat pain, throat swelling, mouth pain, mouth swelling, other Cardiovascular: Denies: no symptoms, chest pain, edema, irregular heart rate, lightheadedness, palpitations, syncope, other Respiratory: Denies: no symptoms, cough, orthopnea, shortness of breath, SOB with excertion, SOB at rest, sputum, stridor, wheezing, other Gastrointestinal/Abdominal: Denies: no symptoms, abdomen distended, abdominal pain, black stools, tarry stools, blood in stool, constipated, diarrhea, difficulty swallowing, nausea, poor appetite, poor fluid intake, rectal bleeding , vomiting, other Genitourinary: Denies: no symptoms, burning, discharge, frequency, flank pain, hematuria, incontinence, pain, urgency, other Hematologic/Lymphatic: Reports: anemia Allergies: Coded Allergies: No Known Allergies (Unverified , 06/20/17) Subjective Improving. No acute events. No fever. Objective Last 24 Hour Vital Signs Date Time Temp Pulse Resp B/P (MAP) Pulse Ox O2 Delivery O2 Flow Rate FiO2 11/23/17 00:00 72 11/23/17 00:00 98.0 72 16 146/79 97 Nasal Cannula 4.0 11/22/17 23:50 72 146/79 11/22/17 20:00 57 11/22/17 20:00 98.3 70 16 135/55 97 Nasal Cannula 4.0 11/22/17 17:30 78 144/59 11/22/17 16:00 97.2 73 16 144/59 94 Nasal Cannula 4.0 11/22/17 16:00 78 11/22/17 12:18 73 134/60 11/22/17 12:00 74 11/22/17 12:00 97.0 73 17 134/60 97 Nasal Cannula 4.0 11/22/17 08:26 98.6 70 16 145/61 98 Nasal Cannula 11/22/17 08:07 Nasal Cannula 4.0 36 11/22/17 08:06 98 Nasal Cannula 4.0 36 11/22/17 07:50 73 11/22/17 05:57 75 153/63 11/22/17 04:00 98.2 75 20 153/63 95 Nasal Cannula 4.0 11/22/17 03:41 73 Intake and Output 11/22/17 11/23/17 19:00 07:00 Intake Total 200 ml Output Total 600 ml Balance -400 ml Intake Oral 200 ml Output Urine Total 600 ml # Bowel Movements 1 Laboratory Tests 11/22/17 05:55: White Blood Count 10.6, Red Blood Count 3.73L, Hemoglobin 11.4L, Hematocrit 35.6L, Mean Corpuscular Volume 95, Mean Corpuscular Hemoglobin 30.5, Mean Corpuscular Hemoglobin Concent 32.0, Red Cell Distribution Width 17.2H, Platelet Count 305, Mean Platelet Volume 5.6L, Neutrophils (%) (Auto) 74.8, Lymphocytes (%) (Auto) 18.3L, Monocytes (%) (Auto) 5.3, Eosinophils (%) (Auto) 1.1, Basophils (%) (Auto) 0.6, Sodium Level 145, Potassium Level 3.7, Chloride Level 108H, Carbon Dioxide Level 31, Anion Gap 6, Blood Urea Nitrogen 31H, Creatinine 1.5H, Estimat Glomerular Filtration Rate , Glucose Level 103, Calcium Level 9.6 11/22/17 12:00: Urine Legionella Antigen [Pending] Height (Feet): 5 Height (Inches): 11.00 Weight (Pounds): 146 Bharath Ya Nov 23, 2017 03:15
[2017-11-23 03:59] LABS: BASOPHILS % (AUTO) 0.7 % (0.0-2.0); HEMATOCRIT 34.1 % (42.0-52.0); LYMPHOCYTES % (AUTO) 23.8 % (20.0-45.0); MEAN CORPUSCULAR VOLUME 95 FL (80-99); MONOCYTES % (AUTO) 6.1 % (1.0-10.0); NEUTROPHILS % (AUTO) 68.4 % (45.0-75.0); PLATELET COUNT 284 K/UL (150-450); RED BLOOD COUNT 3.61 M/UL (4.70-6.10); WHITE BLOOD COUNT 8.5 K/UL (4.8-10.8)
[2017-11-23 04:00] VITALS: BP 150/54
[2017-11-23 04:13] LABS: ANION GAP 5 mmol/L (5-15); BLOOD UREA NITROGEN 34 mg/dL (7-18); CALCIUM 9.3 MG/DL (8.5-10.1); CARBON DIOXIDE 35 MMOL/L (21-32); CHLORIDE 106 MMOL/L (98-107); CREATININE 1.6 MG/DL (0.55-1.30); POTASSIUM 3.9 MMOL/L (3.5-5.1); SODIUM 146 MMOL/L (136-145)
[2017-11-23] MEDS: dilTIAZem HCl 60mg tab ORAL SCH ×3 (06:01→17:55)
[2017-11-23 08:00] VITALS: BP 141/59
--- NOTE | 2017-11-23 09:11 | Nephrology Progress Note ---
Assessment/Plan Problem List: (1) Acute renal failure (2) CHF (congestive heart failure) (3) Respiratory distress Assessment status: CXR improved CHF High BUN indicative of pre renal azotemia, 3+ proteinuria- Cr 1.6 today partly dehydration- Partly GI bleed Low Iron, Stool OB+ Echo: Left ventricular ejection fraction estimated to be 60-65 %. No evidence of left ventricular hypertrophy. Pleural effusion . Mild left atrial enlargement. others: - Acute respiratory failure, hypercapnic type. - Pulmonary edema. - Non-ST elevation myocardial infarction. - Chronic obstructive pulmonary disease. - Possible pneumonia. - Prostate hypertrophy. - Atrial fibrillation, on Coumadin. - Encephalopathy, - Status post ventriculoperitoneal shunt. Plan Plan: ? LTAC or lower level care ? DC IV fluids Down on lasix IV Iron- Optimize pulmonary and cardiac status monitor renal parameters and lytes K supplement as needed per orders Subjective ROS Limited/Unobtainable: No Constitutional: Reports: malaise Objective Objective Last 24 Hour Vital Signs Date Time Temp Pulse Resp B/P (MAP) Pulse Ox O2 Delivery O2 Flow Rate FiO2 11/23/17 07:46 Nasal Cannula 3.0 32 11/23/17 07:45 96 Nasal Cannula 4.0 36 11/23/17 06:01 71 154/55 11/23/17 04:00 66 11/23/17 04:00 98.3 71 16 150/54 97 Nasal Cannula 4.0 11/23/17 00:00 72 11/23/17 00:00 98.0 72 16 146/79 97 Nasal Cannula 4.0 11/22/17 23:50 72 146/79 11/22/17 20:00 57 11/22/17 20:00 98.3 70 16 135/55 97 Nasal Cannula 4.0 11/22/17 17:30 78 144/59 11/22/17 16:00 97.2 73 16 144/59 94 Nasal Cannula 4.0 11/22/17 16:00 78 11/22/17 12:18 73 134/60 11/22/17 12:00 74 11/22/17 12:00 97.0 73 17 134/60 97 Nasal Cannula 4.0 Intake and Output 11/22/17 11/23/17 19:00 07:00 Intake Total 200 ml 120 ml Output Total 600 ml 400 ml Balance -400 ml -280 ml Intake Oral 200 ml 120 ml Output Urine Total 600 ml 400 ml # Bowel Movements 1 Laboratory Tests 11/22/17 12:00: Urine Legionella Antigen [Pending] 11/23/17 03:30: White Blood Count 8.5, Red Blood Count 3.61L, Hemoglobin 11.0L, Hematocrit 34.1L , Mean Corpuscular Volume 95, Mean Corpuscular Hemoglobin 30.4, Mean Corpuscular Hemoglobin Concent 32.1, Red Cell Distribution Width 17.0H, Platelet Count 284, Mean Platelet Volume 6.0L, Neutrophils (%) (Auto) 68.4, Lymphocytes (%) (Auto) 23.8, Monocytes (%) (Auto) 6.1, Eosinophils (%) (Auto) 1.0, Basophils (%) (Auto) 0.7, Sodium Level 146H, Potassium Level 3.9, Chloride Level 106, Carbon Dioxide Level 35H, Anion Gap 5, Blood Urea Nitrogen 34H, Creatinine 1.6H, Estimat Glomerular Filtration Rate , Glucose Level 104, Calcium Level 9.3 Height (Feet): 5 Height (Inches): 11.00 Weight (Pounds): 147 General Appearance: no apparent distress Objective no other changes MARCELINO STEELE Nov 23, 2017 09:11
--- NOTE | 2017-11-23 09:37 | Pulmonology Progress Note ---
Assessment/Plan Assessment/Plan 1. Acute respiratory failure, hypercapnic 2. Pulmonary edema. 3. Non-ST elevation myocardial infarction. 4. Chronic obstructive pulmonary disease. 5. Possible pneumonia. 6. Prostate hypertrophy. 7. Atrial fibrillation, on Coumadin. 8. Encephalopathy, 9. Status post ventriculoperitoneal shunt 10 dysphagia RECOMMENDATIONS: bipap qhs and prn distress nebs abx titrate o2 aspiration precautions watch io NPO, needs swallow and possible replacement of NGT cxr saturday dvt prophylaxis dc planning Subjective ROS Limited/Unobtainable: Yes Constitutional: Reports: no symptoms HEENT: Repors: no symptoms Respiratory: Reports: productive cough, sputum Cardiovascular: Reports: no symptoms Gastrointestinal/Abdominal: Reports: no symptoms Neurologic: Reports: no symptoms Psychiatric: Reports: no symptoms Skin: Reports: no symptoms Musculoskeletal: Reports: no symptoms Allergies: Coded Allergies: No Known Allergies (Unverified , 06/20/17) Subjective more awake using bipap at night tolerating modified diet not getting oob no cp nv or bleeding not getting oob remains on o2 no distress Objective Last 24 Hour Vital Signs Date Time Temp Pulse Resp B/P (MAP) Pulse Ox O2 Delivery O2 Flow Rate FiO2 11/23/17 08:00 97.7 98 18 141/59 98 Nasal Cannula 4.0 11/23/17 07:46 Nasal Cannula 3.0 32 11/23/17 07:45 96 Nasal Cannula 4.0 36 11/23/17 06:01 71 154/55 11/23/17 04:00 66 11/23/17 04:00 98.3 71 16 150/54 97 Nasal Cannula 4.0 11/23/17 00:00 72 11/23/17 00:00 98.0 72 16 146/79 97 Nasal Cannula 4.0 11/22/17 23:50 72 146/79 11/22/17 20:00 57 11/22/17 20:00 98.3 70 16 135/55 97 Nasal Cannula 4.0 11/22/17 17:30 78 144/59 11/22/17 16:00 97.2 73 16 144/59 94 Nasal Cannula 4.0 11/22/17 16:00 78 11/22/17 12:18 73 134/60 11/22/17 12:00 74 11/22/17 12:00 97.0 73 17 134/60 97 Nasal Cannula 4.0 Intake and Output 11/22/17 11/23/17 19:00 07:00 Intake Total 200 ml 120 ml Output Total 600 ml 400 ml Balance -400 ml -280 ml Intake Oral 200 ml 120 ml Output Urine Total 600 ml 400 ml # Bowel Movements 1 General Appearance: WD/WN Respiratory/Chest: lungs clear, rhonchi Cardiovascular: normal rate, regular rhythm Abdomen: soft, non tender, no organomegaly, non distended Extremities: no cyanosis Skin: no rash, no lesions Neurologic/Psychiatric: oriented x 3 Lymphatic: no neck adenopathy Musculoskeletal: no effusion Laboratory Tests 11/22/17 12:00: Urine Legionella Antigen [Pending] 11/23/17 03:30: White Blood Count 8.5, Red Blood Count 3.61L, Hemoglobin 11.0L, Hematocrit 34.1L , Mean Corpuscular Volume 95, Mean Corpuscular Hemoglobin 30.4, Mean Corpuscular Hemoglobin Concent 32.1, Red Cell Distribution Width 17.0H, Platelet Count 284, Mean Platelet Volume 6.0L, Neutrophils (%) (Auto) 68.4, Lymphocytes (%) (Auto) 23.8, Monocytes (%) (Auto) 6.1, Eosinophils (%) (Auto) 1.0, Basophils (%) (Auto) 0.7, Sodium Level 146H, Potassium Level 3.9, Chloride Level 106, Carbon Dioxide Level 35H, Anion Gap 5, Blood Urea Nitrogen 34H, Creatinine 1.6H, Estimat Glomerular Filtration Rate , Glucose Level 104, Calcium Level 9.3 Current Medications Medications (Trade) Dose Ordered Sig/Raine Route PRN Reason Start Time Stop Time Status Last Admin Dose Admin Acetaminophen (Tylenol) 650 mg Q6HR PRN NG for pain 11/15/17 17:00 12/15/17 16:59 11/22/17 23:48 Diltiazem HCl (Cardizem) 60 mg EVERY 6 HOURS ORAL 11/15/17 18:00 12/15/17 17:59 11/23/17 06:01 Doxycycline Monohydrate (Vibramycin) 100 mg EVERY 12 HOURS ORAL 11/16/17 12:00 11/23/17 11:59 11/23/17 09:23 Furosemide (Lasix) 20 mg DAILY IV 11/19/17 09:00 12/15/17 17:59 11/23/17 09:23 Iron Sucrose 100 mg/Sodium Chloride 55 ml @ 200 mls/hr BEDTIME IV 11/16/17 21:00 11/25/17 21:17 11/22/17 20:44 Potassium Chloride (K-Dur) 40 meq DAILY ORAL 11/18/17 09:00 12/18/17 08:59 11/23/17 09:23 CLARISSE MURILLO DO Nov 23, 2017 09:37
--- NOTE | 2017-11-23 10:53 | Infectious Diseases Prog Note ---
Assessment/Plan Assessment/Plan antibiotics : doxycycline A 1. pneumonia 2. s/p EXHAUSTER shunt 3. CHF 4. atrial fibrillation 5. renal failure P 1. continue doxycycline 2. will follow up cultures Subjective ROS Limited/Unobtainable: Yes Allergies: Coded Allergies: No Known Allergies (Unverified , 06/20/17) Objective Vital Signs Last 24 Hour Vital Signs Date Time Temp Pulse Resp B/P (MAP) Pulse Ox O2 Delivery O2 Flow Rate FiO2 11/23/17 08:00 56 11/23/17 08:00 97.7 98 18 141/59 98 Nasal Cannula 4.0 11/23/17 07:46 Nasal Cannula 3.0 32 11/23/17 07:45 96 Nasal Cannula 4.0 36 11/23/17 06:01 71 154/55 11/23/17 04:00 66 11/23/17 04:00 98.3 71 16 150/54 97 Nasal Cannula 4.0 11/23/17 00:00 72 11/23/17 00:00 98.0 72 16 146/79 97 Nasal Cannula 4.0 11/22/17 23:50 72 146/79 11/22/17 20:00 57 11/22/17 20:00 98.3 70 16 135/55 97 Nasal Cannula 4.0 11/22/17 17:30 78 144/59 11/22/17 16:00 97.2 73 16 144/59 94 Nasal Cannula 4.0 11/22/17 16:00 78 11/22/17 12:18 73 134/60 11/22/17 12:00 74 11/22/17 12:00 97.0 73 17 134/60 97 Nasal Cannula 4.0 Height (Feet): 5 Height (Inches): 11.00 Weight (Pounds): 147 Respiratory/Chest: lungs clear Cardiovascular: normal rate, regular rhythm, no gallop/murmur Abdomen: soft, non tender Extremities: no edema Laboratory Tests Test 11/22/17 12:00 11/23/17 03:30 Urine Legionella Antigen Pending White Blood Count 8.5 K/UL (4.8-10.8) Red Blood Count 3.61 M/UL (4.70-6.10) L Hemoglobin 11.0 G/DL (14.2-18.0) L Hematocrit 34.1 % (42.0-52.0) L Mean Corpuscular Volume 95 FL (80-99) Mean Corpuscular Hemoglobin 30.4 PG (27.0-31.0) Mean Corpuscular Hemoglobin Concent 32.1 G/DL (32.0-36.0) Red Cell Distribution Width 17.0 % (11.6-14.8) H Platelet Count 284 K/UL (150-450) Mean Platelet Volume 6.0 FL (6.5-10.1) L Neutrophils (%) (Auto) 68.4 % (45.0-75.0) Lymphocytes (%) (Auto) 23.8 % (20.0-45.0) Monocytes (%) (Auto) 6.1 % (1.0-10.0) Eosinophils (%) (Auto) 1.0 % (0.0-3.0) Basophils (%) (Auto) 0.7 % (0.0-2.0) Sodium Level 146 MMOL/L (136-145) H Potassium Level 3.9 MMOL/L (3.5-5.1) Chloride Level 106 MMOL/L (98-107) Carbon Dioxide Level 35 MMOL/L (21-32) H Anion Gap 5 mmol/L (5-15) Blood Urea Nitrogen 34 mg/dL (7-18) H Creatinine 1.6 MG/DL (0.55-1.30) H Estimat Glomerular Filtration Rate mL/min (>60) Glucose Level 104 MG/DL (74-106) Calcium Level 9.3 MG/DL (8.5-10.1) DANTE MAR Nov 23, 2017 10:52
--- NOTE | 2017-11-23 11:38 | General Progress Note ---
Assessment/Plan Assessment/Plan Assessment - R/o Dysphagia - abd distention - Respiratory failure>>improving - Atrial fib - OBS - ST evaluation >> CCHO(MEDIUM) LIQUIFIED PUREED Recommendations Hold PEG placement for now, patient tolerating diet. prn transfusions constipation --> laxative started colace and miralax PT evaluation fu labs start sub Q heparin Subjective ROS Limited/Unobtainable: Yes Allergies: Coded Allergies: No Known Allergies (Unverified , 06/20/17) Subjective no BM Objective Last 24 Hour Vital Signs Date Time Temp Pulse Resp B/P (MAP) Pulse Ox O2 Delivery O2 Flow Rate FiO2 11/23/17 08:00 56 11/23/17 08:00 97.7 98 18 141/59 98 Nasal Cannula 4.0 11/23/17 07:46 Nasal Cannula 3.0 32 11/23/17 07:45 96 Nasal Cannula 4.0 36 11/23/17 06:01 71 154/55 11/23/17 04:00 66 11/23/17 04:00 98.3 71 16 150/54 97 Nasal Cannula 4.0 11/23/17 00:00 72 11/23/17 00:00 98.0 72 16 146/79 97 Nasal Cannula 4.0 11/22/17 23:50 72 146/79 11/22/17 20:00 57 11/22/17 20:00 98.3 70 16 135/55 97 Nasal Cannula 4.0 11/22/17 17:30 78 144/59 11/22/17 16:00 97.2 73 16 144/59 94 Nasal Cannula 4.0 11/22/17 16:00 78 11/22/17 12:18 73 134/60 11/22/17 12:00 74 11/22/17 12:00 97.0 73 17 134/60 97 Nasal Cannula 4.0 Intake and Output 11/22/17 11/23/17 19:00 07:00 Intake Total 200 ml 120 ml Output Total 600 ml 400 ml Balance -400 ml -280 ml Intake Oral 200 ml 120 ml Output Urine Total 600 ml 400 ml # Bowel Movements 1 Laboratory Tests 11/22/17 12:00: Urine Legionella Antigen [Pending] 11/23/17 03:30: White Blood Count 8.5, Red Blood Count 3.61L, Hemoglobin 11.0L, Hematocrit 34.1L , Mean Corpuscular Volume 95, Mean Corpuscular Hemoglobin 30.4, Mean Corpuscular Hemoglobin Concent 32.1, Red Cell Distribution Width 17.0H, Platelet Count 284, Mean Platelet Volume 6.0L, Neutrophils (%) (Auto) 68.4, Lymphocytes (%) (Auto) 23.8, Monocytes (%) (Auto) 6.1, Eosinophils (%) (Auto) 1.0, Basophils (%) (Auto) 0.7, Sodium Level 146H, Potassium Level 3.9, Chloride Level 106, Carbon Dioxide Level 35H, Anion Gap 5, Blood Urea Nitrogen 34H, Creatinine 1.6H, Estimat Glomerular Filtration Rate , Glucose Level 104, Calcium Level 9.3 Height (Feet): 5 Height (Inches): 11.00 Weight (Pounds): 147 General Appearance: no apparent distress EENT: normal ENT inspection Neck: supple Cardiovascular: normal rate Respiratory/Chest: decreased breath sounds Abdomen: normal bowel sounds, non tender, soft Extremities: non-tender RICKIE HERNANDEZ Nov 23, 2017 11:38
[2017-11-23 11:54] VITALS: BP 141/62
--- NOTE | 2017-11-23 15:32 | Cardiac Electrophysiology PN ---
Assessment/Plan Assessment/Plan 1. CHF. BNP very elevated. On IV Lasix 20 daily.Change to 40 po daily 2. Elevated troponin. Second troponin negative. No chest pain. Echocardiogram EF 65%. Avoid beta-nusrat. 3. Atrial flutter. On Cardizem 60 q 6 hr and Coumadin per pharmacy. Flutter ablation as out patient. INR 3.9 4. Hypertension. On Cardizem. 5. COPD improved.Now off BiPAP 6. Dysphagia, Passed swallow eval SALOME RN Subjective Subjective Alert in NAD. No chest pain or SOB.Transferred to nonmonitored bed. Objective Last 24 Hour Vital Signs Date Time Temp Pulse Resp B/P (MAP) Pulse Ox O2 Delivery O2 Flow Rate FiO2 11/23/17 11:55 72 141/62 11/23/17 11:54 97.9 72 18 141/62 97 Nasal Cannula 4.0 11/23/17 11:48 72 11/23/17 08:00 56 11/23/17 08:00 97.7 98 18 141/59 98 Nasal Cannula 4.0 11/23/17 07:46 Nasal Cannula 3.0 32 11/23/17 07:45 96 Nasal Cannula 4.0 36 11/23/17 06:01 71 154/55 11/23/17 04:00 66 11/23/17 04:00 98.3 71 16 150/54 97 Nasal Cannula 4.0 11/23/17 00:00 72 11/23/17 00:00 98.0 72 16 146/79 97 Nasal Cannula 4.0 11/22/17 23:50 72 146/79 11/22/17 20:00 57 11/22/17 20:00 98.3 70 16 135/55 97 Nasal Cannula 4.0 11/22/17 17:30 78 144/59 11/22/17 16:00 97.2 73 16 144/59 94 Nasal Cannula 4.0 11/22/17 16:00 78 Intake and Output 11/22/17 11/23/17 19:00 07:00 Intake Total 200 ml 120 ml Output Total 600 ml 400 ml Balance -400 ml -280 ml Intake Oral 200 ml 120 ml Output Urine Total 600 ml 400 ml # Bowel Movements 1 Laboratory Tests Test 11/23/17 03:30 White Blood Count 8.5 K/UL (4.8-10.8) Red Blood Count 3.61 M/UL (4.70-6.10) L Hemoglobin 11.0 G/DL (14.2-18.0) L Hematocrit 34.1 % (42.0-52.0) L Mean Corpuscular Volume 95 FL (80-99) Mean Corpuscular Hemoglobin 30.4 PG (27.0-31.0) Mean Corpuscular Hemoglobin Concent 32.1 G/DL (32.0-36.0) Red Cell Distribution Width 17.0 % (11.6-14.8) H Platelet Count 284 K/UL (150-450) Mean Platelet Volume 6.0 FL (6.5-10.1) L Neutrophils (%) (Auto) 68.4 % (45.0-75.0) Lymphocytes (%) (Auto) 23.8 % (20.0-45.0) Monocytes (%) (Auto) 6.1 % (1.0-10.0) Eosinophils (%) (Auto) 1.0 % (0.0-3.0) Basophils (%) (Auto) 0.7 % (0.0-2.0) Sodium Level 146 MMOL/L (136-145) H Potassium Level 3.9 MMOL/L (3.5-5.1) Chloride Level 106 MMOL/L (98-107) Carbon Dioxide Level 35 MMOL/L (21-32) H Anion Gap 5 mmol/L (5-15) Blood Urea Nitrogen 34 mg/dL (7-18) H Creatinine 1.6 MG/DL (0.55-1.30) H Estimat Glomerular Filtration Rate mL/min (>60) Glucose Level 104 MG/DL (74-106) Calcium Level 9.3 MG/DL (8.5-10.1) Objective HEAD AND NECK: Positive JVD. LUNGS: Decreased breath sounds. CARDIOVASCULAR: Irregularly irregular S1 and S2 with no gallop or murmur. ABDOMEN: Soft. EXTREMITIES: No pitting edema. ADRIENNE BRAGA Nov 23, 2017 15:32
[2017-11-23 16:00] VITALS: BP 147/66
[2017-11-23] MEDS ORDERED: Tubing IV Secondary IV ONE (17:24)
[2017-11-23] MEDS ORDERED: NS 275ml ONE (17:24)
[2017-11-23] MEDS: Docusate 100mg cap ORAL SCH (17:54)
[2017-11-23] MEDS ORDERED: Acetaminophen 650mg/20.3ml NG PRN (18:00)
[2017-11-23] MEDS ORDERED: Docusate 100mg cap ORAL SCH (18:00)
[2017-11-23 20:00] VITALS: BP 129/73
--- NOTE | 2017-11-23 20:13 | General Progress Note ---
Assessment/Plan Problem List: (1) Urinary tract infection ICD Codes: N39.0 - Urinary tract infection, site not specified SNOMED: 34603779 (2) Sepsis ICD Codes: A41.9 - Sepsis, unspecified organism SNOMED: 16606687 (3) Dyspnea ICD Codes: R06.00 - Dyspnea, unspecified SNOMED: 030045179 (4) Respiratory distress ICD Codes: R06.03 - Acute respiratory distress SNOMED: 746593199 (5) CHF (congestive heart failure) ICD Codes: I50.9 - Heart failure, unspecified SNOMED: 91073584 (6) Acute renal failure ICD Codes: N17.9 - Acute kidney failure, unspecified SNOMED: 02741182 Status: progressing Assessment/Plan dc planning resp insuff pna and sepsis reviewed chart and labs and meds a fib asa pna improving eating and tolerating it Subjective ROS Limited/Unobtainable: Yes Constitutional: Reports: no symptoms Allergies: Coded Allergies: No Known Allergies (Unverified , 06/20/17) Objective Last 24 Hour Vital Signs Date Time Temp Pulse Resp B/P (MAP) Pulse Ox O2 Delivery O2 Flow Rate FiO2 11/23/17 20:00 97.9 70 21 129/73 95 11/23/17 17:55 72 147/66 11/23/17 16:00 97.6 72 20 147/66 97 Nasal Cannula 4.0 11/23/17 11:55 72 141/62 11/23/17 11:54 97.9 72 18 141/62 97 Nasal Cannula 4.0 11/23/17 11:48 72 11/23/17 08:00 56 11/23/17 08:00 97.7 98 18 141/59 98 Nasal Cannula 4.0 11/23/17 07:46 Nasal Cannula 3.0 32 11/23/17 07:45 96 Nasal Cannula 4.0 36 11/23/17 06:01 71 154/55 11/23/17 04:00 66 11/23/17 04:00 98.3 71 16 150/54 97 Nasal Cannula 4.0 11/23/17 00:00 72 11/23/17 00:00 98.0 72 16 146/79 97 Nasal Cannula 4.0 11/22/17 23:50 72 146/79 Intake and Output 11/22/17 11/23/17 19:00 07:00 Intake Total 200 ml 120 ml Output Total 600 ml 400 ml Balance -400 ml -280 ml Intake Oral 200 ml 120 ml Output Urine Total 600 ml 400 ml # Bowel Movements 1 Laboratory Tests 11/23/17 03:30: White Blood Count 8.5, Red Blood Count 3.61L, Hemoglobin 11.0L, Hematocrit 34.1L , Mean Corpuscular Volume 95, Mean Corpuscular Hemoglobin 30.4, Mean Corpuscular Hemoglobin Concent 32.1, Red Cell Distribution Width 17.0H, Platelet Count 284, Mean Platelet Volume 6.0L, Neutrophils (%) (Auto) 68.4, Lymphocytes (%) (Auto) 23.8, Monocytes (%) (Auto) 6.1, Eosinophils (%) (Auto) 1.0, Basophils (%) (Auto) 0.7, Sodium Level 146H, Potassium Level 3.9, Chloride Level 106, Carbon Dioxide Level 35H, Anion Gap 5, Blood Urea Nitrogen 34H, Creatinine 1.6H, Estimat Glomerular Filtration Rate , Glucose Level 104, Calcium Level 9.3 Height (Feet): 5 Height (Inches): 11.00 Weight (Pounds): 147 Neck: supple Cardiovascular: normal rate Respiratory/Chest: lungs clear Abdomen: soft Danitza Mustafa MD Nov 23, 2017 20:12
[2017-11-23] MEDS: Miralax 17gm pkt ORAL SCH (20:31)
[2017-11-23] MEDS: Heparin 5000 units/ml inj SUBQ SCH (20:37)
[2017-11-23] MEDS ORDERED: Miralax 17gm pkt ORAL SCH (21:00)
[2017-11-23] MEDS ORDERED: Heparin 5000 units/ml inj SUBQ SCH (21:00)
[2017-11-24] VITALS: BP 135/66
[2017-11-24] MEDS: dilTIAZem HCl 60mg tab ORAL SCH ×4 (00:02→17:43)
[2017-11-24 03:59] VITALS: BP 146/67
--- NOTE | 2017-11-24 08:07 | General Progress Note ---
Assessment/Plan Assessment/Plan Assessment - Respiratory failure>>resolved - OBS - ST evaluation >> CCHO(MEDIUM) LIQUIFIED PUREED Recommendations Hold PEG placement for now, patient tolerating diet. prn transfusions constipation --> colace and miralax PT evaluation fu labs sub Q heparin Subjective ROS Limited/Unobtainable: Yes Allergies: Coded Allergies: No Known Allergies (Unverified , 06/20/17) Subjective no event Objective Last 24 Hour Vital Signs Date Time Temp Pulse Resp B/P (MAP) Pulse Ox O2 Delivery O2 Flow Rate FiO2 11/24/17 05:20 68 146/67 11/24/17 04:00 95 Nasal Cannula 3.0 11/24/17 03:59 97.5 68 20 146/67 95 11/24/17 00:02 71 135/66 11/24/17 00:00 94 Nasal Cannula 3.0 11/24/17 00:00 99.1 71 20 135/66 94 11/23/17 20:00 95 Nasal Cannula 3.0 11/23/17 20:00 97.9 70 21 129/73 95 11/23/17 19:13 Nasal Cannula 3.0 32 11/23/17 19:13 97 Nasal Cannula 4.0 36 11/23/17 17:55 72 147/66 11/23/17 16:00 97.6 72 20 147/66 97 Nasal Cannula 3.0 11/23/17 11:55 72 141/62 11/23/17 11:54 97.9 72 18 141/62 97 Nasal Cannula 4.0 11/23/17 11:48 72 Intake and Output 11/23/17 11/24/17 19:00 07:00 Intake Total 100 ml 200 ml Output Total 700 ml 400 ml Balance -600 ml -200 ml Intake Oral 100 ml IV Total 200 ml Output Urine Total 700 ml 400 ml Height (Feet): 5 Height (Inches): 11.00 Weight (Pounds): 145 General Appearance: no apparent distress EENT: normal ENT inspection Neck: supple Cardiovascular: normal rate Respiratory/Chest: decreased breath sounds Abdomen: normal bowel sounds, non tender, soft Extremities: non-tender RICKIE HERNANDEZ Nov 24, 2017 08:07
[2017-11-24 08:15] VITALS: BP 143/96
[2017-11-24] MEDS: Docusate 100mg cap ORAL SCH ×2 (09:37→17:43)
[2017-11-24] MEDS: Furosemide 40mg tab ORAL SCH (09:37)
[2017-11-24] MEDS: Heparin 5000 units/ml inj SUBQ SCH ×2 (09:39→21:22)
--- NOTE | 2017-11-24 10:00 | General Progress Note ---
Assessment/Plan Assessment/Plan #. Pneumonia. --> On doxycycline. #. Coagulopathy, likely due to underlying Coumadin use. --> Continue to closely monitor. --> INR goal between 2 and 3 --> Currently 5.9. To put Coumadin on hold for now. -->INR currently 3.9 and improving. --> To restart Coumadin once INR reaches goal levels. #. Anemia due to underlying chronic disease. -->Anemia workup has been reviewed. --> Labs: Iron 17, TIBC 273, Ferritin 121 --> Transfuse if hemoglobin is <7, trend cbc daily. --> Hgb has been >10, no blood transfusion needed today. #. Azotemia as per Nephrology consultation, likely the patient is dehydrated. #. Respiratory distress. --> Closely monitor. --> The patient's shortness of breath is likely related underlying congestion, bilateral pleural effusions. --> To be seen by Infectious Disease. --> On antibiotics. --> Improving. #. Weakness and fatigue, likely due to underlying anemia. #. Atrial Fibrillation. --> Monitor heart rate. Subjective Date patient seen: Nov 23, 2017 Constitutional: Denies: no symptoms, chills, diaphoresis, fever, malaise, weakness, other HEENT: Denies: no symptoms, eye pain, blurred vision, tearing, double vision, ear pain, ear discharge, nose pain, nose congestion, throat pain, throat swelling, mouth pain, mouth swelling, other Cardiovascular: Denies: no symptoms, chest pain, edema, irregular heart rate, lightheadedness, palpitations, syncope, other Respiratory: Denies: no symptoms, cough, orthopnea, shortness of breath, SOB with excertion, SOB at rest, sputum, stridor, wheezing, other Gastrointestinal/Abdominal: Denies: no symptoms, abdomen distended, abdominal pain, black stools, tarry stools, blood in stool, constipated, diarrhea, difficulty swallowing, nausea, poor appetite, poor fluid intake, rectal bleeding , vomiting, other Genitourinary: Denies: no symptoms, burning, discharge, frequency, flank pain, hematuria, incontinence, pain, urgency, other Hematologic/Lymphatic: Reports: anemia Allergies: Coded Allergies: No Known Allergies (Unverified , 06/20/17) Subjective Improving. On antibiotics. Resting in bed. Objective Last 24 Hour Vital Signs Date Time Temp Pulse Resp B/P (MAP) Pulse Ox O2 Delivery O2 Flow Rate FiO2 11/24/17 08:15 98.1 103 19 143/96 99 Nasal Cannula 3.0 11/24/17 05:20 68 146/67 11/24/17 04:00 95 Nasal Cannula 3.0 11/24/17 03:59 97.5 68 20 146/67 95 11/24/17 00:02 71 135/66 11/24/17 00:00 94 Nasal Cannula 3.0 11/24/17 00:00 99.1 71 20 135/66 94 11/23/17 20:00 95 Nasal Cannula 3.0 11/23/17 20:00 97.9 70 21 129/73 95 11/23/17 19:13 Nasal Cannula 3.0 32 11/23/17 19:13 97 Nasal Cannula 4.0 36 11/23/17 17:55 72 147/66 11/23/17 16:00 97.6 72 20 147/66 97 Nasal Cannula 3.0 11/23/17 11:55 72 141/62 11/23/17 11:54 97.9 72 18 141/62 97 Nasal Cannula 4.0 11/23/17 11:48 72 Intake and Output 11/23/17 11/24/17 19:00 07:00 Intake Total 100 ml 200 ml Output Total 700 ml 400 ml Balance -600 ml -200 ml Intake Oral 100 ml IV Total 200 ml Output Urine Total 700 ml 400 ml Height (Feet): 5 Height (Inches): 11.00 Weight (Pounds): 145 General Appearance: confused Respiratory/Chest: decreased breath sounds Abdomen: non tender, soft Edema: trace edema Bharath Ya Nov 24, 2017 10:00
[2017-11-24] MEDS ORDERED: Tubing IV Secondary IV ONE (10:07)
--- NOTE | 2017-11-24 10:13 | General Progress Note ---
Assessment/Plan Problem List: (1) Urinary tract infection ICD Codes: N39.0 - Urinary tract infection, site not specified SNOMED: 52700067 (2) Sepsis ICD Codes: A41.9 - Sepsis, unspecified organism SNOMED: 35821884 (3) Dyspnea ICD Codes: R06.00 - Dyspnea, unspecified SNOMED: 166180094 (4) Respiratory distress ICD Codes: R06.03 - Acute respiratory distress SNOMED: 822472529 (5) CHF (congestive heart failure) ICD Codes: I50.9 - Heart failure, unspecified SNOMED: 96090708 (6) Acute renal failure ICD Codes: N17.9 - Acute kidney failure, unspecified SNOMED: 95087211 Status: progressing Assessment/Plan dc planning resp insuff pna and sepsis uti abx per id might be able to dc in am to snf afebrile no distress Subjective ROS Limited/Unobtainable: Yes Allergies: Coded Allergies: No Known Allergies (Unverified , 06/20/17) Objective Last 24 Hour Vital Signs Date Time Temp Pulse Resp B/P (MAP) Pulse Ox O2 Delivery O2 Flow Rate FiO2 11/24/17 08:15 98.1 103 19 143/96 99 Nasal Cannula 3.0 11/24/17 05:20 68 146/67 11/24/17 04:00 95 Nasal Cannula 3.0 11/24/17 03:59 97.5 68 20 146/67 95 11/24/17 00:02 71 135/66 11/24/17 00:00 94 Nasal Cannula 3.0 11/24/17 00:00 99.1 71 20 135/66 94 11/23/17 20:00 95 Nasal Cannula 3.0 11/23/17 20:00 97.9 70 21 129/73 95 11/23/17 19:13 Nasal Cannula 3.0 32 11/23/17 19:13 97 Nasal Cannula 4.0 36 11/23/17 17:55 72 147/66 11/23/17 16:00 97.6 72 20 147/66 97 Nasal Cannula 3.0 11/23/17 11:55 72 141/62 11/23/17 11:54 97.9 72 18 141/62 97 Nasal Cannula 4.0 11/23/17 11:48 72 Intake and Output 11/23/17 11/24/17 19:00 07:00 Intake Total 100 ml 200 ml Output Total 700 ml 400 ml Balance -600 ml -200 ml Intake Oral 100 ml IV Total 200 ml Output Urine Total 700 ml 400 ml Height (Feet): 5 Height (Inches): 11.00 Weight (Pounds): 145 General Appearance: confused Respiratory/Chest: lungs clear Abdomen: soft Danitza Mustafa MD Nov 24, 2017 10:13
--- NOTE | 2017-11-24 10:54 | Nephrology Progress Note ---
Assessment/Plan Problem List: (1) Acute renal failure (2) CHF (congestive heart failure) (3) Respiratory distress Assessment status: CXR improved CHF High BUN indicative of pre renal azotemia, 3+ proteinuria- Cr 1.6 today partly dehydration- Partly GI bleed Low Iron, Stool OB+ Echo: Left ventricular ejection fraction estimated to be 60-65 %. No evidence of left ventricular hypertrophy. Pleural effusion . Mild left atrial enlargement. others: - Acute respiratory failure, hypercapnic type. - Pulmonary edema. - Non-ST elevation myocardial infarction. - Chronic obstructive pulmonary disease. - Possible pneumonia. - Prostate hypertrophy. - Atrial fibrillation, on Coumadin. - Encephalopathy, - Status post ventriculoperitoneal shunt. Plan Plan: no labs today ? LTAC or lower level care ? DC IV fluids Down on lasix IV Iron- Optimize pulmonary and cardiac status monitor renal parameters and lytes K supplement as needed per orders Subjective ROS Limited/Unobtainable: No Constitutional: Reports: malaise Objective Objective Last 24 Hour Vital Signs Date Time Temp Pulse Resp B/P (MAP) Pulse Ox O2 Delivery O2 Flow Rate FiO2 11/24/17 08:15 98.1 103 19 143/96 99 Nasal Cannula 3.0 11/24/17 05:20 68 146/67 11/24/17 04:00 95 Nasal Cannula 3.0 11/24/17 03:59 97.5 68 20 146/67 95 11/24/17 00:02 71 135/66 11/24/17 00:00 94 Nasal Cannula 3.0 11/24/17 00:00 99.1 71 20 135/66 94 11/23/17 20:00 95 Nasal Cannula 3.0 11/23/17 20:00 97.9 70 21 129/73 95 11/23/17 19:13 Nasal Cannula 3.0 32 11/23/17 19:13 97 Nasal Cannula 4.0 36 11/23/17 17:55 72 147/66 11/23/17 16:00 97.6 72 20 147/66 97 Nasal Cannula 3.0 11/23/17 11:55 72 141/62 11/23/17 11:54 97.9 72 18 141/62 97 Nasal Cannula 4.0 11/23/17 11:48 72 Intake and Output 11/23/17 11/24/17 19:00 07:00 Intake Total 100 ml 200 ml Output Total 700 ml 400 ml Balance -600 ml -200 ml Intake Oral 100 ml IV Total 200 ml Output Urine Total 700 ml 400 ml Height (Feet): 5 Height (Inches): 11.00 Weight (Pounds): 145 General Appearance: no apparent distress Cardiovascular: normal rate Respiratory/Chest: decreased breath sounds Abdomen: soft Objective no other changes MARCELINO STEELE Nov 24, 2017 10:54
--- NOTE | 2017-11-24 10:59 | Infectious Diseases Prog Note ---
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/ Mycoplasma P: Observe off antibiotic follow up urine Legionella antigen Subjective ROS Limited/Unobtainable: Yes Respiratory: Reports: productive cough Allergies: Coded Allergies: No Known Allergies (Unverified , 06/20/17) Objective Vital Signs Last 24 Hour Vital Signs Date Time Temp Pulse Resp B/P (MAP) Pulse Ox O2 Delivery O2 Flow Rate FiO2 11/24/17 08:15 98.1 103 19 143/96 99 Nasal Cannula 3.0 11/24/17 05:20 68 146/67 11/24/17 04:00 95 Nasal Cannula 3.0 11/24/17 03:59 97.5 68 20 146/67 95 11/24/17 00:02 71 135/66 11/24/17 00:00 94 Nasal Cannula 3.0 11/24/17 00:00 99.1 71 20 135/66 94 11/23/17 20:00 95 Nasal Cannula 3.0 11/23/17 20:00 97.9 70 21 129/73 95 11/23/17 19:13 Nasal Cannula 3.0 32 11/23/17 19:13 97 Nasal Cannula 4.0 36 11/23/17 17:55 72 147/66 11/23/17 16:00 97.6 72 20 147/66 97 Nasal Cannula 3.0 11/23/17 11:55 72 141/62 11/23/17 11:54 97.9 72 18 141/62 97 Nasal Cannula 4.0 11/23/17 11:48 72 Height (Feet): 5 Height (Inches): 11.00 Weight (Pounds): 145 General Appearance: no acute distress HEENT: mucous membranes moist Respiratory/Chest: lungs clear Cardiovascular: normal rate Abdomen: soft, non tender Extremities: no edema Neurologic/Psychiatric: other - sleeping Current Medications Medications (Trade) Dose Ordered Sig/Raine Route PRN Reason Start Time Stop Time Status Last Admin Dose Admin Acetaminophen (Tylenol) 650 mg Q6H PRN NG for pain 11/23/17 18:00 12/23/17 17:59 Diltiazem HCl (Cardizem) 60 mg EVERY 6 HOURS ORAL 11/23/17 18:00 12/15/17 17:59 11/24/17 05:20 Docusate Sodium (Colace) 100 mg TWICE A DAY ORAL 11/23/17 18:00 12/23/17 17:59 11/24/17 09:37 Furosemide (Lasix) 40 mg DAILY ORAL 11/24/17 09:00 12/24/17 08:59 11/24/17 09:37 Heparin Sodium (Porcine) (Heparin 5000 units/ml) 5,000 units EVERY 12 HOURS SUBQ 11/23/17 21:00 12/23/17 20:59 11/24/17 09:39 Iron Sucrose 100 mg/Sodium Chloride 55 ml @ 200 mls/hr BEDTIME IV 11/23/17 21:00 11/25/17 21:01 11/23/17 20:33 Polyethylene Glycol (Miralax) 17 gm BEDTIME ORAL 11/23/17 21:00 12/23/17 20:59 11/23/17 20:31 Potassium Chloride (K-Dur) 40 meq DAILY ORAL 11/24/17 09:00 12/18/17 08:59 11/24/17 09:37 TOLU ERICKSON Nov 24, 2017 10:59
[2017-11-24 12:09] VITALS: BP 140/74
[2017-11-24 16:00] VITALS: BP 138/71
--- NOTE | 2017-11-24 19:45 | Pulmonology Progress Note ---
Assessment/Plan Assessment/Plan 1. Acute respiratory failure, hypercapnic 2. Pulmonary edema. 3. Non-ST elevation myocardial infarction. 4. Chronic obstructive pulmonary disease. 5. Possible pneumonia. 6. Prostate hypertrophy. 7. Atrial fibrillation, on Coumadin. 8. Encephalopathy, 9. Status post ventriculoperitoneal shunt 10 dysphagia RECOMMENDATIONS: bipap qhs and prn distress nebs abx titrate o2 aspiration precautions watch io po as recommended cxr saturday dvt prn dc planning Subjective Constitutional: Reports: no symptoms HEENT: Repors: no symptoms Respiratory: Reports: no symptoms Cardiovascular: Reports: no symptoms Gastrointestinal/Abdominal: Reports: no symptoms Allergies: Coded Allergies: No Known Allergies (Unverified , 06/20/17) Subjective continues to improve using bipap at night tolerating modified diet not getting oob no cp nv or bleeding not getting oob remains on o2 no distress Objective Last 24 Hour Vital Signs Date Time Temp Pulse Resp B/P (MAP) Pulse Ox O2 Delivery O2 Flow Rate FiO2 11/24/17 17:43 68 149/63 11/24/17 16:00 97.5 76 20 138/71 99 11/24/17 13:26 Nasal Cannula 3.0 32 11/24/17 13:26 96 Nasal Cannula 3.0 32 11/24/17 12:14 74 140/74 11/24/17 12:09 97.9 74 22 140/74 97 Nasal Cannula 2.0 11/24/17 08:15 98.1 103 19 143/96 99 Nasal Cannula 3.0 11/24/17 05:20 68 146/67 11/24/17 04:00 95 Nasal Cannula 3.0 11/24/17 03:59 97.5 68 20 146/67 95 11/24/17 00:02 71 135/66 11/24/17 00:00 94 Nasal Cannula 3.0 11/24/17 00:00 99.1 71 20 135/66 94 11/23/17 20:00 95 Nasal Cannula 3.0 11/23/17 20:00 97.9 70 21 129/73 95 Intake and Output 11/23/17 11/24/17 19:00 07:00 Intake Total 100 ml 200 ml Output Total 700 ml 400 ml Balance -600 ml -200 ml Intake Oral 100 ml IV Total 200 ml Output Urine Total 700 ml 400 ml General Appearance: cachetic Respiratory/Chest: normal breath sounds, rhonchi Cardiovascular: normal rate, regular rhythm Abdomen: soft, non tender, no organomegaly Extremities: no cyanosis Skin: no rash Neurologic/Psychiatric: alert, oriented x 3 Current Medications Medications (Trade) Dose Ordered Sig/Raine Route PRN Reason Start Time Stop Time Status Last Admin Dose Admin Acetaminophen (Tylenol) 650 mg Q6H PRN NG for pain 11/23/17 18:00 12/23/17 17:59 Diltiazem HCl (Cardizem) 60 mg EVERY 6 HOURS ORAL 11/23/17 18:00 12/15/17 17:59 11/24/17 17:43 Docusate Sodium (Colace) 100 mg TWICE A DAY ORAL 11/23/17 18:00 12/23/17 17:59 11/24/17 17:43 Furosemide (Lasix) 40 mg DAILY ORAL 11/24/17 09:00 12/24/17 08:59 11/24/17 09:37 Heparin Sodium (Porcine) (Heparin 5000 units/ml) 5,000 units EVERY 12 HOURS SUBQ 11/23/17 21:00 12/23/17 20:59 11/24/17 09:39 Iron Sucrose 100 mg/Sodium Chloride 55 ml @ 200 mls/hr BEDTIME IV 11/23/17 21:00 11/25/17 21:01 11/23/17 20:33 Polyethylene Glycol (Miralax) 17 gm BEDTIME ORAL 11/23/17 21:00 12/23/17 20:59 11/23/17 20:31 Potassium Chloride (K-Dur) 40 meq DAILY ORAL 11/24/17 09:00 12/18/17 08:59 11/24/17 09:37 CLARISSE MURILLO DO Nov 24, 2017 19:45
[2017-11-24 20:00] VITALS: BP 129/53
[2017-11-24] MEDS: Miralax 17gm pkt ORAL SCH (21:19)
--- NOTE | 2017-11-24 23:49 | General Progress Note ---
Assessment/Plan Assessment/Plan #. Pneumonia. --> On doxycycline. --> Improving. #. Coagulopathy, likely due to underlying Coumadin use. --> Continue to closely monitor. --> INR goal between 2 and 3 --> Currently 5.9. To put Coumadin on hold for now. -->INR currently 3.9 and improving. --> To restart Coumadin once INR reaches goal levels. #. Anemia due to underlying chronic disease. -->Anemia workup has been reviewed. --> Labs: Iron 17, TIBC 273, Ferritin 121 --> Transfuse if hemoglobin is <7, trend cbc daily. --> Hgb has been >10, no blood transfusion needed today. #. Azotemia as per Nephrology consultation, likely the patient is dehydrated. #. Respiratory distress. --> Closely monitor. --> The patient's shortness of breath is likely related underlying congestion, bilateral pleural effusions. --> To be seen by Infectious Disease. --> On antibiotics. --> Improving. #. Weakness and fatigue, likely due to underlying anemia. #. Atrial Fibrillation. --> Monitor heart rate. Subjective Date patient seen: Nov 24, 2017 Constitutional: Denies: no symptoms, chills, diaphoresis, fever, malaise, weakness, other HEENT: Denies: no symptoms, eye pain, blurred vision, tearing, double vision, ear pain, ear discharge, nose pain, nose congestion, throat pain, throat swelling, mouth pain, mouth swelling, other Cardiovascular: Denies: no symptoms, chest pain, edema, irregular heart rate, lightheadedness, palpitations, syncope, other Respiratory: Denies: no symptoms, cough, orthopnea, shortness of breath, SOB with excertion, SOB at rest, sputum, stridor, wheezing, other Gastrointestinal/Abdominal: Denies: no symptoms, abdomen distended, abdominal pain, black stools, tarry stools, blood in stool, constipated, diarrhea, difficulty swallowing, nausea, poor appetite, poor fluid intake, rectal bleeding , vomiting, other Genitourinary: Denies: no symptoms, burning, discharge, frequency, flank pain, hematuria, incontinence, pain, urgency, other Neurologic/Psychiatric: Denies: no symptoms, anxiety, depressed, emotional problems, headache, numbness, paresthesia, pre-existing deficit, seizure, tingling, tremors, weakness, other Allergies: Coded Allergies: No Known Allergies (Unverified , 06/20/17) Subjective No major events. Afebrile. On abx. Objective Last 24 Hour Vital Signs Date Time Temp Pulse Resp B/P (MAP) Pulse Ox O2 Delivery O2 Flow Rate FiO2 11/24/17 20:00 97.2 62 18 129/53 98 11/24/17 17:43 68 149/63 11/24/17 16:00 97.5 76 20 138/71 99 11/24/17 13:26 Nasal Cannula 3.0 32 11/24/17 13:26 96 Nasal Cannula 3.0 32 11/24/17 12:14 74 140/74 11/24/17 12:09 97.9 74 22 140/74 97 Nasal Cannula 2.0 11/24/17 08:15 98.1 103 19 143/96 99 Nasal Cannula 3.0 11/24/17 05:20 68 146/67 11/24/17 04:00 95 Nasal Cannula 3.0 11/24/17 03:59 97.5 68 20 146/67 95 11/24/17 00:02 71 135/66 11/24/17 00:00 94 Nasal Cannula 3.0 11/24/17 00:00 99.1 71 20 135/66 94 Intake and Output 11/23/17 11/24/17 19:00 07:00 Intake Total 100 ml 200 ml Output Total 700 ml 400 ml Balance -600 ml -200 ml Intake Oral 100 ml IV Total 200 ml Output Urine Total 700 ml 400 ml Height (Feet): 5 Height (Inches): 11.00 Weight (Pounds): 145 General Appearance: lethargic, confused Cardiovascular: normal rate, regular rhythm Respiratory/Chest: decreased breath sounds Abdomen: non tender, soft Bharath Ya Nov 24, 2017 23:49
[2017-11-25] VITALS: BP 134/66
[2017-11-25] MEDS: dilTIAZem HCl 60mg tab ORAL SCH ×3 (00:29→12:21)
[2017-11-25 04:00] VITALS: BP 147/80
[2017-11-25 08:00] VITALS: BP 109/45
[2017-11-25] MEDS: Furosemide 40mg tab ORAL SCH (08:31)
[2017-11-25] MEDS: Docusate 100mg cap ORAL SCH (08:31)
[2017-11-25] MEDS: Heparin 5000 units/ml inj SUBQ SCH (08:32)
[2017-11-25] MEDS ORDERED: MIRTAZAPINE15 MG ORAL (11:20)
--- NOTE | 2017-11-25 11:25 | Infectious Diseases Prog Note ---
Assessment/Plan Assessment/Plan A: Pneumonia treated Hypercapnic respiratory failure Atrial fibrillation Diastolic CHF HPN s/p CARTON LINER shunt Acute renal failure improving Positive antibody to Legionella/ Mycoplasma P: Observe off antibiotic follow up urine Legionella antigen Subjective ROS Limited/Unobtainable: Yes Constitutional: Reports: anorexia Allergies: Coded Allergies: No Known Allergies (Unverified , 06/20/17) Objective Vital Signs Last 24 Hour Vital Signs Date Time Temp Pulse Resp B/P (MAP) Pulse Ox O2 Delivery O2 Flow Rate FiO2 11/25/17 08:00 98.6 71 17 109/45 98 11/25/17 06:04 71 147/80 11/25/17 04:00 97.9 71 20 147/80 93 11/25/17 00:29 72 134/66 11/25/17 00:00 99 Nasal Cannula 3.0 11/25/17 00:00 97.0 72 18 134/66 99 11/24/17 20:00 98 Nasal Cannula 3.0 11/24/17 20:00 97.2 62 18 129/53 98 11/24/17 17:43 68 149/63 11/24/17 16:00 97.5 76 20 138/71 99 11/24/17 13:26 Nasal Cannula 3.0 32 11/24/17 13:26 96 Nasal Cannula 3.0 32 11/24/17 12:14 74 140/74 11/24/17 12:09 97.9 74 22 140/74 97 Nasal Cannula 2.0 Height (Feet): 5 Height (Inches): 11.00 Weight (Pounds): 145 General Appearance: no acute distress HEENT: mucous membranes moist Respiratory/Chest: lungs clear Cardiovascular: normal rate Abdomen: soft, non tender Extremities: no edema Neurologic/Psychiatric: alert, responsive Current Medications Medications (Trade) Dose Ordered Sig/Raine Route PRN Reason Start Time Stop Time Status Last Admin Dose Admin Acetaminophen (Tylenol) 650 mg Q6H PRN NG for pain 11/23/17 18:00 12/23/17 17:59 Diltiazem HCl (Cardizem) 60 mg EVERY 6 HOURS ORAL 11/23/17 18:00 12/15/17 17:59 11/25/17 06:04 Docusate Sodium (Colace) 100 mg TWICE A DAY ORAL 11/23/17 18:00 12/23/17 17:59 11/25/17 08:31 Furosemide (Lasix) 40 mg DAILY ORAL 11/24/17 09:00 12/24/17 08:59 11/25/17 08:31 Heparin Sodium (Porcine) (Heparin 5000 units/ml) 5,000 units EVERY 12 HOURS SUBQ 11/23/17 21:00 12/23/17 20:59 11/25/17 08:32 Iron Sucrose 100 mg/Sodium Chloride 55 ml @ 200 mls/hr BEDTIME IV 11/23/17 21:00 11/25/17 21:01 11/24/17 21:20 Polyethylene Glycol (Miralax) 17 gm BEDTIME ORAL 11/23/17 21:00 12/23/17 20:59 11/24/17 21:19 Potassium Chloride (K-Dur) 40 meq DAILY ORAL 11/24/17 09:00 12/18/17 08:59 11/25/17 08:31 TOLU ERICKSON Nov 25, 2017 11:25
--- NOTE | 2017-11-25 12:05 | GI Progress Note ---
Assessment/Plan Problems: (1) Dysphagia ICD Codes: R13.10 - Dysphagia, unspecified SNOMED: 17606824, 302709939 (2) Encounter for PEG (percutaneous endoscopic gastrostomy) ICD Codes: Z43.1 - Encounter for attention to gastrostomy SNOMED: 053438092, [id number] Status: stable Status Narrative Discussed with Dr. Vasquez. Assessment/Plan Assessment - R/o Dysphagia - abd distention - Respiratory failure - Atrial fib - OBS - Poor px - ST evaluation >> CCHO(MEDIUM) LIQUIFIED PUREED Recommendations okay for DC per GI standpoint Hold PEG placement for now, patient tolerating diet. prn transfusions constipation --> laxative PT evaluation fu labs Subjective Subjective limited Objective Last 24 Hour Vital Signs Date Time Temp Pulse Resp B/P (MAP) Pulse Ox O2 Delivery O2 Flow Rate FiO2 11/25/17 08:00 98.6 71 17 109/45 98 11/25/17 06:04 71 147/80 11/25/17 04:00 97.9 71 20 147/80 93 11/25/17 00:29 72 134/66 11/25/17 00:00 99 Nasal Cannula 3.0 11/25/17 00:00 97.0 72 18 134/66 99 11/24/17 20:00 98 Nasal Cannula 3.0 11/24/17 20:00 97.2 62 18 129/53 98 11/24/17 17:43 68 149/63 11/24/17 16:00 97.5 76 20 138/71 99 11/24/17 13:26 Nasal Cannula 3.0 32 11/24/17 13:26 96 Nasal Cannula 3.0 32 11/24/17 12:14 74 140/74 11/24/17 12:09 97.9 74 22 140/74 97 Nasal Cannula 2.0 Intake and Output 11/24/17 11/25/17 19:00 07:00 Intake Total 480 ml 220 ml Output Total 600 ml 400 ml Balance -120 ml -180 ml Intake Oral 480 ml IV Total 220 ml Output Urine Total 600 ml 400 ml Height (Feet): 5 Height (Inches): 11.00 Weight (Pounds): 145 General Appearance: WD/WN, no apparent distress, alert Cardiovascular: normal rate Respiratory/Chest: normal breath sounds, no respiratory distress Abdominal Exam: normal bowel sounds, non tender, soft Extremities: normal range of motion, non-tender Janna Alonso N.P. Nov 25, 2017 12:05
[2017-11-25 12:21] VITALS: BP 153/79
--- NOTE | 2017-11-25 13:29 | Nephrology Progress Note ---
Assessment/Plan Problem List: (1) Acute renal failure (2) CHF (congestive heart failure) (3) Respiratory distress Assessment status: CXR improved CHF High BUN indicative of pre renal azotemia, 3+ proteinuria- Cr 1.6 today partly dehydration- Partly GI bleed Low Iron, Stool OB+ Echo: Left ventricular ejection fraction estimated to be 60-65 %. No evidence of left ventricular hypertrophy. Pleural effusion . Mild left atrial enlargement. others: - Acute respiratory failure, hypercapnic type. - Pulmonary edema. - Non-ST elevation myocardial infarction. - Chronic obstructive pulmonary disease. - Possible pneumonia. - Prostate hypertrophy. - Atrial fibrillation, on Coumadin. - Encephalopathy, - Status post ventriculoperitoneal shunt. Plan Plan: no labs today ? LTAC or lower level care ? DC IV fluids Down on lasix IV Iron- Optimize pulmonary and cardiac status monitor renal parameters and lytes K supplement as needed per orders Subjective ROS Limited/Unobtainable: Yes Objective Objective Last 24 Hour Vital Signs Date Time Temp Pulse Resp B/P (MAP) Pulse Ox O2 Delivery O2 Flow Rate FiO2 11/25/17 12:21 75 153/79 11/25/17 08:00 98.6 71 17 109/45 98 11/25/17 06:04 71 147/80 11/25/17 04:00 97.9 71 20 147/80 93 11/25/17 00:29 72 134/66 11/25/17 00:00 99 Nasal Cannula 3.0 11/25/17 00:00 97.0 72 18 134/66 99 11/24/17 20:00 98 Nasal Cannula 3.0 11/24/17 20:00 97.2 62 18 129/53 98 11/24/17 17:43 68 149/63 11/24/17 16:00 97.5 76 20 138/71 99 Intake and Output 11/24/17 11/25/17 19:00 07:00 Intake Total 480 ml 220 ml Output Total 600 ml 400 ml Balance -120 ml -180 ml Intake Oral 480 ml IV Total 220 ml Output Urine Total 600 ml 400 ml Height (Feet): 5 Height (Inches): 11.00 Weight (Pounds): 145 General Appearance: no apparent distress Cardiovascular: normal rate Respiratory/Chest: decreased breath sounds Abdomen: soft Objective no other changes MARCELINO STEELE Nov 25, 2017 13:29
--- NOTE | 2017-11-25 13:46 | Pulmonology Progress Note ---
Assessment/Plan Assessment/Plan 1. Acute respiratory failure, hypercapnic type. 2. Pulmonary edema. 3. Non-ST elevation myocardial infarction. 4. Chronic obstructive pulmonary disease. 5. Possible pneumonia. 6. Prostate hypertrophy. 7. Atrial fibrillation, on Coumadin. 8. Encephalopathy, 9. Status post ventriculoperitoneal shunt. nasal O2 tolerating diet, poor intake dc plan Subjective Interval Events: None Constitutional: Reports: no symptoms HEENT: Repors: no symptoms Respiratory: Reports: no symptoms Cardiovascular: Reports: no symptoms Allergies: Coded Allergies: No Known Allergies (Unverified , 06/20/17) Objective Last 24 Hour Vital Signs Date Time Temp Pulse Resp B/P (MAP) Pulse Ox O2 Delivery O2 Flow Rate FiO2 11/25/17 12:21 75 153/79 11/25/17 08:00 98.6 71 17 109/45 98 11/25/17 06:04 71 147/80 11/25/17 04:00 97.9 71 20 147/80 93 11/25/17 00:29 72 134/66 11/25/17 00:00 99 Nasal Cannula 3.0 11/25/17 00:00 97.0 72 18 134/66 99 11/24/17 20:00 98 Nasal Cannula 3.0 11/24/17 20:00 97.2 62 18 129/53 98 11/24/17 17:43 68 149/63 11/24/17 16:00 97.5 76 20 138/71 99 Intake and Output 11/24/17 11/25/17 19:00 07:00 Intake Total 480 ml 220 ml Output Total 600 ml 400 ml Balance -120 ml -180 ml Intake Oral 480 ml IV Total 220 ml Output Urine Total 600 ml 400 ml General Appearance: no acute distress HEENT: normocephalic Respiratory/Chest: chest wall non-tender, lungs clear Cardiovascular: normal peripheral pulses Current Medications Medications (Trade) Dose Ordered Sig/Raine Route PRN Reason Start Time Stop Time Status Last Admin Dose Admin Acetaminophen (Tylenol) 650 mg Q6H PRN NG for pain 11/23/17 18:00 12/23/17 17:59 Diltiazem HCl (Cardizem) 60 mg EVERY 6 HOURS ORAL 11/23/17 18:00 12/15/17 17:59 11/25/17 12:21 Docusate Sodium (Colace) 100 mg TWICE A DAY ORAL 11/23/17 18:00 12/23/17 17:59 11/25/17 08:31 Furosemide (Lasix) 40 mg DAILY ORAL 11/24/17 09:00 12/24/17 08:59 11/25/17 08:31 Heparin Sodium (Porcine) (Heparin 5000 units/ml) 5,000 units EVERY 12 HOURS SUBQ 11/23/17 21:00 12/23/17 20:59 11/25/17 08:32 Iron Sucrose 100 mg/Sodium Chloride 55 ml @ 200 mls/hr BEDTIME IV 11/23/17 21:00 11/25/17 21:01 11/24/17 21:20 Polyethylene Glycol (Miralax) 17 gm BEDTIME ORAL 11/23/17 21:00 12/23/17 20:59 11/24/17 21:19 Potassium Chloride (K-Dur) 40 meq DAILY ORAL 11/24/17 09:00 12/18/17 08:59 11/25/17 08:31 Darnell Hawley MD Nov 25, 2017 13:46
--- NOTE | 2017-11-25 13:48 | Cardiac Electrophysiology PN ---
Assessment/Plan Assessment/Plan 1. CHF. BNP very elevated. On Lasix 40 po daily 2. Elevated troponin. Second troponin negative. No chest pain. Echocardiogram EF 65%. Avoid beta-nusrat. 3. Atrial flutter. On Cardizem 60 q 6 hr and Coumadin per pharmacy. Flutter ablation as out patient. INR 3.9 4. Hypertension. On Cardizem. 5. COPD improved.Now off BiPAP 6. Dysphagia, Passed swallow eval DW RN Subjective Subjective Alert in NAD. No chest pain or SOB. No events Objective Last 24 Hour Vital Signs Date Time Temp Pulse Resp B/P (MAP) Pulse Ox O2 Delivery O2 Flow Rate FiO2 11/25/17 12:21 75 153/79 11/25/17 08:00 98.6 71 17 109/45 98 11/25/17 06:04 71 147/80 11/25/17 04:00 97.9 71 20 147/80 93 11/25/17 00:29 72 134/66 11/25/17 00:00 99 Nasal Cannula 3.0 11/25/17 00:00 97.0 72 18 134/66 99 11/24/17 20:00 98 Nasal Cannula 3.0 11/24/17 20:00 97.2 62 18 129/53 98 11/24/17 17:43 68 149/63 11/24/17 16:00 97.5 76 20 138/71 99 Intake and Output 11/24/17 11/25/17 19:00 07:00 Intake Total 480 ml 220 ml Output Total 600 ml 400 ml Balance -120 ml -180 ml Intake Oral 480 ml IV Total 220 ml Output Urine Total 600 ml 400 ml Objective HEAD AND NECK: Positive JVD. LUNGS: Decreased breath sounds. CARDIOVASCULAR: Irregularly irregular S1 and S2 with no gallop or murmur. ABDOMEN: Soft. EXTREMITIES: No pitting edema. ADRIENNE BRAGA Nov 25, 2017 13:48
--- NOTE | 2017-11-25 13:56 | Nephrology Progress Note ---
Assessment/Plan Problem List: (1) Acute renal failure (2) CHF (congestive heart failure) (3) Respiratory distress Assessment status: CXR improved CHF High BUN indicative of pre renal azotemia, 3+ proteinuria- Cr 1.6 today partly dehydration- Partly GI bleed Low Iron, Stool OB+ Echo: Left ventricular ejection fraction estimated to be 60-65 %. No evidence of left ventricular hypertrophy. Pleural effusion . Mild left atrial enlargement. others: - Acute respiratory failure, hypercapnic type. - Pulmonary edema. - Non-ST elevation myocardial infarction. - Chronic obstructive pulmonary disease. - Possible pneumonia. - Prostate hypertrophy. - Atrial fibrillation, on Coumadin. - Encephalopathy, - Status post ventriculoperitoneal shunt. Plan Plan: Dc [place] ? LTAC or lower level care ? DC IV fluids Down on lasix IV Iron- Optimize pulmonary and cardiac status monitor renal parameters and lytes K supplement as needed per orders Subjective ROS Limited/Unobtainable: No Objective Objective Last 24 Hour Vital Signs Date Time Temp Pulse Resp B/P (MAP) Pulse Ox O2 Delivery O2 Flow Rate FiO2 11/25/17 12:21 75 153/79 11/25/17 08:00 98.6 71 17 109/45 98 11/25/17 06:04 71 147/80 11/25/17 04:00 97.9 71 20 147/80 93 11/25/17 00:29 72 134/66 11/25/17 00:00 99 Nasal Cannula 3.0 11/25/17 00:00 97.0 72 18 134/66 99 11/24/17 20:00 98 Nasal Cannula 3.0 11/24/17 20:00 97.2 62 18 129/53 98 11/24/17 17:43 68 149/63 11/24/17 16:00 97.5 76 20 138/71 99 Intake and Output 11/24/17 11/25/17 19:00 07:00 Intake Total 480 ml 220 ml Output Total 600 ml 400 ml Balance -120 ml -180 ml Intake Oral 480 ml IV Total 220 ml Output Urine Total 600 ml 400 ml Height (Feet): 5 Height (Inches): 11.00 Weight (Pounds): 145 General Appearance: no apparent distress Objective no other changes MARCELINO STEELE Nov 25, 2017 13:56
--- NOTE | 2017-11-25 19:09 | Consultation ---
History of Present Illness General Date patient seen: Nov 23, 2017 Chief Complaint: Dyspnea/Respdistress Present Illness HPI 81-year-old white man with multiple medical problems including dementia, who was brought into the hospital due to hypoxia and shortness of breath. The pt pw depressed mood worthlessness helpness anxious and agitated the pt has cognitive impairment Allergies: Coded Allergies: No Known Allergies (Unverified , 06/20/17) Medication History Scheduled Amlodipine Besylate* (Amlodipine Besylate*), 5 MG ORAL DAILY, (Reported) Clonidine Hcl* (Catapres*), 0.1 MG ORAL EVERY 12 HOURS, (Reported) Ergocalciferol (Vitamin D2)* (Vitamin D*), 50,000 UNIT ORAL ONCE A WEEK, ( Reported) Famotidine (Famotidine), 20 MG ORAL DAILY, (Reported) Finasteride* (Proscar*), 5 MG ORAL DAILY, (Reported) Ipratropium/Albuterol Sulfate (DuoNeb 0.5-3(2.5)mg/3ml), 3 ML HHN EVERY 6 HOURS, (Reported) Memantine Hcl* (Namenda*), 5 MG ORAL DAILY, (Reported) Mirtazapine* (Remeron*), 15 MG ORAL BEDTIME, (Reported) Warfarin Sod* (Warfarin Sod*), 1.5 MG ORAL DAILY, (Reported) Scheduled PRN Acetaminophen* (Acetaminophen 325MG Tablet*), 650 MG ORAL Q6H PRN for For Pain, (Reported) Patient History Limited by: medical condition History Provided By: Patient, Significant Other, PMD Healthcare decision maker Resuscitation status Full Code Advanced Directive on File No Past Medical/Surgical History Past Medical/Surgical History: (1) Dyspnea (2) Urinary tract infection (3) Sepsis (4) Respiratory distress (5) Acute renal failure (6) Dysphagia (7) Encounter for PEG (percutaneous endoscopic gastrostomy) Review of Systems Psychiatric: Reports: see HPI, prior hx, anxiety, depressed feelings Physical Exam General Appearance: no apparent distress, alert, confused, agitated Last 24 Hour Vital Signs Date Time Temp Pulse Resp B/P (MAP) Pulse Ox O2 Delivery O2 Flow Rate FiO2 11/25/17 12:21 75 153/79 11/25/17 08:00 98.6 71 17 109/45 98 11/25/17 06:04 71 147/80 11/25/17 04:00 97.9 71 20 147/80 93 11/25/17 00:29 72 134/66 11/25/17 00:00 99 Nasal Cannula 3.0 11/25/17 00:00 97.0 72 18 134/66 99 11/24/17 20:00 98 Nasal Cannula 3.0 11/24/17 20:00 97.2 62 18 129/53 98 Intake and Output 11/24/17 11/25/17 19:00 07:00 Intake Total 480 ml 220 ml Output Total 600 ml 400 ml Balance -120 ml -180 ml Intake Oral 480 ml IV Total 220 ml Output Urine Total 600 ml 400 ml Height (Feet): 5 Height (Inches): 11.00 Weight (Pounds): 145 Assessment/Plan Status: stable, progressing Assessment/Plan mdd cognitive impairment remeron 15mg as pt has low appetite Leo Garcia M.D. Nov 25, 2017 19:09
--- NOTE | 2017-11-25 19:11 | General Progress Note ---
Assessment/Plan Assessment/Plan Assessment/Plan mdd cognitive impairment remeron 15mg as pt has low appetite Subjective Date patient seen: Nov 24, 2017 Neurologic/Psychiatric: Reports: anxiety, depressed, emotional problems Allergies: Coded Allergies: No Known Allergies (Unverified , 06/20/17) Objective Last 24 Hour Vital Signs Date Time Temp Pulse Resp B/P (MAP) Pulse Ox O2 Delivery O2 Flow Rate FiO2 11/25/17 12:21 75 153/79 11/25/17 08:00 98.6 71 17 109/45 98 11/25/17 06:04 71 147/80 11/25/17 04:00 97.9 71 20 147/80 93 11/25/17 00:29 72 134/66 11/25/17 00:00 99 Nasal Cannula 3.0 11/25/17 00:00 97.0 72 18 134/66 99 11/24/17 20:00 98 Nasal Cannula 3.0 11/24/17 20:00 97.2 62 18 129/53 98 Intake and Output 11/24/17 11/25/17 19:00 07:00 Intake Total 480 ml 220 ml Output Total 600 ml 400 ml Balance -120 ml -180 ml Intake Oral 480 ml IV Total 220 ml Output Urine Total 600 ml 400 ml Height (Feet): 5 Height (Inches): 11.00 Weight (Pounds): 145 General Appearance: no apparent distress, alert, confused, agitated Neurologic: disoriented, depressed affect Leo Garcia M.D. Nov 25, 2017 19:11
--- NOTE | 2017-11-25 19:12 | General Progress Note ---
Assessment/Plan Assessment/Plan Assessment/Plan mdd cognitive impairment remeron 15mg as pt has low appetite Subjective Date patient seen: Nov 25, 2017 Neurologic/Psychiatric: Reports: anxiety, depressed, emotional problems Allergies: Coded Allergies: No Known Allergies (Unverified , 06/20/17) Objective Last 24 Hour Vital Signs Date Time Temp Pulse Resp B/P (MAP) Pulse Ox O2 Delivery O2 Flow Rate FiO2 11/25/17 12:21 75 153/79 11/25/17 08:00 98.6 71 17 109/45 98 11/25/17 06:04 71 147/80 11/25/17 04:00 97.9 71 20 147/80 93 11/25/17 00:29 72 134/66 11/25/17 00:00 99 Nasal Cannula 3.0 11/25/17 00:00 97.0 72 18 134/66 99 11/24/17 20:00 98 Nasal Cannula 3.0 11/24/17 20:00 97.2 62 18 129/53 98 Intake and Output 11/24/17 11/25/17 19:00 07:00 Intake Total 480 ml 220 ml Output Total 600 ml 400 ml Balance -120 ml -180 ml Intake Oral 480 ml IV Total 220 ml Output Urine Total 600 ml 400 ml Height (Feet): 5 Height (Inches): 11.00 Weight (Pounds): 145 General Appearance: no apparent distress, alert Neurologic: depressed affect Leo Garcia M.D. Nov 25, 2017 19:12
--- NOTE | 2017-11-26 09:18 | General Progress Note ---
Assessment/Plan Assessment/Plan #. Coagulopathy, likely due to underlying Coumadin use. --> Continue to closely monitor. --> INR goal between 2 and 3 --> Okay to begin coumadin again. #. Anemia due to underlying chronic disease. -->Anemia workup has been reviewed. --> Labs: Iron 17, TIBC 273, Ferritin 121 --> Transfuse if hemoglobin is <7, trend cbc daily. --> Hgb has been >10, no blood transfusion needed today. #. Pneumonia. --> On doxycycline antibiotic. --> Improving. #. Azotemia as per Nephrology consultation, likely the patient is dehydrated. #. Respiratory distress. --> Closely monitor. --> The patient's shortness of breath is likely related underlying congestion, bilateral pleural effusions. --> To be seen by Infectious Disease. --> On antibiotics. --> Improving. #. Weakness and fatigue, likely due to underlying anemia. #. Atrial Fibrillation. --> Monitor heart rate. Subjective Date patient seen: Nov 25, 2017 Constitutional: Denies: no symptoms, chills, diaphoresis, fever, malaise, weakness, other HEENT: Denies: no symptoms, eye pain, blurred vision, tearing, double vision, ear pain, ear discharge, nose pain, nose congestion, throat pain, throat swelling, mouth pain, mouth swelling, other Cardiovascular: Denies: no symptoms, chest pain, edema, irregular heart rate, lightheadedness, palpitations, syncope, other Respiratory: Denies: no symptoms, cough, orthopnea, shortness of breath, SOB with excertion, SOB at rest, sputum, stridor, wheezing, other Gastrointestinal/Abdominal: Denies: no symptoms, abdomen distended, abdominal pain, black stools, tarry stools, blood in stool, constipated, diarrhea, difficulty swallowing, nausea, poor appetite, poor fluid intake, rectal bleeding , vomiting, other Genitourinary: Denies: no symptoms, burning, discharge, frequency, flank pain, hematuria, incontinence, pain, urgency, other Hematologic/Lymphatic: Reports: anemia Allergies: Coded Allergies: No Known Allergies (Unverified , 06/20/17) Subjective No active bleeding. No fever or chills. Pending DC Objective Last 24 Hour Vital Signs Date Time Temp Pulse Resp B/P (MAP) Pulse Ox O2 Delivery O2 Flow Rate FiO2 11/25/17 12:21 75 153/79 Height (Feet): 5 Height (Inches): 11.00 Weight (Pounds): 145 General Appearance: no apparent distress Respiratory/Chest: decreased breath sounds Abdomen: non tender, soft Edema: trace edema Bharath Ya Nov 26, 2017 09:18
--- NOTE | 2017-11-28 09:56 | Discharge Summary ---
Discharge Summary Hospital Course Date of Admission Nov 15, 2017 at 08:16 Date of Discharge Nov 25, 2017 at 14:25 Admitting Diagnosis Dyspnea HPI Giacomo Henley is a 81 year old male who was admitted on Nov 15, 2017 at 08:16 for Dyspnea Hospital Course dc summary #[id number] Discharge Medications Continued Medications: Acetaminophen* (Acetaminophen 325MG Tablet*) 325 Mg Tablet 650 MG ORAL Q6H PRN for For Pain, TAB Amlodipine Besylate* (Amlodipine Besylate*) 5 Mg Tablet 5 MG ORAL DAILY, TAB Clonidine Hcl* (Catapres*) 0.1 Mg Tablet 0.1 MG ORAL EVERY 12 HOURS, #90 TAB 0 Refills Ergocalciferol (Vitamin D2)* (Vitamin D*) 50,000 Unit Capsule 36129 UNIT ORAL ONCE A WEEK, CAP Famotidine (Famotidine) 20 Mg Tablet 20 MG ORAL DAILY, #30 TAB 0 Refills Finasteride* (Proscar*) 5 Mg Tablet 5 MG ORAL DAILY, #30 TAB 0 Refills Ipratropium/Albuterol Sulfate (DuoNeb 0.5-3(2.5)mg/3ml) 3 Ml Ampul.neb 3 ML HHN EVERY 6 HOURS, EA Memantine Hcl* (Namenda*) 5 Mg Tablet 5 MG ORAL DAILY, TAB Mirtazapine* (Remeron*) 15 Mg Tablet 15 MG ORAL BEDTIME, TAB Warfarin Sod* (Warfarin Sod*) 1 Mg Tablet 1.5 MG ORAL DAILY, TAB PHARMACY TO DOSE Discharge Condition Upon Discharge: stable Discharge Disposition Patient was discharged to SNF/Subacute Facility(03) Discharge Diagnoses: Discharge Instructions Discharge Instructions Special Instructions I have been assigned to complete a D/C Summary on this account. I was not involved in the patient management Vy Dominguez NP (Vanchtein) Nov 28, 2017 09:56
--- NOTE | 2017-11-29 00:46 | Discharge Summary 2 SIG ---
DATE OF ADMISSION: 11/15/2017 DATE OF DISCHARGE: 11/25/2017 REASON FOR ADMISSION: 81-year-old male, presented to emergency room after recent hospitalization in [facility] followed by transfer to [place] and subsequent placement to [facility] where he was only about a day. He was transferred to the emergency department for respiratory distress. ABG revealed acute hypercapnic respiratory failure. The patient was placed on BiPAP. Chest x-ray showed pulmonary edema. Laboratory workup with evidence of anemia and renal failure. Lactic acid within normal limits. Troponin slightly elevated. Pro BNP -2671. Agriculture Teacher and education diagnostician both seen patient in the emergency department. The patient was admitted with acute respiratory failure, hypercapnic type, pulmonary edema, [id number] myocardial infarction, COPD, possible pneumonia, atrial fibrillation, encephalopathy, status post ventriculoperitoneal shunt, and prostate hypertrophy. CONSULTANTS: 1. Pulmonary consult, Dr. Bhavik Grissom. 2. Family Protection Specialist, Dr. Tony Eldridge. 3. Liquefaction And Regasification Helper, Dr. Jayson Romo. 4. ID, Dr. Afshan Perez. 5. GI, Dr. Brian Evans. 6. Psychiatrist, Dr. Leo Garcia. 7. Cancer Researcher, Dr. Bharath Ya. HOSPITAL COURSE: The patient was admitted to ICU initially. The patient was started on the BiPAP. Pulmonary toilet provided. The patient was started on the diuresis with IV Lasix. Renal parameters and electrolytes were closely monitored. Electrolytes were corrected as needed. The patient was followed up with the ABG, pCO2 was trending down. The patient subsequently was able to be weaned from the BiPAP to Venturi mask and then to oxygen via nasal cannula. Family Protection Specialist closely followed. Recommended to avoid beta-nusrat secondary to severe COPD. Heart rate was controlled. Beta-nusrat, which the [facility] was on [facility] the [facility], was changed to Cardizem. The patient was started on anticoagulation Lovenox and Coumadin, bridged to therapeutic level, and continued on Coumadin. Family Protection Specialist also recommended flutter ablation as an outpatient. Echocardiogram revealed preserved ejection fraction of 60% to 65% and right ventricular systolic pressure of 53, consistent with moderate pulmonary hypertension. Cardiorenal parameters and volumes were closely monitored, while the patient was on diuretic. Lasix IV was subsequently changed to p.o. when the patient condition improved. ProBNP was trending down. Per education diagnostician, patient had diastolic dysfunction. ID closely followed. Blood culture negative. Sputum culture revealed Nurys. The patient was treated for pneumonia, status post treatment. Venous duplex of bilateral lower extremities was negative. Liquefaction And Regasification Helper closely followed the patient. The patient had initially prerenal azotemia likely due to partially dehydration and partially possible gastrointestinal bleeding. The patient was on the gentle IV fluids. Renal parameters and electrolytes were closely monitored. Electrolytes were corrected as needed and nephrotoxics were avoided. Creatinine on discharge -1.6. Anemia workup revealed anemia of chronic disease. The patient was on the IV iron. Cancer Researcher closely followed. The patient was noted to have coagulopathy with INR- 5.9, likely secondary to overuse of Coumadin. Coumadin was on hold. Next day, INR -3.9. Continue to monitor INR at the nursing home [facility] with Coumadin dosing per primary care provider. Resume Coumadin, when INR in therapeutic range 2 to 3. According to education general manager, anemia was secondary to underlying disease. Iron panel revealed low iron and low ferritin. The patient was given Venofer. Goal was to keep hemoglobin above 7. Hemoglobin remained at the baseline. GI closely followed the patient. Initially, PEG placement was planned, however, swallow evaluation was done, and diet was started as per speech therapist recommendations. The patient was able to tolerate diet. The patient subsequently undergone video swallow evaluation. The patient had evidence of moderate dysphagia, and speech therapist recommended diet for quality of life with strict aspiration/reflux precaution. PEG tube placement was placed on hold. At this time, monitor oral intake at the facility. Bowel regimen instituted. Physical therapist had seen and was working with the patient. Psychiatrist seen and evaluated the patient and diagnosed the patient with major depressive disorder, cognitive impairment, and optimized psychiatric medication regimen. The patient had underlying encephalopathy secondary to hydrocephalus and FLARE BREAKER shunt. The patient was stable for discharge back to nursing home [facility]. FINAL DIAGNOSES: 1. Acute hypercapnic respiratory failure requiring BiPAP, resolved. 2. Pulmonary edema. 3. Lmh-PW-zpalphqnt myocardial infarction. 4. Chronic obstructive pulmonary disease, improved. 5. Probable pneumonia, status post treatment. 6. Atrial flutter/fibrillation. 7. Encephalopathy, status post ventriculoperitoneal shunt. 8. Acute renal failure. 9. Benign prostatic hypertrophy. 10. Hypertension. 11. Major depressive disorder. 12. Cognitive impairment. 13. Anemia of chronic disease. 14. Coagulopathy secondary to overuse of Coumadin. 15. Dysphagia. DISCHARGE MEDICATIONS: See medication reconciliation list. DISCHARGE INSTRUCTIONS: The patient was discharged to nursing home facility. Follow up with medical doctor at the facility. Danitza Mustafa M.D. I have been assigned to dictate discharge summary on this account and I was not involved in the patient's management. Vy Dominguez ([facility] CenterAugustine N.PArun DR: CHARLA JOB#: [id number] CC: JOSIAS
== END 2017-11-25 14:25 | DRG 280 ==
LOC: EDBD 07:10 → EDUNIT# 07:10 → EMR 08:08 → 2W 08:16 → EDBEDREQSVC 10:44 → EDBEDREQ 10:44 → EDBEDREQSVC 16:06 → EDBEDREQ 16:06 → 2W 11-17 05:33 → 4E 11-23 13:59
PROC: 5A09357 Assistance with Respiratory Ventilation, Less than 24 Consecutive Hours, Continuous Positive Airway Pressure (ICD-10-PCS; principal; 2017-11-15)
DX: I11.0 Hypertensive heart disease with heart failure (principal); J96.02 Acute respiratory failure with hypercapnia; I21.4 Non-ST elevation (NSTEMI) myocardial infarction; J18.9 Pneumonia, unspecified organism; G93.40 Encephalopathy, unspecified; N17.9 Acute kidney failure, unspecified; J44.0 Chronic obstructive pulmonary disease with (acute) lower respiratory infection; D68.9 Coagulation defect, unspecified; I48.92 Unspecified atrial flutter; F03.90 Unspecified dementia, unspecified severity, without behavioral disturbance, psychotic disturbance, mood disturbance, and anxiety; I50.30 Unspecified diastolic (congestive) heart failure; I48.0 Paroxysmal atrial fibrillation; Z98.2 Presence of cerebrospinal fluid drainage device; Z79.01 Long term (current) use of anticoagulants; N40.0 Benign prostatic hyperplasia without lower urinary tract symptoms; I25.10 Atherosclerotic heart disease of native coronary artery without angina pectoris; K21.9 Gastro-esophageal reflux disease without esophagitis; F32.9 Major depressive disorder, single episode, unspecified; D64.9 Anemia, unspecified; G31.84 Mild cognitive impairment of uncertain or unknown etiology; R13.10 Dysphagia, unspecified
CPT/HCPCS: 36415; 36600; 51702; 71045; 74018; 74230; 80048; 80053; 80061; 81003; 82164; 82270; 82550; 82553; 82728; 82803; 82977; 83036; 83540; 83550; 83605; 83735; 83880; 83921; 84100; 84439; 84443; 84484; 84550; 85025; 85379; 85610; 85730; 86140; 86713; 86738; 87040; 87070; 87081; 87205; 93005; 93306; 93970; 94640; 94660; 94664; 94760; J7620; J8499

== ENCOUNTER 2018-01-27 11:25 | Inpatient (IN) | payer MEDICARE, OTHER ==
[~2018-01-27] VITALS: Ht 172.7 cm; Wt 68.0 kg
[2018-01-27 11:25] VITALS: BP 139/78
[~2018-01-27 11:25] MED LIST changes: +ACETAMINOPHEN325 M1 ORAL; +CATAPRES0.1 MG ORAL; +DUONEB 0.5-3(2.53 ML HHN; +FAMOTIDINE20 MG ORAL; +MIRTAZAPINE15 MG ORAL; +VITAMIN D250000 UNI1 ORAL
[2018-01-27] MEDS ORDERED: Vancomycin 1.5gm/D5W 250ml 250 ML IVPB ONE (11:45)
[2018-01-27 12:31] LABS: BASOPHILS % (AUTO) 1.1 % (0.0-2.0); EOSINOPHILS % (AUTO) 3.2 % (0.0-3.0); HEMATOCRIT 36.7 % (42.0-52.0); HEMOGLOBIN 12.6 G/DL (14.2-18.0); LYMPHOCYTES % (AUTO) 26.5 % (20.0-45.0); MEAN CORPUSCULAR VOLUME 95 FL (80-99); MONOCYTES % (AUTO) 6.4 % (1.0-10.0); NEUTROPHILS % (AUTO) 62.8 % (45.0-75.0); PLATELET COUNT 285 K/UL (150-450); RED BLOOD COUNT 3.86 M/UL (4.70-6.10); RED CELL DISTRIBUTION WIDTH 15.7 % (11.6-14.8); WHITE BLOOD COUNT 8.9 K/UL (4.8-10.8)
[2018-01-27 12:41] LABS: ANION GAP 3 mmol/L (5-15); BLOOD UREA NITROGEN 25 mg/dL (7-18); CALCIUM 9.3 MG/DL (8.5-10.1); CARBON DIOXIDE 33 MMOL/L (21-32); CHLORIDE 102 MMOL/L (98-107); POTASSIUM 4.5 MMOL/L (3.5-5.1); SODIUM 138 MMOL/L (136-145)
[2018-01-27 12:45] LABS: ALANINE AMINOTRANSFERASE 20 U/L (12-78); ALBUMIN 2.7 G/DL (3.4-5.0); ALBUMIN/GLOBULIN RATIO 0.5 (1.0-2.7); ALKALINE PHOSPHATASE 93 U/L (46-116); ASPARTATE AMINO TRANSFERASE 33 U/L (15-37); BILIRUBIN,TOTAL 0.6 MG/DL (0.2-1.0); CREATINE KINASE 47 U/L (26-308)
[2018-01-27 12:46] LABS: PARTIAL THROMBOPLASTIN TIME 69 SEC (23-33)
[2018-01-27 12:49] LABS: INR 9.4 (0.9-1.1)
--- NOTE | 2018-01-27 13:23 | Emergency Room Report ---
History of Present Illness General Chief Complaint: Pain Source: Patient, EMS Present Illness HPI 82yo M sent for knee cellulitis Patient has no complaints, denies, fever/chills, headaches, trauma, but found to have elevated inr, completely asymptomatic Allergies: Coded Allergies: No Known Allergies (Unverified , 06/20/17) Patient History Past Medical History: see triage record Reviewed Nursing Documentation: PMH: Agreed; PSxH: Agreed Nursing Documentation-PMH Hx Cardiac Problems: Yes - A-Fib Hx Hypertension: Yes Hx Cancer: No Hx Gastrointestinal Problems: Yes - Gerd Hx Neurological Problems: Yes Hx Dementia: Yes Hx Dysphasia: Yes Hx Brain Shunt: Yes - V-P SHUNT Review of Systems All Other Systems: negative except mentioned in HPI Physical Exam Vital Signs Date Time Temp Pulse Resp B/P (MAP) Pulse Ox O2 Delivery O2 Flow Rate FiO2 01/27/18 11:11 97.5 71 20 116/42 99 Room Air 97.5 Sp02 EP Interpretation: reviewed, normal General Appearance: no apparent distress, alert, non-toxic Head: normocephalic Eyes: bilateral eye normal inspection, bilateral eye PERRL, bilateral eye EOMI ENT: normal ENT inspection, hearing grossly normal, normal pharynx, no angioedema, normal voice, moist mucus membranes Neck: normal inspection, full range of motion, supple, supple/symm/no masses Respiratory: chest non-tender, lungs clear, normal breath sounds, chest symmetrical, palpation of chest normal Cardiovascular #1: normal peripheral pulses, regular rate, rhythm Cardiovascular #2: 2+ radial (R), 2+ radial (L) Gastrointestinal: normal inspection, non tender, soft, no mass, no guarding, no rebound Rectal: deferred Genitourinary: normal inspection, no CVA tenderness Musculoskeletal: back normal, no calf tenderness Neurologic: alert, responsive, paper processing machine helper III-XII nml as tested, motor strength/tone normal - legs contracted, sensory intact, speech normal Psychiatric: judgement/insight normal, memory normal, mood/affect normal, no suicidal/homicidal ideation Skin: normal color, no rash, warm/dry - mild warmth to L knee, normal turgor Lymphatic: no adenopathy Medical Decision Making Diagnostic Impression: Primary Impression: Cellulitis Additional Impression: Elevated INR ER Course Patient admitted to Dr. Polk, Vit K and vancomycin given Rhythm Strip Diag. Results Rhythm Strip Time: 13:22 EP Interpretation: yes Rate: 69 Rhythm: NSR, no PVC's, no ectopy Last Vital Signs Date Time Temp Pulse Resp B/P (MAP) Pulse Ox O2 Delivery O2 Flow Rate FiO2 01/27/18 11:25 97.5 71 16 139/78 96 Room Air 97.5 Disposition: ADMITTED INPATIENT Condition: Stable Referrals: NON PHYSICIAN (PCP) KESHA HARRELL M.D Jan 27, 2018 13:23
[2018-01-27 13:25] VITALS: BP 139/75
[2018-01-27] MEDS ORDERED: Phytonadione 1 MG in D5W 55 ML IVPB ONE (13:30)
[2018-01-27 15:53] VITALS: BP 142/89
--- NOTE | 2018-01-27 17:45 | Consultation ---
DATE OF CONSULTATION: 01/27/2018 CONSULTING PHYSICIAN: Jerry Ya M.D. ATTENDING PHYSICIAN: Danitza Mustafa M.D. REQUESTING PHYSICIAN: Danitza Mustafa M.D. REASON FOR CONSULTATION: Severe coagulopathy with INR greater than 9.0. CURRENT COMPLAINT AND HISTORY OF PRESENT ILLNESS: Dear Dr. Mustafa, Today, I had an opportunity to see one of your patients, who as you are well aware, is an 82 years old delightful gentleman with a past medical history remarkable for coronary artery disease, hypertension, atrial fibrillation, GERD, dementia, dysphagia, and status post history of brain shunt. During evaluation, it was found that the patient developed knee cellulitis. It was also found that the patient developed significantly increased INR and completely asymptomatic. My service was called to handle the issue of INR/coagulopathy. PAST MEDICAL HISTORY: 1. History of atrial fibrillation. 2. History of anticoagulation with Coumadin. 3. Coronary artery disease. 4. Hypertension. 5. GERD. 6. Dementia. 7. Dysphagia. 8. Status post PEDIATRIC DENTAL HYGIENIST shunt placement. MEDICATIONS: 1. Vitamin K. 2. Vancomycin. ALLERGIES: NKDA. FAMILY HISTORY: Noncontributory. SOCIAL HISTORY: No history of smoking. No history of alcohol abuse. No history of illicit drug use. REVIEW OF SYSTEMS: GENERAL DESCRIPTION: The patient not in any significant distress, but looks chronically ill. RESPIRATORY SYSTEM: Mild shortness of breath on exertion. GASTROINTESTINAL SYSTEM: The patient claimed constipation. NEUROMUSCULAR SYSTEM: The patient claimed muscle aches. PHYSICAL EXAMINATION: VITAL SIGNS: T-max 99. Respiratory rate 20. Heart rate 80. Blood pressure 130/80. HEENT: Head, normocephalic and atraumatic. NECK: Supple. No thyroid enlargement. No lymphadenopathy. LUNGS: Decreased breath sounds bilaterally with few rhonchi at the base. HEART: S1 and S2, regular. ABDOMEN: Soft and benign. No organomegaly present. Bowel sounds present. EXTREMITIES: No cyanosis, clubbing, or edema. LABORATORY DATA: INR 9.4, WBC 8.9, hemoglobin 12.6, hematocrit 36.7, and platelets 285,000. Creatinine 1.0. IMPRESSION: 1. Coagulopathy secondary to Coumadin. 2. Anemia of chronic disease. 3. Cellulitis of right lower extremity. 4. History of atrial fibrillation. 5. History of anticoagulation with Coumadin. 6. Hypertension. 7. Coronary artery disease. 8. Gastroesophageal reflux disease. 9. Dementia. 10. Dysphagia. 11. Status post ventriculoperitoneal brain shunt. 12. Malnutrition. 13. Failure to thrive. RECOMMENDATION: 1. Fresh frozen plasma 2 units. 2. Vitamin K 10 mg subcutaneous x1. 3. Venous Doppler of bilateral lower extremities to rule out DVT. 4. PRBC transfusion on p.r.n. basis. 5. Antibiotics IV. 6. Close followup. 7. Continue current treatment. 8. Continue current medication regimen. 9. Skin care. 10. Nutrition. 11. ID followup. 12. Close followup. Jerry Ya MD DR: MALCIK JOB#: [id number] CC:
[2018-01-27] MEDS: Albuterol/Ipratropium 3ml neb HHN SCH (20:46)
[2018-01-27 20:57] VITALS: BP 118/79
--- NOTE | 2018-01-27 23:45 | History and Physical Report ---
DATE OF ADMISSION: 01/27/2018 HISTORY OF PRESENT ILLNESS: The patient is admitted for knee cellulitis as well as coagulopathy, the patient is on Coumadin, INR is greater than 1 . The patient denies fever or chills. Denies headache. Very poor historian. PAST MEDICAL HISTORY: Atrial fibrillation, hypertension, GERD, history of dementia, history of dysphagia, history of NUCLEAR WASTE PROCESS OPERATOR shunt, BPH, and mood disorder. PAST SURGICAL HISTORY: History of PEG as well as a NUCLEAR WASTE PROCESS OPERATOR shunt. ALLERGIES: No known allergies. MEDICATIONS: Norvasc, vitamin D, clonidine, Coumadin, Pepcid, finasteride, Namenda, mirtazapine, and warfarin. FAMILY HISTORY: Noncontributory. SOCIAL HISTORY: No history of smoking, alcohol, or illicit drugs. REVIEW OF SYSTEMS: HEENT: Denies headaches. RESPIRATORY: Denies shortness of breath. Denies cough. CARDIOVASCULAR: Denies chest pain. GI: Denies nausea, vomiting, or diarrhea. HEMATOLOGICAL: Denies any bleeding, however, is a very poor historian. PHYSICAL EXAMINATION: VITAL SIGNS: Temperature 97.5, pulse 71, and blood pressure 129/78. HEENT: PERRLA. NECK: Supple. No lymphadenopathy. CHEST: Clear to auscultation. CARDIOVASCULAR: Irregularly irregular. GASTROINTESTINAL: Soft, distended. Positive bowel sounds. EXTREMITIES: Edema. Does have contractures. SKIN AND INTEGUMENTARY: Refer to the nursing notes. NEUROLOGIC: Oriented to name. LABORATORY DATA: WBC of 8.9, hemoglobin of 12.6, and platelets 285. Sodium 138, potassium 4.5, BUN of 25, creatinine 1, and glucose of 108. INR is 1.4. ASSESSMENT AND PLAN: 1. Coagulopathy and cellulitis of the knee. The patient does have erythema on the knee as well as mildly tender, however, it is not warm to touch. Rule out knee cellulitis as well as coagulopathy. 2. The patient has atrial fibrillation. 3. I have asked Dr. Romo, Dr. Ya, and Dr. Campa to see the patient for the coagulopathy as well as for cellulitis of the knee. Antibiotics per Infectious Disease. Dr. Romo was consulted for the fluid management and for mild dehydration. Ali Alice Mustafa DR: SAJAN JOB#: [id number] CC:
[2018-01-28 00:30] VITALS: BP 143/74
[2018-01-28] MEDS: Albuterol/Ipratropium 3ml neb HHN SCH ×5 (01:00→13:46)
[2018-01-28 04:17] VITALS: BP 144/50
[2018-01-28 07:28] LABS: BASOPHILS % (AUTO) 0.7 % (0.0-2.0); HEMOGLOBIN 9.4 G/DL (14.2-18.0); LYMPHOCYTES % (AUTO) 26.1 % (20.0-45.0); MEAN CORPUSCULAR VOLUME 95 FL (80-99); MONOCYTES % (AUTO) 6.7 % (1.0-10.0); NEUTROPHILS % (AUTO) 64.5 % (45.0-75.0); PLATELET COUNT 225 K/UL (150-450); RED BLOOD COUNT 2.94 M/UL (4.70-6.10); RED CELL DISTRIBUTION WIDTH 15.7 % (11.6-14.8); WHITE BLOOD COUNT 6.9 K/UL (4.8-10.8)
[2018-01-28 07:49] LABS: INR 1.9 (0.9-1.1)
[2018-01-28 08:00] VITALS: BP 149/54
[2018-01-28] MEDS ORDERED: Tubing IV Blood Pump IV ONE (09:23)
[2018-01-28] MEDS ORDERED: NS 275ml ONE (09:23)
[2018-01-28] MEDS: Memantine 10mg tab ORAL SCH (09:38)
[2018-01-28 12:00] VITALS: BP 141/55
[2018-01-28] MEDS ORDERED: Vancomycin 1250mg/D5W 250ml IVPB SCH (13:00)
[2018-01-28 15:49] VITALS: BP 115/56
--- NOTE | 2018-01-28 16:45 | Consultation ---
DATE OF CONSULTATION: 01/28/2018 INFECTIOUS DISEASES CONSULTATION CONSULTING PHYSICIAN: Stuart Campa M.D. PRIMARY ATTENDING PHYSICIAN: Danitza Mustafa M.D. REASON FOR CONSULTATION: Cellulitis of left lower extremity, knee area. HISTORY OF PRESENT ILLNESS: The patient is an 82-year-old white male who is a prison resident admitted yesterday because of ulcer, erythema in left knee area. He was noticed to have increased INR above 9. The patient has a history of dementia and is poor historian. PAST MEDICAL HISTORY: Significant for hypertension, gastroesophageal reflux disease, dementia. The patient is status TIRE BUILDER HEAVY SERVICE shunt, atrial fibrillation, coronary artery disease, anemia, diastolic CHF, prostatic hypertrophy. The patient had a recent admission to because of hypercapnic respiratory failure. ALLERGIES: No known drug allergy. MEDICATIONS: Ergocalciferol, Coumadin, amlodipine, , finasteride, memantine, clonidine, mirtazapine, albuterol ipratropium inhaler, Tylenol, also get the dose of vancomycin yesterday. SOCIAL HISTORY: half-way resident. Single. No history of alcohol, drug abuse, or smoking. REVIEW OF SYSTEMS: The patient's only complaint is hip pain. PHYSICAL EXAMINATION: VITAL SIGNS: Temperature 97.7, blood pressure 149/54, pulse 68. GENERAL APPEARANCE: No acute distress. Awake, alert, verbal. HEENT: Head and neck, has TIRE BUILDER HEAVY SERVICE shunt under skin in the right side of the scalp. HEART: Regular. LUNGS: Clear. ABDOMEN: Soft and nontender. EXTREMITIES: Contracture of lower extremities, have ulcer with surrounding erythema, slightly lower than the knee joint in the left side. LABORATORY AND DIAGNOSTIC DATA: WBC 6.9, hemoglobin 9.4, hematocrit 28, platelet 255. Sodium 138, potassium 4.5, chloride 102, bicarb 33, BUN 25, creatinine 1. Lactic acid was elevated 2.4 returned to normal level . IMPRESSION: Cellulitis and pressure ulcer in the left knee area. The patient has coagulopathy with INR of more than 9 that was corrected. The patient has lactic acidosis, dementia, anemia, atrial fibrillation, coronary artery disease. RECOMMENDATION: We will send wound culture. We will follow up the ordered culture that includes blood culture. We will obtain wound culture from the knee. Continue vancomycin. At the end of my exam, I thank Dr. Mustafa, for involving me in the care of this patient. Stuart Campa M.D. DR: Opal JOB#: [id number] CC: JOSIAS
[2018-01-28] MEDS ORDERED: Warfarin Sodium 2mg ORAL SCH (17:00)
[2018-01-28 21:00] VITALS: BP 132/54
[2018-01-29] VITALS: BP 131/56
--- NOTE | 2018-01-29 00:01 | General Progress Note ---
Assessment/Plan Assessment/Plan IMPRESSION: 1. Coagulopathy secondary to Coumadin. 2. Anemia of chronic disease. 3. Cellulitis of right lower extremity. 4. History of atrial fibrillation. 5. History of anticoagulation with Coumadin. 6. Hypertension. 7. Coronary artery disease. 8. Gastroesophageal reflux disease. 9. Dementia. 10. Dysphagia. 11. Status post ventriculoperitoneal brain shunt. 12. Malnutrition. 13. Failure to thrive. RECOMMENDATION: 1. Fresh frozen plasma 2 units. 2. Vitamin K 10 mg subcutaneous x1. 3. Venous Doppler of bilateral lower extremities to rule out DVT. 4. PRBC transfusion on p.r.n. basis. 5. Antibiotics IV. 6. Close followup. 7. Continue current treatment. 8. Continue current medication regimen. 9. Skin care. 10. Nutrition. 11. ID followup. 12. Close followup. Subjective Date patient seen: Jan 28, 2018 Constitutional: Denies: no symptoms, chills, diaphoresis, fever, malaise, weakness, other HEENT: Denies: no symptoms, eye pain, blurred vision, tearing, double vision, ear pain, ear discharge, nose pain, nose congestion, throat pain, throat swelling, mouth pain, mouth swelling, other Cardiovascular: Denies: no symptoms, chest pain, edema, irregular heart rate, lightheadedness, palpitations, syncope, other Respiratory: Denies: no symptoms, cough, orthopnea, shortness of breath, SOB with excertion, SOB at rest, sputum, stridor, wheezing, other Gastrointestinal/Abdominal: Denies: no symptoms, abdomen distended, abdominal pain, black stools, tarry stools, blood in stool, constipated, diarrhea, difficulty swallowing, nausea, poor appetite, poor fluid intake, rectal bleeding , vomiting, other Genitourinary: Denies: no symptoms, burning, discharge, frequency, flank pain, hematuria, incontinence, pain, urgency, other Neurologic/Psychiatric: Denies: no symptoms, anxiety, depressed, emotional problems, headache, numbness, paresthesia, pre-existing deficit, seizure, tingling, tremors, weakness, other Endocrine: Denies: no symptoms, excessive sweating, flushing, intolerance to cold, intolerance to heat, increased hunger, increased thirst, increased urine, unexplained weight gain, unexplained weight loss, other Allergies: Coded Allergies: No Known Allergies (Unverified , 9/14/17) Subjective No acute events. Resting in bed. H/H downtrended Objective Last 24 Hour Vital Signs Date Time Temp Pulse Resp B/P (MAP) Pulse Ox O2 Delivery O2 Flow Rate FiO2 01/28/18 21:31 132/58 01/28/18 21:00 98.7 68 20 132/54 97 98.7 01/28/18 15:49 98.3 72 19 115/56 95 Room Air 98.3 01/28/18 13:50 58 18 98 Room Air 21 01/28/18 13:46 56 18 97 Room Air 21 01/28/18 12:00 97.5 69 18 141/55 97 Room Air 97.5 01/28/18 09:39 149/54 01/28/18 09:38 68 149/54 01/28/18 08:00 97.7 68 18 149/54 100 Room Air 97.7 01/28/18 07:26 69 18 98 Room Air 21 01/28/18 07:22 67 18 97 Room Air 21 01/28/18 07:20 67 18 Room Air 21 01/28/18 04:17 98.1 67 20 144/50 97 98.1 01/28/18 01:13 58 16 100 Room Air 21 01/28/18 01:00 57 16 98 Room Air 21 01/28/18 00:30 98.0 74 19 143/74 98 98.0 Intake and Output 01/28/18 01/29/18 19:00 07:00 Intake Total 886.667 ml Balance 886.667 ml Intake Oral 720 ml IV Total 166.667 ml # Voids 4 Laboratory Tests 01/28/18 06:45: White Blood Count 6.9, Red Blood Count 2.94L, Hemoglobin 9.4L, Hematocrit 28.0L , Mean Corpuscular Volume 95, Mean Corpuscular Hemoglobin 32.0H, Mean Corpuscular Hemoglobin Concent 33.7, Red Cell Distribution Width 15.7H, Platelet Count 225, Mean Platelet Volume 6.0L, Neutrophils (%) (Auto) 64.5, Lymphocytes (%) (Auto) 26.1, Monocytes (%) (Auto) 6.7, Eosinophils (%) (Auto) 2.0, Basophils (%) (Auto) 0.7, Prothrombin Time 19.5H, Prothromb Time International Ratio 1.9H Height (Feet): 5 Height (Inches): 8.00 Weight (Pounds): 150 General Appearance: no apparent distress Cardiovascular: normal rate, regular rhythm Respiratory/Chest: lungs clear, normal breath sounds Abdomen: non tender, soft ADRIANAN DOMINGO Jan 29, 2018 00:01
[2018-01-29] MEDS: Albuterol/Ipratropium 3ml neb HHN SCH ×4 (01:00→20:18)
[2018-01-29 04:00] VITALS: BP 145/63
[2018-01-29 08:00] VITALS: BP 132/56
[2018-01-29 08:18] LABS: BASOPHILS % (AUTO) 0.6 % (0.0-2.0); EOSINOPHILS % (AUTO) 4.5 % (0.0-3.0); HEMATOCRIT 31.1 % (42.0-52.0); HEMOGLOBIN 10.4 G/DL (14.2-18.0); LYMPHOCYTES % (AUTO) 23.9 % (20.0-45.0); MEAN CORPUSCULAR VOLUME 97 FL (80-99); PLATELET COUNT 255 K/UL (150-450); RED BLOOD COUNT 3.22 M/UL (4.70-6.10); RED CELL DISTRIBUTION WIDTH 15.4 % (11.6-14.8); WHITE BLOOD COUNT 8.6 K/UL (4.8-10.8)
[2018-01-29 08:29] LABS: INR 2.5 (0.9-1.1)
[2018-01-29] MEDS: Memantine 10mg tab ORAL SCH (08:42)
[2018-01-29] MEDS ORDERED: Vitamin D 50,000 units cap ORAL SCH (09:00)
--- NOTE | 2018-01-29 10:59 | Infectious Diseases Prog Note ---
Assessment/Plan Assessment/Plan A; infected pressure ulcer left knee Dementia Anemia Lactic acidosis resolved Anemia P; Continue IV Vancomycin will f/u cultures Subjective ROS Limited/Unobtainable: Yes Constitutional: Reports: chills Musculoskeletal: Reports: pain Allergies: Coded Allergies: No Known Allergies (Unverified , 06/20/17) Objective Vital Signs Last 24 Hour Vital Signs Date Time Temp Pulse Resp B/P (MAP) Pulse Ox O2 Delivery O2 Flow Rate FiO2 01/29/18 10:13 70 18 100 Room Air 21 01/29/18 10:01 69 18 92 Room Air 01/29/18 08:45 70 128/54 01/29/18 08:41 128/54 01/29/18 08:00 97.8 70 16 132/56 96 Nasal Cannula 2.0 97.8 01/29/18 04:00 98.2 69 19 145/63 97 98.2 01/29/18 01:16 Room Air 01/29/18 01:16 Room Air 01/29/18 00:00 98.8 68 19 131/56 97 98.8 01/28/18 21:31 132/58 01/28/18 21:00 98.7 68 20 132/54 97 98.7 01/28/18 15:49 98.3 72 19 115/56 95 Room Air 98.3 01/28/18 13:50 58 18 98 Room Air 21 01/28/18 13:46 56 18 97 Room Air 21 01/28/18 12:00 97.5 69 18 141/55 97 Room Air 97.5 Height (Feet): 5 Height (Inches): 8.00 Weight (Pounds): 150 HEENT: other - dry mouth, poor dentition Respiratory/Chest: lungs clear Cardiovascular: normal rate Abdomen: soft, non tender Extremities: no edema Skin: ulcers, other - left knee Neurologic/Psychiatric: alert, responsive Musculoskeletal: atrophy Microbiology Date/Time Source Procedure Growth Status 01/27/18 11:55 Blood Blood Culture - Preliminary NO GROWTH AFTER 24 HOURS Resulted 01/27/18 11:50 Blood Blood Culture - Preliminary NO GROWTH AFTER 24 HOURS Resulted 01/27/18 13:40 Nasal Nares MRSA Culture - Final NO METHICILLIN RESISTANT STAPH AUREUS... Complete Laboratory Tests Test 01/29/18 06:40 White Blood Count 8.6 K/UL (4.8-10.8) Red Blood Count 3.22 M/UL (4.70-6.10) L Hemoglobin 10.4 G/DL (14.2-18.0) L Hematocrit 31.1 % (42.0-52.0) L Mean Corpuscular Volume 97 FL (80-99) Mean Corpuscular Hemoglobin 32.2 PG (27.0-31.0) H Mean Corpuscular Hemoglobin Concent 33.3 G/DL (32.0-36.0) Red Cell Distribution Width 15.4 % (11.6-14.8) H Platelet Count 255 K/UL (150-450) Mean Platelet Volume 6.4 FL (6.5-10.1) L Neutrophils (%) (Auto) 63.0 % (45.0-75.0) Lymphocytes (%) (Auto) 23.9 % (20.0-45.0) Monocytes (%) (Auto) 8.0 % (1.0-10.0) Eosinophils (%) (Auto) 4.5 % (0.0-3.0) H Basophils (%) (Auto) 0.6 % (0.0-2.0) Prothrombin Time 26.0 SEC (9.30-11.50) H Prothromb Time International Ratio 2.5 (0.9-1.1) H Current Medications Medications (Trade) Dose Ordered Sig/Raine Route PRN Reason Start Time Stop Time Status Last Admin Dose Admin Acetaminophen (Tylenol) 650 mg Q6H PRN ORAL Mild Pain/Temp > 100.5 01/27/18 16:00 02/26/18 15:59 Albuterol/ Ipratropium (Albuterol/ Ipratropium) 3 ml Q6HRT HHN 01/27/18 19:00 02/01/18 18:59 01/29/18 09:59 Amlodipine Besylate (Norvasc) 5 mg DAILY ORAL 01/28/18 09:00 02/27/18 08:59 01/29/18 08:45 Clonidine HCl (Catapres Tab) 0.1 mg Q12HR ORAL 01/27/18 21:00 02/26/18 20:59 01/29/18 08:41 Ergocalciferol (Drisdol) 50,000 intlu QWEEK ORAL 01/29/18 09:00 02/28/18 08:59 01/29/18 10:30 Famotidine (Pepcid) 20 mg DAILY ORAL 01/28/18 09:00 02/27/18 08:59 01/29/18 08:45 Finasteride (Proscar) 5 mg DAILY ORAL 01/28/18 09:00 02/27/18 08:59 01/29/18 08:46 Memantine (Namenda) 5 mg DAILY ORAL 01/28/18 09:00 02/27/18 08:59 01/29/18 08:42 Mirtazapine (Remeron) 15 mg BEDTIME ORAL 01/27/18 21:00 02/26/18 20:59 01/28/18 21:27 Vancomycin HCl (Vanco rx to dose) 1 ea DAILY PRN MISC Per rx protocol 01/28/18 12:00 02/27/18 11:59 Vancomycin HCl 1 gm/Dextrose 275 ml @ 183.708 mls/hr Q24H IVPB 01/29/18 18:00 02/03/18 17:59 Warfarin Sodium (Coumadin per pharmacy) 1 ea DAILY PRN MISC Per rx protocol 01/27/18 16:45 02/26/18 16:44 TOLU ERICKSON Jan 29, 2018 10:59
[2018-01-29 12:00] VITALS: BP 113/49
[2018-01-29 16:32] VITALS: BP 150/92
[2018-01-29] MEDS: Vancomycin 1gm in D5W 275ml IVPB SCH (17:14)
[2018-01-29 20:00] VITALS: BP 126/54
--- NOTE | 2018-01-29 21:08 | General Progress Note ---
Assessment/Plan Problem List: (1) Cellulitis ICD Codes: L03.90 - Cellulitis, unspecified SNOMED: 255017552 (2) Elevated INR ICD Codes: R79.1 - Abnormal coagulation profile SNOMED: 411008381 Status: progressing Assessment/Plan afebrile cellulitis improving coagulapathy improving moniter for bleeding wound treatment per wound protocol Subjective ROS Limited/Unobtainable: Yes Allergies: Coded Allergies: No Known Allergies (Unverified , 06/20/17) Objective Last 24 Hour Vital Signs Date Time Temp Pulse Resp B/P (MAP) Pulse Ox O2 Delivery O2 Flow Rate FiO2 01/29/18 20:57 126/54 01/29/18 20:26 78 18 99 Room Air 21 01/29/18 20:16 72 18 94 Room Air 01/29/18 20:00 97.2 71 20 126/54 96 Room Air 97.2 01/29/18 16:32 99.2 71 17 150/92 95 Room Air 99.2 01/29/18 13:54 75 18 100 Room Air 21 01/29/18 13:42 67 18 97 Room Air 01/29/18 12:00 97.7 100 17 113/49 95 Room Air 97.7 01/29/18 10:13 70 18 100 Room Air 21 01/29/18 10:01 69 18 92 Room Air 01/29/18 08:45 70 128/54 01/29/18 08:41 128/54 01/29/18 08:00 97.8 70 16 132/56 96 Nasal Cannula 2.0 97.8 01/29/18 04:00 98.2 69 19 145/63 97 98.2 01/29/18 01:16 Room Air 01/29/18 01:16 Room Air 01/29/18 00:00 98.8 68 19 131/56 97 98.8 01/28/18 21:31 132/58 Intake and Output 01/28/18 01/29/18 19:00 07:00 Intake Total 886.667 ml Balance 886.667 ml Intake Oral 720 ml IV Total 166.667 ml # Voids 4 4 # Bowel Movements 1 Laboratory Tests 01/29/18 06:40: White Blood Count 8.6, Red Blood Count 3.22L, Hemoglobin 10.4L, Hematocrit 31.1L , Mean Corpuscular Volume 97, Mean Corpuscular Hemoglobin 32.2H, Mean Corpuscular Hemoglobin Concent 33.3, Red Cell Distribution Width 15.4H, Platelet Count 255, Mean Platelet Volume 6.4L, Neutrophils (%) (Auto) 63.0, Lymphocytes (%) (Auto) 23.9, Monocytes (%) (Auto) 8.0, Eosinophils (%) (Auto) 4.5H, Basophils (%) (Auto) 0.6, Prothrombin Time 26.0H, Prothromb Time International Ratio 2.5H Height (Feet): 5 Height (Inches): 8.00 Weight (Pounds): 150 Neck: supple Cardiovascular: normal rate Respiratory/Chest: lungs clear Abdomen: soft Danitza Mustafa MD Jan 29, 2018 21:07
--- NOTE | 2018-01-29 23:52 | General Progress Note ---
Assessment/Plan Assessment/Plan IMPRESSION: 1. Coagulopathy secondary to Coumadin. 2. Anemia of chronic disease. 3. Cellulitis of right lower extremity. 4. History of atrial fibrillation. 5. History of anticoagulation with Coumadin. 6. Hypertension. 7. Coronary artery disease. 8. Gastroesophageal reflux disease. 9. Dementia. 10. Dysphagia. 11. Status post ventriculoperitoneal brain shunt. 12. Malnutrition. 13. Failure to thrive. RECOMMENDATION: 1. Fresh frozen plasma 2 units. 2. Vitamin K 10 mg subcutaneous x1. 3. Venous Doppler of bilateral lower extremities to rule out DVT. 4. PRBC transfusion on p.r.n. basis. 5. Antibiotics IV. 6. Close followup. 7. Continue current treatment. 8. Continue current medication regimen. 9. Skin care. 10. Nutrition. 11. ID followup. 12. Close followup. Subjective Date patient seen: Jan 29, 2018 Constitutional: Denies: no symptoms, chills, diaphoresis, fever, malaise, weakness, other HEENT: Denies: no symptoms, eye pain, blurred vision, tearing, double vision, ear pain, ear discharge, nose pain, nose congestion, throat pain, throat swelling, mouth pain, mouth swelling, other Cardiovascular: Denies: no symptoms, chest pain, edema, irregular heart rate, lightheadedness, palpitations, syncope, other Respiratory: Denies: no symptoms, cough, orthopnea, shortness of breath, SOB with excertion, SOB at rest, sputum, stridor, wheezing, other Gastrointestinal/Abdominal: Denies: no symptoms, abdomen distended, abdominal pain, black stools, tarry stools, blood in stool, constipated, diarrhea, difficulty swallowing, nausea, poor appetite, poor fluid intake, rectal bleeding , vomiting, other Genitourinary: Denies: no symptoms, burning, discharge, frequency, flank pain, hematuria, incontinence, pain, urgency, other Neurologic/Psychiatric: Denies: no symptoms, anxiety, depressed, emotional problems, headache, numbness, paresthesia, pre-existing deficit, seizure, tingling, tremors, weakness, other Hematologic/Lymphatic: Reports: anemia Allergies: Coded Allergies: No Known Allergies (Unverified , 06/20/17) Subjective H/H improved. On anticoagulation measures. No fever. Objective Last 24 Hour Vital Signs Date Time Temp Pulse Resp B/P (MAP) Pulse Ox O2 Delivery O2 Flow Rate FiO2 01/29/18 20:57 126/54 01/29/18 20:26 78 18 99 Room Air 21 01/29/18 20:16 72 18 94 Room Air 01/29/18 20:00 97.2 71 20 126/54 96 Room Air 97.2 01/29/18 16:32 99.2 71 17 150/92 95 Room Air 99.2 01/29/18 13:54 75 18 100 Room Air 21 01/29/18 13:42 67 18 97 Room Air 01/29/18 12:00 97.7 100 17 113/49 95 Room Air 97.7 01/29/18 10:13 70 18 100 Room Air 21 01/29/18 10:01 69 18 92 Room Air 01/29/18 08:45 70 128/54 01/29/18 08:41 128/54 01/29/18 08:00 97.8 70 16 132/56 96 Nasal Cannula 2.0 97.8 01/29/18 04:00 98.2 69 19 145/63 97 98.2 01/29/18 01:16 Room Air 01/29/18 01:16 Room Air 01/29/18 00:00 98.8 68 19 131/56 97 98.8 Intake and Output 01/28/18 01/29/18 19:00 07:00 Intake Total 886.667 ml Balance 886.667 ml Intake Oral 720 ml IV Total 166.667 ml # Voids 4 4 # Bowel Movements 1 Laboratory Tests 01/29/18 06:40: White Blood Count 8.6, Red Blood Count 3.22L, Hemoglobin 10.4L, Hematocrit 31.1L , Mean Corpuscular Volume 97, Mean Corpuscular Hemoglobin 32.2H, Mean Corpuscular Hemoglobin Concent 33.3, Red Cell Distribution Width 15.4H, Platelet Count 255, Mean Platelet Volume 6.4L, Neutrophils (%) (Auto) 63.0, Lymphocytes (%) (Auto) 23.9, Monocytes (%) (Auto) 8.0, Eosinophils (%) (Auto) 4.5H, Basophils (%) (Auto) 0.6, Prothrombin Time 26.0H, Prothromb Time International Ratio 2.5H Height (Feet): 5 Height (Inches): 8.00 Weight (Pounds): 150 General Appearance: no apparent distress EENT: normal ENT inspection Neck: normal alignment Cardiovascular: normal rate, regular rhythm Abdomen: normal bowel sounds, soft ADRIANNA DOMINGO Jan 29, 2018 23:52
[2018-01-30] VITALS: BP 149/51
[2018-01-30] MEDS: Albuterol/Ipratropium 3ml neb HHN SCH ×4 (01:28→20:05)
[2018-01-30 04:00] VITALS: BP 125/74
[2018-01-30 08:00] VITALS: BP 102/53
[2018-01-30] MEDS: Memantine 10mg tab ORAL SCH (08:54)
[2018-01-30 09:16] LABS: BASOPHILS % (AUTO) 0.6 % (0.0-2.0); EOSINOPHILS % (AUTO) 1.4 % (0.0-3.0); HEMATOCRIT 29.5 % (42.0-52.0); HEMOGLOBIN 9.9 G/DL (14.2-18.0); LYMPHOCYTES % (AUTO) 18.8 % (20.0-45.0); MEAN CORPUSCULAR VOLUME 96 FL (80-99); MONOCYTES % (AUTO) 6.2 % (1.0-10.0); PLATELET COUNT 249 K/UL (150-450); RED BLOOD COUNT 3.06 M/UL (4.70-6.10); RED CELL DISTRIBUTION WIDTH 15.6 % (11.6-14.8); WHITE BLOOD COUNT 8.3 K/UL (4.8-10.8)
[2018-01-30 09:33] LABS: INR 2.7 (0.9-1.1)
[2018-01-30 12:00] VITALS: BP 98/63
--- NOTE | 2018-01-30 13:12 | Infectious Diseases Prog Note ---
Assessment/Plan Assessment/Plan A; infected pressure ulcer left knee Dementia Anemia Lactic acidosis resolved Anemia P; Continue IV Vancomycin will f/u cultures Subjective ROS Limited/Unobtainable: Yes Respiratory: Reports: no symptoms Musculoskeletal: Reports: no symptoms Allergies: Coded Allergies: No Known Allergies (Unverified , 06/20/17) Objective Vital Signs Last 24 Hour Vital Signs Date Time Temp Pulse Resp B/P (MAP) Pulse Ox O2 Delivery O2 Flow Rate FiO2 01/30/18 13:04 76 18 94 Room Air 01/30/18 12:00 97.5 98/63 97.5 01/30/18 08:54 102/53 01/30/18 08:54 64 102/53 01/30/18 08:00 97.2 64 20 102/53 99 97.2 01/30/18 07:30 87 18 95 Room Air 21 01/30/18 07:23 86 18 93 Room Air 01/30/18 04:00 97.9 67 23 125/74 96 Room Air 97.9 01/30/18 01:38 70 18 99 Room Air 21 01/30/18 01:28 70 18 95 Room Air 01/30/18 00:00 98.8 70 20 149/51 96 Room Air 98.8 01/29/18 20:57 126/54 01/29/18 20:26 78 18 99 Room Air 21 01/29/18 20:16 72 18 94 Room Air 01/29/18 20:00 97.2 71 20 126/54 96 Room Air 97.2 01/29/18 16:32 99.2 71 17 150/92 95 Room Air 99.2 01/29/18 13:54 75 18 100 Room Air 21 01/29/18 13:42 67 18 97 Room Air Height (Feet): 5 Height (Inches): 8.00 Weight (Pounds): 150 General Appearance: no acute distress HEENT: mucous membranes moist Respiratory/Chest: lungs clear Cardiovascular: normal rate Abdomen: soft, non tender Extremities: no edema Skin: ulcers Neurologic/Psychiatric: alert, responsive Microbiology Date/Time Source Procedure Growth Status 01/27/18 13:40 Nasal Nares MRSA Culture - Final NO METHICILLIN RESISTANT STAPH AUREUS... Complete Laboratory Tests Test 01/30/18 08:35 White Blood Count 8.3 K/UL (4.8-10.8) Red Blood Count 3.06 M/UL (4.70-6.10) L Hemoglobin 9.9 G/DL (14.2-18.0) L Hematocrit 29.5 % (42.0-52.0) L Mean Corpuscular Volume 96 FL (80-99) Mean Corpuscular Hemoglobin 32.3 PG (27.0-31.0) H Mean Corpuscular Hemoglobin Concent 33.5 G/DL (32.0-36.0) Red Cell Distribution Width 15.6 % (11.6-14.8) H Platelet Count 249 K/UL (150-450) Mean Platelet Volume 6.2 FL (6.5-10.1) L Neutrophils (%) (Auto) 73.0 % (45.0-75.0) Lymphocytes (%) (Auto) 18.8 % (20.0-45.0) L Monocytes (%) (Auto) 6.2 % (1.0-10.0) Eosinophils (%) (Auto) 1.4 % (0.0-3.0) Basophils (%) (Auto) 0.6 % (0.0-2.0) Prothrombin Time 28.9 SEC (9.30-11.50) H Prothromb Time International Ratio 2.7 (0.9-1.1) H Current Medications Medications (Trade) Dose Ordered Sig/Raine Route PRN Reason Start Time Stop Time Status Last Admin Dose Admin Acetaminophen (Tylenol) 650 mg Q6H PRN ORAL Mild Pain/Temp > 100.5 01/27/18 16:00 02/26/18 15:59 Albuterol/ Ipratropium (Albuterol/ Ipratropium) 3 ml Q6HRT HHN 01/27/18 19:00 02/01/18 18:59 01/30/18 13:04 Amlodipine Besylate (Norvasc) 5 mg DAILY ORAL 01/28/18 09:00 02/27/18 08:59 01/30/18 08:54 Clonidine HCl (Catapres Tab) 0.1 mg Q12HR ORAL 01/27/18 21:00 02/26/18 20:59 01/30/18 08:54 Ergocalciferol (Drisdol) 50,000 intlu QWEEK ORAL 01/29/18 09:00 02/28/18 08:59 01/29/18 10:30 Famotidine (Pepcid) 20 mg DAILY ORAL 01/28/18 09:00 02/27/18 08:59 01/30/18 08:54 Finasteride (Proscar) 5 mg DAILY ORAL 01/28/18 09:00 02/27/18 08:59 01/30/18 08:54 Memantine (Namenda) 5 mg DAILY ORAL 01/28/18 09:00 02/27/18 08:59 01/30/18 08:54 Mirtazapine (Remeron) 15 mg BEDTIME ORAL 01/27/18 21:00 02/26/18 20:59 01/29/18 20:56 Vancomycin HCl (Vanco rx to dose) 1 ea DAILY PRN MISC Per rx protocol 01/28/18 12:00 02/27/18 11:59 Vancomycin HCl 1 gm/Dextrose 275 ml @ 183.708 mls/hr Q24H IVPB 01/29/18 18:00 02/03/18 17:59 01/29/18 17:14 Warfarin Sodium (Coumadin per pharmacy) 1 ea DAILY PRN MISC Per rx protocol 01/27/18 16:45 02/26/18 16:44 TOLU ERICKSON Jan 30, 2018 13:12
[2018-01-30 16:00] VITALS: BP 149/62
[2018-01-30] MEDS: Vancomycin 1gm in D5W 275ml IVPB SCH (18:11)
[2018-01-30 20:00] VITALS: BP 148/62
--- NOTE | 2018-01-30 21:22 | General Progress Note ---
Assessment/Plan Problem List: (1) Cellulitis ICD Codes: L03.90 - Cellulitis, unspecified SNOMED: 454478756 (2) Elevated INR ICD Codes: R79.1 - Abnormal coagulation profile SNOMED: 632485209 Status: progressing Assessment/Plan no acute events reviewed chart and meds cellulitis improving coagulapathy improving moniter for bleeding Subjective ROS Limited/Unobtainable: Yes Allergies: Coded Allergies: No Known Allergies (Unverified , 06/20/17) Objective Last 24 Hour Vital Signs Date Time Temp Pulse Resp B/P (MAP) Pulse Ox O2 Delivery O2 Flow Rate FiO2 01/30/18 20:36 144/60 01/30/18 20:06 75 20 95 Room Air 21 01/30/18 20:00 97.9 70 20 148/62 95 Room Air 97.9 01/30/18 20:00 72 20 93 Room Air 21 01/30/18 16:00 97.2 70 20 149/62 97 97.2 01/30/18 13:11 78 18 96 Room Air 01/30/18 13:04 76 18 94 Room Air 01/30/18 12:00 97.5 98/63 97.5 01/30/18 08:54 102/53 01/30/18 08:54 64 102/53 01/30/18 08:00 97.2 64 20 102/53 99 97.2 01/30/18 07:30 87 18 95 Room Air 01/30/18 07:23 86 18 93 Room Air 01/30/18 04:00 97.9 67 23 125/74 96 Room Air 97.9 01/30/18 01:38 70 18 99 Room Air 01/30/18 01:28 70 18 95 Room Air 01/30/18 00:00 98.8 70 20 149/51 96 Room Air 98.8 Intake and Output 01/29/18 01/30/18 19:00 07:00 Intake Total 600 ml Balance 600 ml Intake Oral 600 ml # Voids 3 3 # Bowel Movements 1 Laboratory Tests 01/30/18 08:35: White Blood Count 8.3, Red Blood Count 3.06L, Hemoglobin 9.9L, Hematocrit 29.5L , Mean Corpuscular Volume 96, Mean Corpuscular Hemoglobin 32.3H, Mean Corpuscular Hemoglobin Concent 33.5, Red Cell Distribution Width 15.6H, Platelet Count 249, Mean Platelet Volume 6.2L, Neutrophils (%) (Auto) 73.0, Lymphocytes (%) (Auto) 18.8L, Monocytes (%) (Auto) 6.2, Eosinophils (%) (Auto) 1.4, Basophils (%) (Auto) 0.6, Prothrombin Time 28.9H, Prothromb Time International Ratio 2.7H Height (Feet): 5 Height (Inches): 8.00 Weight (Pounds): 150 General Appearance: confused Respiratory/Chest: lungs clear Abdomen: soft Danitza Mustafa MD Jan 30, 2018 21:22
--- NOTE | 2018-01-30 23:54 | General Progress Note ---
Assessment/Plan Assessment/Plan IMPRESSION: 1. Coagulopathy secondary to Coumadin. 2. Anemia of chronic disease. 3. Cellulitis of right lower extremity. 4. History of atrial fibrillation. 5. History of anticoagulation with Coumadin. 6. Hypertension. 7. Coronary artery disease. 8. Gastroesophageal reflux disease. 9. Dementia. 10. Dysphagia. 11. Status post ventriculoperitoneal brain shunt. 12. Malnutrition. 13. Failure to thrive. RECOMMENDATION: 1. Fresh frozen plasma 2 units. 2. Vitamin K 10 mg subcutaneous x1. 3. Venous Doppler of bilateral lower extremities to rule out DVT. 4. PRBC transfusion on p.r.n. basis. 5. Antibiotics IV. 6. Close followup. 7. Continue current treatment. 8. Continue current medication regimen. 9. Skin care. 10. Nutrition. 11. ID followup. 12. Close followup. Subjective Date patient seen: Jan 30, 2018 Constitutional: Denies: no symptoms, chills, diaphoresis, fever, malaise, weakness, other HEENT: Denies: no symptoms, eye pain, blurred vision, tearing, double vision, ear pain, ear discharge, nose pain, nose congestion, throat pain, throat swelling, mouth pain, mouth swelling, other Cardiovascular: Denies: no symptoms, chest pain, edema, irregular heart rate, lightheadedness, palpitations, syncope, other Respiratory: Denies: no symptoms, cough, orthopnea, shortness of breath, SOB with excertion, SOB at rest, sputum, stridor, wheezing, other Gastrointestinal/Abdominal: Denies: no symptoms, abdomen distended, abdominal pain, black stools, tarry stools, blood in stool, constipated, diarrhea, difficulty swallowing, nausea, poor appetite, poor fluid intake, rectal bleeding , vomiting, other Genitourinary: Denies: no symptoms, burning, discharge, frequency, flank pain, hematuria, incontinence, pain, urgency, other Neurologic/Psychiatric: Denies: no symptoms, anxiety, depressed, emotional problems, headache, numbness, paresthesia, pre-existing deficit, seizure, tingling, tremors, weakness, other Endocrine: Denies: no symptoms, excessive sweating, flushing, intolerance to cold, intolerance to heat, increased hunger, increased thirst, increased urine, unexplained weight gain, unexplained weight loss, other Allergies: Coded Allergies: No Known Allergies (Unverified , 9/14/17) Subjective H/H improved. No hematochezia. Resting in bed. NAD. Objective Last 24 Hour Vital Signs Date Time Temp Pulse Resp B/P (MAP) Pulse Ox O2 Delivery O2 Flow Rate FiO2 01/30/18 20:36 144/60 01/30/18 20:06 75 20 95 Room Air 21 01/30/18 20:00 97.9 70 20 148/62 95 Room Air 97.9 01/30/18 20:00 72 20 93 Room Air 21 01/30/18 16:00 97.2 70 20 149/62 97 97.2 01/30/18 13:11 78 18 96 Room Air 21 01/30/18 13:04 76 18 94 Room Air 01/30/18 12:00 97.5 98/63 97.5 01/30/18 08:54 102/53 01/30/18 08:54 64 102/53 01/30/18 08:00 97.2 64 20 102/53 99 97.2 01/30/18 07:30 87 18 95 Room Air 21 01/30/18 07:23 86 18 93 Room Air 01/30/18 04:00 97.9 67 23 125/74 96 Room Air 97.9 01/30/18 01:38 70 18 99 Room Air 21 01/30/18 01:28 70 18 95 Room Air 01/30/18 00:00 98.8 70 20 149/51 96 Room Air 98.8 Intake and Output 01/29/18 01/30/18 19:00 07:00 Intake Total 600 ml Balance 600 ml Intake Oral 600 ml # Voids 3 3 # Bowel Movements 1 Laboratory Tests 01/30/18 08:35: White Blood Count 8.3, Red Blood Count 3.06L, Hemoglobin 9.9L, Hematocrit 29.5L , Mean Corpuscular Volume 96, Mean Corpuscular Hemoglobin 32.3H, Mean Corpuscular Hemoglobin Concent 33.5, Red Cell Distribution Width 15.6H, Platelet Count 249, Mean Platelet Volume 6.2L, Neutrophils (%) (Auto) 73.0, Lymphocytes (%) (Auto) 18.8L, Monocytes (%) (Auto) 6.2, Eosinophils (%) (Auto) 1.4, Basophils (%) (Auto) 0.6, Prothrombin Time 28.9H, Prothromb Time International Ratio 2.7H Height (Feet): 5 Height (Inches): 8.00 Weight (Pounds): 150 General Appearance: no apparent distress, confused Respiratory/Chest: lungs clear, normal breath sounds Abdomen: normal bowel sounds, non tender, soft ADRIANNA DOMINGO Jan 30, 2018 23:54
[2018-01-31] VITALS: BP 122/58
[2018-01-31] MEDS: Albuterol/Ipratropium 3ml neb HHN SCH ×4 (01:00→20:06)
[2018-01-31 04:00] VITALS: BP 132/55
[2018-01-31 08:00] VITALS: BP 135/59
[2018-01-31 09:03] LABS: INR 2.1 (0.9-1.1)
[2018-01-31] MEDS: Memantine 10mg tab ORAL SCH (09:15)
[2018-01-31 12:00] VITALS: BP_SYST 128; BP_SYST 144; BP_DIAS 61; BP_DIAS 63
--- NOTE | 2018-01-31 13:39 | Infectious Diseases Prog Note ---
Assessment/Plan Assessment/Plan A; infected pressure ulcer left knee Dementia Anemia Lactic acidosis resolved Anemia P; discontinue IV Vancomycin Start on PO Keflex & Bactrim will f/u cultures Subjective ROS Limited/Unobtainable: Yes Allergies: Coded Allergies: No Known Allergies (Unverified , 06/20/17) Objective Vital Signs Last 24 Hour Vital Signs Date Time Temp Pulse Resp B/P (MAP) Pulse Ox O2 Delivery O2 Flow Rate FiO2 01/31/18 12:40 Room Air 21 01/31/18 12:40 Room Air 21 01/31/18 12:00 97.6 59 20 128/61 95 Room Air 97.6 01/31/18 09:17 59 135/59 01/31/18 09:14 135/59 01/31/18 08:00 97.7 59 20 135/59 95 Room Air 97.7 01/31/18 06:40 Room Air 21 01/31/18 06:40 Room Air 21 01/31/18 04:00 98.1 70 20 132/55 95 Room Air 98.1 01/31/18 01:54 Room Air 21 01/31/18 01:54 Room Air 21 01/31/18 00:00 98.3 71 20 122/58 95 Room Air 98.3 01/30/18 20:36 144/60 01/30/18 20:06 75 20 95 Room Air 21 01/30/18 20:00 97.9 70 20 148/62 95 Room Air 97.9 01/30/18 20:00 72 20 93 Room Air 21 01/30/18 16:00 97.2 70 20 149/62 97 97.2 Height (Feet): 5 Height (Inches): 8.00 Weight (Pounds): 150 General Appearance: no acute distress HEENT: mucous membranes moist Respiratory/Chest: lungs clear Cardiovascular: normal rate Abdomen: soft, non tender Extremities: no edema Skin: ulcers Neurologic/Psychiatric: other - sleeping Microbiology Date/Time Source Procedure Growth Status 01/30/18 02:20 Other Gram Stain Pending Resulted 01/30/18 02:20 Wound Culture - Preliminary Gram Negative Bacillus 1 Resulted Laboratory Tests Test 01/30/18 21:50 01/31/18 08:09 Stool Occult Blood Positive (NEGATIVE) Prothrombin Time 22.3 SEC (9.30-11.50) H Prothromb Time International Ratio 2.1 (0.9-1.1) H Current Medications Medications (Trade) Dose Ordered Sig/Raine Route PRN Reason Start Time Stop Time Status Last Admin Dose Admin Acetaminophen (Tylenol) 650 mg Q6H PRN ORAL Mild Pain/Temp > 100.5 01/27/18 16:00 02/26/18 15:59 Albuterol/ Ipratropium (Albuterol/ Ipratropium) 3 ml Q6HRT HHN 01/27/18 19:00 02/01/18 18:59 01/30/18 20:05 Amlodipine Besylate (Norvasc) 5 mg DAILY ORAL 01/28/18 09:00 02/27/18 08:59 01/31/18 09:17 Clonidine HCl (Catapres Tab) 0.1 mg Q12HR ORAL 01/27/18 21:00 02/26/18 20:59 01/31/18 09:14 Ergocalciferol (Drisdol) 50,000 intlu QWEEK ORAL 01/29/18 09:00 02/28/18 08:59 01/29/18 10:30 Famotidine (Pepcid) 20 mg DAILY ORAL 01/28/18 09:00 02/27/18 08:59 01/31/18 09:15 Finasteride (Proscar) 5 mg DAILY ORAL 01/28/18 09:00 02/27/18 08:59 01/31/18 09:15 Memantine (Namenda) 5 mg DAILY ORAL 01/28/18 09:00 02/27/18 08:59 01/31/18 09:15 Mirtazapine (Remeron) 15 mg BEDTIME ORAL 01/27/18 21:00 02/26/18 20:59 01/30/18 20:36 Vancomycin HCl (Vanco rx to dose) 1 ea DAILY PRN MISC Per rx protocol 01/28/18 12:00 02/27/18 11:59 Vancomycin HCl 1 gm/Dextrose 275 ml @ 183.708 mls/hr Q24H IVPB 01/29/18 18:00 02/03/18 17:59 01/30/18 18:11 Warfarin Sodium (Coumadin per pharmacy) 1 ea DAILY PRN MISC Per rx protocol 01/27/18 16:45 02/26/18 16:44 Warfarin Sodium (Coumadin) 1 mg COUMADIN ORAL 01/31/18 17:00 01/31/18 18:00 TOLU ERICKSON Jan 31, 2018 13:39
[2018-01-31] MEDS ORDERED: Cephalexin 500mg cap ORAL SCH (14:30)
[2018-01-31] MEDS ORDERED: Bactrim-DS 1 tab ORAL SCH (14:30)
[2018-01-31 16:00] VITALS: BP 124/48
[2018-01-31] MEDS ORDERED: Warfarin Sodium 1mg ORAL SCH (17:00)
[2018-01-31] MEDS: Cephalexin 500mg cap ORAL SCH ×2 (17:30→20:52)
[2018-01-31 20:00] VITALS: BP 132/53
--- NOTE | 2018-01-31 20:42 | General Progress Note ---
Assessment/Plan Problem List: (1) Cellulitis ICD Codes: L03.90 - Cellulitis, unspecified SNOMED: 513399863 (2) Elevated INR ICD Codes: R79.1 - Abnormal coagulation profile SNOMED: 680047766 Status: stable Assessment/Plan wound /decub treatment per wound team afebrile moniter for bleeding cellulitis improving coagulapathy improving Subjective ROS Limited/Unobtainable: Yes Allergies: Coded Allergies: No Known Allergies (Unverified , 06/20/17) Objective Last 24 Hour Vital Signs Date Time Temp Pulse Resp B/P (MAP) Pulse Ox O2 Delivery O2 Flow Rate FiO2 01/31/18 20:06 65 18 95 Room Air 21 01/31/18 20:00 98.4 68 20 132/53 94 Room Air 98.4 01/31/18 16:00 97.3 68 20 124/48 95 97.3 01/31/18 12:40 Room Air 21 01/31/18 12:40 Room Air 21 01/31/18 12:00 97.6 59 20 128/61 95 Room Air 97.6 01/31/18 12:00 97.7 65 20 144/63 95 97.7 01/31/18 09:17 59 135/59 01/31/18 09:14 135/59 01/31/18 08:00 97.7 59 20 135/59 95 Room Air 97.7 01/31/18 06:40 Room Air 21 01/31/18 06:40 Room Air 21 01/31/18 04:00 98.1 70 20 132/55 95 Room Air 98.1 01/31/18 01:54 Room Air 21 01/31/18 01:54 Room Air 21 01/31/18 00:00 98.3 71 20 122/58 95 Room Air 98.3 Intake and Output 01/30/18 01/31/18 19:00 07:00 Intake Total 120 ml Balance 120 ml Intake Oral 120 ml # Voids 5 2 Laboratory Tests 01/30/18 21:50: Stool Occult Blood Positive 01/31/18 08:09: Prothrombin Time 22.3H, Prothromb Time International Ratio 2.1H Height (Feet): 5 Height (Inches): 8.00 Weight (Pounds): 150 Neck: supple Cardiovascular: normal rate Respiratory/Chest: lungs clear Abdomen: soft Danitza Mustafa MD Jan 31, 2018 20:42
[2018-01-31] MEDS: Bactrim-DS 1 tab ORAL SCH (20:52)
[2018-02-01] VITALS: BP 155/50
[2018-02-01] MEDS: Albuterol/Ipratropium 3ml neb HHN SCH ×4 (01:00→13:21)
[2018-02-01 04:00] VITALS: BP 139/57
[2018-02-01 08:08] LABS: INR 2.1 (0.9-1.1)
[2018-02-01 08:20] VITALS: BP 141/87
[2018-02-01] MEDS: Cephalexin 500mg cap ORAL SCH ×4 (09:33→20:06)
[2018-02-01] MEDS: Memantine 10mg tab ORAL SCH (09:34)
[2018-02-01] MEDS: Bactrim-DS 1 tab ORAL SCH (09:34)
[2018-02-01 11:53] VITALS: BP 137/84
[2018-02-01] MEDS: Levofloxacin 500mg tab ORAL SCH (12:28)
[2018-02-01 15:50] VITALS: BP 130/74
--- NOTE | 2018-02-01 16:54 | General Progress Note ---
Assessment/Plan Problem List: (1) Cellulitis ICD Codes: L03.90 - Cellulitis, unspecified SNOMED: 130736149 (2) Elevated INR ICD Codes: R79.1 - Abnormal coagulation profile SNOMED: 815269333 Status: progressing Assessment/Plan wound /decub treatment per wound team\\ arrythmia htn dementia bedbound coagulapathy improving Subjective ROS Limited/Unobtainable: Yes Allergies: Coded Allergies: No Known Allergies (Unverified , 06/20/17) Objective Last 24 Hour Vital Signs Date Time Temp Pulse Resp B/P (MAP) Pulse Ox O2 Delivery O2 Flow Rate FiO2 02/01/18 15:50 98.6 72 17 130/74 97 Room Air 98.6 02/01/18 13:33 61 20 98 Room Air 21 02/01/18 13:22 59 16 98 Room Air 21 02/01/18 11:53 97.9 81 17 137/84 96 Room Air 97.9 02/01/18 09:34 139/57 02/01/18 09:34 72 139/57 02/01/18 08:20 98.8 76 16 141/87 96 Room Air 98.8 02/01/18 07:31 72 18 98 Room Air 21 02/01/18 07:22 68 18 95 Room Air 21 02/01/18 04:00 98.1 67 19 139/57 100 Room Air 98.1 02/01/18 02:05 Room Air 21 02/01/18 02:05 Room Air 21 02/01/18 00:00 97.9 70 20 155/50 96 Room Air 97.9 01/31/18 20:53 132/53 01/31/18 20:15 78 20 98 Room Air 21 01/31/18 20:06 65 18 95 Room Air 21 01/31/18 20:00 98.4 68 20 132/53 94 Room Air 98.4 Intake and Output 01/31/18 02/01/18 19:00 07:00 Intake Total 260 ml Balance 260 ml Intake Oral 260 ml # Voids 4 3 # Bowel Movements 1 Laboratory Tests 02/01/18 01:00: Stool Occult Blood [Pending] 02/01/18 06:00: Prothrombin Time 21.8H, Prothromb Time International Ratio 2.1H Height (Feet): 5 Height (Inches): 8.00 Weight (Pounds): 150 Respiratory/Chest: lungs clear Abdomen: soft Danitza Mustafa MD Feb 01, 2018 16:54
[2018-02-01] MEDS ORDERED: Warfarin Sodium 1mg ORAL SCH (17:00)
[2018-02-01 20:00] VITALS: BP 126/58
[2018-02-01] MEDS ORDERED: Tubing IV Secondary IV ONE (20:52)
[2018-02-01] MEDS ORDERED: NS 500ML ONE (20:52)
--- NOTE | 2018-02-01 22:06 | General Progress Note ---
Assessment/Plan Assessment/Plan IMPRESSION: 1. Coagulopathy secondary to Coumadin. 2. Anemia of chronic disease. 3. Cellulitis of right lower extremity. 4. History of atrial fibrillation. 5. History of anticoagulation with Coumadin. 6. Hypertension. 7. Coronary artery disease. 8. Gastroesophageal reflux disease. 9. Dementia. 10. Dysphagia. 11. Status post ventriculoperitoneal brain shunt. 12. Malnutrition. 13. Failure to thrive. RECOMMENDATION: 1. Fresh frozen plasma 2 units. 2. Vitamin K 10 mg subcutaneous x1. 3. Venous Doppler of bilateral lower extremities to rule out DVT. 4. PRBC transfusion on p.r.n. basis. 5. Antibiotics IV. 6. Close followup. 7. Continue current treatment. 8. Continue current medication regimen. 9. Skin care. 10. Nutrition. 11. ID followup. 12. Close followup. Subjective Date patient seen: Jan 31, 2018 Constitutional: Denies: no symptoms, chills, diaphoresis, fever, malaise, weakness, other HEENT: Denies: no symptoms, eye pain, blurred vision, tearing, double vision, ear pain, ear discharge, nose pain, nose congestion, throat pain, throat swelling, mouth pain, mouth swelling, other Cardiovascular: Denies: no symptoms, chest pain, edema, irregular heart rate, lightheadedness, palpitations, syncope, other Respiratory: Denies: no symptoms, cough, orthopnea, shortness of breath, SOB with excertion, SOB at rest, sputum, stridor, wheezing, other Gastrointestinal/Abdominal: Denies: no symptoms, abdomen distended, abdominal pain, black stools, tarry stools, blood in stool, constipated, diarrhea, difficulty swallowing, nausea, poor appetite, poor fluid intake, rectal bleeding , vomiting, other Genitourinary: Denies: no symptoms, burning, discharge, frequency, flank pain, hematuria, incontinence, pain, urgency, other Neurologic/Psychiatric: Denies: no symptoms, anxiety, depressed, emotional problems, headache, numbness, paresthesia, pre-existing deficit, seizure, tingling, tremors, weakness, other Hematologic/Lymphatic: Reports: anemia Allergies: Coded Allergies: No Known Allergies (Unverified , 06/20/17) Subjective +hematochezia. INR improved. No acute events. Objective Last 24 Hour Vital Signs Date Time Temp Pulse Resp B/P (MAP) Pulse Ox O2 Delivery O2 Flow Rate FiO2 02/01/18 21:05 Room Air 02/01/18 21:03 71 20 93 Room Air 2.0 21 02/01/18 20:19 21 02/01/18 20:17 71 20 93 Room Air 21 02/01/18 20:07 130/74 02/01/18 20:00 98.5 68 20 126/58 95 Room Air 98.5 02/01/18 15:50 98.6 72 17 130/74 97 Room Air 98.6 02/01/18 13:33 61 20 98 Room Air 21 02/01/18 13:22 59 16 98 Room Air 21 02/01/18 11:53 97.9 81 17 137/84 96 Room Air 97.9 02/01/18 09:34 139/57 02/01/18 09:34 72 139/57 02/01/18 08:20 98.8 76 16 141/87 96 Room Air 98.8 02/01/18 07:31 72 18 98 Room Air 21 02/01/18 07:22 68 18 95 Room Air 21 02/01/18 04:00 98.1 67 19 139/57 100 Room Air 98.1 02/01/18 02:05 Room Air 21 02/01/18 02:05 Room Air 21 02/01/18 00:00 97.9 70 20 155/50 96 Room Air 97.9 Intake and Output 01/31/18 02/01/18 19:00 07:00 Intake Total 260 ml Balance 260 ml Intake Oral 260 ml # Voids 4 3 # Bowel Movements 1 Laboratory Tests 02/01/18 01:00: Stool Occult Blood [Pending] 02/01/18 06:00: Prothrombin Time 21.8H, Prothromb Time International Ratio 2.1H Height (Feet): 5 Height (Inches): 8.00 Weight (Pounds): 150 General Appearance: confused EENT: normal ENT inspection Neck: normal alignment Cardiovascular: normal rate, regular rhythm Respiratory/Chest: decreased breath sounds Bharath Ya MD Feb 01, 2018 22:06
[2018-02-02] VITALS: BP 120/56
[2018-02-02 04:00] VITALS: BP 130/59
[2018-02-02 08:00] VITALS: BP 137/71
[2018-02-02 08:09] LABS: INR 2.7 (0.9-1.1)
[2018-02-02] MEDS: Levofloxacin 500mg tab ORAL SCH (08:25)
[2018-02-02] MEDS: Memantine 10mg tab ORAL SCH (08:26)
[2018-02-02] MEDS: Cephalexin 500mg cap ORAL SCH ×2 (08:27→12:41)
[2018-02-02 12:00] VITALS: BP 139/51
[2018-02-02 13:40] LABS: BASOPHILS % (AUTO) 0.8 % (0.0-2.0); EOSINOPHILS % (AUTO) 4.3 % (0.0-3.0); HEMOGLOBIN 9.6 G/DL (14.2-18.0); LYMPHOCYTES % (AUTO) 15.4 % (20.0-45.0); MEAN CORPUSCULAR VOLUME 95 FL (80-99); MONOCYTES % (AUTO) 6.1 % (1.0-10.0); NEUTROPHILS % (AUTO) 73.4 % (45.0-75.0); PLATELET COUNT 266 K/UL (150-450); RED BLOOD COUNT 3.04 M/UL (4.70-6.10); RED CELL DISTRIBUTION WIDTH 15.5 % (11.6-14.8); WHITE BLOOD COUNT 7.8 K/UL (4.8-10.8)
[2018-02-02 13:50] LABS: ANION GAP 7 mmol/L (5-15); BLOOD UREA NITROGEN 29 mg/dL (7-18); CALCIUM 8.7 MG/DL (8.5-10.1); CARBON DIOXIDE 28 MMOL/L (21-32); CHLORIDE 100 MMOL/L (98-107); CREATININE 1.3 MG/DL (0.55-1.30); POTASSIUM 4.5 MMOL/L (3.5-5.1); SODIUM 135 MMOL/L (136-145)
--- NOTE | 2018-02-02 13:55 | Infectious Diseases Prog Note ---
Assessment/Plan Assessment/Plan A; infected pressure ulcer left knee Dementia Anemia Lactic acidosis resolved Anemia MRSA colonization P; continue Levaquin Change PO Keflex to Bactrim will f/u cultures Subjective ROS Limited/Unobtainable: No HEENT: Reports: no symptoms Respiratory: Reports: no symptoms Breasts: Reports: no symptoms Cardiovascular: Reports: no symptoms Gastrointestinal/Abdominal: Reports: no symptoms Allergies: Coded Allergies: No Known Allergies (Unverified , 06/20/17) Objective Vital Signs Last 24 Hour Vital Signs Date Time Temp Pulse Resp B/P (MAP) Pulse Ox O2 Delivery O2 Flow Rate FiO2 02/02/18 12:00 98.1 66 18 139/51 99 Room Air 98.1 02/02/18 08:26 131/76 02/02/18 08:26 70 131/76 02/02/18 08:00 98.4 72 18 137/71 95 Room Air 98.4 02/02/18 04:00 97.0 70 20 130/59 96 Room Air 97.0 02/02/18 00:00 97.9 73 20 120/56 96 Room Air 97.9 02/01/18 21:05 Room Air 02/01/18 21:03 71 20 93 Room Air 2.0 21 02/01/18 20:19 21 02/01/18 20:17 71 20 93 Room Air 21 02/01/18 20:07 130/74 02/01/18 20:00 98.5 68 20 126/58 95 Room Air 98.5 02/01/18 15:50 98.6 72 17 130/74 97 Room Air 98.6 Height (Feet): 5 Height (Inches): 8.00 Weight (Pounds): 150 General Appearance: no acute distress HEENT: mucous membranes moist Respiratory/Chest: lungs clear Cardiovascular: normal rate Abdomen: soft, non tender Skin: ulcers Neurologic/Psychiatric: alert, responsive Laboratory Tests Test 02/02/18 06:45 02/02/18 13:25 Prothrombin Time 28.7 SEC (9.30-11.50) H Prothromb Time International Ratio 2.7 (0.9-1.1) H White Blood Count 7.8 K/UL (4.8-10.8) Red Blood Count 3.04 M/UL (4.70-6.10) L Hemoglobin 9.6 G/DL (14.2-18.0) L Hematocrit 29.0 % (42.0-52.0) L Mean Corpuscular Volume 95 FL (80-99) Mean Corpuscular Hemoglobin 31.5 PG (27.0-31.0) H Mean Corpuscular Hemoglobin Concent 33.0 G/DL (32.0-36.0) Red Cell Distribution Width 15.5 % (11.6-14.8) H Platelet Count 266 K/UL (150-450) Mean Platelet Volume 5.4 FL (6.5-10.1) L Neutrophils (%) (Auto) 73.4 % (45.0-75.0) Lymphocytes (%) (Auto) 15.4 % (20.0-45.0) L Monocytes (%) (Auto) 6.1 % (1.0-10.0) Eosinophils (%) (Auto) 4.3 % (0.0-3.0) H Basophils (%) (Auto) 0.8 % (0.0-2.0) Sodium Level Pending Potassium Level Pending Chloride Level Pending Carbon Dioxide Level Pending Blood Urea Nitrogen Pending Creatinine Pending Estimat Glomerular Filtration Rate Pending Glucose Level Pending Calcium Level Pending Current Medications Medications (Trade) Dose Ordered Sig/Raine Route PRN Reason Start Time Stop Time Status Last Admin Dose Admin Acetaminophen (Tylenol) 650 mg Q6H PRN ORAL Mild Pain/Temp > 100.5 01/27/18 16:00 02/26/18 15:59 Amlodipine Besylate (Norvasc) 5 mg DAILY ORAL 01/28/18 09:00 02/27/18 08:59 02/02/18 08:26 Cephalexin (Keflex) 500 mg FOUR TIMES A DAY ORAL 01/31/18 18:00 02/07/18 17:59 02/02/18 12:41 Clonidine HCl (Catapres Tab) 0.1 mg Q12HR ORAL 01/27/18 21:00 02/26/18 20:59 02/02/18 08:26 Ergocalciferol (Drisdol) 50,000 intlu QWEEK ORAL 01/29/18 09:00 02/28/18 08:59 01/29/18 10:30 Famotidine (Pepcid) 20 mg DAILY ORAL 01/28/18 09:00 02/27/18 08:59 02/02/18 08:27 Finasteride (Proscar) 5 mg DAILY ORAL 01/28/18 09:00 02/27/18 08:59 02/02/18 08:25 Levofloxacin (Levaquin) 500 mg DAILY ORAL 02/01/18 13:00 02/08/18 12:59 02/02/18 08:25 Memantine (Namenda) 5 mg DAILY ORAL 01/28/18 09:00 02/27/18 08:59 02/02/18 08:26 Mirtazapine (Remeron) 15 mg BEDTIME ORAL 01/27/18 21:00 02/26/18 20:59 02/01/18 20:06 Warfarin Sodium (Coumadin per pharmacy) 1 ea DAILY PRN MISC Per rx protocol 01/27/18 16:45 02/26/18 16:44 TOLU ERICKSON Feb 02, 2018 13:55
--- NOTE | 2018-02-02 14:39 | General Progress Note ---
Assessment/Plan Problem List: (1) Cellulitis ICD Codes: L03.90 - Cellulitis, unspecified SNOMED: 809356157 (2) Elevated INR ICD Codes: R79.1 - Abnormal coagulation profile SNOMED: [id number] Status: progressing Assessment/Plan dc planning afebrile celluitis improved no acute events dementia bedbound coagulapathy improving Subjective ROS Limited/Unobtainable: Yes Allergies: Coded Allergies: No Known Allergies (Unverified , 06/20/17) Objective Last 24 Hour Vital Signs Date Time Temp Pulse Resp B/P (MAP) Pulse Ox O2 Delivery O2 Flow Rate FiO2 02/02/18 12:00 98.1 66 18 139/51 99 Room Air 98.1 02/02/18 08:26 131/76 02/02/18 08:26 70 131/76 02/02/18 08:00 98.4 72 18 137/71 95 Room Air 98.4 02/02/18 04:00 97.0 70 20 130/59 96 Room Air 97.0 02/02/18 00:00 97.9 73 20 120/56 96 Room Air 97.9 02/01/18 21:05 Room Air 02/01/18 21:03 71 20 93 Room Air 2.0 21 02/01/18 20:19 21 02/01/18 20:17 71 20 93 Room Air 21 02/01/18 20:07 130/74 02/01/18 20:00 98.5 68 20 126/58 95 Room Air 98.5 02/01/18 15:50 98.6 72 17 130/74 97 Room Air 98.6 Intake and Output 02/01/18 02/02/18 19:00 07:00 Intake Total 1200 ml 60 ml Balance 1200 ml 60 ml Intake Oral 60 ml Other 1200 ml # Voids 4 2 # Bowel Movements 2 Laboratory Tests 02/02/18 06:45: Prothrombin Time 28.7H, Prothromb Time International Ratio 2.7H 02/02/18 13:25: White Blood Count 7.8, Red Blood Count 3.04L, Hemoglobin 9.6L, Hematocrit 29.0L , Mean Corpuscular Volume 95, Mean Corpuscular Hemoglobin 31.5H, Mean Corpuscular Hemoglobin Concent 33.0, Red Cell Distribution Width 15.5H, Platelet Count 266, Mean Platelet Volume 5.4L, Neutrophils (%) (Auto) 73.4, Lymphocytes (%) (Auto) 15.4L, Monocytes (%) (Auto) 6.1, Eosinophils (%) (Auto) 4.3H, Basophils (%) (Auto) 0.8, Sodium Level 135L, Potassium Level 4.5, Chloride Level 100, Carbon Dioxide Level 28, Anion Gap 7, Blood Urea Nitrogen 29H, Creatinine 1.3, Estimat Glomerular Filtration Rate , Glucose Level 111H, Calcium Level 8.7 Height (Feet): 5 Height (Inches): 8.00 Weight (Pounds): 150 General Appearance: confused Respiratory/Chest: lungs clear Abdomen: soft Danitza Mustafa MD Feb 02, 2018 14:39
[2018-02-02 16:00] VITALS: BP 130/60
[2018-02-02] MEDS: Bactrim-DS 1 tab ORAL SCH (17:45)
[2018-02-02 20:00] VITALS: BP 134/87
--- NOTE | 2018-02-02 23:22 | General Progress Note ---
Assessment/Plan Assessment/Plan IMPRESSION: 1. Coagulopathy secondary to Coumadin. 2. Anemia of chronic disease. 3. Cellulitis of right lower extremity. 4. History of atrial fibrillation. 5. History of anticoagulation with Coumadin. 6. Hypertension. 7. Coronary artery disease. 8. Gastroesophageal reflux disease. 9. Dementia. 10. Dysphagia. 11. Status post ventriculoperitoneal brain shunt. 12. Malnutrition. 13. Failure to thrive. RECOMMENDATION: 1. Fresh frozen plasma 2 units. 2. Vitamin K 10 mg subcutaneous x1. 3. Venous Doppler of bilateral lower extremities to rule out DVT. 4. PRBC transfusion on p.r.n. basis. 5. Antibiotics IV. 6. Close followup. 7. Continue current treatment. 8. Continue current medication regimen. 9. Skin care. 10. Nutrition. 11. ID followup. 12. Close followup. Subjective Date patient seen: Feb 01, 2018 Constitutional: Denies: no symptoms, chills, diaphoresis, fever, malaise, weakness, other HEENT: Denies: no symptoms, eye pain, blurred vision, tearing, double vision, ear pain, ear discharge, nose pain, nose congestion, throat pain, throat swelling, mouth pain, mouth swelling, other Cardiovascular: Denies: no symptoms, chest pain, edema, irregular heart rate, lightheadedness, palpitations, syncope, other Respiratory: Denies: no symptoms, cough, orthopnea, shortness of breath, SOB with excertion, SOB at rest, sputum, stridor, wheezing, other Gastrointestinal/Abdominal: Denies: no symptoms, abdomen distended, abdominal pain, black stools, tarry stools, blood in stool, constipated, diarrhea, difficulty swallowing, nausea, poor appetite, poor fluid intake, rectal bleeding , vomiting, other Genitourinary: Denies: no symptoms, burning, discharge, frequency, flank pain, hematuria, incontinence, pain, urgency, other Neurologic/Psychiatric: Denies: no symptoms, anxiety, depressed, emotional problems, headache, numbness, paresthesia, pre-existing deficit, seizure, tingling, tremors, weakness, other Hematologic/Lymphatic: Reports: anemia Allergies: Coded Allergies: No Known Allergies (Unverified , 06/20/17) Subjective On anticoagulation. Confused. Objective Last 24 Hour Vital Signs Date Time Temp Pulse Resp B/P (MAP) Pulse Ox O2 Delivery O2 Flow Rate FiO2 02/02/18 20:18 137/87 02/02/18 20:00 98.5 88 20 134/87 93 98.5 02/02/18 16:00 97.3 65 20 130/60 98 Room Air 97.3 02/02/18 12:00 98.1 66 18 139/51 99 Room Air 98.1 02/02/18 08:26 131/76 02/02/18 08:26 70 131/76 02/02/18 08:00 98.4 72 18 137/71 95 Room Air 98.4 02/02/18 04:00 97.0 70 20 130/59 96 Room Air 97.0 02/02/18 00:00 97.9 73 20 120/56 96 Room Air 97.9 Intake and Output 02/01/18 02/02/18 19:00 07:00 Intake Total 1200 ml 60 ml Balance 1200 ml 60 ml Intake Oral 60 ml Other 1200 ml # Voids 4 2 # Bowel Movements 2 Laboratory Tests 02/02/18 06:45: Prothrombin Time 28.7H, Prothromb Time International Ratio 2.7H 02/02/18 13:25: White Blood Count 7.8, Red Blood Count 3.04L, Hemoglobin 9.6L, Hematocrit 29.0L , Mean Corpuscular Volume 95, Mean Corpuscular Hemoglobin 31.5H, Mean Corpuscular Hemoglobin Concent 33.0, Red Cell Distribution Width 15.5H, Platelet Count 266, Mean Platelet Volume 5.4L, Neutrophils (%) (Auto) 73.4, Lymphocytes (%) (Auto) 15.4L, Monocytes (%) (Auto) 6.1, Eosinophils (%) (Auto) 4.3H, Basophils (%) (Auto) 0.8, Sodium Level 135L, Potassium Level 4.5, Chloride Level 100, Carbon Dioxide Level 28, Anion Gap 7, Blood Urea Nitrogen 29H, Creatinine 1.3, Estimat Glomerular Filtration Rate , Glucose Level 111H, Calcium Level 8.7 Height (Feet): 5 Height (Inches): 8.00 Weight (Pounds): 150 General Appearance: confused Cardiovascular: normal peripheral pulses, normal rate Respiratory/Chest: lungs clear Abdomen: normal bowel sounds Bharath Ya MD Feb 02, 2018 23:22
[2018-02-03] VITALS: BP 140/61
[2018-02-03 04:00] VITALS: BP 141/63
[2018-02-03 08:00] VITALS: BP 130/70
[2018-02-03] MEDS: Levofloxacin 500mg tab ORAL SCH (09:04)
[2018-02-03] MEDS: Bactrim-DS 1 tab ORAL SCH ×2 (09:04→17:10)
[2018-02-03] MEDS: Memantine 10mg tab ORAL SCH (09:04)
[2018-02-03 09:20] LABS: INR 2.3 (0.9-1.1)
[2018-02-03] MEDS ORDERED: LEVAQUIN500 MG ORAL (11:05)
[2018-02-03] MEDS ORDERED: BACTRIM DS TAB1 EAC1 ORAL (11:06)
[2018-02-03 12:34] VITALS: BP 125/72
--- NOTE | 2018-02-03 13:28 | General Progress Note ---
Assessment/Plan Assessment/Plan IMPRESSION: 1. Coagulopathy secondary to Coumadin. 2. Anemia of chronic disease. 3. Cellulitis of right lower extremity. 4. History of atrial fibrillation. 5. History of anticoagulation with Coumadin. 6. Hypertension. 7. Coronary artery disease. 8. Gastroesophageal reflux disease. 9. Dementia. 10. Dysphagia. 11. Status post ventriculoperitoneal brain shunt. 12. Malnutrition. 13. Failure to thrive. RECOMMENDATION: 1. Fresh frozen plasma 2 units. 2. Vitamin K 10 mg subcutaneous x1. 3. Venous Doppler of bilateral lower extremities to rule out DVT. 4. PRBC transfusion on p.r.n. basis. 5. Antibiotics IV. 6. Close followup. 7. Continue current treatment. 8. Continue current medication regimen. 9. Skin care. 10. Nutrition. 11. ID followup. 12. Close followup. Subjective Date patient seen: Feb 02, 2018 Constitutional: Denies: no symptoms, chills, diaphoresis, fever, malaise, weakness, other HEENT: Denies: no symptoms, eye pain, blurred vision, tearing, double vision, ear pain, ear discharge, nose pain, nose congestion, throat pain, throat swelling, mouth pain, mouth swelling, other Cardiovascular: Denies: no symptoms, chest pain, edema, irregular heart rate, lightheadedness, palpitations, syncope, other Respiratory: Denies: no symptoms, cough, orthopnea, shortness of breath, SOB with excertion, SOB at rest, sputum, stridor, wheezing, other Gastrointestinal/Abdominal: Denies: no symptoms, abdomen distended, abdominal pain, black stools, tarry stools, blood in stool, constipated, diarrhea, difficulty swallowing, nausea, poor appetite, poor fluid intake, rectal bleeding , vomiting, other Genitourinary: Denies: no symptoms, burning, discharge, frequency, flank pain, hematuria, incontinence, pain, urgency, other Neurologic/Psychiatric: Denies: no symptoms, anxiety, depressed, emotional problems, headache, numbness, paresthesia, pre-existing deficit, seizure, tingling, tremors, weakness, other Endocrine: Denies: no symptoms, excessive sweating, flushing, intolerance to cold, intolerance to heat, increased hunger, increased thirst, increased urine, unexplained weight gain, unexplained weight loss, other Allergies: Coded Allergies: No Known Allergies (Unverified , 9/14/17) Subjective On anticoagulation. No acute events. No fever or chills. Objective Last 24 Hour Vital Signs Date Time Temp Pulse Resp B/P (MAP) Pulse Ox O2 Delivery O2 Flow Rate FiO2 02/03/18 12:34 97.0 65 20 125/72 95 Room Air 97.0 02/03/18 09:04 130/70 02/03/18 09:04 70 130/70 02/03/18 08:00 97.0 70 20 130/70 99 97.0 02/03/18 04:00 98.0 69 21 141/63 95 Room Air 98.0 02/03/18 00:00 97.3 84 20 140/61 96 97.3 02/02/18 20:18 137/87 02/02/18 20:00 98.5 88 20 134/87 93 98.5 02/02/18 16:00 97.3 65 20 130/60 98 Room Air 97.3 Intake and Output 02/02/18 02/03/18 19:00 07:00 Intake Total 480 ml 440 ml Balance 480 ml 440 ml Intake Oral 480 ml 440 ml # Voids 3 4 Laboratory Tests 02/03/18 08:38: Prothrombin Time 24.7H, Prothromb Time International Ratio 2.3H Height (Feet): 5 Height (Inches): 8.00 Weight (Pounds): 150 General Appearance: no apparent distress, confused Neck: normal alignment Cardiovascular: normal rate, regular rhythm Respiratory/Chest: decreased breath sounds Abdomen: normal bowel sounds, non tender Bharath Ya MD Feb 03, 2018 13:28
--- NOTE | 2018-02-03 15:00 | General Progress Note ---
Assessment/Plan Status: stable, progressing Subjective Date patient seen: Feb 03, 2018 Neurologic/Psychiatric: Reports: anxiety, depressed, emotional problems Allergies: Coded Allergies: No Known Allergies (Unverified , 06/20/17) Objective Last 24 Hour Vital Signs Date Time Temp Pulse Resp B/P (MAP) Pulse Ox O2 Delivery O2 Flow Rate FiO2 02/03/18 12:34 97.0 65 20 125/72 95 Room Air 97.0 02/03/18 09:04 130/70 02/03/18 09:04 70 130/70 02/03/18 08:00 97.0 70 20 130/70 99 97.0 02/03/18 04:00 98.0 69 21 141/63 95 Room Air 98.0 02/03/18 00:00 97.3 84 20 140/61 96 97.3 02/02/18 20:18 137/87 02/02/18 20:00 98.5 88 20 134/87 93 98.5 02/02/18 16:00 97.3 65 20 130/60 98 Room Air 97.3 Intake and Output 02/02/18 02/03/18 19:00 07:00 Intake Total 480 ml 440 ml Balance 480 ml 440 ml Intake Oral 480 ml 440 ml # Voids 3 4 Laboratory Tests 02/03/18 08:38: Prothrombin Time 24.7H, Prothromb Time International Ratio 2.3H Height (Feet): 5 Height (Inches): 8.00 Weight (Pounds): 150 General Appearance: no apparent distress, alert, confused Neurologic: depressed affect Leo Garcia M.D. Feb 03, 2018 15:00
--- NOTE | 2018-02-03 15:10 | Infectious Diseases Prog Note ---
Assessment/Plan Assessment/Plan A; infected pressure ulcer left knee improving Dementia Anemia Lactic acidosis resolved Anemia MRSA colonization P; continue Levaquin & Bactrim X 5 days agree with discharge Subjective ROS Limited/Unobtainable: No Respiratory: Reports: no symptoms Cardiovascular: Reports: no symptoms Genitourinary: Reports: no symptoms Allergies: Coded Allergies: No Known Allergies (Unverified , 06/20/17) Objective Vital Signs Last 24 Hour Vital Signs Date Time Temp Pulse Resp B/P (MAP) Pulse Ox O2 Delivery O2 Flow Rate FiO2 02/03/18 12:34 97.0 65 20 125/72 95 Room Air 97.0 02/03/18 09:04 130/70 02/03/18 09:04 70 130/70 02/03/18 08:00 97.0 70 20 130/70 99 97.0 02/03/18 04:00 98.0 69 21 141/63 95 Room Air 98.0 02/03/18 00:00 97.3 84 20 140/61 96 97.3 02/02/18 20:18 137/87 02/02/18 20:00 98.5 88 20 134/87 93 98.5 02/02/18 16:00 97.3 65 20 130/60 98 Room Air 97.3 Height (Feet): 5 Height (Inches): 8.00 Weight (Pounds): 150 General Appearance: no acute distress HEENT: mucous membranes moist Respiratory/Chest: lungs clear Cardiovascular: normal rate Abdomen: soft, non tender Extremities: no edema Skin: ulcers Neurologic/Psychiatric: alert, responsive Laboratory Tests Test 02/03/18 08:38 Prothrombin Time 24.7 SEC (9.30-11.50) H Prothromb Time International Ratio 2.3 (0.9-1.1) H Current Medications Medications (Trade) Dose Ordered Sig/Raine Route PRN Reason Start Time Stop Time Status Last Admin Dose Admin Acetaminophen (Tylenol) 650 mg Q6H PRN ORAL Mild Pain/Temp > 100.5 01/27/18 16:00 02/26/18 15:59 Amlodipine Besylate (Norvasc) 5 mg DAILY ORAL 01/28/18 09:00 02/27/18 08:59 02/03/18 09:04 Clonidine HCl (Catapres Tab) 0.1 mg Q12HR ORAL 01/27/18 21:00 02/26/18 20:59 02/03/18 09:04 Clotrimazole (Lotrimin) 1 applic EVERY 12 HOURS TOPIC 02/03/18 11:00 03/05/18 10:59 02/03/18 11:17 Ergocalciferol (Drisdol) 50,000 intlu QWEEK ORAL 01/29/18 09:00 02/28/18 08:59 01/29/18 10:30 Famotidine (Pepcid) 20 mg DAILY ORAL 01/28/18 09:00 02/27/18 08:59 02/03/18 09:04 Finasteride (Proscar) 5 mg DAILY ORAL 01/28/18 09:00 02/27/18 08:59 02/03/18 09:04 Levofloxacin (Levaquin) 500 mg DAILY ORAL 02/01/18 13:00 02/08/18 12:59 02/03/18 09:04 Memantine (Namenda) 5 mg DAILY ORAL 01/28/18 09:00 02/27/18 08:59 02/03/18 09:04 Mirtazapine (Remeron) 15 mg BEDTIME ORAL 01/27/18 21:00 02/26/18 20:59 02/02/18 20:14 Trimethoprim/ Sulfamethoxazole (Bactrim-DS) 1 tab TWICE A DAY ORAL 02/02/18 18:00 02/09/18 17:59 02/03/18 09:04 Warfarin Sodium (Coumadin per pharmacy) 1 ea DAILY PRN MISC Per rx protocol 01/27/18 16:45 02/26/18 16:44 Warfarin Sodium (Coumadin) 0.5 mg COUMADIN ORAL 02/03/18 17:00 02/03/18 18:00 TOLU ERICKSON Feb 03, 2018 15:10
[2018-02-03 16:00] VITALS: BP 117/44
[2018-02-03] MEDS ORDERED: Warfarin Sodium 1mg ORAL SCH (17:00)
--- NOTE | 2018-02-03 17:15 | Consultation ---
DATE OF CONSULTATION: 02/02/2018 This is a late entry. HISTORY OF PRESENT ILLNESS: The patient is an 82-year-old male with history of dementia and depression who was admitted on Namenda and mirtazapine. The patient is a poor historian. He had episodes of anxiety and agitation. He is currently continued on Remeron and Namenda since he was admitted. PAST PSYCHIATRIC HISTORY: Significant for depression and dementia. PAST MEDICAL HISTORY: Significant for PEG, MEAT TRIMMER shunt, atrial fibrillation, hypertension, GERD, dysphagia, BPH. ALLERGIES: No known drug allergies. SUBSTANCE ABUSE HISTORY: No known history of illicit drug use or alcohol. MENTAL STATUS EXAMINATION: The patient is alert, however, is confused and disoriented. Mood is dysphoric. Affect is constricted. Congruent with mood. Thought process is concrete. Thought content, no suicidal or homicidal ideations. ASSESSMENT: AXIS I: 1. Major depressive disorder. 2. Dementia. AXIS II: Deferred. AXIS III: As above. AXIS IV: Low. PLAN: 1. The patient will be continued Remeron and Namenda. 2. Provide the patient with supportive therapy and reality orientation. Leo Garcia M.D. DR: Luz JOB#: [id number] CC:
--- NOTE | 2018-02-04 01:04 | General Progress Note ---
Assessment/Plan Assessment/Plan IMPRESSION: 1. Coagulopathy secondary to Coumadin. 2. Anemia of chronic disease. 3. Cellulitis of right lower extremity. 4. History of atrial fibrillation. 5. History of anticoagulation with Coumadin. 6. Hypertension. 7. Coronary artery disease. 8. Gastroesophageal reflux disease. 9. Dementia. 10. Dysphagia. 11. Status post ventriculoperitoneal brain shunt. 12. Malnutrition. 13. Failure to thrive. RECOMMENDATION: 1. Fresh frozen plasma 2 units. 2. Vitamin K 10 mg subcutaneous x1. 3. Venous Doppler of bilateral lower extremities to rule out DVT. 4. PRBC transfusion on p.r.n. basis. 5. Antibiotics IV. 6. Close followup. 7. Continue current treatment. 8. Continue current medication regimen. 9. Skin care. 10. Nutrition. 11. ID followup. 12. Close followup. Subjective Date patient seen: Feb 03, 2018 Constitutional: Denies: no symptoms, chills, diaphoresis, fever, malaise, weakness, other HEENT: Denies: no symptoms, eye pain, blurred vision, tearing, double vision, ear pain, ear discharge, nose pain, nose congestion, throat pain, throat swelling, mouth pain, mouth swelling, other Cardiovascular: Denies: no symptoms, chest pain, edema, irregular heart rate, lightheadedness, palpitations, syncope, other Respiratory: Denies: no symptoms, cough, orthopnea, shortness of breath, SOB with excertion, SOB at rest, sputum, stridor, wheezing, other Gastrointestinal/Abdominal: Denies: no symptoms, abdomen distended, abdominal pain, black stools, tarry stools, blood in stool, constipated, diarrhea, difficulty swallowing, nausea, poor appetite, poor fluid intake, rectal bleeding , vomiting, other Genitourinary: Denies: no symptoms, burning, discharge, frequency, flank pain, hematuria, incontinence, pain, urgency, other Neurologic/Psychiatric: Denies: no symptoms, anxiety, depressed, emotional problems, headache, numbness, paresthesia, pre-existing deficit, seizure, tingling, tremors, weakness, other Hematologic/Lymphatic: Reports: anemia Allergies: Coded Allergies: No Known Allergies (Unverified , 06/20/17) Subjective On anticoagulation. No new events overnight. Pending dc. Objective Last 24 Hour Vital Signs Date Time Temp Pulse Resp B/P (MAP) Pulse Ox O2 Delivery O2 Flow Rate FiO2 02/03/18 16:00 98.0 74 20 117/44 96 Room Air 98.0 02/03/18 12:34 97.0 65 20 125/72 95 Room Air 97.0 02/03/18 09:04 130/70 02/03/18 09:04 70 130/70 02/03/18 08:00 97.0 70 20 130/70 99 97.0 02/03/18 04:00 98.0 69 21 141/63 95 Room Air 98.0 Intake and Output 02/03/18 02/04/18 19:00 07:00 Intake Total 300 ml Balance 300 ml Intake Oral 300 ml # Voids 3 # Bowel Movements 1 Laboratory Tests 02/03/18 08:38: Prothrombin Time 24.7H, Prothromb Time International Ratio 2.3H Height (Feet): 5 Height (Inches): 8.00 Weight (Pounds): 150 General Appearance: no apparent distress EENT: normal ENT inspection Neck: normal alignment, supple Cardiovascular: normal rate, regular rhythm Respiratory/Chest: lungs clear, normal breath sounds Bharath Ya MD February 04, 2018 01:03
--- NOTE | 2018-02-05 09:15 | Discharge Summary ---
Discharge Summary Discharge Summary Discharge Summary DATE OF ADMISSION: 01/27/2018 DATE OF DISCHARGE: 02/03/2018 REASON FOR ADMISSION: 82 years old male with past medical history of atrial fibrillation ( on Coumadin fro antiembolic CVA prophylaxis), hypertension, HEEL PACKER shunt, GERD, dementia, was sent from the [facility] for evaluation of left knee swelling and redness. Patient denied fever ,chills, headaches of trauma. Upon evaluation in emergency department patient was found to have evidence of cellulitis with infected ulcer. Lactic acid 2.4, no leukocytosis, afebrile. Patient was noted to have elevated INR 9.4 ,troponin was negative, EKG revealed normal sinus rhythm, no acute ischemic changes. [facility] CONSULTANTS: industrial machine operator/oncologist Dr. Ya infectious disease specialist Zach Campa psychiatrist Dr. Garcia [facility] COURSE: Patient admitted to Med-Surg floor. Rn Clinical Documentation closely followed. Patient undergone transfusion of 2 units of fresh frozen plasma as well as the intravenous vitamin K. The next day INR from 9.4 down to 1.9. Coumadin was restarted as per pharmacy dosing with daily monitoring of INR. INR was in therapeutic range window 2-3. Infectious disease specialist closely followed. Patient was on initially on empiric antibiotics. Blood culture were negative, wound culture revealed Pseudomonas and MRSA. IV antibiotic regimen was optimized based on culture and sensitivity, and subsequently changed to oral upon transfer to [facility] facility to complete the course as recommended by infectious disease specialist. Hemoglobin and hematocrit were closely monitored with goal to keep hemoglobin above 8. No need for transfusion. Stool for occult blood was positive 2. Patient will have outpatient GI workup with close monitoring for any signs of bleeding. Supplemental oxygen provided as needed to keep pulse oximetry above 92%. Pulmonary toilet was on standup as needed. Bowel regimen instituted. Blood pressure was closely monitored. Nutritional recommendations implemented in plan of care with addition of protein supplement as well as the vitamins to improve wound healing. Psychiatrist closely followed and diagnosed patient with major depressive disorder and dementia. Patient was continued on Remeron and Namenda. Reality orientation provided. Patient clinically improved and was stable for discharge back to [facility] FINAL DIAGNOSES: Cellulitis left knee Infected ulcer left knee Lactic acidosis, resolved Coagulopathy secondary to Coumadin use, resolved Atrial fibrillation Moderate protein calorie malnutrition Coronary artery disease line Hypertension History of HEEL PACKER shunt Major depressive disorder Dementia DISCHARGE MEDICATIONS: See Medication Reconciliation list. DISCHARGE INSTRUCTIONS: Patient was discharged to [facility]. Follow up with medical doctor at the facility. I have been assigned to dictate discharge summary for this account. I was not involved in the patient's management. Vy Dominguez NP ([place]) February 05, 2018 09:15
== END 2018-02-03 18:38 | DRG 603 ==
LOC: EDBD 11:25 → EDBEDREQ 11:54 → EMR 12:18 → 4E 12:25 → EDBEDREQ 12:40
PROC: 30233K1 Transfusion of Nonautologous Frozen Plasma into Peripheral Vein, Percutaneous Approach (ICD-10-PCS; principal; 2018-01-27)
DX: L03.116 Cellulitis of left lower limb (principal); D68.32 Hemorrhagic disorder due to extrinsic circulating anticoagulants; E87.2 Acidosis; E44.0 Moderate protein-calorie malnutrition; T45.515A Adverse effect of anticoagulants, initial encounter; F03.90 Unspecified dementia, unspecified severity, without behavioral disturbance, psychotic disturbance, mood disturbance, and anxiety; D64.9 Anemia, unspecified; I48.91 Unspecified atrial fibrillation; Z79.01 Long term (current) use of anticoagulants; R13.10 Dysphagia, unspecified; Z98.2 Presence of cerebrospinal fluid drainage device; D63.8 Anemia in other chronic diseases classified elsewhere; K21.9 Gastro-esophageal reflux disease without esophagitis; I25.10 Atherosclerotic heart disease of native coronary artery without angina pectoris; I10 Essential (primary) hypertension; R62.7 Adult failure to thrive; L89.899 Pressure ulcer of other site, unspecified stage; F32.9 Major depressive disorder, single episode, unspecified; B96.5 Pseudomonas (aeruginosa) (mallei) (pseudomallei) as the cause of diseases classified elsewhere; B95.62 Methicillin resistant Staphylococcus aureus infection as the cause of diseases classified elsewhere
CPT/HCPCS: 36415; 80048; 80053; 82270; 82550; 83605; 84484; 85025; 85610; 85730; 86850; 86900; 86901; 86927; 87040; 87070; 87081; 87181; 87205; 93970; 94640; 94664; 99285; J3430; J7620